=== PATIENT | female | born 1950 | race Caucasian/White ===

== ENCOUNTER 2023-02-21 12:43 | Outpatient (OUT) | payer MEDICARE, SELFPAY ==
[2023-02-21 14:38] LABS: Estimated Average Glucose 157 mg/dL; Glycohemoglobin A1C 7.1 % (4.5-6.2)
== END 2023-02-21 12:44 | disposition home or self-care (01) ==
PROVIDERS: PCP Internal Medicine; Visit Provider Internal Medicine
DX: E11.65 Type 2 diabetes mellitus with hyperglycemia (principal)
CPT/HCPCS: 36415; 83036

== ENCOUNTER 2023-06-25 07:02 | Outpatient (OUT) | payer MEDICARE, SELFPAY ==
[2023-06-25 08:32] LABS: Estimated Average Glucose 166 mg/dL; Glycohemoglobin A1C 7.4 % (4.5-6.2)
== END 2023-06-25 07:03 | disposition home or self-care (01) ==
LOC: LAB 07:04
PROVIDERS: PCP Internal Medicine; Visit Provider Internal Medicine
DX: E11.65 Type 2 diabetes mellitus with hyperglycemia (principal)
CPT/HCPCS: 36415; 83036

== ENCOUNTER 2023-08-04 07:14 | Outpatient (OUT) | payer MEDICARE, SELFPAY ==
--- NOTE | 2023-08-04 07:19 | MM_ITS ---
Patient Name: MARCUS GUSTAFSON MR#: [id number] : 1950 Exam Date: 08/04/2023 Ordering Doctor: DR Abraham Fong D.O. RADIOLOGY REPORT PROCEDURE: MM TOMOSYNTHESIS SCREENING BI COMPARISON: MG MAMM SCREEN 3D ADAN CAD, 07/18/2021. MG MAMM SCREEN 3D ADAN CAD, 07/26/2022. INDICATIONS: screening Calculator Name NCI Breast Cancer Risk Assessment Tool 5 Year Breast Cancer Risk 1.50% Lifetime Breast Cancer Risk 3.90% Personal Breast Cancer No Personal Ovarian Cancer No Treatments None Family Cancers Father with colon cancer at age 76. LOCATION: [facility] BREAST COMPOSITION: Scattered areas fibroglandular density. FINDINGS: DIAGNOSTIC CATEGORY 2--BENIGN FINDING: RIGHT BREAST: No significant suspicious finding. Scattered benign-appearing calcifications are present. No significant change has occurred. LEFT BREAST: No significant suspicious finding. Scattered benign-appearing calcifications are present. No significant change has occurred. RECOMMENDATIONS: ROUTINE MAMMOGRAM AND CLINICAL EVALUATION IN 12 MONTHS. PLEASE NOTE: A NORMAL MAMMOGRAM DOES NOT EXCLUDE THE POSSIBILITY OF BREAST CANCER. A CLINICALLY SUSPICIOUS PALPABLE LUMP SHOULD BE BIOPSIED. Dictated by: Edmundo Duque M.D. on 08/04/2023 at 14:00 Approved by: Edmundo Duque M.D. on 08/04/2023 at 14:03
== END 2023-08-04 07:15 | disposition home or self-care (01) ==
LOC: MAMMO 07:14
PROVIDERS: PCP Internal Medicine; Visit Provider Internal Medicine
DX: Z12.31 Encounter for screening mammogram for malignant neoplasm of breast (principal); Z80.0 Family history of malignant neoplasm of digestive organs
CPT/HCPCS: 77063; 77067

== ENCOUNTER 2023-09-10 06:52 | Outpatient (OUT) | payer MEDICARE, SELFPAY ==
--- OUTSIDE RECORDS SUMMARY | 2023-09-09 10:32 | XMS_ITS | CCD ---
Author Name Unknown Address [address] [facility] [facility] [address] [place] [address] Organization [facility] Care Team Providers Care Formula Weigher Name Role Phone AJIT, DR CARVALHO Admitting Unavailable BALL, DR CARVALHO Attending Unavailable BALL, DR CARVALHO Primary Care Unavailable BALL, DR CARVALHO Consulting Unavailable BALL, DR CARVALHO Admitting Unavailable BALL, DR CARVALHO Attending Unavailable BALL, DR CARVALHO Primary Care Unavailable BALL, DR CARVALHO Consulting Unavailable BALL, DR CARVALHO Admitting Unavailable BALL, DR CARVALHO Attending Unavailable BALL, DR CARVALHO Primary Care Unavailable BALL, DR CARVALHO Consulting Unavailable [place], DR Wyatt Consulting Unavailable BALL, DR CARVALHO Admitting Unavailable BALL, DR CARVALHO Attending Unavailable BALL, DR CARVALHO Primary Care Unavailable BALL, DR CARVALHO Consulting Unavailable BALL, DR CARVALHO Admitting Unavailable BALL, DR CARVALHO Attending Unavailable BALL, DR CARVALHO Primary Care Unavailable BALL, DR CARVALHO Consulting Unavailable Zieber, DR Wyatt Consulting Unavailable LUCA, AMADEO Consulting Unavailable Ball, Abraham Unavailable Allergies Allergy Classification Reported Allergen(s) Allergy Type Date of Onset Reaction(s) Facility (1 source) egg extract Drug Allergy 4 [facility] Repository (13 sources) predniSONE Drug Allergy Unknown [facility] Other (6 sources) Simvastatin Drug Allergy Comment:myalgia [facility] [facility] [place] Other Medications Current Medications Medication Drug Class(es) Dates Sig (Normalized) Sig (Original) amLODIPine 5 mg oral tablet (13 sources) Dihydropyridine Calcium Channel Apryl amLODIPine Besylate 5 MG TAKE 1 TABLET DAILY Active benazepril hydrochloride 10 mg oral tablet (13 sources) Angiotensin Converting Enzyme Inhibitor Benazepril HCl 10 MG TAKE 1 TABLET DAILY; TAKE WITH EXISTING 20MG DOSE Active Benazepril HCl 2 0 MG TAKE 1 TABLET DAILY Active hydroCHLOROthiazide 25 mg oral tablet (13 sources) Thiazide Diuretic hydroCHLOROthi azide 25 MG TAKE 1 TABLET DAILY Active lovastatin 40 mg oral tablet (13 sources) HMG-CoA Reductase Inhibitor Lovastatin 40 MG LESLEY E 1 TABLET DAILY IN THE EVENING Active metFORMIN hydrochloride 1000 mg / SITagliptin 50 mg oral tablet (13 sources) Biguanide, Dipeptidyl Peptidase 4 Inhibitor Janumet 50-1000 MG T TIFFANY 1 TABLET TWICE A DAY Active nabumetone 1000 mg oral tablet (13 sources) Nonsteroidal Anti-inflammatory Drug Start : 10-07 take 1 tablet by mouth twice daily Nabumetone 1000 MG 1 tablet Orally Twice a day Oct, Active microencapsulated potassium chloride 20 meq extended release oral tablet (8 sources) Klor-Con M20 20 MEQ TAKE 1 TABLET DAILY for 90 Active triamcinolone acetonide 5 mg/ml topical cream (8 sources) Corticosteroid Start : 02-21 Triamcinolone Acetonide 0.5 % 1 application Externally Two times a Week for 7 days Jan, Active Start: 02-21-2023 Triamcinolone Acetonide 0.5 % 1 application Externally Two times a Week for 7 days Jan, Active Completed/Discontinued Medications Medication Drug Class(es) Dates Sig (Normalized) Sig (Original) azithromycin 250 mg oral tablet (4 sources) Macrolide Antimicrobial Start: 06-16-2023 Azithromycin 250 MG as directed Orally daily for 5 days Jun, Not-Taking/PRN Suprep Bowel Prep . (13 sources) Start: 05-13-2014 Suprep Bowel Prep . as directed Orally as directed for 1 dose(s) May, Not-Taking/PRN Start: 05-13-2014 Suprep Bowel P rep . as directed Orally as directed for 1 dose(s) May, Not-Taking Start: 05-13-2014 Suprep Bowel P rep . as directed Orally as directed for 1 dose(s) May, Active Problems Active Problems Problem Classification Problem Date Documented Date Episodic/Chronic Acute bronchitis (2 sources) Acute bronchitis; Translations: [Acute bronchitis, unspecified] Onset: 07-30-2013 Episodic Asthma (20 sources) Mild intermittent asthma; Translations: [Mild intermittent asthma, uncomplicated] Onset: 09-01-1959 Chronic Diabetes mellitus with complications (20 sources) Type 2 diabetes mellitus with hyperglycemia; Translations: [Hyperglycemia due to type 2 diabetes mellitus] Onset: 09-01-1959 Chronic Diabetes mellitus without complication (1 source) Type 2 diabetes mellitus without complication; Translations: [Diabetes mellitus without mention of complication, type II or unspecified type, not stated as uncontrolled] Chronic Disorders of lipid metabolism (19 sources) Familial hypercholesterolemia; Translations: [Hypercholesterolemia ] Onset: 05-26-2015 Chronic Essential hypertension (20 sources) Essential (primary) hypertension; Translations: [Essential hypertension] Onset: 08-08-2022 Chronic Fluid and electrolyte disorders (13 sources) Hypokalemia; Translations: [Hypokalemia] Episodic Genitourinary symptoms and ill-defined conditions (1 source) Dysuria; Translations: [Dysuria] Episodic Gout and other crystal arthropathies (2 sources) Primary gout; Translations: [Acute gouty arthropathy] Onset: 12-12-2017 Chronic Heart valve disorders (18 sources) Aortic valve sclerosis; Translations: [Other nonrheumatic aortic valve disorders] Chronic Immunizations and screening for infectious disease (1 source) Vaccination given; Translations: [Encounter for immunization] Episodic Menopausal disorders (1 source) Primary ovarian failure; Translations: [Other primary ovarian failure] Onset: 06-04-2018 Chronic Nonspecific chest pain (14 sources) Chest pain; Translations: [Chest pain, unspecified] Episodic Osteoarthritis (1 source) Bilateral primary osteoarthritis of hip; Translations: [BILATERAL PRIM OSTEOARTHRITIS HIP] Onset: 10-09-2022 Chronic Other aftercare (2 sources) Other extermination inspector (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; Translations: [OTH [facility] CURRENT DRUG THERAPY] Onset: 08-08-2022 Episodic Other aftercare (1 source) Long-term current use of drug therapy; Translations: [Other extermination inspector (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] Episodic Other connective tissue disease (8 sources) History of total knee arthroplasty; Translations: [Presence of left artificial knee joint] Chronic Other connective tissue disease (11 sources) Pain in left lower limb; Translations: [Pain in left leg] Episodic Other connective tissue disease (11 sources) Quadriceps weakness; Translations: [Muscle weakness (generalized)] Episodic Other connective tissue disease (1 source) Pain in left leg Episodic Other connective tissue disease (1 source) Muscle weakness (generalized) Episodic Other diseases of veins and lymphatics (1 source) Peripheral venous insufficiency; Translations: [Unspecified venous (peripheral) insufficiency] Episodic Other ear and sense organ disorders (6 sources) Sensorineural hearing loss, bilateral; Translations: [Sensorineural hearing loss, bilateral] Chronic Other ear and sense organ disorders (1 source) Sensorineural hearing loss, bilateral Chronic Other injuries and conditions due to external causes (1 source) History of fall; Translations: [History of falling] Episodic Other non-traumatic joint disorders (1 source) Lower limb joint arthritis; Translations: [Osteoarthrosis, unspecified whether generalized or localized, lower leg] Onset: 09-18-2016 Chronic Other non-traumatic joint disorders (2 sources) Pain in unspecified hip; Translations: [PAIN IN UNSPECIFIED HIP] Onset: 10-09-2022 Episodic Other nutritional; endocrine; and metabolic disorders (11 sources) Morbid obesity; Translations: [Morbid (severe) obesity due to excess calories] Chronic Other nutritional; endocrine; and metabolic disorders (1 source) Obesity; Translations: [Obesity, unspecified] Chronic Other screening for suspected conditions (not mental disorders or infectious disease) (6 sources) Encounter for screening mammogram for malignant neoplasm of breast; Translations: [Encounter for screening for diseases of the blood and blood-forming organs and certain disorders involving the immune mechanism] Onset: 05-26-2015 Episodic Other upper respiratory disease (1 source) Seasonal allergic rhinitis; Translations: [Other seasonal allergic rhinitis] Chronic Other upper respiratory disease (1 source) Allergic rhinitis; Translations: [Allergic rhinitis, unspecified] Chronic Other upper respiratory infections (2 sources) Acute maxillary sinusitis; Translations: [Acute maxillary sinusitis, unspecified] Onset: 08-05-2016 Episodic Residual codes; unclassified (14 sources) Asymptomatic menopausal state; Translations: [Menopause] Onset: 07-31-2022 Episodic Residual codes; unclassified (1 source) Family history of malignant neoplasm of digestive organs; Translations: [FAM HX MALIG NEOPLASM DIGESTIV ORGN] Onset: 07-31-2022 Episodic Residual codes; unclassified (12 sources) Family history of cancer of colon; Translations: [Family history of colon cancer] Episodic Residual codes; unclassified (1 source) Postmenopausal state; Translations: [Asymptomatic menopausal state] Episodic Spondylosis; intervertebral disc disorders; other back problems (16 sources) Spondylosis without myelopathy or radiculopathy, lumbar region; Translations: [Lumbar spondylosis] Onset: 10-09-2022 Chronic Spondylosis; intervertebral disc disorders; other back problems (18 sources) Lumbago with sciatica, left side; Translations: [Acute back pain with sciatica] Onset: 10-07-2022 Episodic Unclassified (1 source) Long-term current use of drug therapy; Translations: [Long-term (current) use of other medications] Onset: 08-11-2016 Past or Other Problems Problem Classification Problem Date Documented Date Episodic/Chronic Allergic reactions (2 sources) Allergic contact dermatitis due to plants, except food; Translations: [Contact dermatitis] Onset: 02-09-2015 Episodic Bacterial infection; unspecified site (1 source) Bacterial infectious disease; Translations: [Bacterial infection, unspecified, in conditions classified elsewhere and of unspecified site] Onset: 08-05-2016 Episodic Malaise and fatigue (1 source) Malaise and fatigue; Translations: [Other malaise and fatigue] Onset: 06-23-2017 Episodic Other connective tissue disease (1 source) Musculoskeletal symptom; Translations: [Other musculoskeletal symptoms referable to limbs] Onset: 09-18-2016 Episodic Other nutritional; endocrine; and metabolic disorders (3 sources) Body mass index 25-29 - overweight; Translations: [Body mass index 28.0-28.9, adult] Onset: 09-19-2015 Episodic Other nutritional; endocrine; and metabolic disorders (1 source) Overweight; Translations: [Overweight] Onset: 02-20-2022 Resolved: 07-27-2022 Episodic Unclassified (1 source) Identification of preoperative respiratory status; Translations: [Encounter for preprocedural respiratory examination] Results Test Name Value Interpretation Reference Range Facility XR LSPINE 2_3 VIEWSon 2022 XR LSPINE 2_3 VIEWS EXAM: XR LSPINE 2_3 VIEWS HISTORY: Lumbago with sciatica COMPARISON: None. TECHNIQUE: Frontal, lateral, spot radiographs of the lumbar spine. FINDINGS: Anatomy: 5 ous-tnp-lzripwz lumbar segments. Bones: No acute fracture or dislocation. No suspicious lytic or sclerotic lesion. Severe L3-S1 facet hypertrophy. Mild L5-S1 disc height loss. Additional mild L3-L4 disc height loss. Mild multilevel endplate osteophytosis. No spondylolysis. Other: Round 1.3 cm calcification overlying the left upper quadrant/retroperit oneum, which could be an aneurysm versus calcified diverticulum. Extensive atherosclerosis. IMPRESSION: Multilevel lumbar spondylosis without acute findings Electronically authenticated by: AMADEO SEGOVIA Date: 2022-10-08 07:09 Normal [facility] XR HIP LT 2 3V W PELVISon XR HIP LT 2 3V W PELVIS [email or web address] [facility] DVTel Other XR lumbar spine 2-3V*on XR lumbar spine 2-3V* [employer] [place] Other CBC AUTO DIFFon 08-02-2022 BASO # 0.1 103/ul Normal 0.0-0.1 [facility] Comment on above: Performed By: #### C BC ####[facility] [address] [place], [place] [address]DrRhona Logan Basophils/100 WBC (Bld) 0.7 % Normal 0.2-2.0 [facility] Comment on above: Performed By: #### C BC ####[facility] [address] [place], [place] [address]DrRhona Logan EO # 0.2 103/ul Normal 0.0-0.7 [facility] Comment on above: Performed By: #### C BC ####[facility] [address] [place], [place] [address]DrRhona Logan Eosinophils/100 WBC (Bld) 2.4 % Normal 0.9-7.0 [facility] Comment on above: Performed By: #### C BC ####[facility] [address] [place], [place] [address]DrRhona Logan Erythrocyte distribution width (RBC) [Ratio] 12.0 % Normal 11.0-15.0 [facility] Comment on above: Performed By: #### C BC ####[facility] [address] [place], [place] [address]DrRhona Logan Hematocrit (Bld) [Volume fraction] 41.5 % Normal 36.0-48.0 [facility] Comment on above: Performed By: #### C BC ####[facility] [address] [place], [place] [address]DrRhona Logan Hemoglobin (Bld) [Mass/Vol] 14.2 g/dL Normal 12.0-16.0 [facility] Comment on above: Performed By: #### C BC ####[facility] [address] [place] [address]Dr. Meshamayur Logan IG # 0.03 10e3/ul Normal 0.00-0.03 [facility] Comment on above: Performed By: #### C BC ####[facility] [address] [place] [address]Dr. Deion Logan IG % 0.4 % Normal 0.0-0.5 [facility] Comment on above: Performed By: #### C BC ####[facility] [address] [place], [place] [address]DrRhona Logan LYMPH # 2.5 103/ul Normal 1.2-3.8 [facility] Comment on above: Performed By: #### C BC ####[facility] [address] [place], [place] [address]Dr. Deion Logan Lymphocytes/100 WBC (Bld) 31.4 % Normal 20.5-60.0 [facility] Comment on above: Performed By: #### C BC ####[facility] [address] [place], [place] [address]Dr. Meshamayur Logan MANUAL DIFF REQ NO Normal [facility] Comment on above: Performed By: #### C BC ####[facility] [address] [place], [place] [address]Dr. Deion Logan MCH (RBC) [Entitic mass] 30.5 pg Normal 26.7-34.0 [facility] Comment on above: Performed By: #### C BC ####[facility] [address] [place], [place] [address]Dr. Deion Logan MCHC (RBC) [Mass/Vol] 34.2 g/dL Normal 29.9-35.2 [facility] Comment on above: Performed By: #### C BC ####[facility] [address] [place], [place] [address]Dr. Deion Logan MCV (RBC) [Entitic vol] 89.1 fL Normal 81.0-99.0 [facility] Comment on above: Performed By: #### C BC ####[facility] [address] [place] [address]DrRhona Deion Desmond MONO # 0.6 103/ul Normal 0.3-0.8 [facility] Comment on above: Performed By: #### C BC ####[facility] [address] [place] [address]DrRhona Logan Monocytes/100 WBC (Bld) 7.2 % Normal 1.7-12.0 [facility] Comment on above: Performed By: #### C BC ####[facility] [address] [place], [place] [address]DrRhona Logan NEUT # 4.7 103/ul Normal 1.4-6.5 [facility] Comment on above: Performed By: #### C BC ####[facility] [address] [place], [place] [address]DrRhona Logan Neutrophils/100 WBC (Bld) 57.9 % Normal 43.0-75.0 [facility] Comment on above: Performed By: #### C BC ####[facility] [address] [place], [place] [address]DrRhona Logan Platelet mean volume (Bld) [Entitic vol] 9.8 fL Normal 9.5-13.5 [facility] Comment on above: Performed By: #### C BC ####[facility] [address] [place], [place] [address]Dr. Deion Logan PLT 258 103/ul Normal 150-450 [facility] Comment on above: Performed By: #### C BC ####[facility] [address] [place], [place] [address]DrRhona Logan RBC 4.66 106/ul Normal 4.20-5.40 [facility] Comment on above: Performed By: #### C BC ####[facility] [address] [place], [place] [address]DrRhona Logan WBC 8.1 103/ul Normal 4.0-11.0 [facility] Comment on above: Performed By: #### C BC ####[facility] [address] [place] [address]Dr. Deion Logan GLYCOHEMOGLOBIN A1Con 2021 ADA RECOMMENDATION SEE BELOW Normal [facility] Comment on above: Result Comment: ADA RECOMMENDED LIMIT 4.0 - 6.0 ADA THERAPEUTIC TARGET < 7.0 ACTION SUGGESTED > 7.0 Performed By: #### A 1C ####[facility] [address] [place] [address]Dr. Deion Logan Glucose [Mass/Vol] 163 mg/dL Normal [facility] Comment on above: Performed By: #### A 1C ####[facility] [address] [place] [address]Dr. Deion Logan HbA1c (Bld) [Mass fraction] 7.3 % Critically high 4.5-6.2 [facility] Comment on above: Performed By: #### A 1C ####[facility] [address] [place] [address]Dr. Deion Logan LIPID PROFILEon 08-02-2022 CHOL-HDL RATIO NORM SEE BELOW Normal [facility] Comment on above: Result Comment: 3.3 - 4.4 LOW RISK 4.4 - 7.1 AVERAGE RISK 7.1 - 11.0 MODERATE RISK >11.0 HIGH RISK Performed By: #### A LT, LIPID, BMP #### [facility] [address] [place] [address] [address] Deion Logan Cholesterol [Mass/Vol] 174 mg/dL Normal <=200 [facility] Comment on above: Performed By: #### A LT, LIPID, BMP #### [facility] [address] [address] [address] Deion Logan Cholesterol in HDL [Mass/Vol] 60 mg/dL Normal 40-60 [facility] Comment on above: Performed By: #### A LT, LIPID, BMP #### [facility] [address] [address] [address] Deion Logan Cholesterol in LDL [Mass/Vol] 93.4 mg/dL Normal [facility] Comment on above: Performed By: #### A LT, LIPID, BMP #### [facility] [address] [address] [address] Deion Logan Cholesterol.total/Ch olesterol in HDL [Mass ratio] 2.9 {ratio} Normal [facility] Comment on above: Performed By: #### A LT, LIPID, BMP #### [facility] [address] [place] [address] [address] Deion Logan HDL NORMAL > or = 60 mg/dl - LOW CARDIOVASCULAR RISK <40 mg/dl - HIGH CARDIOVASCULAR RISK Normal [facility] Comment on above: Performed By: #### A LT, LIPID, BMP #### [facility] [address] [place] [address] Dr. Deion Logan LDL CALC NORMAL SEE BELOW Normal [facility] Comment on above: Result Comment: <100 mg/dl OPTIMAL 100 - 129 mg/dl NEAR OR ABOVE OPTIMAL 130 - 159 mg/dl BORDERLINE HIGH 160 - 189 mg/dl HIGH >190 mg/dl VERY HIGH Performed By: #### A LT, LIPID, BMP #### [facility] [address] [place] [address] Dr. Deion Logan Triglyceride [Mass/Vol] 103 mg/dL Normal <=150 [facility] Comment on above: Performed By: #### A LT, LIPID, BMP #### [facility] [address] [place] [address] Dr. Deion Logan VLDL CALC 20.6 mg/dL Normal [facility] Comment on above: Performed By: #### A LT, LIPID, BMP #### [facility] [address] [place] [address] Dr. Deion Logan MICROALBUMIN, RAND URon 12-0 mALB 9.7 mg/L Normal <=30.0 [facility] Comment on above: Performed By: #### M ALBR #### [facility] [address] [place] [address] Dr. Deion Logan PROF CHEM 8 (BAS METB)on Anion gap [Moles/Vol] 12.1 mmol/L Normal [facility] Comment on above: Performed By: #### A LT, LIPID, BMP #### [facility] [address] [address] [address] Deion Logan Calcium [Mass/Vol] 9.1 mg/dL Normal 8.5-10.1 [facility] Comment on above: Performed By: #### A LT, LIPID, BMP #### [facility] [address] [address] [address] Deion Logan Chloride [Moles/Vol] 101 mmol/L Normal 98-107 [facility] Comment on above: Performed By: #### A LT, LIPID, BMP #### [facility] [address] [address] [address] Deion Logan CO2 [Moles/Vol] 32.5 mmol/L Critically high 21.0-32.0 [facility] Comment on above: Performed By: #### A LT, LIPID, BMP #### [facility] [address] [place] [address] Dr. Deion Logan Creatinine [Mass/Vol] 0.54 mg/dL Critically low 0.55-1.02 [facility] Comment on above: Performed By: #### A LT, LIPID, BMP #### [facility] [address] [place] [address] Dr. Deion Logan EGFR-AF SWAZI >60 Normal >=60 [facility] Comment on above: Performed By: #### A LT, LIPID, BMP #### [facility] [address] [place] [address] Dr. Deion Logan EGFR-NON AF SWAZI >60 Normal >=60 [facility] Comment on above: Performed By: #### A LT, LIPID, BMP #### [facility] [address] [address] [address] Deion Logan Glucose [Mass/Vol] 185 mg/dL Critically high 74-106 [facility] Comment on above: Performed By: #### A LT, LIPID, BMP #### [facility] [address] [place] [address] Dr. Deion Logan Potassium [Moles/Vol] 3.6 mmol/L Normal 3.5-5.1 [facility] Comment on above: Performed By: #### A LT, LIPID, BMP #### [facility] [address] [address] [address] Deion Logan Sodium [Moles/Vol] 142 mmol/L Normal 136-145 [facility] Comment on above: Performed By: #### A LT, LIPID, BMP #### [facility] [address] [place] [address] Dr. Deion Logan Urea nitrogen [Mass/Vol] 10.0 mg/dL Normal 7.0-18.0 [facility] Comment on above: Performed By: #### A LT, LIPID, BMP #### [facility] [address] [place] [address] Dr. Deion Logan Urea nitrogen/Creatinine [Mass ratio] 18.5 mg/mg Normal [facility] Comment on above: Performed By: #### A LT, LIPID, BMP #### [facility] [address] [place] [address] Dr. Deion Logan [facility] 08-02-2022 ALT [Catalytic activity/Vol] 28 U/L Normal 14-59 [facility] Comment on above: Performed By: #### A LT, LIPID, BMP #### [facility] [address] [place] [address] Dr. Deion Logan MG MAMM SCREEN 3D ADAN CADon 07-26-2022 MG MAMM SCREEN 3D ADAN CAD Patient: MARCUS GUSTAFSON Exam Date: 07/26/2022 : 1950 Gender:F Ordering : DR ABRAHAM MONTIEL D.O. Admission #: [id number] Family : Order #: [id number] CLICK HERE TO VIEW EXAM RADIOLOGY REPORT PROCEDURE: MAMMOGRAM SCREENING 3D BILATERAL CAD COMPARISON: MG MAMM SCREEN 3D ADAN CAD, 07/18/2021. MG MAMM SCREEN ADAN W CAD, 07/14/2020. INDICATIONS: Screening mammography Calculator Name NCI Breast Cancer Risk Assessment Tool 5 Year Breast Cancer Risk 1.50% Lifetime Breast Cancer Risk 4.10% Personal Breast Cancer No Personal Ovarian Cancer No Treatments None Family Cancers Father with colon cancer at age 76. LOCATION: [facility] BREAST COMPOSITION: Scattered areas fibroglandular density. FINDINGS: DIAGNOSTIC CATEGORY 2--BENIGN FINDING: RIGHT BREAST: No significant suspicious finding. Scattered benign-appearing calcifications are present. No significant change has occurred. LEFT BREAST: No significant suspicious finding. Scattered benign-appearing calcifications are present. No significant change has occurred. RECOMMENDATIONS: ROUTINE MAMMOGRAM AND CLINICAL EVALUATION IN 12 MONTHS. PLEASE NOTE: A NORMAL MAMMOGRAM DOES NOT EXCLUDE THE POSSIBILITY OF BREAST CANCER. A CLINICALLY SUSPICIOUS PALPABLE LUMP SHOULD BE BIOPSIED. Dictated by: Edmundo Duque M.D. on 07/29/2022 at 14:36 Approved by: Edmundo Duque M.D. on 07/29/2022 at 14:43 Normal [facility] XR DEXA BONE DENSITYon 07-26 XR DEXA BONE DENSITY EXAMINATION: XR DEXA BONE DENSITY, 07/26/2022 8:00 AM EST HISTORY: Menopause present COMPARISON: DEXA bone densitometry 07/14/2020 TECHNIQUE: Dual-energy X-ray absorptiometry (DEXA) bone density study performed for the axial skeleton. FINDINGS: SPINE ANALYSIS: Average bone mineral density is 1.227 g/cm2. T-score (standard deviation relative to young adult mean): 0.4 . +1.8% change since prior study. HIP ANALYSIS: Lowest bone mineral density is within the right femoral neck, 0.920 g/cm2. T-score (standard deviation relative to young adult mean): -0.8 . +0.6% change since prior study. IMPRESSION: [employer] Classification: Normal - Low Fracture Risk Electronically authenticated by: EDMUNDO DUQUE Date: 2022-07-26 08:48 Normal [facility] GLYCOHEMOGLOBIN A1Con 2021 ADA RECOMMENDATION SEE BELOW Normal [facility] Comment on above: Result Comment: ADA RECOMMENDED LIMIT 4.0 - 6.0 ADA THERAPEUTIC TARGET < 7.0 ACTION SUGGESTED > 7.0 Performed By: #### A 1C #### [facility] [address] [address] [address] Deion Logan Glucose [Mass/Vol] 157 mg/dL Normal [facility] Comment on above: Performed By: #### A 1C #### [facility] [address] [address] [address] Deion Logan HbA1c (Bld) [Mass fraction] 7.1 % Critically high 4.5-6.2 [facility] Comment on above: Performed By: #### A 1C #### [facility] [address] [address] [address] Deion Logan GLYCOHEMOGLOBIN A1Con 2021 ADA RECOMMENDATION ADA THERAPEUTIC TARGET 6.0 - 7.0 ACTION SUGGESTED > 7.0 Normal [facility] Comment on above: Performed By: #### A 1C #### [facility] [address] [address] [address] Deion Logan Glucose [Mass/Vol] 160 mg/dL Normal [facility] Comment on above: Performed By: #### A 1C #### [facility] [address] [address] [address] Deion Logan HbA1c (Bld) [Mass fraction] 7.2 % Critically high <=6.0 [facility] Comment on above: Performed By: #### A 1C #### [facility] [address] [address] [address] Deion Logan Vital Signs Date Time Vital Sign Value Performing Clinician Facility 08-26-2023 09:30-0500 Body height 161.29 cm Abraham Ajit Other [facility] 08-26-2023 09:30-0500 Body mass index (BMI) [Ratio] 25.98 kg/m2 Abraham Ajit Other [facility] Other 08-26-2023 09:30-0500 Body weight 67.59 kg Abraham Montiel Other [facility] Other 08-26-2023 09:30-0500 Diastolic blood pressure 77 mm[Hg] Abraham Ajit Other [facility] Other 08-26-2023 09:30-0500 Respiratory rate 12 /min Abraham Ajit Other [facility] Other 08-26-2023 09:30-0500 Systolic blood pressure 190 mm[Hg] Abraham Ball Other [facility] Other 05-26-2023 10:00-0400 Body height 161.29 cm Abraham Ball Other [facility] Other 05-26-2023 10:00-0400 Body mass index (BMI) [Ratio] 25.91 kg/m2 Abraham Ball Other [facility] Other 05-26-2023 10:00-0400 Body weight 67.4 kg Abraham Ball Other [facility] Other 05-26-2023 10:00-0400 Diastolic blood pressure 77 mm[Hg] Abraham Ball Other [facility] Other 05-26-2023 10:00-0400 Respiratory rate 12 /min Abraham Ball Other [facility] Other 05-26-2023 10:00-0400 Systolic blood pressure 185 mm[Hg] Abraham Ball Other [facility] Other 05-19-2023 13:45-0400 Body height 161.29 cm Abraham Ball Other [facility] Other 05-19-2023 13:45-0400 Body mass index (BMI) [Ratio] 26.05 kg/m2 Abraham Ball Other [facility] Other 05-19-2023 13:45-0400 Body weight 67.77 kg Abraham Ball Other [facility] Other 05-19-2023 13:45-0400 Diastolic blood pressure 88 mm[Hg] Abraham Ball Other [facility] Other 05-19-2023 13:45-0400 Respiratory rate 12 /min Abraham Ball Other [facility] Other 05-19-2023 13:45-0400 Systolic blood pressure 138 mm[Hg] Abraham Ball Other [facility] Other 02-21-2023 11:30-0400 Body height 161.29 cm Abraham Ball Other [facility] Other 02-21-2023 11:30-0400 Body mass index (BMI) [Ratio] 25.66 kg/m2 Abraham Ball Other [facility] Other 02-21-2023 11:30-0400 Body weight 66.77 kg Abraham Ball Other [facility] Other 02-21-2023 11:30-0400 Diastolic blood pressure 83 mm[Hg] Abraham Ball Other [facility] Other 02-21-2023 11:30-0400 Respiratory rate 12 /min Abraham Ball Other [facility] Other 02-21-2023 11:30-0400 Systolic blood pressure 169 mm[Hg] Abraham Ball Other [facility] Other 10-24-2022 08:30-0500 Body height 161.29 cm Abraham Ball Other [facility] Other 10-24-2022 08:30-0500 Body mass index (BMI) [Ratio] 25.7 kg/m2 Abraham Ball Other [facility] Other 10-24-2022 08:30-0500 Body weight 66.86 kg Abraham Ball Other [facility] Other 10-24-2022 08:30-0500 Diastolic blood pressure 70 mm[Hg] Abraham Ball Other [facility] Other 10-24-2022 08:30-0500 Respiratory rate 12 /min Abraham Ball Other [facility] Other 10-24-2022 08:30-0500 Systolic blood pressure 146 mm[Hg] Abraham Ball Other [facility] Other 10-07-2022 14:30-0500 Body height 161.29 cm Abraham Ball Other [facility] Other 10-07-2022 14:30-0500 Body mass index (BMI) [Ratio] 25.52 kg/m2 Abraham Ball Other [facility] Other 10-07-2022 14:30-0500 Body weight 66.41 kg Abraham Ball Other [facility] Other 10-07-2022 14:30-0500 Diastolic blood pressure 82 mm[Hg] Abraham Ball Other [facility] Other 10-07-2022 14:30-0500 Respiratory rate 12 /min Abraham Ball Other [facility] Other 10-07-2022 14:30-0500 Systolic blood pressure 142 mm[Hg] Abraham Ball Other [facility] Other Encounters Encounter Date Encounter Type Care Provider Facility Start: 08-26-2023 End: 08-26-2023 ambulatory Abraham Montiel Other [facility] Other Start: 08-26-2023 Patient encounter procedure Abraham Ball [facility] Start: 08-05-2023 End: 08-05-2023 ambulatory Abraham Ball Other [facility] Other Start: 08-05-2023 Telephone encounter Abraham Ball [facility] Start: 07-09-2023 End: 07-09-2023 ambulatory Abraham Ball Other [facility] Other Start: 07-09-2023 Telephone encounter Abraham Ball [facility] Start: 06-16-2023 End: 06-16-2023 ambulatory Abraham Ball Other [facility] Other Start: 06-16-2023 Office outpatient vi sit 15 minutes Abraham Ball [facility] Start: 05-26-2023 End: 05-26-2023 ambulatory Abraham Ball Other [facility] Other Start: 05-26-2023 Office outpatient vi sit 25 minutes Abraham Ball [facility] Start: 05-19-2023 End: 05-19-2023 ambulatory Abraham Ball Other [facility] Other Start: 05-19-2023 Office outpatient vi sit 15 minutes Abraham Ball [facility] Start: 02-25-2023 End: 02-25-2023 ambulatory Abraham Ball Other [facility] Other Start: 02-25-2023 Telephone encounter Abraham Ball [facility] Start: 02-21-2023 End: 02-21-2023 ambulatory Abraham Ball Other [facility] Other Start: 02-21-2023 Office outpatient vi sit 25 minutes Abraham Ball [facility] Start: 10-24-2022 End: 10-24-2022 ambulatory Abraham Ball Other [facility] Other Start: 10-24-2022 Office outpatient vi sit 25 minutes Abraham Ball [facility] Start: 10-11-2022 End: 10-11-2022 ambulatory Abraham Montiel Other [facility] Other Start: 10-11-2022 Telephone encounter [facility] Start: 10-07-2022 End: 10-08-[address] ABRAHAM MONTIEL Facility:[facility] Start: 10-07-2022 Office outpatient vi sit 15 minutes Abraham Montiel [facility] Start: 09-05-2022 End: 09-05-2022 ambulatory Abraham Montiel Other [facility] Other Start: 09-05-2022 Telephone encounter Abraham QUINTERO [facility] Start: 08-02-2022 End: 08-03-[address] ABRAHAM MONTIEL Facility:[facility] Start: 07-26-2022 End: 07-27-[address] ABRAHAM MONTIEL Facility:[facility] Start: 06-20-2022 Adult health examination Holden fischer Ajit Other [facility] Other Start: 06-20-2022 Gynecological examin ation normal Abraham Montiel Other [facility] Other Start: 03-06-2022 End: 03-07-[address] ABRAHAM MONTIEL Facility:[facility] Start: 11-06-2021 End: 11-07-[address] ABRAHAM MONTIEL Facility:[facility] Procedures Date Procedure Procedure Detail Performing Clinician Start: 06-04-2018 Screening for osteoporosis Abraham Montiel Other Start: 04-22-2014 Screening mammography B enjamin Ajit Other Depression screening [facility] Other Preoperative cardiov ascular examination Abraham Montiel Other End: 07-27-2022 Screening for malignant neoplasm of breast Abraham Montiel Other Screening for malign ant neoplasm of colon Abraham Montiel Other Immunizations Immunization Date Immunization Notes Care Provider Fa sergio 05-26-2023 influenza, high dose seasonal, preservative-free Abraham Montiel Other [facility] Other 06-20-2022 influenza virus vaccine, split virus (incl. purified surface antigen) Abraham Montiel Other [facility] Other 06-18-2021 influenza virus vaccine, split virus (incl. purified surface antigen) Abraham Ajit Other [facility] Other 06-12-2020 influenza virus vaccine, split virus (incl. purified surface antigen) Abraham Montiel Other [facility] Other 02-18-2018 diphtheria, tetanus toxoids and acellular pertussis vaccine, unspecified formulation Abraham Ajit Other [facility] Other 06-23-2017 pneumococcal polysaccharide vaccine, 23 valent Abraham Ajit Other [facility] Other 06-19-2016 pneumococcal conjuga te vaccine, 13 valent Abraham Montiel Other [facility] Other 06-19-2016 pneumococcal Conjugate, unspecified formulation; Translations: [Need for prophylactic vaccination against Streptococcus pneumoniae (pneumococcus)] Abraham Ajit Other [facility] Other NEGATED: Highlighted row has not occurred!06-12-2020 influenza virus vaccine, split virus (incl. purified surface antigen) Abraham Ajit Other [facility] Other Payers Date Payer Category Payer Medicare [id number] 1958 Unknown [id number] 1950 Unknown [id number] [id number] [id number] 1950 Unknown [id number] [id number] [id number] 1950 Unknown [id number] 2.16.84 [id number] 1950 Unknown [id number] [id number] [id number] 1950 Unknown [id number] [id number] [id number] Social History Date Type Detail Facility Sex Assigned At [facility] Other Medical Equipment Procedure Code Equipment Code Equipment Original Text Equi pment Identifier Dates Freestyle lite test strips Clinical Notes 09-05-2022 to 08-26-2023 Note Date & Type Note Facility 08-26-2023 Evaluation note Encounter Date Diagnosis Assessment Notes Aug, Controlled type 2 diabetes mellitus with hyperglycemia, without long-term current use of insulin (ICD-10 - E11.65) This patient is following a comprehensive diabetic treatment plan. They are checking their feet daily for calluses and nonhealing ulcers. They are being seen for yearly dilated eye examinations. Goals: SBP less than 130, LDL less than 100, FBS less than 140, A1C less than 7%. They are checking their BS daily, will which are reviewed at the office visit. Continue regular routine monitoring of A1C,] Microalbumin, Dilated eye exam and Foot exam Aug, Medicare annual wellness visit, subsequent (ICD-10 - Z00.00) Personalized health advice was given to the beneficiary including a written plan for screenings discussed and provided. Advanced care planning reviewed and/or information given as requested. Additional counseling was provided here today in regards to, [ ]. The above visit was performed by [ ], under direct supervision of [ ]. Document reviewed and amended by provider signed below. Aug, Primary hypertension (ICD-10 - I10) This patient is instructed to consume a healthy, low-fat, low-salt diet. They are also encouraged to continue exercise to achieve/maintain a normal BMI. Patient is instructed on home BP measurements: - rest for 5 minutes w/o talking- positioned w/ feet on floor and arm supported- average best 2/3 readings w/ goal < 135/85 _update office in couple days Aug, Asthma, intermittent, uncomplicated (ICD-10 - J45.20) No ER visits for AE Continue present treatment UTD w/ vaccines Aug, Aortic valve sclerosis (ICD-10 - I35.8) No symptoms of CP, tachycardia or lightheadedness COntrol BP and monitor every 3 years Aug, Elevated cholesterol (ICD-10 - E78.00) Instructed on diet and exercise with continued statin therapy.Discussed the beneficial effects of lowering cholesterol in reducing the risk for cerebrovascular and cardiovascular disease. Aug, Lumbar spondylosis (ICD-10 - M47.816) The patient is instructed to avoid bending, twisting or lifting. They are to use intermittent heat and ice as needed. They may schedule a massage or gentle manipulation. They may safely use Tylenol as needed. Aug, High risk medication use (ICD-10 - Z79.899) Aug, Screening mammogram for breast cancer (ICD-10 - Z12.31) Instructed patient on monthly SBE and yearly mammograms. [facility] Other 11-08-2023 Evaluation note* Encounter Date Diagnosis Assessment Notes Treatment Notes Treatment Clinical Notes Jul, Controlled type 2 diabetes mellitus with hyperglycemia, without long-term current use of insulin (ICD-10 - E11.65) [facility] Other 10-16-2023 Evaluation note* Encounter Date Diagnosis Assessment Notes Treatment Notes Treatment Clinical Notes Jun, Acute bronchitis due to other specified organisms (ICD-10 - J20.8) Instructed to use Robitussin or Mucinex for cough, saline or Flonase NS for congestion, Tylenol for pain and fever. Jun, Controlled type 2 diabetes mellitus with hyperglycemia, without long-term current use of insulin (ICD-10 - E11.65) BS may increase during illness, no need to change treatment. Push fluids and rest [facility] Other 09-25-2023 Evaluation note* Encounter Date Diagnosis Assessment Notes Treatment Notes Treatment Clinical Notes May, Primary hypertension (ICD-10 - I10) This patient is instructed to consume a healthy, low-fat, low-salt diet. They are also encouraged to continue exercise to achieve/maintain a normal BMI. May, Controlled type 2 diabetes mellitus with hyperglycemia, without long-term current use of insulin (ICD-10 - E11.65) This patient is following a comprehensive diabetic treatment plan. They are checking their feet daily for calluses and nonhealing ulcers. They are being seen for yearly dilated eye examinations. Goals: SBP less than 130, LDL less than 100, FBS less than 140, A1C less than 7%. They are checking their BS daily, will which are reviewed at the office visit. Continue regular routine monitoring of A1C,] Microalbumin, Dilated eye exam and Foot exam May, Asthma, intermittent, uncomplicated (ICD-10 - J45.20) No ER/hosp visits for AE Seasonal exacerbations typical - instructed to use Flonase and Yvonne May, Aortic valve sclerosis (ICD-10 - I35.8) Asymptomatic w/o CP, tachycardia or syncope/lightheadedne ss. Must control BP, instructed to recheck at home w/ goal < 135/85 May, Elevated cholesterol (ICD-10 - E78.00) Instructed on diet and exercise with continued statin therapy.Discussed the beneficial effects of lowering cholesterol in reducing the risk for cerebrovascular and cardiovascular disease. May, Lumbar spondylosis (ICD-10 - M47.816) The patient is instructed to avoid bending, twisting or lifting. They are to use intermittent heat and ice as needed. They may schedule a massage or gentle manipulation. They may safely use Tylenol as needed. [facility] Other 09-18-2023 Evaluation note* Encounter Date Diagnosis Assessment Notes Treatment Notes Treatment Clinical Notes May, Sensorineural hearing loss (SNHL) of both ears (ICD-10 - H90.3) Fitted w/ hearing aids w/ excellent correction. Cone missing on left hearing aid and suspected to be in EAC Examination revealed the EAC to be patent w/o FB w/ TM instact and transclucent May, Primary hypertension (ICD-10 - I10) This patient is instructed to consume a healthy, low-fat, low-salt diet. They are also encouraged to continue exercise to achieve/maintain a normal BMI. [facility] Other 06-23-2023 Evaluation note* Encounter Date Diagnosis Assessment Notes Treatment Notes Treatment Clinical Notes Jan, Primary hypertension (ICD-10 - I10) This patient is instructed to consume a healthy, low-fat, low-salt diet. They are also encouraged to continue exercise to achieve/maintain a normal BMI. Jan, Controlled type 2 diabetes mellitus with hyperglycemia, without long-term current use of insulin (ICD-10 - E11.65) This patient is following a comprehensive diabetic treatment plan. They are checking their feet daily for calluses and nonhealing ulcers. They are being seen for yearly dilated eye examinations. Goals: SBP less than 130, LDL less than 100, FBS less than 140, AC and A1C less than 7%. They are checking their BS daily, will which are reviewed at the office visit. Continue regular routine monitoring of A1C,] Microalbumin, Dilated eye exam and Foot exam Jan, Asthma, intermittent, uncomplicated (ICD-10 - J45.20) Denies any ER visits for AECOPD Jan, Aortic valve sclerosis (ICD-10 - I35.8) Asymptomatic, denies CP, tachycardia or syncope Jan, Elevated cholesterol (ICD-10 - E78.00) Instructed on diet and exercise with continued statin therapy.Discussed the beneficial effects of lowering cholesterol in reducing the risk for cerebrovascular and cardiovascular disease. Jan, Lumbar spondylosis (ICD-10 - M47.816) The patient is instructed to avoid bending, twisting or lifting. They are to use intermittent heat and ice as needed. They may schedule a massage or gentle manipulation. They may safely use Tylenol as needed. Jan, Allergic contact dermatitis due to plants, except food (ICD-10 - L23.7) Cool compresses avoid scratching [facility] Other 02-23-2023 Evaluation note* Encounter Date Diagnosis Assessment Notes Treatment Notes Treatment Clinical Notes Oct, Controlled type 2 diabetes mellitus with hyperglycemia, without long-term current use of insulin (ICD-10 - E11.65) This patient is following a comprehensive diabetic treatment plan. They are checking their feet daily for calluses and nonhealing ulcers. They are being seen for yearly dilated eye examinations. Goals: SBP less than 130, LDL less than 100, FBS less than 140, AC and A1C less than 7%. They are checking their BS daily, will which are reviewed at the office visit. A1C: [ ] Microalbumin: [ ] Eye exam: [ ] Foot exam: [ ] Oct, Primary hypertension (ICD-10 - I10) This patient is instructed to consume a healthy, low-fat, low-salt diet. They are also encouraged to continue exercise to achieve/maintain a normal BMI. Oct, Asthma, intermittent, uncomplicated (ICD-10 - J45.20) Seasonal symptoms. No ER visits for exacerbations. Uses Flonase and MAIKEL as needed Oct, Aortic valve sclerosis (ICD-10 - I35.8) Denies CP, tachycardia or syncope. Control BP Echo qoy Oct, Elevated cholesterol (ICD-10 - E78.00) Diet and exercise with continued statin therapy. Oct, Lumbar spondylosis (ICD-10 - M47.816) The patient is instructed to avoid bending, twisting or lifting. They are to use intermittent heat and ice as needed. They may schedule a massage or gentle manipulation. They may safely use Tylenol as needed. Oct, Left leg pain (ICD-10 - M79.605) Quad exercises, ice/heat and NSAIDS. Monitor for now. CT/MRI ? Refer to Ortho ? Oct, Quadriceps weakness (ICD-10 - M62.81) Chronic w/ acute worsening. Monitor for now. [facility] Other 02-07-2023 NotePROCEDURE: XR HIP LT 2 3V W PELVIS HISTORY: Hip pain ; acute left lower back pain COMPARISON: None. FINDINGS: BONES:Mild narrowing of hip joint spaces bilaterally with small degenerative osteophytes along superior acetabulum. No fracture, dislocation, bone lesion. SOFT TISSUES:No visible soft tissue swelling. EFFUSION:None visible. OTHER: Negative. IMPRESSION: 1. 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 2. No appreciable acute abnormality. Electronically authenticated by: EDMUNDO DUQUE Date: 2022-10-08 07:45[facility]02-06-2023 Evaluation note* Encounter Date Diagnosis Assessment Notes Treatment Notes Treatment Clinical Notes Oct, Acute left-sided low back pain with left-sided sciatica (ICD-10 - M54.42) The patient is instructed to avoid bending, twisting or lifting. They are to use intermittent heat and ice as needed. They may schedule a massage or gentle manipulation. They may safely use Tylenol as needed. XR ordered Oct, Hip pain (ICD-10 - M25.559) Heat, ice and ROM exercises. Initiate NSAIDs. XR ordered [facility] Other 01-05-2023 Evaluation note* Encounter Date Diagnosis Assessment Notes Treatment Notes Treatment Clinical Notes Sep, Primary hypertension (ICD-10 - I10) [facility] Other Evaluation noteNo InformationNort [employer] Other History general Narrative - Reported* Type Description Date Surgical History COLONOSCOPY 2002, 2013, 201 9 Surgical History BREAST BX 2012 Surgical History LEFT TKA 2013 Hospitalization History SEE SURGICAL HX [facility] Other History general Narrative - Reported* Type Description Date Medical History Family history of ma lignant neoplasm of digestive organs Medical History Encounter for screen ing for malignant neoplasm of colon Medical History Primary hypertension Medical History Acute bilateral low back pain with left-sided sciatica Medical History Menopause Medical History Aortic valve sclerosis Medical History Asthma, intermittent, uncomplica julia Medical History Controlled type 2 di abetes mellitus with hyperglycemia, without long-term current use of insulin Medical History Chest pain Medical History Hypokalemia Surgical History COLONOSCOPY 2002, 2013, 201 9 Surgical History BREAST BX 2011 Surgical History LEFT TKA 2013 Hospitalization History SEE SURGICAL HX [facility] Other Summary Purpose Family History No Family History Records Found Advance Directives No Advanced Directives Records Found Additional Source Comments INFORMATION SOURCE (unrecogn ized section and content) DATE CREATED AUTHOR [facility]/10/2022 [facility] REASON FOR VISIT (unrecogniz ed section and content) wellnessmamm resultsPOSSIBLE SINUS INFECTION [phone] month Follow upHearing Aid-Look in EarLab ResultsDiabetes Check Up4 MONTH FOLLOW UPUpdateBody PainRefill FOR RECORDS PERTAINING TO PATIENTS WHO ARE OR HAVE BEEN ENROLLED IN A CHEMICAL DEPENDENCY/SUBSTANCEABUSE PROGRAM, SOME INFORMATION MAY BE OMITTED. This clinical summary was aggregated from multiple sources. Caution should be exercised in using it in the provision of clinical care. This summary normalizes information from multiple sources, and as a consequence, information in this document may materially change the coding, format and clinical context of patient data. In addition, data may be omitted in some cases. CLINICAL DECISIONS SHOULD BE BASED ON THE PRIMARY CLINICAL RECORDS. [facility]. provides no warranty or guarantee of the accuracy or completeness of information in this document.
--- OUTSIDE RECORDS SUMMARY | 2023-09-10 06:54 | XMS_ITS | CCD ---
Author Name Unknown Address [address] [place] [address] Organization [facility] Care Team Providers Care Coffee Sommelier Name Role Phone AJIT, DR CARVALHO Admitting [...] source) egg extract Drug Allergy 4 [facility] Repository (13 sources) predniSONE Drug Allergy Unknown [facility] Other (6 sources) Simvastatin Drug Allergy Comment:myalgia [facility] Other Medications Current Medications Medication Drug Class(es) [...] 10-09-2022 Chronic Other aftercare (2 sources) Other intermodal customer service (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; Translations: [OTH PROGRAM DEVELOPMENT SPECIALIST CURRENT DRUG THERAPY] Onset: 08-08-2022 Episodic Other aftercare (1 source) Long-term current use of drug therapy; Translations: [Other intermodal customer service (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] Episodic Other connective tissue [...] of the lumbar spine. FINDINGS: Anatomy: 5 vze-cae-hzsjxbp lumbar segments. Bones: No acute fracture or [...] AMADEO SEGOVIA Date: 2022-10-08 07:09 Normal [facility] XR HIP LT 2 3V W PELVISon XR HIP LT 2 3V W PELVIS [facility] Discourse Other XR lumbar spine 2-3V*on XR lumbar spine 2-3V* [facility] Other CBC AUTO DIFFon 08-02-2022 BASO # 0.1 103/ul Normal 0.0-0.1 [facility] Comment on above: Performed By: #### C BC ####[facility] [address] [place], [place] [address]DrRhona Logan Basophils/100 WBC (Bld) 0.7 % Normal 0.2-2.0 [facility] Comment on above: Performed By: #### C BC ####[facility] [address] [place], [place] [address]DrRhona Logan EO # 0.2 103/ul Normal 0.0-0.7 [facility] Comment on above: Performed By: #### C BC ####[facility] [address] [place], [place] [address]DrRhona Logan Eosinophils/100 WBC (Bld) 2.4 % Normal 0.9-7.0 [facility] Comment on above: Performed By: #### C BC ####[facility] [address] [place], [place] [address]DrRhona Logan Erythrocyte distribution width (RBC) [Ratio] 12.0 % Normal 11.0-15.0 [facility] Comment on above: Performed By: #### C BC ####[facility] [address] [place], [place] [address]DrRhona Logan Hematocrit (Bld) [Volume fraction] 41.5 % Normal 36.0-48.0 [facility] Comment on above: Performed By: #### C BC ####[facility] [address] [place], [place] [address]DrRhona Logan Hemoglobin (Bld) [Mass/Vol] 14.2 g/dL Normal 12.0-16.0 [facility] Comment on above: Performed By: #### C BC ####[facility] [address] [place] [address]Dr. Meshamayur Logan IG # 0.03 10e3/ul Normal 0.00-0.03 [facility] Comment on above: Performed By: #### C BC ####[facility] [address] [place] [address]Dr. Deion Logan IG % 0.4 % Normal 0.0-0.5 [facility] Comment on above: Performed By: #### C BC ####[facility] [address] [place], [place] [address]DrRhona Logan LYMPH # 2.5 103/ul Normal 1.2-3.8 [facility] Comment on above: Performed By: #### C BC ####[facility] [address] [place], [place] [address]Dr. Deion Logan Lymphocytes/100 WBC (Bld) 31.4 % Normal 20.5-60.0 [facility] Comment on above: Performed By: #### C BC ####[facility] [address] [place], [place] [address]Dr. Meshamayur Logan MANUAL DIFF REQ NO Normal [facility] Comment on above: Performed By: #### C BC ####[facility] [address] [place], [place] [address]Dr. Deion Logan MCH (RBC) [Entitic mass] 30.5 pg Normal 26.7-34.0 [facility] Comment on above: Performed By: #### C BC ####[facility] [address] [place], [place] [address]Dr. Deion Logan MCHC (RBC) [Mass/Vol] 34.2 g/dL Normal 29.9-35.2 [facility] Comment on above: Performed By: #### C BC ####[facility] [address] [place], [place] [address]Dr. Deion Logan MCV (RBC) [Entitic vol] 89.1 fL Normal 81.0-99.0 [facility] Comment on above: Performed By: #### C BC ####[facility] [address] [place] [address]DrRhona Deion Desmond MONO # 0.6 103/ul Normal 0.3-0.8 [facility] Comment on above: Performed By: #### C BC ####[facility] [address] [place] [address]DrRhona Logan Monocytes/100 WBC (Bld) 7.2 % Normal 1.7-12.0 [facility] Comment on above: Performed By: #### C BC ####[facility] [address] [place], [place] [address]DrRhona Logan NEUT # 4.7 103/ul Normal 1.4-6.5 [facility] Comment on above: Performed By: #### C BC ####[facility] [address] [place], [place] [address]DrRhona Logan Neutrophils/100 WBC (Bld) 57.9 % Normal 43.0-75.0 [facility] Comment on above: Performed By: #### C BC ####[facility] [address] [place], [place] [address]DrRhona Logan Platelet mean volume (Bld) [Entitic vol] 9.8 fL Normal 9.5-13.5 [facility] Comment on above: Performed By: #### C BC ####[facility] [address] [place], [place] [address]Dr. Deion Logan PLT 258 103/ul Normal 150-450 [facility] Comment on above: Performed By: #### C BC ####[facility] [address] [place], [place] [address]DrRhona Logan RBC 4.66 106/ul Normal 4.20-5.40 [facility] Comment on above: Performed By: #### C BC ####[facility] [address] [place], [place] [address]DrRhona Logan WBC 8.1 103/ul Normal 4.0-11.0 [facility] Comment on above: Performed By: #### C BC ####[facility] [address] [place] [address]Dr. Deion Logan GLYCOHEMOGLOBIN A1Con 2021 ADA RECOMMENDATION SEE BELOW Normal [facility] Comment on above: Result Comment: ADA RECOMMENDED LIMIT 4.0 - 6.0 ADA THERAPEUTIC TARGET < 7.0 ACTION SUGGESTED > 7.0 Performed By: #### A 1C ####[facility] [address] [place] [address]Dr. Deion Logan Glucose [Mass/Vol] 163 mg/dL Normal [facility] Comment on above: Performed By: #### A 1C ####[facility] [address] [place] [address]Dr. Deion Logan HbA1c (Bld) [Mass fraction] 7.3 % Critically high 4.5-6.2 [facility] Comment on above: Performed By: #### A 1C ####[facility] [address] [place] [address]Dr. Deion Logan LIPID PROFILEon 08-02-2022 CHOL-HDL RATIO NORM SEE BELOW Normal [facility] Comment on above: Result Comment: 3.3 - 4.4 LOW RISK 4.4 - 7.1 AVERAGE RISK 7.1 - 11.0 MODERATE RISK >11.0 HIGH RISK Performed By: #### A LT, LIPID, BMP #### [facility] [address] [address] [address] Deion Logan Cholesterol [Mass/Vol] 174 mg/dL Normal <=200 [facility] Comment on above: Performed By: #### A LT, LIPID, BMP #### [facility] [address] [address] [address] Deion Logan Cholesterol in HDL [Mass/Vol] 60 mg/dL Normal 40-60 [facility] Comment on above: Performed By: #### A LT, LIPID, BMP #### [facility] [address] [address] [address] Deion Logan Cholesterol in LDL [Mass/Vol] 93.4 mg/dL Normal [facility] Comment on above: Performed By: #### A LT, LIPID, BMP #### [facility] [address] [address] [address] Deion Logan Cholesterol.total/Ch olesterol in HDL [Mass ratio] 2.9 {ratio} Normal [facility] Comment on above: Performed By: #### A LT, LIPID, BMP #### [facility] [address] [address] [address] Deion Logan HDL NORMAL > or = 60 mg/dl - LOW CARDIOVASCULAR RISK <40 mg/dl - HIGH CARDIOVASCULAR RISK Normal [facility] Comment on above: Performed By: #### A LT, LIPID, BMP #### [facility] [address] [place] [address] Dr. Deion Logan LDL CALC NORMAL SEE BELOW Normal [facility] Comment on above: Result Comment: <100 mg/dl OPTIMAL 100 - 129 mg/dl NEAR OR ABOVE OPTIMAL 130 - 159 mg/dl BORDERLINE HIGH 160 - 189 mg/dl HIGH >190 mg/dl VERY HIGH Performed By: #### A LT, LIPID, BMP #### [facility] [address] [place] [address] Dr. Deion Logan Triglyceride [Mass/Vol] 103 mg/dL Normal <=150 [facility] Comment on above: Performed By: #### A LT, LIPID, BMP #### [facility] [address] [place] [address] Dr. Deion Logan VLDL CALC 20.6 mg/dL Normal [facility] Comment on above: Performed By: #### A LT, LIPID, BMP #### [facility] [address] [place] [address] Dr. Deion Logan MICROALBUMIN, RAND URon 12-0 mALB 9.7 mg/L Normal <=30.0 [facility] Comment on above: Performed By: #### M ALBR #### [facility] [address] [place] [address] Dr. Deion Logan PROF CHEM 8 (BAS METB)on Anion gap [Moles/Vol] 12.1 mmol/L Normal [facility] Comment on above: Performed By: #### A LT, LIPID, BMP #### [facility] [address] [address] [address] Deion Logan Calcium [Mass/Vol] 9.1 mg/dL Normal 8.5-10.1 [facility] Comment on above: Performed By: #### A LT, LIPID, BMP #### [facility] [address] [address] [address] Deion Logan Chloride [Moles/Vol] 101 mmol/L Normal 98-107 [facility] Comment on above: Performed By: #### A LT, LIPID, BMP #### [facility] [address] [address] [address] Deion Logan CO2 [Moles/Vol] 32.5 mmol/L Critically high 21.0-32.0 [facility] Comment on above: Performed By: #### A LT, LIPID, BMP #### [facility] [address] [place] [address] Dr. Deion Logan Creatinine [Mass/Vol] 0.54 mg/dL Critically low 0.55-1.02 [facility] Comment on above: Performed By: #### A LT, LIPID, BMP #### [facility] [address] [place] [address] Dr. Deion Logan EGFR-AF SERBIAN >60 Normal >=60 [facility] Comment on above: Performed By: #### A LT, LIPID, BMP #### [facility] [address] [place] [address] Dr. Deion Logan EGFR-NON AF SERBIAN >60 Normal >=60 [facility] Comment on above: Performed By: #### A LT, LIPID, BMP #### [facility] [address] [address] [address] Deion Logan Glucose [Mass/Vol] 185 mg/dL Critically high 74-106 [facility] Comment on above: Performed By: #### A LT, LIPID, BMP #### [facility] [address] [place] [address] Dr. Deion Logan Potassium [Moles/Vol] 3.6 mmol/L Normal 3.5-5.1 [facility] Comment on above: Performed By: #### A LT, LIPID, BMP #### [facility] [address] [address] [address] Deion Logan Sodium [Moles/Vol] 142 mmol/L Normal 136-145 [facility] Comment on above: Performed By: #### A LT, LIPID, BMP #### [facility] [address] [place] [address] Dr. Deion Logan Urea nitrogen [Mass/Vol] 10.0 mg/dL Normal 7.0-18.0 [facility] Comment on above: Performed By: #### A LT, LIPID, BMP #### [facility] [address] [place] [address] Dr. Deion Logan Urea nitrogen/Creatinine [Mass ratio] 18.5 mg/mg Normal [facility] Comment on above: Performed By: #### A LT, LIPID, BMP #### [facility] [address] [place] [address] Dr. Deion Logan [facility] 08-02-2022 ALT [Catalytic activity/Vol] 28 U/L Normal 14-59 [facility] Comment on above: Performed By: #### A LT, LIPID, BMP #### [facility] [address] [place] [address] Dr. Deion Logan MG MAMM SCREEN 3D ADAN CADon 07-26-2022 MG MAMM SCREEN 3D ADAN CAD Patient: MARCUS GUSTAFSON Exam Date: 07/26/2022 : 1950 Gender:F Ordering : DR ABRAHAM MONTIEL D.O. Admission #: [id number] Family : Order #: [id number] CLICK HERE TO VIEW EXAM RADIOLOGY REPORT [...] colon cancer at age 77. LOCATION: [facility] BREAST COMPOSITION: Scattered areas fibroglandular density. FINDINGS: [...] Duque M.D. on 07/29/2022 at 14:[address] [facility] XR DEXA BONE DENSITYon 07-26 XR [...] by: EDMUNDO DUQUE Date: 2022-07-26 08:[address] [facility] GLYCOHEMOGLOBIN A1Con 2021 ADA RECOMMENDATION SEE BELOW Normal [facility] Comment on above: Result Comment: ADA RECOMMENDED LIMIT 4.0 - 6.0 ADA THERAPEUTIC TARGET < 7.0 ACTION SUGGESTED > 7.0 Performed By: #### A 1C #### [facility] [address] [address] [address] Deion Logan Glucose [Mass/Vol] 157 mg/dL Normal [facility] Comment on above: Performed By: #### A 1C #### [facility] [address] [address] [address] Deion Logan HbA1c (Bld) [Mass fraction] 7.1 % Critically high 4.5-6.2 [facility] Comment on above: Performed By: #### A 1C #### [facility] [address] [address] [address] Deion Logan GLYCOHEMOGLOBIN A1Con 2021 ADA RECOMMENDATION ADA THERAPEUTIC TARGET 6.0 - 7.0 ACTION SUGGESTED > 7.[address] [facility] Comment on above: Performed By: #### A 1C #### [facility] [address] [address] [address] Deion Logan Glucose [Mass/Vol] 160 mg/dL Normal [facility] Comment on above: Performed By: #### A 1C #### [facility] [address] [address] [address] Deion Logan HbA1c (Bld) [Mass fraction] 7.2 % Critically high <=6.0 [facility] Comment on above: Performed By: #### A 1C #### [facility] [address] [address] [address] Deion Logan Vital Signs Date Time Vital Sign Value Performing Clinician Facility 08-26-2023 09:30-0500 Body height 161.29 cm Abraham Ajit Other [facility] Other 08-26-2023 09:30-0500 Body mass index (BMI) [Ratio] 25.98 kg/m2 Abraham Ajit Other [facility] Other 08-26-2023 09:30-0500 Body weight 67.59 kg Abraham Montiel Other [facility] Other 08-26-2023 09:30-0500 Diastolic blood pressure 77 mm[Hg] Abraham Ajit Other [facility] Other 08-26-2023 09:30-0500 Respiratory rate 12 /min Abraham Ajit Other [facility] Other 08-26-2023 09:30-0500 Systolic blood pressure 190 mm[Hg] Abraham Ball Other [facility] Other 05-26-2023 10:00-0400 Body height 161.29 cm Abraham Ball Other [facility] Other 05-26-2023 10:00-0400 Body mass index (BMI) [Ratio] 25.91 kg/m2 Abraham Ball Other [facility] Other 05-26-2023 10:00-0400 Body weight 67.4 kg Abraham Ball Other [facility] Other 05-26-2023 10:00-0400 Diastolic blood pressure 77 mm[Hg] Abraham Ball Other [facility] Other 05-26-2023 10:00-0400 Respiratory rate 12 /min Abraham Ball Other [facility] Other 05-26-2023 10:00-0400 Systolic blood pressure 185 mm[Hg] Abraham Ball Other [facility] Other 05-19-2023 13:45-0400 Body height 161.29 cm Abraham Ball Other [facility] Other 05-19-2023 13:45-0400 Body mass index (BMI) [Ratio] 26.05 kg/m2 Abraham Ball Other [facility] Other 05-19-2023 13:45-0400 Body weight 67.77 kg Abraham Ball Other [facility] Other 05-19-2023 13:45-0400 Diastolic blood pressure 88 mm[Hg] Abraham Ball Other [facility] Other 05-19-2023 13:45-0400 Respiratory rate 12 /min Abraham Ball Other [facility] Other 05-19-2023 13:45-0400 Systolic blood pressure 138 mm[Hg] Abraham Ball Other [facility] Other 02-21-2023 11:30-0400 Body height 161.29 cm Abraham Ball Other [facility] Other 02-21-2023 11:30-0400 Body mass index (BMI) [Ratio] 25.66 kg/m2 Abraham Ball Other [facility] Other 02-21-2023 11:30-0400 Body weight 66.77 kg Abraham Ball Other [facility] Other 02-21-2023 11:30-0400 Diastolic blood pressure 83 mm[Hg] Abraham Ball Other [facility] Other 02-21-2023 11:30-0400 Respiratory rate 12 /min Abraham Ball Other [facility] Other 02-21-2023 11:30-0400 Systolic blood pressure 169 mm[Hg] Abraham Ball Other [facility] Other 10-24-2022 08:30-0500 Body height 161.29 cm Abraham Ball Other [facility] Other 10-24-2022 08:30-0500 Body mass index (BMI) [Ratio] 25.7 kg/m2 Abraham Ball Other [facility] Other 10-24-2022 08:30-0500 Body weight 66.86 kg Abraham Ball Other [facility] Other 10-24-2022 08:30-0500 Diastolic blood pressure 70 mm[Hg] Abraham Ball Other [facility] Other 10-24-2022 08:30-0500 Respiratory rate 12 /min Abraham Ball Other [facility] Other 10-24-2022 08:30-0500 Systolic blood pressure 146 mm[Hg] Abraham Ball Other [facility] Other 10-07-2022 14:30-0500 Body height 161.29 cm Abraham Ball Other [facility] Other 10-07-2022 14:30-0500 Body mass index (BMI) [Ratio] 25.52 kg/m2 Abraham Ball Other [facility] Other 10-07-2022 14:30-0500 Body weight 66.41 kg Abraham Ball Other [facility] Other 10-07-2022 14:30-0500 Diastolic blood pressure 82 mm[Hg] Abraham Ball Other [facility] Other 10-07-2022 14:30-0500 Respiratory rate 12 /min Abraham Ball Other [facility] Other 10-07-2022 14:30-0500 Systolic blood pressure 142 mm[Hg] Abraham Ball Other [facility] Other Encounters Encounter Date Encounter Type Care Provider Facility Start: 08-26-2023 End: 08-26-2023 ambulatory Abraham Montiel Other [facility] Other Start: 08-26-2023 Patient encounter procedure Abraham Ball [facility] Start: 08-05-2023 End: 08-05-2023 ambulatory Abraham Ball Other [facility] Other Start: 08-05-2023 Telephone encounter Abraham Ball [facility] Start: 07-09-2023 End: 07-09-2023 ambulatory Abraham Ball Other [facility] Other Start: 07-09-2023 Telephone encounter Abraham Ball [facility] Start: 06-16-2023 End: 06-16-2023 ambulatory Abraham Ball Other [facility] Other Start: 06-16-2023 Office outpatient vi sit 15 minutes Abraham Ball [facility] Start: 05-26-2023 End: 05-26-2023 ambulatory Abraham Ball Other [facility] Other Start: 05-26-2023 Office outpatient vi sit 25 minutes Abraham Ball [facility] Start: 05-19-2023 End: 05-19-2023 ambulatory Abraham Ball Other [facility] Other Start: 05-19-2023 Office outpatient vi sit 15 minutes Abraham Ball [facility] Start: 02-25-2023 End: 02-25-2023 ambulatory Abraham Ball Other [facility] Other Start: 02-25-2023 Telephone encounter Abraham Ball [facility] Start: 02-21-2023 End: 02-21-2023 ambulatory Abraham Ball Other [facility] Other Start: 02-21-2023 Office outpatient vi sit 25 minutes Abraham Ball [facility] Start: 10-24-2022 End: 10-24-2022 ambulatory Abraham Ball Other [facility] Other Start: 10-24-2022 Office outpatient vi sit 25 minutes Abraham Ball [facility] Start: 10-11-2022 End: 10-11-2022 ambulatory Abraham Montiel Other [facility] Other Start: 10-11-2022 Telephone encounter Abraham QUINTERO [facility] Start: 10-07-2022 End: 10-08-[address] ABRAHAM MONTIEL Facility:[facility] Start: 10-07-2022 Office outpatient vi sit 15 minutes Abraham Montiel [facility] Start: 09-05-2022 End: 09-05-2022 ambulatory Abraham Montiel Other [facility] Other Start: 09-05-2022 Telephone encounter Abraham QUINTERO [facility] Start: 08-02-2022 End: 08-03-[address] ABRAHAM MONTILE Facility:[facility] Start: 07-26-2022 End: 07-27-[address] ABRAHAM MONTIEL Facility:[facility] Start: 06-20-2022 Adult health examination Holden fischer [facility] Other [facility] Other Start: 06-20-2022 Gynecological examin ation normal Abraham Montiel Other [facility] Other Start: 03-06-2022 End: 03-07-[address] [...] high dose seasonal, preservative-free Abraham Montiel Other [facility] Other 06-20-2022 influenza virus vaccine, split virus (incl. purified surface antigen) Abraham Montiel Other [facility] Other 06-18-2021 influenza virus vaccine, split virus (incl. purified surface antigen) Abraham Ajit Other [facility] Other 06-12-2020 influenza virus vaccine, split virus (incl. purified surface antigen) Abraham Montiel Other [facility] Other 02-18-2018 diphtheria, tetanus toxoids and acellular pertussis vaccine, unspecified formulation Abraham Ajit Other [facility] Other 06-23-2017 pneumococcal polysaccharide vaccine, 23 valent Abraham Ajit Other [facility] Other 06-19-2016 pneumococcal conjuga te vaccine, 13 valent Abraham Montiel Other [facility] Other 06-19-2016 pneumococcal Conjugate, unspecified formulation; Translations: [Need for prophylactic vaccination against Streptococcus pneumoniae (pneumococcus)] Abraham Ajit Other [facility] Other NEGATED: Highlighted row has not occurred!06-12-2020 influenza virus vaccine, split virus (incl. purified surface antigen) Abraham Ajit Other [facility] Other Payers Date Payer Category Payer Medicare [id number] 1958 Unknown [id number] 1950 Unknown [id number] 2.16.84 [id number] 1950 Unknown [id number] 2.16.84 [id number] 1950 Unknown [id number] 2.16.84 [id number] 1950 Unknown [id number] 2.16.84 [id number] 1950 Unknown [id number] 2.16.84 [id number] Social History Date Type Detail Facility Sex Assigned At [facility] Other Medical Equipment Procedure Code Equipment Code [...] patient on monthly SBE and yearly mammograms. [facility] Other 11-08-2023 Evaluation note* Encounter Date Diagnosis Assessment Notes Treatment Notes Treatment Clinical Notes Jul, Controlled type 2 diabetes mellitus with hyperglycemia, without long-term current use of insulin (ICD-10 - E11.65) [facility] Other 10-16-2023 Evaluation note* Encounter Date Diagnosis [...] to change treatment. Push fluids and rest [facility] Other 09-25-2023 Evaluation note* Encounter Date Diagnosis [...] They may safely use Tylenol as needed. [facility] Other 09-18-2023 Evaluation note* Encounter Date Diagnosis [...] continue exercise to achieve/maintain a normal BMI. [facility] Other 06-23-2023 Evaluation note* Encounter Date Diagnosis [...] (ICD-10 - L23.7) Cool compresses avoid scratching [facility] Other 02-23-2023 Evaluation note* Encounter Date Diagnosis [...] Chronic w/ acute worsening. Monitor for now. [facility] Other 02-07-2023 NotePROCEDURE: XR HIP LT 2 [...] Electronically authenticated by: EDMUNDO DUQUE Date: 2022-10-08 07:45[facility]02-06-2023 Evaluation note* Encounter Date Diagnosis Assessment [...] and ROM exercises. Initiate NSAIDs. XR ordered [facility] Other 01-05-2023 Evaluation note* Encounter Date Diagnosis Assessment Notes Treatment Notes Treatment Clinical Notes Sep, Primary hypertension (ICD-10 - I10) [facility] Other Evaluation noteNo InformationNort Cortera Other History general Narrative - Reported* Type Description Date Surgical History COLONOSCOPY 2002, 2013, 201 9 Surgical History BREAST BX 2012 Surgical History LEFT TKA 2013 Hospitalization History SEE SURGICAL HX [facility] Other History general Narrative - Reported* Type [...] TKA 2013 Hospitalization History SEE SURGICAL HX [facility] Other Summary Purpose Family History No Family History Records Found Advance Directives No Advanced Directives Records Found Additional Source Comments INFORMATION SOURCE (unrecogn ized section and content) DATE CREATED AUTHOR 10/10/2022 [facility] REASON FOR VISIT (unrecogniz ed section and content) wellnessmamm resultsPOSSIBLE SINUS INFECTION [phone] month Follow upHearing Aid-Look in EarLab ResultsDiabetes [...] BE BASED ON THE PRIMARY CLINICAL RECORDS. [employer] provides no warranty or guarantee of the accuracy or completeness of information in this document.
[2023-09-10 07:23] LABS: Basophils Percent Auto 0.4 % (0.2-2.0); Eosinophils Absolute Auto 0.2 10^3/uL (0.0-0.7); Hematocrit 42.6 % (36.0-48.0); Hemoglobin 14.1 g/dL (12.0-16.0); Immature Granulocytes Abs Auto 0.03 10^3/uL (0.00-0.03); Immature Granulocytes Pct Auto 0.3 % (0.0-0.5); Lymphocytes Absolute Auto 2.4 10^3/uL (1.2-3.8); Lymphocytes Percent Auto 25.4 % (20.5-60.0); Mean Corpuscular HGB Conc 33.1 g/dL (29.9-35.2); Mean Corpuscular Hemoglobin 30.4 pg (26.7-34.0); Mean Corpuscular Volume 91.8 fL (81.0-99.0); Mean Platelet Volume 10.4 fL (9.5-13.5); Monocytes Absolute Auto 0.7 10^3/uL (0.3-0.8); Monocytes Percent Auto 7.1 % (1.7-12.0); Neutrophils Absolute Auto 6.1 10^3/uL (1.4-6.5); Neutrophils Percent Auto 64.8 % (43.0-75.0); Platelet Count 248 10^3/uL (150-450); Red Blood Count 4.64 10^6/uL (4.20-5.40); Red Cell Distribution Width 12.2 % (11.0-15.0); White Blood Count 9.3 10^3/uL (4.0-11.0)
[2023-09-10 07:37] LABS: Estimated Average Glucose 169 mg/dL; Glycohemoglobin A1C 7.5 % (4.5-6.2)
[2023-09-10 07:38] LABS: Alanine Aminotransferase 30 U/L (14-59); BUN Creatinine Ratio 16.9; Calcium 10.3 mg/dL (8.5-10.1); Carbon Dioxide 31.5 mmol/L (21.0-32.0); Chloride 100 mmol/L (98-107); Chol HDL Ratio 2.8; Cholesterol 183 mg/dL (<=200); Estimated GFR (African America >60 (>=60); Estimated GFR (Non-African Ame >60 (>=60); Glucose 205 mg/dL (74-106); HDL Cholesterol 65 mg/dL (40-60); Potassium 3.5 mmol/L (3.5-5.1); Sodium 141 mmol/L (136-145); Triglycerides 138 mg/dL (<=150); VLDL CHOLESTEROL 27.6 mg/dL
[2023-09-10 07:40] LABS: Microalbumin Urine Random 3.4 mg/dL (<=30.0)
== END 2023-09-10 06:53 | disposition home or self-care (01) ==
LOC: LAB 06:52
PROVIDERS: PCP Internal Medicine; Visit Provider Internal Medicine
DX: E11.65 Type 2 diabetes mellitus with hyperglycemia (principal); E78.00 Pure hypercholesterolemia, unspecified; I10 Essential (primary) hypertension; Z79.899 Other long term (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
CPT/HCPCS: 36415; 80048; 80061; 82043; 83036; 84460; 85025

== ENCOUNTER 2023-11-18 06:31 | Outpatient (OUT) | payer MEDICARE, SELFPAY ==
--- OUTSIDE RECORDS SUMMARY | 2023-11-18 06:34 | XMS_ITS | CCD ---
Author Organization [facility] Care Team Providers Care [employer] Worker Name Role Phone AJIT, DR CARVALHO Admitting Unavailable BALL, DR CARVALHO Attending Unavailable BALL, DR CARVALHO Primary Care Unavailable BALL, DR CARVALHO Consulting Unavailable BALL, DR CARVALHO Admitting Unavailable BALL, DR CARVALHO Attending Unavailable BALL, DR CARVALHO Primary Care Unavailable AJIT, DR CARVALHO Consulting Unavailable BALL, DR CARVALHO Admitting Unavailable BALL, DR CARVALHO Attending Unavailable BALL, DR CARVALHO Primary Care Unavailable BALL, DR CARVALHO Consulting Unavailable Zieber, DR Wyatt Consulting Unavailable BALL, DR CARVALHO [...] source) egg extract Drug Allergy 4 [facility] Repository (15 sources) predniSONE Drug Allergy Unknown [facility] Other (8 sources) Simvastatin Drug Allergy Comment:myalgia [facility] Other Medications Current Medications Medication Drug Class(es) Dates Sig (Normalized) Sig (Original) amLODIPine 5 mg oral tablet (15 sources) Dihydropyridine Calcium Channel Apryl amLODIPine Besylate 5 MG TAKE 1 TABLET DAILY Active azithromycin 250 mg oral tablet (7 sources) Macrolide Antimicrobial Start: 06-16-2023 Azithromycin 250 MG as directed Orally daily for 5 days Oct, Active benazepril hydrochloride 10 mg oral tablet (17 sources) Angiotensin Converting Enzyme Inhibitor Benazepril HCl 10 MG TAKE 1 TABLET DAILY; TAKE WITH EXISTING 20MG DOSE Active Benazepril HCl 2 0 MG TAKE 1 TABLET DAILY for 90 Active hydroCHLOROthiazide 25 mg oral tablet (15 sources) Thiazide Diuretic hydroCHLOROthi azide 25 MG TAKE 1 TABLET DAILY for 90 Active lovastatin 40 mg oral tablet (15 sources) HMG-CoA Reductase Inhibitor Lovastatin 40 MG LESLEY E 1 TABLET EVERY EVENING for 90 Active metFORMIN hydrochloride 1000 mg / SITagliptin 50 mg oral tablet (15 sources) Biguanide, Dipeptidyl Peptidase 4 Inhibitor Janumet 50-1000 MG T TIFFANY 1 TABLET TWICE A DAY Active nabumetone 1000 mg oral tablet (15 sources) Nonsteroidal Anti-inflammatory Drug Start : 10-07 take 1 tablet by mouth twice daily Nabumetone 1000 MG 1 tablet Orally Twice a day Oct, Active microencapsulated potassium chloride 20 meq extended release oral tablet (10 sources) take 1 tablet by mouth once daily Klor-Con M20 20 MEQ TAKE 1 TABLET DAILY Orally Once a day for 90 days Active triamcinolone acetonide 5 mg/ml topical cream (10 sources) Corticosteroid Start : 02-21 Triamcinolone Acetonide 0.5 % 1 application Externally Two times a Week for 7 days Jan, Active Start: 02-21-2023 Triamcinolone Acetonide 0.5 % 1 application Externally Two times a Week for 7 days Jan, Active Completed/Discontinued Medications Medication Drug Class(es) Dates Sig (Normalized) Sig (Original) Suprep Bowel Prep . (15 sources) Start: 05-13-2014 Suprep Bowel Prep . [...] as uncontrolled] Chronic Disorders of lipid metabolism (20 sources) Familial hypercholesterolemia; Translations: [Hypercholesterolemia ] Onset: 05-26-2015 Chronic Essential hypertension (20 sources) Essential (primary) hypertension; Translations: [Essential hypertension] Onset: 08-08-2022 Chronic Fluid and electrolyte disorders (15 sources) Hypokalemia; Translations: [Hypokalemia] Episodic Genitourinary symptoms and ill-defined conditions (1 source) Dysuria; Translations: [Dysuria] Episodic Gout and other crystal arthropathies (2 sources) Primary gout; Translations: [Acute gouty arthropathy] Onset: 12-12-2017 Chronic Heart valve disorders (20 sources) Aortic valve sclerosis; Translations: [Other nonrheumatic aortic valve disorders] Chronic Immunizations and screening for infectious disease (1 source) Vaccination given; Translations: [Encounter for immunization] Episodic Menopausal disorders (1 source) Primary ovarian failure; Translations: [Other primary ovarian failure] Onset: 06-04-2018 Chronic Nonspecific chest pain (16 sources) Chest pain; Translations: [Chest pain, unspecified] Episodic Osteoarthritis (1 source) Bilateral primary osteoarthritis of hip; Translations: [BILATERAL PRIM OSTEOARTHRITIS HIP] Onset: 10-09-2022 Chronic Other aftercare (2 sources) Other intermediate (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; Translations: [OTH [facility] CURRENT DRUG THERAPY] Onset: 08-08-2022 Episodic Other aftercare (1 source) Long-term current use of drug therapy; Translations: [Other buttermaker (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] Episodic Other connective tissue disease (10 sources) History of total knee arthroplasty; Translations: [Presence of left artificial knee joint] Chronic Other connective tissue disease (13 sources) Pain in left lower limb; Translations: [Pain in left leg] Episodic Other connective tissue disease (13 sources) Quadriceps weakness; Translations: [Muscle weakness (generalized)] Episodic Other connective tissue disease (1 source) Pain in left leg Episodic Other connective tissue disease (1 source) Muscle weakness (generalized) Episodic Other diseases of veins and lymphatics (1 source) Peripheral venous insufficiency; Translations: [Unspecified venous (peripheral) insufficiency] Episodic Other ear and sense organ disorders (8 sources) Sensorineural hearing loss, bilateral; Translations: [Sensorineural [...] Episodic Other nutritional; endocrine; and metabolic disorders (13 sources) Morbid obesity; Translations: [Morbid (severe) obesity [...] rhinitis, unspecified] Chronic Other upper respiratory infections (3 sources) Acute maxillary sinusitis; Translations: [Acute maxillary sinusitis, unspecified] Onset: 08-05-2016 Episodic Residual codes; unclassified (16 sources) Asymptomatic menopausal state; Translations: [Menopause] Onset: [...] disc disorders; other back problems (18 sources) Spondylosis without myelopathy or radiculopathy, lumbar region; Translations: [Lumbar spondylosis] Onset: 10-09-2022 Chronic Spondylosis; intervertebral disc disorders; other back problems (20 sources) Lumbago with sciatica, left side; Translations: [...] of the lumbar spine. FINDINGS: Anatomy: 5 [id number] lumbar segments. Bones: No acute fracture or [...] AMADEO SEGOVIA Date: 2022-10-08 07:09 Normal [facility] XR HIP LT 2 3V W PELVISon XR HIP LT 2 3V W PELVIS [facility] Other XR lumbar spine 2-3V*on XR lumbar spine 2-3V* [facility] Other CBC AUTO DIFFon 08-02-2022 BASO # 0.1 103/ul Normal 0.0-0.1 [facility] Comment on above: Performed By: #### C BC ####[facility] [address] [place] [address]Dr. Deion Logan Basophils/100 WBC (Bld) 0.7 % Normal 0.2-2.0 [facility] Comment on above: Performed By: #### C BC ####[facility] [address] [place], [place] [address]DrRhona Logan EO # 0.2 103/ul Normal 0.0-0.7 [facility] Comment on above: Performed By: #### C BC ####[facility] [address] [place] [address]DrRhona Logan Eosinophils/100 WBC (Bld) 2.4 % Normal 0.9-7.0 [facility] Comment on above: Performed By: #### C BC ####[facility] [address] [place], [place] [address]DrRhona Logan Erythrocyte distribution width (RBC) [Ratio] 12.0 % Normal 11.0-15.0 [facility] Comment on above: Performed By: #### C BC ####[facility] [address] [place], [place] [address]DrRhona Logan Hematocrit (Bld) [Volume fraction] 41.5 % Normal 36.0-48.0 [facility] Comment on above: Performed By: #### C BC ####[facility] [address] [place], [place] [address]DrRhona Logan Hemoglobin (Bld) [Mass/Vol] 14.2 g/dL Normal 12.0-16.0 [facility] Comment on above: Performed By: #### C BC ####[facility] [address] [place] [address]DrRhona Logan IG # 0.03 10e3/ul Normal 0.00-0.03 [facility] Comment on above: Performed By: #### C BC ####[facility] [address] [place] [address]Dr. Deion Logan IG % 0.4 % Normal 0.0-0.5 [facility] Comment on above: Performed By: #### C BC ####[facility] [address] [place], [place] [address]DrRhona Logan LYMPH # 2.5 103/ul Normal 1.2-3.8 [facility] Comment on above: Performed By: #### C BC ####[facility] [address] [place], [place] [address]Dr. Deion Logan Lymphocytes/100 WBC (Bld) 31.4 % Normal 20.5-60.0 [facility] Comment on above: Performed By: #### C BC ####[facility] [address] [place] [address]DrRhona Logan MANUAL DIFF REQ NO Normal [facility] Comment on above: Performed By: #### C BC ####[facility] [address] [place] [address]Dr. Deion Logan MCH (RBC) [Entitic mass] 30.5 pg Normal 26.7-34.0 [facility] Comment on above: Performed By: #### C BC ####[facility] [address] [place], [place] [address]Dr. Deion Logan MCHC (RBC) [Mass/Vol] 34.2 g/dL Normal 29.9-35.2 [facility] Comment on above: Performed By: #### C BC ####[facility] [address] [place] [address]DrRhona Logan MCV (RBC) [Entitic vol] 89.1 fL Normal 81.0-99.0 [facility] Comment on above: Performed By: #### C BC ####[facility] [address] [place] [address]Dr. Deion Logan MONO # 0.6 103/ul Normal 0.3-0.8 [facility] Comment on above: Performed By: #### C BC ####[facility] [address] [place] [address]Dr. Deion Logan Monocytes/100 WBC (Bld) 7.2 % Normal 1.7-12.0 [facility] Comment on above: Performed By: #### C BC ####[facility] [address] [place], [place] [address]Dr. Deion Logan NEUT # 4.7 103/ul Normal 1.4-6.5 [facility] Comment on above: Performed By: #### C BC ####[facility] [address] [place], [place] [address]Dr. Deion Logan Neutrophils/100 WBC (Bld) 57.9 % Normal 43.0-75.0 [facility] Comment on above: Performed By: #### C BC ####[facility] [address] [place], [place] [address]Dr. Deion Logan Platelet mean volume (Bld) [Entitic vol] 9.8 fL Normal 9.5-13.5 [facility] Comment on above: Performed By: #### C BC ####[facility] [address] [place] [address]Dr. Deion Logan PLT 258 103/ul Normal 150-450 [facility] Comment on above: Performed By: #### C BC ####[facility] [address] [place] [id number]. Deion Logan RBC 4.66 106/ul Normal 4.20-5.40 [facility] Comment on above: Performed By: #### C BC ####[facility] [address] [place] [address]Dr. Deion Logan WBC 8.1 103/ul Normal 4.0-11.0 [facility] Comment on above: Performed By: #### C BC ####[facility] [address] [place] [id number]. Deion Logan GLYCOHEMOGLOBIN A1Con 2021 ADA RECOMMENDATION SEE BELOW Normal [facility] Comment on above: Result Comment: ADA RECOMMENDED LIMIT 4.0 - 6.0 ADA THERAPEUTIC TARGET < 7.0 ACTION SUGGESTED > 7.0 Performed By: #### A 1C ####[facility] [address] [place] [address]Dr. Deion Logan Glucose [Mass/Vol] 163 mg/dL Normal [facility] Comment on above: Performed By: #### A 1C ####[facility] [address] [place] [address]Dr. Deion Logan HbA1c (Bld) [Mass fraction] 7.3 % Critically high 4.5-6.2 [facility] Comment on above: Performed By: #### A 1C ####[facility] [address] [place], [place] [address]Dr. Deion Logan LIPID PROFILEon 08-02-2022 CHOL-HDL RATIO NORM SEE BELOW Normal [facility] Comment on above: Result Comment: 3.3 - 4.4 LOW RISK 4.4 - 7.1 AVERAGE RISK 7.1 - 11.0 MODERATE RISK >11.0 HIGH RISK Performed By: #### A LT, LIPID, BMP #### [facility] [address] [place] [address] [address] Deion Logan Cholesterol [Mass/Vol] 174 mg/dL Normal <=200 [facility] Comment on above: Performed By: #### A LT, LIPID, BMP #### [facility] [address] [place] [address] [address] Deion Logan Cholesterol in HDL [Mass/Vol] 60 mg/dL Normal 40-60 [facility] Comment on above: Performed By: #### A LT, LIPID, BMP #### [facility] [address] [place] [address] [address] Deion Logan Cholesterol in LDL [Mass/Vol] 93.4 mg/dL Normal [facility] Comment on above: Performed By: #### A LT, LIPID, BMP #### [facility] [address] [place] [address] Dr. Deion Logan Cholesterol.total/Ch olesterol in HDL [Mass ratio] 2.9 {ratio} Normal [facility] Comment on above: Performed By: #### A LT, LIPID, BMP #### [facility] [address] [place] [address] Dr. Deion Logan HDL NORMAL > or = 60 mg/dl - LOW CARDIOVASCULAR RISK <40 mg/dl - HIGH CARDIOVASCULAR RISK Normal [facility] Comment on above: Performed By: #### A LT, LIPID, BMP #### [facility] [address] [place] [address] Dr. Deion Logan LDL CALC NORMAL SEE BELOW Normal [facility] Comment on above: Result Comment: <100 mg/dl OPTIMAL 100 - 129 mg/dl NEAR OR ABOVE OPTIMAL 130 - 159 mg/dl BORDERLINE HIGH 160 - 189 mg/dl HIGH >190 mg/dl VERY HIGH Performed By: #### A LT, LIPID, BMP #### [facility] [address] [place] [address] Dr. Deion Logan Triglyceride [Mass/Vol] 103 mg/dL Normal <=150 [facility] Comment on above: Performed By: #### A LT, LIPID, BMP #### [facility] [address] [place] [address] Dr. Deion Logan VLDL CALC 20.6 mg/dL Normal [facility] Comment on above: Performed By: #### A LT, LIPID, BMP #### [facility] [address] [place] [address] Dr. Deion Logan MICROALBUMIN, RAND URon 12-0 mALB 9.7 mg/L Normal <=30.0 [facility] Comment on above: Performed By: #### M ALBR #### [facility] [address] [place] [address] Dr. Deion Logan PROF CHEM 8 (BAS METB)on Anion gap [Moles/Vol] 12.1 mmol/L Normal [facility] Comment on above: Performed By: #### A LT, LIPID, BMP #### [facility] [address] [address] [address] Deion Logan Calcium [Mass/Vol] 9.1 mg/dL Normal 8.5-10.1 [facility] Comment on above: Performed By: #### A LT, LIPID, BMP #### [facility] [address] [place] [address] Dr. Deion Logan Chloride [Moles/Vol] 101 mmol/L Normal 98-107 [facility] Comment on above: Performed By: #### A LT, LIPID, BMP #### [facility] [address] [place] [address] Dr. Deion Logan CO2 [Moles/Vol] 32.5 mmol/L Critically high 21.0-32.0 [facility] Comment on above: Performed By: #### A LT, LIPID, BMP #### [facility] [address] [place] [address] Dr. Deion Logan Creatinine [Mass/Vol] 0.54 mg/dL Critically low 0.55-1.02 [facility] Comment on above: Performed By: #### A LT, LIPID, BMP #### [facility] [address] [place] [address] Dr. Deion Logan EGFR-AF LIBERIAN >60 Normal >=60 [facility] Comment on above: Performed By: #### A LT, LIPID, BMP #### [facility] [address] [place] [address] Dr. Deion Logan EGFR-NON AF LIBERIAN >60 Normal >=60 [facility] Comment on above: Performed By: #### A LT, LIPID, BMP #### [facility] [address] [place] [address] Dr. Deion Logan Glucose [Mass/Vol] 185 mg/dL Critically high 74-106 [facility] Comment on above: Performed By: #### A LT, LIPID, BMP #### [facility] [address] [place] [address] Dr. Deion Logan Potassium [Moles/Vol] 3.6 mmol/L Normal 3.5-5.1 [facility] Comment on above: Performed By: #### A LT, LIPID, BMP #### [facility] [address] [address] [address] Deion Logan Sodium [Moles/Vol] 142 mmol/L Normal 136-145 [facility] Comment on above: Performed By: #### A LT, LIPID, BMP #### [facility] [address] [address] [address] Deion Logan Urea nitrogen [Mass/Vol] 10.0 mg/dL Normal 7.0-18.0 [facility] Comment on above: Performed By: #### A LT, LIPID, BMP #### [facility] [address] [address] [address] Deion Logan Urea nitrogen/Creatinine [Mass ratio] 18.5 mg/mg Normal [facility] Comment on above: Performed By: #### A LT, LIPID, BMP #### [facility] [address] [address] [address] Deion Logan [facility] 08-02-2022 ALT [Catalytic activity/Vol] 28 U/L Normal 14-59 [facility] Comment on above: Performed By: #### A LT, LIPID, BMP #### [facility] [address] [place] [address] Dr. Deion Logan MG MAMM SCREEN 3D ADAN CADon 07-26-2022 MG MAMM SCREEN 3D ADAN CAD Patient: MARCUS GUSTAFSON Exam Date: 07/26/2022 : 1950 Gender:F Ordering : DR ABRAHAM MONTIEL D.O. Admission #: [id number] Family : Order #: [id number] CLICK HERE TO VIEW EXAM RADIOLOGY REPORT [...] colon cancer at age 77. LOCATION: [facility] BREAST COMPOSITION: Scattered areas fibroglandular density. [...] Duque M.D. on 07/29/2022 at 14:43 Normal [facility] XR DEXA BONE DENSITYon 07-26 XR [...] by: EDMUNDO DUQUE Date: 2022-07-26 08:48 Normal [facility] GLYCOHEMOGLOBIN A1Con 2021 ADA RECOMMENDATION SEE BELOW Normal [facility] Comment on above: Result Comment: ADA RECOMMENDED LIMIT 4.0 - 6.0 ADA THERAPEUTIC TARGET < 7.0 ACTION SUGGESTED > 7.0 Performed By: #### A 1C #### [facility] [address] [place], [place] [address] Dr. Deion Logan Glucose [Mass/Vol] 157 mg/dL Normal [facility] Comment on above: Performed By: #### A 1C #### [facility] [address] [place], [place] [address] Dr. Deion Logan HbA1c (Bld) [Mass fraction] 7.1 % Critically high 4.5-6.2 [facility] Comment on above: Performed By: #### A 1C #### [facility] [address] [address] [address] Deion Logan GLYCOHEMOGLOBIN A1Con 2021 ADA RECOMMENDATION ADA THERAPEUTIC TARGET 6.0 - 7.0 ACTION SUGGESTED > 7.0 Normal [facility] Comment on above: Performed By: #### A 1C #### [facility] [address] [place] [address] [address] Deion Logan Glucose [Mass/Vol] 160 mg/dL Normal [facility] Comment on above: Performed By: #### A 1C #### [facility] [address] [address] [address] Deion Logan HbA1c (Bld) [Mass fraction] 7.2 % Critically high <=6.0 [facility] Comment on above: Performed By: #### A 1C #### [facility] [address] [address] [address] Deion Logan Vital Signs Date Time Vital Sign Value Performing Clinician Facility 08-26-2023 09:30-0500 Body height 161.29 cm Abraham Montiel Other [facility] Other 08-26-2023 09:30-0500 Body mass index (BMI) [Ratio] 25.98 kg/m2 Abraham Ajit Other [facility] Other 08-26-2023 09:30-0500 Body weight 67.59 kg Abraham Montiel Other [facility] Other 08-26-2023 09:30-0500 Diastolic blood pressure 77 mm[Hg] Abraham Ball Other [facility] Other 08-26-2023 09:30-0500 Respiratory rate 12 /min Abraham Ajit Other [facility] Other 08-26-2023 09:30-0500 Systolic blood pressure 190 mm[Hg] Abraham Ball Other [facility] Other 05-26-2023 10:00-0400 Body height 161.29 cm Abraham Ball Other [facility] Other 05-26-2023 10:00-0400 Body mass index (BMI) [Ratio] 25.91 kg/m2 Abraham Ball Other [facility] Other 05-26-2023 10:00-0400 Body weight 67.4 kg Abraham Ball Other [facility] Other 05-26-2023 10:00-0400 Diastolic blood pressure 77 mm[Hg] Abraham Ball Other [facility] Other 05-26-2023 10:00-0400 Respiratory rate 12 /min Abraham Ball Other [facility] Other 05-26-2023 10:00-0400 Systolic blood pressure 185 mm[Hg] Abraham Ball Other [facility] Other 05-19-2023 13:45-0400 Body height 161.29 cm Abraham Ball Other [facility] Other 05-19-2023 13:45-0400 Body mass index (BMI) [Ratio] 26.05 kg/m2 Abraham Ball Other [facility] Other 05-19-2023 13:45-0400 Body weight 67.77 kg Abraham Ball Other [facility] Other 05-19-2023 13:45-0400 Diastolic blood pressure 88 mm[Hg] Abraham Ball Other [facility] Other 05-19-2023 13:45-0400 Respiratory rate 12 /min Abraham Ball Other [facility] Other 05-19-2023 13:45-0400 Systolic blood pressure 138 mm[Hg] Abraham Ball Other [facility] Other 02-21-2023 11:30-0400 Body height 161.29 cm Abraham Ball Other [facility] Other 02-21-2023 11:30-0400 Body mass index (BMI) [Ratio] 25.66 kg/m2 Abraham Ball Other [facility] Other 02-21-2023 11:30-0400 Body weight 66.77 kg Abraham Ball Other [facility] Other 02-21-2023 11:30-0400 Diastolic blood pressure 83 mm[Hg] Abraham Ball Other [facility] Other 02-21-2023 11:30-0400 Respiratory rate 12 /min Abraham Ball Other [facility] Other 02-21-2023 11:30-0400 Systolic blood pressure 169 mm[Hg] Abraham Ball Other [facility] Other 10-24-2022 08:30-0500 Body height 161.29 cm Abraham Ball Other [facility] Other 10-24-2022 08:30-0500 Body mass index (BMI) [Ratio] 25.7 kg/m2 Abraham Ball Other [facility] Other 10-24-2022 08:30-0500 Body weight 66.86 kg Abraham Ball Other [facility] Other 10-24-2022 08:30-0500 Diastolic blood pressure 70 mm[Hg] Abraham Ball Other [facility] Other 10-24-2022 08:30-0500 Respiratory rate 12 /min Abraham Ball Other [facility] Other 10-24-2022 08:30-0500 Systolic blood pressure 146 mm[Hg] Abraham Ball Other [facility] Other 10-07-2022 14:30-0500 Body height 161.29 cm Abraham Ball Other [facility] Other 10-07-2022 14:30-0500 Body mass index (BMI) [Ratio] 25.52 kg/m2 Abraham Ball Other [facility] Other 10-07-2022 14:30-0500 Body weight 66.41 kg Abraham Ball Other [facility] Other 10-07-2022 14:30-0500 Diastolic blood pressure 82 mm[Hg] Abraham Ball Other [facility] Other 10-07-2022 14:30-0500 Respiratory rate 12 /min Abraham Ball Other [facility] Other 10-07-2022 14:30-0500 Systolic blood pressure 142 mm[Hg] Abraham Ball Other [facility] Other Encounters Encounter Date Encounter Type Care Provider Facility Start: 10-07-2023 End: 10-07-2023 ambulatory Abraham Ball Other [facility] Other Start: 10-07-2023 Telephone encounter [facility] Start: 09-10-2023 End: 09-10-2023 ambulatory Abraham Ajit Other [facility] Other Start: 09-10-2023 Telephone encounter Abraham Montiel [facility] Start: 08-26-2023 End: 08-26-2023 ambulatory Abraham Ball Other [facility] Other Start: 08-26-2023 Patient encounter procedure Abraham Montiel [facility] Start: 08-05-2023 End: 08-05-2023 ambulatory Abraham Ajit Other [facility] Other Start: 08-05-2023 Telephone encounter Abraham Montiel [facility] Start: 07-09-2023 End: 07-09-2023 ambulatory Abraham Ajit Other [facility] Other Start: 07-09-2023 Telephone encounter Abraham Montiel [facility] Start: 06-16-2023 End: 06-16-2023 ambulatory Abraham Ajit Other [facility] Other Start: 06-16-2023 Office outpatient vi sit 15 minutes Abraham Ball [facility] Start: 05-26-2023 End: 05-26-2023 ambulatory Abraham Ball Other [facility] Other Start: 05-26-2023 Office outpatient vi sit 25 minutes Abraham Ball [facility] Start: 05-19-2023 End: 05-19-2023 ambulatory Abraham Ball Other [facility] Other Start: 05-19-2023 Office outpatient vi sit 15 minutes Abraham Ball [facility] Start: 02-25-2023 End: 02-25-2023 ambulatory Abraham Ball Other [facility] Other Start: 02-25-2023 Telephone encounter Abraham Ball [facility] Start: 02-21-2023 End: 02-21-2023 ambulatory Abraham Ball Other [facility] Other Start: 02-21-2023 Office outpatient vi sit 25 minutes Abraham Montiel [facility] Start: 10-24-2022 End: 10-24-2022 ambulatory Abraham Montiel Other [facility] Other Start: 10-24-2022 Office outpatient vi sit 25 minutes Abraham Ajit Abrazo [facility] Start: 10-11-2022 End: 10-11-2022 ambulatory Abraham Montiel Other [employer] Other Start: 10-11-2022 Telephone encounter Abraham Montiel [facility] Start: 10-07-2022 End: 10-08-[address] ABRAHAM MONTIEL Facility:[facility] Start: 10-07-2022 Office outpatient vi sit 15 minutes Abraham Montiel [facility] Start: 09-05-2022 End: 09-05-2022 ambulatory Abraham Montiel Other [employer] Other Start: 09-05-2022 Telephone encounter Abraham Montiel [facility] Start: 08-02-2022 End: 08-03-[address] ABRAHAM MONTIEL Facility:[facility] Start: 07-26-2022 End: 07-27-[address] ABRAHAM MONTIEL Facility:[facility] Start: 06-20-2022 Adult health examination Holden min Ajit Other [employer] Other Start: 06-20-2022 Gynecological examin ation normal Abraham Montiel Other [employer] Other Start: 03-06-2022 End: 03-07-[address] [...] Immunizations Immunization Date Immunization Notes Care Provider [place] 05-26-2023 influenza, high dose seasonal, preservative-free Abraham Montiel Other [employer] Other 06-20-2022 influenza virus vaccine, split virus (incl. purified surface antigen) Abraham Montiel Other [employer] Other 06-18-2021 influenza virus vaccine, split virus (incl. purified surface antigen) Abraham Montiel Other [employer] Other 06-12-2020 influenza virus vaccine, split virus (incl. purified surface antigen) Abraham Montiel Other [employer] Other 02-18-2018 diphtheria, tetanus toxoids and acellular pertussis vaccine, unspecified formulation Abraham Montiel Other [employer] Other 06-23-2017 pneumococcal polysaccharide vaccine, 23 valent Abraham Montiel Other [employer] Other 06-19-2016 pneumococcal conjuga te vaccine, 13 valent Abraham Montiel Other [employer] Other 06-19-2016 pneumococcal Conjugate, unspecified formulation; Translations: [Need for prophylactic vaccination against Streptococcus pneumoniae (pneumococcus)] Abraham Montiel Other [employer] Other NEGATED: Highlighted row has not occurred!06-12-2020 influenza virus vaccine, split virus (incl. purified surface antigen) Abraham Montiel Other [employer] Other Payers Date Payer Category Payer Medicare [id number] 1958 Unknown [id number] 1950 Unknown [id number] 2.16.84 [id number] 1950 Unknown [id number] 2.16.84 [id number] 1950 Unknown [id number] 2.16.84 [id number] 1950 Unknown [id number] 2.16.84 [id number] 1950 Unknown [id number] 2.16.84 [id number] Social History Date Type Detail Facility Sex Assigned At [employer] Other Medical Equipment Procedure Code Equipment Code Equipment Original Text Equi pment Identifier Dates Freestyle lite test strips Clinical Notes 09-05-2022 to 10-07-2023 Note Date & Type Note Facility 10-07-2023 Evaluation note Encounter Date Diagnosis Assessment Notes Oct, Acute non-recurrent maxillary sinusitis (ICD-10 - J01.00) [employer] Other [id number] Evaluation note* Encounter Date Diagnosis Assessment Notes Treatment Notes Treatment Clinical Notes Aug, Controlled type 2 diabetes mellitus [...] patient on monthly SBE and yearly mammograms. [employer] Other 11-08-2023 Evaluation note* Encounter Date Diagnosis Assessment Notes Treatment Notes Treatment Clinical Notes Jul, Controlled type 2 diabetes mellitus with hyperglycemia, without long-term current use of insulin (ICD-10 - E11.65) [facility] Other 10-16-2023 Evaluation note* Encounter Date Diagnosis [...] to change treatment. Push fluids and rest [employer] Other 09-25-2023 Evaluation note* Encounter Date Diagnosis [...] They may safely use Tylenol as needed. [employer] Other 09-18-2023 Evaluation note* Encounter Date Diagnosis [...] continue exercise to achieve/maintain a normal BMI. [employer] Other 06-23-2023 Evaluation note* Encounter Date Diagnosis [...] (ICD-10 - L23.7) Cool compresses avoid scratching [employer] Other 02-23-2023 Evaluation note* Encounter Date Diagnosis [...] Chronic w/ acute worsening. Monitor for now. [employer] Other 02-07-2023 NotePROCEDURE: XR HIP LT 2 [...] Electronically authenticated by: EDMUNDO DUQUE Date: 2022-10-08 07:[facility]* Encounter Date Diagnosis Assessment [...] and ROM exercises. Initiate NSAIDs. XR ordered [employer] Other 01-05-2023 Evaluation note* Encounter Date Diagnosis Assessment Notes Treatment Notes Treatment Clinical Notes Sep, Primary hypertension (ICD-10 - I10) [employer] Other Evaluation noteNo InformationNortTiny [facility] [employer] Other History general Narrative - Reported* Type Description Date Surgical History COLONOSCOPY 2002, 2013, 201 9 Surgical History BREAST BX 2012 Surgical History LEFT TKA 2013 Hospitalization History SEE SURGICAL HX [employer] Other History general Narrative - Reported* Type [...] TKA 2013 Hospitalization History SEE SURGICAL HX [employer] Other Summary Purpose Family History No Family History Records Found Advance Directives No Advanced Directives Records Found Additional Source Comments INFORMATION SOURCE (unrecogn ized section and content) DATE CREATED AUTHOR 10/10/2022 [facility] REASON FOR VISIT (unrecogniz ed section and content) Reminderwellnessmamm results POSSIBLE SINUS INFECTION [phone] month Follow upHearing Aid-Look in EarLab ResultsDiabetes [...] BE BASED ON THE PRIMARY CLINICAL RECORDS. [employer] provides no warranty or guarantee of the accuracy or completeness of information in this document.
[2023-11-18 07:28] LABS: Anion Gap 13.4; BUN Creatinine Ratio 15.5; Calcium 9.4 mg/dL (8.5-10.1); Carbon Dioxide 31.6 mmol/L (21.0-32.0); Chloride 103 mmol/L (98-107); Estimated GFR (African America >60 (>=60); Estimated GFR (Non-African Ame >60 (>=60); Glucose 182 mg/dL (74-106); Sodium 144 mmol/L (136-145)
[2023-11-19 12:09] LABS: PTH, Intact 26 pg/mL (15-65)
== END 2023-11-18 06:32 | disposition home or self-care (01) ==
LOC: LAB 06:31
PROVIDERS: PCP Internal Medicine; Visit Provider Internal Medicine
DX: E83.52 Hypercalcemia (principal); E55.9 Vitamin D deficiency, unspecified
CPT/HCPCS: 36415; 80048; 82306; 83970

== ENCOUNTER 2024-02-17 06:30 | Outpatient (OUT) | payer MEDICARE, SELFPAY ==
[2024-02-17 07:20] LABS: Estimated Average Glucose 157 mg/dL; Glycohemoglobin A1C 7.1 % (4.5-6.2)
== END 2024-02-17 06:31 | disposition home or self-care (01) ==
LOC: LAB 06:30
PROVIDERS: PCP Internal Medicine; Visit Provider Internal Medicine
DX: E11.65 Type 2 diabetes mellitus with hyperglycemia (principal)
CPT/HCPCS: 36415; 83036

== ENCOUNTER 2024-06-08 13:09 | Outpatient (OUT) | payer MEDICARE, SELFPAY ==
--- OUTSIDE RECORDS SUMMARY | 2024-06-08 13:17 | XMS_ITS | CCD ---
Author Organization [facility] Care Team Providers Care Flour Tester Name Role Phone AJIT, DR CARVALHO Admitting Unavailable BALL, DR CARVALHO Attending Unavailable BALL, DR CARVALHO Primary Care Unavailable BALL, DR CARVALHO Consulting Unavailable AJIT, DR CARVALHO Admitting Unavailable BALL, DR CARVALHO Attending Unavailable BALL, DR CARVALHO Primary Care Unavailable AJIT, DR CARVALHO Consulting Unavailable AJIT, DR CARVALHO Admitting Unavailable BALL, DR [...] Wyatt Consulting Unavailable LUCA, AMADEO Consulting Unavailable Ajit, Abraham Unavailable GIA MOSS Attending Unavailable ABRAHAM MONTIEL Referring Unavailable ABRAHAM MONTIEL E Primary Care Unavailable Allergies Allergy Classification Reported Allergen(s) Allergy Type Date of Onset Reaction(s) Facility (1 source) egg extract Drug Allergy 4 [facility] Repository (20 sources) predniSONE; Translations: [PREDNISONE] Drug Allergy 4 Unknown, Unknown Reaction [facility] (12 sources) Simvastatin Drug Allergy 4 Comment:myalgia [facility] Medications Current Medications Medication Drug Class(es) Dates Sig (Normalized) Sig (Original) azithromycin 250 mg oral tablet (7 sources) Macrolide Antimicrobial Start: 06-16-2023 Azithromycin 250 MG as directed Orally daily for 5 days Oct, Active benazepril hydrochloride 10 mg oral tablet (20 sources) Angiotensin Converting Enzyme Inhibitor Start: 12-08-2023 Benazepril Active 0 .ROUTE .COMPLEX 90 December 08, 2023 7:28pm TAKE 1 TABLET DAILY, TAKE WITH EXISTING 20MG DOSE Start: 10-30-2023 End: 12-08-2023 take 1 tablet by mouth once daily Benazepril Discontinued 10 MG PO October 30, 2023 1:00am December 08, 2023 7:28pm TAKE 1 TABLET DAILY; TAKE WITH EXISTING 20MG DOSE Start: 10-30-2023 End: 11-25-2023 take 20 mg by mouth once daily Benazepril Discontinued 20 MG PO Daily October 30, 2023 1:00am November 25, 2023 10:37pm Benazepril HCl 1 0 MG TAKE 1 TABLET DAILY; TAKE WITH EXISTING 20MG DOSE Active Benazepril HCl 2 0 MG TAKE 1 TABLET DAILY for 90 Active Blood-Glucose Meter (True Me trix Glucose Meter) misc (6 sources) Start: 01-01-2024 Blood-Glucose Meter (True Metrix Glucose Meter) misc Active 0 .Route 1 January 01, 2024 4:24pm As directed Start: 01-01-2024 End: 01-01-2024 Blood-Glucose Meter (True Me trix Glucose Meter) misc Discontinued 0 .Route January 01, 2024 12:00am January 01, 2024 4:25pm As directed lovastatin 40 mg oral tablet (20 sources) HMG-CoA Reductase Inhibitor Start: 10-30-2023 End: 10-30-2023 take 40 mg by mouth once daily in the evening Lovastatin Active 40 MG PO .Q EVENING TIME 90 90 October 30, 2023 8:08pm Lovastatin 40 MG TAKE 1 TABLET EVERY EVENING for 90 Active microencapsulated potassium chloride 20 meq extended release oral tablet (14 sources) Start: 11-24-2023 take 20 mEq by mouth once daily Potassium Chloride Active 20 MEQ PO Daily November 24, 2023 12:00am take 1 tablet by mouth once tamy y Klor-Con M20 20 MEQ TAKE 1 TABLET DAILY Orally Once a day for 90 days Active triamcinolone acetonide 5 mg/ml topical cream (14 sources) Corticosteroid Start: 10-30-2023 Triamcinolone Acetonide Active 1 APPLIC TOPICAL Twice a Week October 30, 2023 1:00am Start: 02-21-2023 Triamcinolone Acetonide 0.5 % 1 application Externally Two times a Week for 7 days Jan, Active Start: 06-23-2023 Triamcinolone Acetonide 0.5 % 1 application Externally Two times a Week for 7 days Jan, Active Completed/Discontinued Medications Medication Drug Class(es) Dates Sig (Normalized) Sig (Original) amLODIPine 5 mg oral tablet (20 sources) Dihydropyridine Calcium Channel Apryl Start: 10-30-2023 End: 12-05-2023 take 5 mg by mouth once daily Amlodipine Discontinued 5 MG PO Daily 90 90 December 05, 2023 9:28am December 05, 2023 9:29am amLODIPine Besyl ate 5 MG TAKE 1 TABLET DAILY Active benazepril hydrochloride 20 mg / hydroCHLOROthiazide 12.5 mg oral tablet (14 sources) Thiazide Diuretic, Angiotensin Converting Enzyme Inhibitor Start: 11-25-2023 End: 02-17-2024 take 1 tablet by mouth once daily Benazepril-Hydrochlorothiazide Discontinued 1 TAB PO Daily 30 30 December 05, 2023 9:26am February 17, 2024 10:35am hydroCHLOROthiazide 25 mg oral tablet (19 sources) Thiazide Diuretic Start: 11-24-2023 End: 11-25-2023 take 25 mg by mouth once daily Hydrochlorothiazide Discontinued 25 MG PO Daily November 24, 2023 12:00am November 25, 2023 10:37pm hydroCHLOROthiaz blake 25 MG TAKE 1 TABLET DAILY for 90 Active metFORMIN hydrochloride 1000 mg / SITagliptin 50 mg oral tablet (20 sources) Biguanide, Dipeptidyl Peptidase 4 Inhibitor Start: 11-24-2023 End: 02-04-2024 take 1 tablet by mouth twice daily Sitagliptin Phos-Metformin Discontinued 1 TAB PO Twice daily 180 90 February 02, 2024 1:17pm February 04, 2024 3:46pm Janumet 50-1000 MG TAKE 1 TABLET TWICE A DAY Active nabumetone 1000 mg oral tablet (19 sources) Nonsteroidal Anti-inflammatory Drug Start: 11-24-2023 End: 02-16-2024 take 1000 mg by mouth twice daily Nabumetone Discontinued 1000 MG PO Twice daily November 24, 2023 12:00am February 16, 2024 9:12am Start: 10-07-2022 take 1 tablet by yury th twice daily Nabumetone 1000 MG 1 tablet Orally Twice a day 06 Oct, 2022 Active Suprep Bowel Prep . (15 sources) Start: 05-13-2014 Suprep Bowel P rep . 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..] [Menopause] Onset: 07-31-2022 Episodic Residual codes; unclassified (2 sources) Family history of malignant neoplasm of digestive organs; Translations: [FAM HX MALIG NEOPLASM DIGESTIV ORGN] Onset: 07-31-2022 Episodic Residual codes; unclassified (12 sources) Family history of cancer of colon; Translations: [Family history of colon cancer] Episodic Residual codes; unclassified (1 source) Postmenopausal state; Translations: [Asymptomatic menopausal state] Episodic Spondylosis; intervertebral disc disorders; other back problems (20 sources) Spondylosis without myelopathy or radiculopathy, lumbar region; Translations: [Lumbar spondylosis] Onset: 10-09-2022 Chronic Spondylosis; intervertebral disc disorders; other back problems (20 sources) Lumbago with sciatica, left side; Translations: [Acute back pain with sciatica] Onset: 10-07-2022 Episodic Unclassified (1 source) Long-term current use of drug therapy; Translations: [Long-term (current) use of other medications] Onset: 08-11-2016 Unclassified (1 source) Colon Cancer Screening Onset: 05-21-2024 Past or Other Problems Problem Classification Problem [...] Test Name Value Interpretation Reference Range Facility Glucose mean value [Mass/vol ume] in Blood Estimated from glycated hemoglobinon 02-17-2024 Average glucose Estimated from glycated hemoglobin (Bld) [Mass/Vol] 157 mg/dL [facility] Laboratory - Hematology and Cell countson 02-17-2024 HbA1c (Bld) [Mass fraction] 7.1 % High 4.5-6.2 [facility] Comment on above: ADA RECOMMENDED LIMI T 4.0 - 6.0ADA THERAPEUTIC TARGET < 7.0ACTION SUGGESTED> 7.0 Estimated glomerular filtrat ion rate (GFR) non- Americanon 11-18-2023 GFR/1.73 sq M.predicted among non-blacks MDRD (S/P/Bld) [Vol rate/Area] mL/min/{1.73_m2} >=60 [facility] Laboratory - Chemistry and C hemistry - challengeon 11-18-2023 Calcium [Mass/Vol] 9.4 mg/dL 8.5-10.1 [facility] Chloride [Moles/Vol] 103 mmol/L 98-107 [facility] CO2 [Moles/Vol] 31.6 mmol/L 21.0-32.0 [facility] Creatinine [Mass/Vol] 0.71 mg/dL 0.55-1.02 [facility] GFR/1.73 sq M.predicted MDRD (S/P/Bld) [Vol rate/Area] mL/min/{1.73_m2} >=60 [facility] Glucose [Mass/Vol] 182 mg/dL 74-106 [facility] Potassium [Moles/Vol] 4.0 mmol/L 3.5-5.1 [facility] Sodium [Moles/Vol] 144 mmol/L 136-145 [facility] Urea nitrogen [Mass/Vol] 11.0 mg/dL 7.0-18.0 [facility] Urea nitrogen/Creatinine [Mass ratio] 15.5 mg/mg [facility] No Panel Informationon 11-17 25-Hydroxy Vitamin D Total 32.1 ng/mL [facility] Comment on above: <20 ng/mL Vit D defi cient20-<30 ng/mL Vit D vfwfklgdvasl87-905 ng/mL Vit D sufficient>100 ng/mL Potential Toxicity Parathyroid Hormone (Intact) 26 pg/mL 15-65 [facility] Comment on above: Performed at: [address] [id number] Director: Raul Headley PhD, Phone: [phone] Serum or plasma anion gap de terminationon 11-18-2023 Anion gap [Moles/Vol] 13.4 mmol/L [facility] XR LSPINE 2_3 VIEWSon 2022 XR LSPINE 2_3 VIEWS EXAM: XR LSPINE 2_3 VIEWS HISTORY: Lumbago with sciatica COMPARISON: None. TECHNIQUE: Frontal, lateral, spot radiographs of the lumbar spine. FINDINGS: Anatomy: 5 sol-rff-hvqrapg lumbar segments. Bones: No acute fracture or [...] by: AMADEO SEGOVIA Date: 2022-10-08 07:09 Normal [facility] XR HIP LT 2 3V W PELVISon XR HIP LT 2 3V W PELVIS [facility] Other XR lumbar spine 2-3V*on XR lumbar spine 2-3V* [facility] Other CBC AUTO DIFFon 08-02-2022 BASO # 0.1 103/ul Normal 0.0-0.1 [facility] Comment on above: Performed By: #### C BC ####[facility] [address] [place] [id number]. Deion Logan Basophils/100 WBC (Bld) 0.7 % Normal 0.2-2.0 [facility] Comment on above: Performed By: #### C BC ####[facility] [address] [place] [address]Dr. Deion Logan EO # 0.2 103/ul Normal 0.0-0.7 [facility] Comment on above: Performed By: #### C BC ####[facility] [address] [place] [address]Dr. Deion Logan Eosinophils/100 WBC (Bld) 2.4 % Normal 0.9-7.0 [facility] Comment on above: Performed By: #### C BC ####[facility] [address] [place] [address]Dr. Deion Logan Erythrocyte distribution width (RBC) [Ratio] 12.0 % Normal 11.0-15.0 [facility] Comment on above: Performed By: #### C BC ####[facility] [address] [place] [id number]. Deion Logan Hematocrit (Bld) [Volume fraction] 41.5 % Normal 36.0-48.0 [facility] Comment on above: Performed By: #### C BC ####[facility] [address] [place] [id number]. Deion Logan Hemoglobin (Bld) [Mass/Vol] 14.2 g/dL Normal 12.0-16.0 [facility] Comment on above: Performed By: #### C BC ####[facility] [address] [place] [id number]. Deion Logan IG # 0.03 10e3/ul Normal 0.00-0.03 [facility] Comment on above: Performed By: #### C BC ####[facility] [address] [place] [id number]. Deion Logan IG % 0.4 % Normal 0.0-0.5 [facility] Comment on above: Performed By: #### C BC ####[facility] [address] [place] [id number]. Deion Logan LYMPH # 2.5 103/ul Normal 1.2-3.8 [facility] Comment on above: Performed By: #### C BC ####[facility] [address] [place] [id number]. Deion Logan Lymphocytes/100 WBC (Bld) 31.4 % Normal 20.5-60.0 [facility] Comment on above: Performed By: #### C BC ####[facility] [address] [place] [id number]. Deion Logan MANUAL DIFF REQ NO Normal [facility] Comment on above: Performed By: #### C BC ####[facility] [address] [place] [id number]. Deion Logan MCH (RBC) [Entitic mass] 30.5 pg Normal 26.7-34.0 [facility] Comment on above: Performed By: #### C BC ####[facility] [address] [place] [id number]. Deion Logan MCHC (RBC) [Mass/Vol] 34.2 g/dL Normal 29.9-35.2 [facility] Comment on above: Performed By: #### C BC ####[facility] [address] [place] [id number]. Deion Logan MCV (RBC) [Entitic vol] 89.1 fL Normal 81.0-99.0 [facility] Comment on above: Performed By: #### C BC ####[facility] [address] [place] [id number]. Deion Logan MONO # 0.6 103/ul Normal 0.3-0.8 [facility] Comment on above: Performed By: #### C BC ####[facility] [address] [place] [id number]. Deion Logan Monocytes/100 WBC (Bld) 7.2 % Normal 1.7-12.0 [facility] Comment on above: Performed By: #### C BC ####[facility] [address] [place] [id number]. Deion Logan NEUT # 4.7 103/ul Normal 1.4-6.5 [facility] Comment on above: Performed By: #### C BC ####[facility] [address] [place] [id number]. Deion Logan Neutrophils/100 WBC (Bld) 57.9 % Normal 43.0-75.0 [facility] Comment on above: Performed By: #### C BC ####[facility] [address] [place] [address]Dr. Deion Logan Platelet mean volume (Bld) [Entitic vol] 9.8 fL Normal 9.5-13.5 [facility] Comment on above: Performed By: #### C BC ####[facility] [address] [place] [id number]. Deion Logan PLT 258 103/ul Normal 150-450 [facility] Comment on above: Performed By: #### C BC ####[facility] [address] [place] [id number]. Deion Logan RBC 4.66 106/ul Normal 4.20-5.40 [facility] Comment on above: Performed By: #### C BC ####[facility] [address] [place] [id number]. Deion Logan WBC 8.1 103/ul Normal 4.0-11.0 [facility] Comment on above: Performed By: #### C BC ####[facility] [address] [place] [id number]. Deion Logan GLYCOHEMOGLOBIN A1Con 2021 ADA RECOMMENDATION SEE BELOW Normal [facility] Comment on above: Result Comment: ADA RECOMMENDED LIMIT 4.0 - 6.0 ADA THERAPEUTIC TARGET < 7.0 ACTION SUGGESTED > 7.0 Performed By: #### A 1C ####[facility] [address] [place] [address]Dr. Deion Logan Glucose [Mass/Vol] 163 mg/dL Normal [facility] Comment on above: Performed By: #### A 1C ####[facility] [address] [place] [address]Dr. Deion Logan HbA1c (Bld) [Mass fraction] 7.3 % Critically high 4.5-6.2 [facility] Comment on above: Performed By: #### A 1C ####[facility] [address] [place] [address]Dr. Deion Logan LIPID PROFILEon 08-02-2022 CHOL-HDL RATIO NORM SEE BELOW Normal [facility] Comment on above: Result Comment: 3.3 - 4.4 LOW RISK 4.4 - 7.1 AVERAGE RISK 7.1 - 11.0 MODERATE RISK >11.0 HIGH RISK Performed By: #### A LT, LIPID, BMP #### [facility] [address] [place] [address] [address] Deion Logan Cholesterol [Mass/Vol] 174 mg/dL Normal <=200 [facility] Comment on above: Performed By: #### A LT, LIPID, BMP #### [facility] [address] [place] [address] [address] Deion Logan Cholesterol in HDL [Mass/Vol] 60 mg/dL Normal 40-60 [facility] Comment on above: Performed By: #### A LT, LIPID, BMP #### [facility] [address] [place] [address] [address] Deion Logan Cholesterol in LDL [Mass/Vol] 93.4 mg/dL Normal [facility] Comment on above: Performed By: #### A LT, LIPID, BMP #### [facility] [address] [place] [address] [address] Deion Logan Cholesterol.total/Ch olesterol in HDL [Mass ratio] 2.9 {ratio} Normal [facility] Comment on above: Performed By: #### A LT, LIPID, BMP #### [facility] [address] [place] [address] [address] Deion Logan HDL NORMAL > or = 60 mg/dl - LOW CARDIOVASCULAR RISK <40 mg/dl - HIGH CARDIOVASCULAR RISK Normal [facility] Comment on above: Performed By: #### A LT, LIPID, BMP #### [facility] [address] [place] [address] Dr. Deion Logan LDL CALC NORMAL SEE BELOW Normal [facility] Comment on above: Result Comment: <100 mg/dl OPTIMAL 100 - 129 mg/dl NEAR OR ABOVE OPTIMAL 130 - 159 mg/dl BORDERLINE HIGH 160 - 189 mg/dl HIGH >190 mg/dl VERY HIGH Performed By: #### A LT, LIPID, BMP #### [facility] [address] [place] [address] Dr. Deion Logan Triglyceride [Mass/Vol] 103 mg/dL Normal <=150 [facility] Comment on above: Performed By: #### A LT, LIPID, BMP #### [facility] [address] [place] [address] Dr. Deion Logan VLDL CALC 20.6 mg/dL Normal [facility] Comment on above: Performed By: #### A LT, LIPID, BMP #### [facility] [address] [place] [address] Dr. Deion Logan MICROALBUMIN, RAND URon 12- mALB 9.7 mg/L Normal <=30.0 [facility] Comment on above: Performed By: #### M ALBR #### [facility] [address] [place] [address] Dr. Deion Logan PROF CHEM 8 (BAS METB)on Anion gap [Moles/Vol] 12.1 mmol/L Normal [facility] Comment on above: Performed By: #### A LT, LIPID, BMP #### [facility] [address] [place] [address] Dr. Deion Logan Calcium [Mass/Vol] 9.1 mg/dL Normal 8.5-10.1 [facility] Comment on above: Performed By: #### A LT, LIPID, BMP #### [facility] [address] [place] [address] Dr. Deion Logan Chloride [Moles/Vol] 101 mmol/L Normal 98-107 [facility] Comment on above: Performed By: #### A LT, LIPID, BMP #### [facility] [address] [place] [address] [address] Deion Logan CO2 [Moles/Vol] 32.5 mmol/L Critically high 21.0-32.0 [facility] Comment on above: Performed By: #### A LT, LIPID, BMP #### [facility] [address] [place] [address] Dr. Deion Logan Creatinine [Mass/Vol] 0.54 mg/dL Critically low 0.55-1.02 [facility] Comment on above: Performed By: #### A LT, LIPID, BMP #### [facility] [address] [place] [address] Dr. Deion Logan EGFR-AF ZAMBIAN >60 Normal >=60 [facility] Comment on above: Performed By: #### A LT, LIPID, BMP #### [facility] [address] [place] [address] Dr. Deion Logan EGFR-NON AF ZAMBIAN >60 Normal >=60 [facility] Comment on above: Performed By: #### A LT, LIPID, BMP #### [facility] [address] [place] [address] Dr. Deion Logan Glucose [Mass/Vol] 185 mg/dL Critically high 74-106 [facility] Comment on above: Performed By: #### A LT, LIPID, BMP #### [facility] [address] [place] [address] Dr. Deion Logan Potassium [Moles/Vol] 3.6 mmol/L Normal 3.5-5.1 [facility] Comment on above: Performed By: #### A LT, LIPID, BMP #### [facility] [address] [place] [address] Dr. Deion Logan Sodium [Moles/Vol] 142 mmol/L Normal 136-145 [facility] Comment on above: Performed By: #### A LT, LIPID, BMP #### [facility] [address] [place], [place] [address] Dr. Deion Logan Urea nitrogen [Mass/Vol] 10.0 mg/dL Normal 7.0-18.0 [facility] Comment on above: Performed By: #### A LT, LIPID, BMP #### [facility] [address] [place], [place] [address] Dr. Deion Logan Urea nitrogen/Creatinine [Mass ratio] 18.5 mg/mg Normal [facility] Comment on above: Performed By: #### A LT, LIPID, BMP #### [facility] [address] [place], [place] [address] Dr. Deion Logan SGPTon 08-02-2022 ALT [Catalytic activity/Vol] 28 U/L Normal 14-59 [facility] Comment on above: Performed By: #### A LT, LIPID, BMP #### [facility] [address] [place], [place] [address] Dr. Deion Logan MG MAMM SCREEN 3D ADAN CADon 07-26-2022 MG MAMM SCREEN 3D ADAN CAD Patient: MARCUS GUSTAFSON Exam Date: 07/26/2022 : 1950 Gender:F Ordering : DR ABRAHAM MONTIEL D.O. Admission #: [id number] Family : Order #: [id number] CLICK HERE TO VIEW EXAM RADIOLOGY REPORT [...] colon cancer at age 77. LOCATION: [facility] BREAST COMPOSITION: Scattered areas fibroglandular density. [...] Duque M.D. on 07/29/2022 at 14:43 Normal [facility] XR DEXA BONE DENSITYon 07-26 XR DEXA [...] by: EDMUNDO DUQUE Date: 2022-07-26 08:48 Normal [facility] GLYCOHEMOGLOBIN A1Con 2021 ADA RECOMMENDATION SEE BELOW Normal [facility] Comment on above: Result Comment: ADA RECOMMENDED LIMIT 4.0 - 6.0 ADA THERAPEUTIC TARGET < 7.0 ACTION SUGGESTED > 7.0 Performed By: #### A 1C #### [facility] [address] [address] [address] Deion Logan Glucose [Mass/Vol] 157 mg/dL Normal [facility] Comment on above: Performed By: #### A 1C #### [facility] [address] [address] [address] Deion Logan HbA1c (Bld) [Mass fraction] 7.1 % Critically high 4.5-6.2 [facility] Comment on above: Performed By: #### A 1C #### [facility] [address] [address] [address] Deion Logan GLYCOHEMOGLOBIN A1Con 2021 ADA RECOMMENDATION ADA THERAPEUTIC TARGET 6.0 - 7.0 ACTION SUGGESTED > 7.0 Normal [facility] Comment on above: Performed By: #### A 1C #### [facility] [address] [place], [place] [address] Dr. Deion Logan Glucose [Mass/Vol] 160 mg/dL Normal [facility] Comment on above: Performed By: #### A 1C #### [facility] [address] [place], [place] [address] Dr. Deion Logan HbA1c (Bld) [Mass fraction] 7.2 % Critically high <=6.0 [facility] Comment on above: Performed By: #### A 1C #### [facility] [address] [place], [place] [address] Dr. Deion Logan Vital Signs Date Time Vital Sign Value Performing Clinician Facility 05-04-2024 08:31-0400 Body height 161.29 cm [facility] 05-04-2024 08:31-0400 Body mass index (BMI) [Ratio] 25.7 kg/m2 [facility] 05-04-2024 08:31-0400 Body weight 66.79 kg [facility] 05-04-2024 08:31-0400 Diastolic blood pressure 75 mm[Hg] [facility] 05-04-2024 08:31-0400 Heart rate 89 /min [facility] 05-04-2024 08:31-0400 Respiratory rate 12 /min [facility] 05-04-2024 08:31-0400 Systolic blood pressure 174 mm[Hg] [facility] 02-16-2024 08:55-0400 Body height 161.29 cm [facility] 02-16-2024 08:55-0400 Body mass index (BMI) [Ratio] 25.1 kg/m2 [facility] 02-16-2024 08:55-0400 Body weight 65.43 kg [facility] 02-16-2024 08:55-0400 Diastolic blood pressure 77 mm[Hg] [facility] 02-16-2024 08:55-0400 Heart rate 82 /min [facility] 02-16-2024 08:55-0400 Respiratory rate 12 /min [facility] 02-16-2024 08:55-0400 Systolic blood pressure 171 mm[Hg] [facility] 11-25-2023 09:29-0400 Body height 161.29 cm [facility] 11-25-2023 09:29-0400 Body mass index (BMI) [Ratio] 25.4 kg/m2 [facility] 11-25-2023 09:29-0400 Body [facility] 66.22 [facility] [facility] 11-25-2023 09:29-0400 Diastolic blood pressure 88 mm[Hg] [facility] 11-25-2023 09:29-0400 Heart rate 90 /min [facility] 11-25-2023 09:29-0400 Respiratory rate 12 /min [facility] 11-25-2023 09:29-0400 Systolic blood pressure 135 mm[Hg] [facility] 08-26-2023 09:30-0500 Body height 161.29 cm Abraham Ball Other [facility] [employer] Other 08-26-2023 09:30-0500 Body mass index (BMI) [Ratio] 25.98 kg/m2 Abraham Ball Other [facility] [employer] Other 08-26-2023 09:30-0500 Body weight 67.59 kg Abraham Ball Other [employer] [facility] [employer] Other 08-26-2023 09:30-0500 Diastolic blood pressure 77 mm[Hg] Abraham Ball Other [facility] [employer] Other 08-26-2023 09:30-0500 Respiratory rate 12 /min Abraham Ball Other [facility] Other 08-26-2023 09:30-0500 Systolic blood pressure 190 mm[Hg] Abraham Ball Other [facility] Other 05-26-2023 10:00-0400 Body height 161.29 cm Abraham Ball Other [facility] Other 05-26-2023 10:00-0400 Body mass index (BMI) [Ratio] 25.91 kg/m2 Abraham Ball Other [facility] Other 05-26-2023 10:00-0400 Body weight 67.4 kg Abraham Ball Other [facility] Other 05-26-2023 10:00-0400 Diastolic blood pressure 77 mm[Hg] Abraham Ball Other [facility] Other 05-26-2023 10:00-0400 Respiratory rate 12 /min Abraham Ball Other [facility] Other 05-26-2023 10:00-0400 Systolic blood pressure 185 mm[Hg] Abraham Ball Other [facility] Other 05-19-2023 13:45-0400 Body height 161.29 cm Abraham Ball Other [facility] Other 05-19-2023 13:45-0400 Body mass index (BMI) [Ratio] 26.05 kg/m2 Abraham Ball Other [facility] Other 05-19-2023 13:45-0400 Body weight 67.77 kg Abraham Ball Other [facility] Other 05-19-2023 13:45-0400 Diastolic blood pressure 88 mm[Hg] Abraham Ball Other [facility] Other 05-19-2023 13:45-0400 Respiratory rate 12 /min Abraham Ball Other [facility] Other 05-19-2023 13:45-0400 Systolic blood pressure 138 mm[Hg] Abraham Ball Other [facility] Other 02-21-2023 11:30-0400 Body height 161.29 cm Abraham Ball Other [facility] Other 02-21-2023 11:30-0400 Body mass index (BMI) [Ratio] 25.66 kg/m2 Abraham Ball Other [facility] Other 02-21-2023 11:30-0400 Body weight 66.77 kg Abraham Ball Other [facility] Other 02-21-2023 11:30-0400 Diastolic blood pressure 83 mm[Hg] Abraham Ball Other [facility] Other 02-21-2023 11:30-0400 Respiratory rate 12 /min Abraham Ball Other [facility] Other 02-21-2023 11:30-0400 Systolic blood pressure 169 mm[Hg] Abraham Ball Other [facility] Other 10-24-2022 08:30-0500 Body height 161.29 cm Abraham Ball Other [facility] Other 10-24-2022 08:30-0500 Body mass index (BMI) [Ratio] 25.7 kg/m2 Abrhaam Ball Other [facility] Other 10-24-2022 08:30-0500 Body weight 66.86 kg Abraham Ball Other [facility] Other 10-24-2022 08:30-0500 Diastolic blood pressure 70 mm[Hg] Abraham Ball Other [facility] Other 10-24-2022 08:30-0500 Respiratory rate 12 /min Abraham Ball Other [facility] Other 10-24-2022 08:30-0500 Systolic blood pressure 146 mm[Hg] Abraham Ball Other [facility] Other 10-07-2022 14:30-0500 Body height 161.29 cm Abraham Ball Other [facility] Other 10-07-2022 14:30-0500 Body mass index (BMI) [Ratio] 25.52 kg/m2 Abraham Ball Other [facility] Other 10-07-2022 14:30-0500 Body weight 66.41 kg Abraham Ball Other [facility] Other 10-07-2022 14:30-0500 Diastolic blood pressure 82 mm[Hg] Abraham Ball Other [facility] Other 10-07-2022 14:30-0500 Respiratory rate 12 /min Abraham Ball Other [facility] Other 10-07-2022 14:30-0500 Systolic blood pressure 142 mm[Hg] Abraham Ball Other [facility] Other Encounters Encounter Date Encounter Type Care Provider Facility Start: 05-21-2024 End: 05-21-2024 ambulatory [facility] Start: 05-04-2024 End: 05-04-2024 ambulatory [facility] Work Phone: Start: 05-04-2024 End: 05-04-2024 Patient encounter procedure [facility] Work Phone: Start: 02-17-2024 Non-patient / Non-visit [facility] [employer] Work Phone: Start: 02-16-2024 End: 02-16-2024 ambulatory [facility] Work Phone: Start: 02-16-2024 End: 02-16-2024 Patient encounter procedure [facility] Work Phone: Start: 11-25-2023 End: 11-25-2023 ambulatory [facility] Work Phone: Start: 11-25-2023 End: 11-25-2023 Patient encounter procedure [facility] Work Phone: Start: 11-18-2023 Non-patient / Non-visit [facility] Work Phone: Start: 10-30-2023 Non-patient / Non-visit [facility] Work Phone: Start: 10-07-2023 End: 10-07-2023 ambulatory Abraham Ball Other [facility] Other Start: 10-07-2023 Telephone encounter Abraham [facility] Start: 09-10-2023 End: 09-10-2023 ambulatory Abraham Ball Other [facility] Other Start: 09-10-2023 Telephone encounter Abraham Ball [facility] Start: 08-26-2023 End: 08-26-2023 ambulatory Abraham Ball Other [facility] Other Start: 08-26-2023 Patient encounter procedure Abraham Ball [facility] Start: 08-05-2023 End: 08-05-2023 ambulatory Abraham Ball Other [facility] Other Start: 08-05-2023 Telephone encounter Abraham Ball [facility] Start: 07-09-2023 End: 07-09-2023 ambulatory Abraham Ball Other [facility] Other Start: 07-09-2023 Telephone encounter Abraham Ball [facility] Start: 06-16-2023 End: 06-16-2023 ambulatory Abraham Ball Other [facility] Other Start: 06-16-2023 Office outpatient vi sit 15 minutes Abraham Ball [facility] Start: 05-26-2023 End: 05-26-2023 ambulatory Baraham Ball Other [facility] Other Start: 05-26-2023 Office outpatient vi sit 25 minutes Abraham Ball [facility] Start: 05-19-2023 End: 05-19-2023 ambulatory Abraham Ball Other [facility] Other Start: 05-19-2023 Office outpatient vi sit 15 minutes Abraham Ball [facility] Start: 02-25-2023 End: 02-25-2023 ambulatory Abraham Ajit Other [facility] Other Start: 02-25-2023 Telephone encounter Abraham Ball [facility] Start: 02-21-2023 End: 02-21-2023 ambulatory Abraham Montiel Other [facility] Other Start: 02-21-2023 Office outpatient vi sit 25 minutes Abraham Ball [facility] Start: 10-24-2022 End: 10-24-2022 ambulatory Abraham Ball Other [facility] Other Start: 10-24-2022 Office outpatient vi sit 25 minutes Abraham Ball [facility] Start: 10-11-2022 End: 10-11-2022 ambulatory Abraham Ball Other [facility] Other Start: 10-11-2022 Telephone encounter Abraham Ball [facility] Start: 10-07-2022 End: 10-08-[address] ABRAHAM MONTIEL Facility: Start: 10-07-2022 Office outpatient vi sit 15 minutes Abraham Ball [facility] Start: 09-05-2022 End: 09-05-2022 ambulatory Abraham Ajit Other [facility] Other Start: 09-05-2022 Telephone encounter [facility] Start: 08-02-2022 End: 08-03-[address] ABRAHAM MONTIEL Facility:[facility] Start: 07-26-2022 End: 07-27-[address] ABRAHAM MONTIEL Facility:[facility] Start: 06-20-2022 Adult health examination Holden Montiel Other [facility] Other Start: 06-20-2022 Gynecological examin ation normal Abraham Ajit Other [facility] Other Start: 03-06-2022 End: 03-07-[address] ABRAHAM MONTIEL Facility:[facility] Start: 11-06-2021 End: 11-07-[address] ABRAHAM MONTIEL Facility:[facility] Procedures Date Procedure Procedure Detail Performing Clinician Start: 06-04-2018 Screening for osteoporosis Abraham Montiel Other Start: 04-22-2014 Screening mammography B enjaaaliyah Montiel Other Depression screening Sherman Montiel Other Preoperative cardiov ascular examination Abraham Montiel Other End: 07-27-2022 Screening for malignant neoplasm of breast Abraham Montiel Other Screening for malign ant neoplasm of colon Abraham Montiel Other Plan of Treatment Date Care Activity Detail Author Start: 05-04-2024 Patient referral [facility] Work Phone: Patient referral [facility] Work Phone: [facility] Immunizations Immunization Date Immunization Notes Care Provider [place] 05-26-2023 influenza virus vaccine, unspecified formulation [facility] 05-26-2023 influenza, high dose seasonal, preservative-free Abraham Montiel Other [facility] Other 06-20-2022 influenza virus vaccine, split virus (incl. purified surface antigen) Abraham Montiel Other [facility] Other 06-20-2022 influenza virus vaccine, unspecified formulation [facility] 06-18-2021 influenza virus vaccine, split virus (incl. purified surface antigen) Abraham Montiel Other [facility] Other 06-18-2021 influenza virus vaccine, unspecified formulation [facility] 06-12-2020 influenza virus vaccine, split virus (incl. purified surface antigen) Abraham Montiel Other [employer] Other 06-12-2020 influenza virus vaccine, unspecified formulation [facility] 02-18-2018 diphtheria, tetanus toxoids and acellular pertussis vaccine, unspecified formulation Abraham Montiel Other [facility] 06-23-2017 pneumococcal polysaccharide vaccine, 23 valent Abraham Montiel Other [facility] 06-19-2016 pneumococcal conjuga te vaccine, 13 valent Abraham Ajit Other [facility] 06-19-2016 pneumococcal Conjugate, unspecified formulation; Translations: [Need for prophylactic vaccination against Streptococcus pneumoniae (pneumococcus)] Abraham Montiel Other [facility] [employer] Other NEGATED: Highlighted row has not occurred!06-12-2020 influenza virus vaccine, split virus (incl. purified surface antigen) Abraham Montiel Other [facility] [employer] Other Payers Date Payer Category Payer Medicare [id number] 1958 Unknown [id number] 1950 Unknown [id number] [id number] 1950 Unknown [id number] [id number] [id number] 1950 Unknown [id number] [id number] [id number] 1950 Unknown [id number] [id number] [id number] 1950 Unknown [id number] 2.16.84 [id number] 1950 Unknown [id number] [id number] Social History Date Type Detail Facility Sex Assigned At [facility] Other Start: 1950 Sex Assigned At Female F [facility] Medical Equipment Procedure Code Equipment Code Equipment Origin al Text Equipment Identifier Dates Freestyle lite t est strips Blood Sugar Diagnostic (True Metrix Glucose Test Strip) strip Start: 01-01-2024 Blood Sugar Diagnostic (True Metrix Glucose Test Strip) strip Start: 01-01-2024 End: 01-01-2024 Blood Sugar Diagnostic (True Metrix Glucose Test Strip) strip Start: 01-01-2024 Blood Sugar Diagnostic (True Metrix Glucose Test Strip) strip Start: 01-01-2024 End: 01-01-2024 Blood Sugar Diagnostic (True Metrix Glucose Test Strip) strip Start: 01-01-2024 Blood Sugar Diagnostic (True Metrix Glucose Test Strip) strip Start: 01-01-2024 End: 01-01-2024 Clinical Notes 09-05-2022 to 10-07-2023 Note Date & Type Note Facility 10-07-2023 Evaluation note Encounter Date Diagnosis Assessment Notes Oct, Acute non-recurrent maxillary sinusitis (ICD-10 - J01.00) [employer] Other [id number] Evaluation note* Encounter Date Diagnosis Assessment Notes [...] patient on monthly SBE and yearly mammograms. [facility] Other 11-08-2023 Evaluation note* Encounter Date Diagnosis Assessment Notes Treatment Notes Treatment Clinical Notes Jul, Controlled type 2 diabetes mellitus with hyperglycemia, without long-term current use of insulin (ICD-10 - E11.65) [facility] Other 10-16-2023 Evaluation note* Encounter Date Diagnosis [...] to change treatment. Push fluids and rest [facility] Other 09-25-2023 Evaluation note* Encounter Date Diagnosis [...] They may safely use Tylenol as needed. [facility] Other 09-18-2023 Evaluation note* Encounter Date Diagnosis [...] continue exercise to achieve/maintain a normal BMI. [facility] Other 06-23-2023 Evaluation note* Encounter Date Diagnosis [...] (ICD-10 - L23.7) Cool compresses avoid scratching [facility] Other 02-23-2023 Evaluation note* Encounter Date Diagnosis [...] Chronic w/ acute worsening. Monitor for now. [facility] Other 02-07-2023 NotePROCEDURE: XR HIP LT 2 [...] Electronically authenticated by: EDMUNDO DUQUE Date: 2022-10-08 07:45[facility]02-06-2023 Evaluation note* Encounter Date Diagnosis Assessment Notes [...] and ROM exercises. Initiate NSAIDs. XR ordered [facility] Other 01-05-2023 Evaluation note* Encounter Date Diagnosis Assessment Notes Treatment Notes Treatment Clinical Notes Sep, Primary hypertension (ICD-10 - I10) [facility] Other Evaluation noteNo [employer] Other evaluation note* Diagnosis Onset Date Resolution Status Aortic valve sclerosis acute Asthma acute Diabetes mellitus with hyperglycemia acute Elevated cholesterol acute Hypertension acute [facility] Work Phone: Evaluation note* Diagnosis Onset Date Resolution Status Aortic valve sclerosis acute Asthma acute Diabetes mellitus with hyperglycemia acute Elevated cholesterol acute Hypertension acute Aortic valve sclerosis acute Asthma acute Diabetes mellitus with hyperglycemia acute Elevated cholesterol acute Hypertension acute [facility] Work Phone: Evaluation note* Diagnosis Onset Date Resolution Status Aortic valve sclerosis acute Asthma acute Diabetes mellitus with hyperglycemia acute Elevated cholesterol acute Hypertension acute Aortic valve sclerosis acute Asthma acute Diabetes mellitus with hyperglycemia acute Elevated cholesterol acute Encounter for screening for malignant neoplasm of colo n acute Hypertension acute [facility] [employer] Work Phone: History general Narrative - Reported* Type Description Date Surgical History COLONOSCOPY 2002, 2013, 201 9 Surgical History BREAST BX 2012 Surgical History LEFT TKA 2013 Hospitalization History SEE SURGICAL HX [facility] Other [facility] general Narrative - Reported* Type Description Date [...] pain Medical History Hypokalemia Surgical History COLONOSCOPY 2013, 201 9 Surgical History BREAST BX 2011 Surgical History LEFT TKA 2013 Hospitalization History SEE SURGICAL HX [facility] Other Hospital Discharge instructionsAmbulatory Orders* Referral to General Surgery Location: None Selected [facility] [employer] Work Phone: Summary Purpose Family History No Family History Records Found Relationship Condition Age at Onset Recorded Date/T jeanie brother Heart disease Unknown father Family history of colon cancer Unknown Malignant neoplasm Unknown sister Diabetes mellitus Unknown Advance Directives No Advanced Directives Records Found Advance Directive Response Recorded Date/ Time Advance Directives No September 24, 2023 10:25am Chief Complaint and Reason for Visit Chief Complaint Amb Documentation 3 month follow up Reason for Visit Aortic valve scleros is Asthma Diabetes mellitus with hyperglycemia Elevated cholesterol Hypertension Chief Complaint 3 month follow up 3 month follow up Reason for Visit Aortic valve scleros is Asthma Diabetes mellitus with hyperglycemia Elevated cholesterol Hypertension Aortic valve sclerosis Asthma Diabetes mellitus with hyperglycemia Elevated cholesterol Hypertension Chief Complaint 3 month follow up f/u Reason for Visit Aortic valve scleros is Asthma Diabetes mellitus with hyperglycemia Elevated cholesterol Hypertension Aortic valve sclerosis Asthma Diabetes mellitus with hyperglycemia Elevated cholesterol Encounter for screening for malignant neoplasm of colon Hypertension Additional Source Comments INFORMATION SOURCE (unrecogn ized section and content) DATE CREATED AUTHOR 10/10/2022 [employer] DATE CREATED AUTHOR AUTHOR'S ORGANIZ ATION 05/23/2024 [facility] REASON FOR VISIT (unrecogniz ed section and content) Reminderwellnessmamm results POSSIBLE SINUS INFECTION [phone] month Follow upHearing Aid-Look in EarLab ResultsDiabetes Check Up4 MONTH FOLLOW UPUpdateBody PainRefill Care Teams (unrecognized sec tion and content) Team Status: Active Member Role Status Dates Abraham Montiel , DO Primary Care Provider Active Team Status: Inactive Member Role Status Dates Abraham Montiel , Primary Care Provide r, Attending Provider Active Start: February 16, 2024 End: February 16, 2024 Team Status: Active Member Role Status Dates Abraham Montiel , DO Primary Care Provide r, Attending Provider Active Start: February 17, 2024 Team Status: Inactive Member Role Status Dates Abraham Montiel , Primary Care Provide r, Attending Provider Active Start: May 04, 2024 End: May 04, 2024 Team Status: Active Member Role Status Dates PHYSICIAN NO FAMILY Primary Care Provider Active Start: October 30, 2023 GENARO Pozo Attending Provider Active Start : October 30, 2023 Team Status: Active Member Role Status Dates PHYSICIAN NO FAMILY Primary Care Provider Active Start: November 18, 2023 Abraham Montiel DO Attending Provider Active Sta rt: November 18, 2023 Team Status: Inactive Member Role Status Dates Abraham Montiel , Primary Care Provide r, Attending Provider Active Start: November 25, 2023 End: November 25, 2023 Goals (unrecognized section and content) Goals may be documented in a n alternate section FOR RECORDS PERTAINING TO PATIENTS WHO ARE [...] BE BASED ON THE PRIMARY CLINICAL RECORDS. [employer] provides no warranty or guarantee of the accuracy or completeness of information in this document.
== END 2024-06-08 13:10 | disposition home or self-care (01) ==
LOC: PST 13:10
PROVIDERS: PCP Internal Medicine; Visit Provider Surgery
DX: Z01.818 Encounter for other preprocedural examination (principal); Z80.0 Family history of malignant neoplasm of digestive organs

== ENCOUNTER 2024-06-16 06:42 | Day surgery (SDC) | payer MEDICARE, SELFPAY ==
--- OUTSIDE RECORDS SUMMARY | 2024-06-16 06:45 | XMS_ITS | CCD ---
Author Organization [facility] Care Team Providers Care Ballistics Teacher Name Role Phone AJIT, DR CARVALHO Admitting [...] Ajit, Abraham Unavailable GIA MOSS Attending Unavailable BALL, ABRAHAM Espana Referring Unavailable BALL, ABRAHAM Espana Primary Care Unavailable Ball , Abraham Espana Primary Care Provider Allergies Allergy Classification Reported Allergen(s) Allergy Type Date of Onset Reaction(s) Facility (1 source) egg extract Drug Allergy 4 [facility] Repository (20 sources) predniSONE; Translations: [PREDNISONE] Drug Allergy 4 Blurred Vision, Dizziness [facility] (12 sources) Simvastatin Drug Allergy 4 Comment:myalgia [facility] Medications Current Medications Medication Drug Class(es) Dates Sig (Normalized) Sig (Original) amLODIPine 5 mg oral tablet (20 sources) Dihydropyridine Calcium Channel Apryl Start: 10-30-2023 End: 12-05-2023 take 1 tablet by mouth in the morning amLODIPine (NORVASC) 5 mg tablet Take 1 tablet (5 mg total) by mouth in the morning. 12/05/2023 Active amLODIPine Besyl ate 5 MG TAKE 1 TABLET DAILY Active azithromycin 250 mg oral tablet (7 sources) Macrolide Antimicrobial Start: 06-16-2023 Azithromycin 250 MG as directed Orally daily for 5 days Oct, Active B3/B5/B6/B7/folic/B12/ inosit/C (B COMPLEX-VITAMIN C ORAL) (1 source) B3/B5/B6/B7/foli c/B12 /inosit/C (B COMPLEX-VITAMIN C ORAL) Take by mouth. Active benazepril hydrochloride 10 mg oral tablet (20 sources) Angiotensin Converting Enzyme Inhibitor Start: 12-08-2023 Benazepril Active 0 .ROUTE .COMPLEX December 08, 2023 7:28pm TAKE 1 TABLET [...] TAKE 1 TABLET DAILY for 90 Active benazepril hydrochloride 20 mg / hydroCHLOROthiazide 12.5 mg oral tablet (15 sources) Thiazide Diuretic, Angiotensin Converting Enzyme Inhibitor Start: 02-17-2024 take 1 tablet by mouth once in the morning benazepril-hydroCHLOROthiazide (LOTENSIN HCT) 20-12.5 mg per tablet Take 1 tablet by mouth in the morning. 02/17/2024 Active Start: 11-25-2023 End: 02-17-2024 take 1 tablet by mouth once daily Benazepril-Hydrochlorothiazide Discontin ued 1 TAB PO Daily December 05, 2023 9:26am February 17, 2024 10:35am Blood-Glucose Meter (True Me trix Glucose Meter) mis (6 sources) Start: 01-01-2024 Blood-Glucose Meter (True Metrix Glucose Meter) [facility] Active 0 .Route 1 January 01, 2024 4:24pm As directed Start: 01-01-2024 End: 01-01-2024 Blood-Glucose Meter (True Me trix Glucose Meter) [facility] [place] Discontinued 0 .Route January 01, 2024 12:00am January 01, 2024 4:25pm As directed Loratadine (1 source) loratadine (CLAR ITIN ORAL) Take by mouth once daily. Active lovastatin 40 mg oral tablet (20 sources) HMG-CoA Reductase Inhibitor Start: 10-30-2023 End: 10-30-2023 take 1 tablet by mouth once daily lovastatin (MEVACOR) 40 mg tablet Take 1 tablet (40 mg total) by mouth nightly. 10/30/2023 Active Lovastatin 40 MG TAKE 1 TABLET EVERY EVENING for 90 Active metFORMIN hydrochloride 1000 mg / SITagliptin 50 mg oral tablet (20 sources) Biguanide, Dipeptidyl Peptidase 4 Inhibitor Start: 04-16-2024 take 1 tablet by mouth once in the morning JANUMET 50-1,000 mg per tablet Take 1 tablet by mouth in the morning and 1 tablet in the evening. Take with meals. 04/16/2024 Active Start: 11-24-2023 End: 02-04-2024 take 1 tablet by mouth twice daily Sitagliptin Phos-Metformin Discontinued 1 TAB PO Twice daily 180 90 February 02, 2024 1:17pm February 04, 2024 3:46pm Janumet 50-1000 MG TAKE 1 TABLET TWICE A DAY Active microencapsulated potassium chloride 20 meq extended [...] Drug Class(es) Dates Sig (Normalized) Sig (Original) hydroCHLOROthiazide 25 mg oral tablet (19 sources) Thiazide Diuretic Start: End: take 25 mg by mouth once daily Hydrochlorothiazide Discontinued 25 MG PO Daily November 24, 2023 12:00am November 25, 2023 10:37pm hydroCHLOROthiaz blake 25 MG TAKE 1 TABLET DAILY for 90 Active nabumetone 1000 mg oral tablet (19 sources) Nonsteroidal Anti-inflammatory Drug Start: 11-24-2023 End: 02-16-2024 take 1000 mg by mouth twice daily Nabumetone Discontinued 1000 MG PO Twice daily November 24, 2023 12:00am February 16, 2024 9:12am Start: 10-07-2022 take 1 tablet by yury th twice daily Nabumetone 1000 MG 1 tablet Orally Twice a day Oct, Active Suprep Bowel Prep . 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] 11-24-2023 Episodic Other connective [...] from glycated hemoglobin (Bld) [Mass/Vol] 157 mg/dL [facility] - Hematology and Cell countson 02-17-2024 HbA1c (Bld) [Mass fraction] 7.1 % High 4.5-6.2 [facility] Comment on above: ADA RECOMMENDED LIMI T 4.0 - 6.0ADA THERAPEUTIC TARGET < 7.0ACTION SUGGESTED> 7.0 Estimated glomerular filtrat ion rate (GFR) non- Americanon 11-18-2023 GFR/1.73 sq M.predicted among non-blacks MDRD (S/P/Bld) [Vol rate/Area] mL/min/{1.73_m2} >=60 [facility] - Chemistry and C hemistry - challengeon 11-18-2023 Calcium [Mass/Vol] 9.4 mg/dL 8.5-10.1 [facility] Chloride [Moles/Vol] 103 mmol/L 98-107 [facility] CO2 [Moles/Vol] 31.6 mmol/L 21.0-32.0 [facility] Creatinine [Mass/Vol] 0.71 mg/dL 0.55-1.02 [facility] GFR/1.73 sq M.predicted MDRD (S/P/Bld) [Vol rate/Area] mL/min/{1.73_m2} >=60 [facility] Glucose [Mass/Vol] 182 mg/dL 74-106 [facility] Potassium [Moles/Vol] 4.0 mmol/L 3.5-5.1 [facility] Sodium [Moles/Vol] 144 mmol/L 136-145 [facility] Urea nitrogen [Mass/Vol] 11.0 mg/dL 7.0-18.0 [facility] Urea nitrogen/Creatinine [Mass ratio] 15.5 mg/mg [facility] No Panel Informationon 11-17 25-Hydroxy Vitamin D Total 32.1 ng/mL [facility] Comment on above: <20 ng/mL Vit D defi cient20-<30 ng/mL Vit D stmukcvzjicx36-367 ng/mL Vit D sufficient>100 ng/mL Potential Toxicity Parathyroid Hormone (Intact) 26 pg/mL 15-65 [facility] Comment on above: Performed at: [address] [id number] Director: Raul Headley PhD, Phone: [phone] Serum or plasma anion gap de terminationon 11-18-2023 Anion gap [Moles/Vol] 13.4 mmol/L [facility] XR LSPINE 2_3 VIEWSon 2022 XR LSPINE 2_3 VIEWS EXAM: XR LSPINE 2_3 VIEWS HISTORY: Lumbago with sciatica COMPARISON: None. TECHNIQUE: Frontal, lateral, spot radiographs of the lumbar spine. FINDINGS: Anatomy: 5 [id number] lumbar segments. Bones: No acute fracture or [...] AMADEO SEGOVIA Date: 2022-10-08 07:09 Normal [facility] XR HIP LT 2 3V W PELVISon XR HIP LT 2 3V W PELVIS [employer] [facility] [employer] Other XR lumbar spine 2-3V*on XR lumbar spine 2-3V* [employer] Other CBC AUTO DIFFon 08-02-2022 BASO # 0.1 103/ul Normal 0.0-0.1 [facility] Comment on above: Performed By: #### C BC ####[facility] [address] [place], [place] [address]Dr. Deion Logan Basophils/100 WBC (Bld) 0.7 % Normal 0.2-2.0 [facility] Comment on above: Performed By: #### C BC ####[facility] [address] [place] [address]Dr. Deion Logan EO # 0.2 103/ul Normal 0.0-0.7 [facility] Comment on above: Performed By: #### C BC ####[facility] [address] [place] [address]Dr. Deion Logan Eosinophils/100 WBC (Bld) 2.4 % Normal 0.9-7.0 [facility] Comment on above: Performed By: #### C BC ####[facility] [address] [place] [address]Dr. Deion Logan Erythrocyte distribution width (RBC) [Ratio] 12.0 % Normal 11.0-15.0 [facility] Comment on above: Performed By: #### C BC ####[facility] [address] [place] [address]Dr. Deion Logan Hematocrit (Bld) [Volume fraction] 41.5 % Normal 36.0-48.0 [facility] Comment on above: Performed By: #### C BC ####[facility] [address] [place], [place] [address]Dr. Deion Logan Hemoglobin (Bld) [Mass/Vol] 14.2 g/dL Normal 12.0-16.0 [facility] Comment on above: Performed By: #### C BC ####[facility] [address] [place], [place] [address]Dr. Deion Logan IG # 0.03 10e3/ul Normal 0.00-0.03 [facility] Comment on above: Performed By: #### C BC ####[facility] [address] [place], [place] [address]Dr. Deion Logan IG % 0.4 % Normal 0.0-0.5 [facility] Comment on above: Performed By: #### C BC ####[facility] [address] [place], [place] [address]Dr. Deion Logan LYMPH # 2.5 103/ul Normal 1.2-3.8 [facility] Comment on above: Performed By: #### C BC ####[facility] [address] [place], [place] [address]Dr. Deion Logan Lymphocytes/100 WBC (Bld) 31.4 % Normal 20.5-60.0 [facility] Comment on above: Performed By: #### C BC ####[facility] [address] [place], [place] [address]Dr. Deion Desmond MANUAL DIFF REQ NO Normal [facility] Comment on above: Performed By: #### C BC ####[facility] [address] [place], [place] [address]Dr. Deion Desmond MCH (RBC) [Entitic mass] 30.5 pg Normal 26.7-34.0 [facility] Comment on above: Performed By: #### C BC ####[facility] [address] [place] [address]DrRhona Logan MCHC (RBC) [Mass/Vol] 34.2 g/dL Normal 29.9-35.2 [facility] Comment on above: Performed By: #### C BC ####[facility] [address] [place], [place] [address]DrRhona Logan MCV (RBC) [Entitic vol] 89.1 fL Normal 81.0-99.0 [facility] Comment on above: Performed By: #### C BC ####[facility] [address] [place], [place] [address]DrRhona Logan MONO # 0.6 103/ul Normal 0.3-0.8 [facility] Comment on above: Performed By: #### C BC ####[facility] [address] [place], [place] [address]DrRhona Logan Monocytes/100 WBC (Bld) 7.2 % Normal 1.7-12.0 [facility] Comment on above: Performed By: #### C BC ####[facility] [address] [place], [place] [address]DrRhona Logan NEUT # 4.7 103/ul Normal 1.4-6.5 [facility] Comment on above: Performed By: #### C BC ####[facility] [address] [place], [place] [address]DrRhona Logan Neutrophils/100 WBC (Bld) 57.9 % Normal 43.0-75.0 [facility] Comment on above: Performed By: #### C BC ####[facility] [address] [place], [place] [address]DrRhona Logan Platelet mean volume (Bld) [Entitic vol] 9.8 fL Normal 9.5-13.5 [facility] Comment on above: Performed By: #### C BC ####[facility] [address] [place], [place] [address]DrRhona Logan PLT 258 103/ul Normal 150-450 [facility] Comment on above: Performed By: #### C BC ####[facility] [address] [place] [id number]. Deion Logan RBC 4.66 106/ul Normal 4.20-5.40 [facility] Comment on above: Performed By: #### C BC ####[facility] [address] [place] [id number]. Deion Logan WBC 8.1 103/ul Normal 4.0-11.0 [facility] Comment on above: Performed By: #### C BC ####[facility] [address] [place] [address]Dr. Deion Logan GLYCOHEMOGLOBIN A1Con 2021 ADA RECOMMENDATION SEE BELOW Normal [facility] Comment on above: Result Comment: ADA RECOMMENDED LIMIT 4.0 - 6.0 ADA THERAPEUTIC TARGET < 7.0 ACTION SUGGESTED > 7.0 Performed By: #### A 1C ####[facility] [address] [place] [address]Dr. Deion Logan Glucose [Mass/Vol] 163 mg/dL Normal [facility] Comment on above: Performed By: #### A 1C ####[facility] [address] [place] [id number]. Deion Logan HbA1c (Bld) [Mass fraction] 7.3 % Critically high 4.5-6.2 [facility] Comment on above: Performed By: #### A 1C ####[facility] [address] [place] [address]Dr. Deion Logan LIPID PROFILEon 08-02-2022 CHOL-HDL RATIO NORM SEE BELOW Normal [facility] Comment on above: Result Comment: 3.3 - 4.4 LOW RISK 4.4 - 7.1 AVERAGE RISK 7.1 - 11.0 MODERATE RISK >11.0 HIGH RISK Performed By: #### A LT, LIPID, BMP #### [facility] [address] [address] [address] Deion Logan Cholesterol [Mass/Vol] 174 mg/dL Normal <=200 [facility] Comment on above: Performed By: #### A LT, LIPID, BMP #### [facility] [address] [address] [address] Deion Logan Cholesterol in HDL [Mass/Vol] 60 mg/dL Normal 40-60 [facility] Comment on above: Performed By: #### A LT, LIPID, BMP #### [facility] [address] [address] [address] Deion Logan Cholesterol in LDL [Mass/Vol] 93.4 mg/dL Normal [facility] Comment on above: Performed By: #### A LT, LIPID, BMP #### [facility] [address] [address] [address] Deion Logan Cholesterol.total/Ch olesterol in HDL [Mass ratio] 2.9 {ratio} Normal [facility] Comment on above: Performed By: #### A LT, LIPID, BMP #### [facility] [address] [address] [address] Deion Logan HDL NORMAL > or = 60 mg/dl - LOW CARDIOVASCULAR RISK <40 mg/dl - HIGH CARDIOVASCULAR RISK Normal [facility] Comment on above: Performed By: #### A LT, LIPID, BMP #### [facility] [address] [address] [address] Deion Logan LDL CALC NORMAL SEE BELOW Normal [facility] Comment on above: Result Comment: <100 mg/dl OPTIMAL 100 - 129 mg/dl NEAR OR ABOVE OPTIMAL 130 - 159 mg/dl BORDERLINE HIGH 160 - 189 mg/dl HIGH >190 mg/dl VERY HIGH Performed By: #### A LT, LIPID, BMP #### [facility] [address] [address] [address] Deion Logan Triglyceride [Mass/Vol] 103 mg/dL Normal <=150 [facility] Comment on above: Performed By: #### A LT, LIPID, BMP #### [facility] [address] [address] [address] Deion Logan VLDL CALC 20.6 mg/dL Normal [facility] Comment on above: Performed By: #### A LT, LIPID, BMP #### [facility] [address] [place] [address] Dr. Deion Logan MICROALBUMIN, RAND URon 12-0 mALB 9.7 mg/L Normal <=30.0 [facility] Comment on above: Performed By: #### M ALBR #### [facility] [address] [place] [address] Dr. Deion Logan PROF CHEM 8 (BAS METB)on Anion gap [Moles/Vol] 12.1 mmol/L Normal [facility] Comment on above: Performed By: #### A LT, LIPID, BMP #### [facility] [address] [place] [address] Dr. Deion Logan Calcium [Mass/Vol] 9.1 mg/dL Normal 8.5-10.1 [facility] Comment on above: Performed By: #### A LT, LIPID, BMP #### [facility] [address] [place] [address] Dr. Deion Logan Chloride [Moles/Vol] 101 mmol/L Normal 98-107 [facility] Comment on above: Performed By: #### A LT, LIPID, BMP #### [facility] [address] [place] [address] Dr. Deion Logan CO2 [Moles/Vol] 32.5 mmol/L Critically high 21.0-32.0 [facility] Comment on above: Performed By: #### A LT, LIPID, BMP #### [facility] [address] [place] [address] Dr. Deion Logan Creatinine [Mass/Vol] 0.54 mg/dL Critically low 0.55-1.02 [facility] Comment on above: Performed By: #### A LT, LIPID, BMP #### [facility] [address] [place] [address] Dr. Deion Logan EGFR-AF ZAMBIAN >60 Normal >=60 [facility] Comment on above: Performed By: #### A LT, LIPID, BMP #### [facility] [address] [place] [address] Dr. Deion Logan EGFR-NON AF ZAMBIAN >60 Normal >=60 [facility] Comment on above: Performed By: #### A LT, LIPID, BMP #### [facility] [address] [place] [address] Dr. Deion Logan Glucose [Mass/Vol] 185 mg/dL Critically high 74-106 [facility] Comment on above: Performed By: #### A LT, LIPID, BMP #### [facility] [address] [place] [address] Dr. Deion Logan Potassium [Moles/Vol] 3.6 mmol/L Normal 3.5-5.1 [facility] Comment on above: Performed By: #### A LT, LIPID, BMP #### [facility] [address] [place] [address] Dr. Deion Logan Sodium [Moles/Vol] 142 mmol/L Normal 136-145 [facility] Comment on above: Performed By: #### A LT, LIPID, BMP #### [facility] [address] [place] [address] Dr. Deion Logan Urea nitrogen [Mass/Vol] 10.0 mg/dL Normal 7.0-18.0 [facility] Comment on above: Performed By: #### A LT, LIPID, BMP #### [facility] [address] [place] [address] Dr. Deion Logan Urea nitrogen/Creatinine [Mass ratio] 18.5 mg/mg Normal [facility] Comment on above: Performed By: #### A LT, LIPID, BMP #### [facility] [address] [place] [address] Dr. Deion Logan [facility] 08-02-2022 ALT [Catalytic activity/Vol] 28 U/L Normal 14-59 [facility] Comment on above: Performed By: #### A LT, LIPID, BMP #### [facility] [address] [place] [address] Dr. Deion Logan MG MAMM SCREEN 3D ADAN CADon 07-26-2022 MG MAMM SCREEN 3D ADAN CAD Patient: KAROLYN UPTONRhona Exam Date: 07/26/2022 : 1950 Gender:F Ordering : DR ABRAHAM FONG D.O. Admission #: [id number] Family : Order #: [id number] CLICK HERE TO VIEW EXAM RADIOLOGY REPORT [...] colon cancer at age 77. LOCATION: [facility] BREAST COMPOSITION: Scattered areas fibroglandular density. [...] on 07/29/2022 at 14:43 Normal [facility] XR DEXA BONE DENSITYon 07-26 XR DEXA [...] DUQUE Date: 2022-07-26 08:48 Normal [facility] GLYCOHEMOGLOBIN A1Con 2021 ADA RECOMMENDATION SEE BELOW Normal [facility] Comment on above: Result Comment: ADA RECOMMENDED LIMIT 4.0 - 6.0 ADA THERAPEUTIC TARGET < 7.0 ACTION SUGGESTED > 7.0 Performed By: #### A 1C #### [facility] [address] [address] [address] Deion Logan Glucose [Mass/Vol] 157 mg/dL Normal [facility] Comment on above: Performed By: #### A 1C #### [facility] [address] [address] [address] Deion Logan HbA1c (Bld) [Mass fraction] 7.1 % Critically high 4.5-6.2 [facility] Comment on above: Performed By: #### A 1C #### [facility] [address] [address] [address] Deion Logan GLYCOHEMOGLOBIN A1Con 2021 ADA RECOMMENDATION ADA THERAPEUTIC TARGET 6.0 - 7.0 ACTION SUGGESTED > 7.0 Normal [facility] Comment on above: Performed By: #### A 1C #### [facility] [address] [address] [address] Deion Logan Glucose [Mass/Vol] 160 mg/dL Normal [facility] Comment on above: Performed By: #### A 1C #### [facility] [address] [address] [address] Deion Logan HbA1c (Bld) [Mass fraction] 7.2 % Critically high <=6.0 [facility] Comment on above: Performed By: #### A 1C #### [facility] [address] [address] [address] Deion Logan Vital Signs Date Time Vital Sign Value Performing Clinician Facility 05-04-2024 08:040 Body height 161.29 cm [place] 05-04-2024 08:0400 Body mass index (BMI) [Ratio] 25.7 kg/m2 [facility] 05-04-2024 08: Body weight 66.79 kg [facility] 05-04-2024 08:310400 Diastolic blood pressure 75 mm[Hg] [facility] 05-04-2024 08:31-0400 Heart rate 89 /min [facility] 05-04-2024 08:31-0400 Respiratory rate 12 /min [facility] 05-04-2024 08:31-0400 Systolic blood pressure 174 mm[Hg] [facility] 02-16-2024 08:55-0400 Body height 161.29 cm [facility] 02-16-2024 08:55-0400 Body mass index (BMI) [Ratio] 25.1 kg/m2 [facility] 02-16-2024 08:55-0400 Body weight 65.43 kg [facility] 02-16-2024 08:55-0400 Diastolic blood pressure 77 mm[Hg] [facility] 02-16-2024 08:55-0400 Heart rate 82 /min [facility] 02-16-2024 08:55-0400 Respiratory rate 12 /min [facility] 02-16-2024 08:55-0400 Systolic blood pressure 171 mm[Hg] [facility] 11-25-2023 09:29-0400 Body height 161.29 cm [facility] 11-25-2023 09:29-0400 Body mass index (BMI) [Ratio] 25.4 kg/m2 [facility] 11-25-2023 09:29-0400 Body weight 66.22 kg [facility] 11-25-2023 09:29-0400 Diastolic blood pressure 88 mm[Hg] [facility] 11-25-2023 09:29-0400 Heart rate 90 /min [facility] 11-25-2023 09:29-0400 Respiratory rate 12 /min [facility] 11-25-2023 09:29-0400 Systolic blood pressure 135 mm[Hg] [facility] 08-26-2023 09:30-0500 Body height 161.29 cm Abraham Ball Other [employer] Other 08-26-2023 09:30-0500 Body mass index (BMI) [Ratio] 25.98 kg/m2 Abraham Ball Other [employer] Other 08-26-2023 09:30-0500 Body weight 67.59 kg Abraham Ball Other [employer] Other 08-26-2023 09:30-0500 Diastolic blood pressure 77 mm[Hg] Abraham Ball Other [employer] Other 08-26-2023 09:30-0500 Respiratory rate 12 /min Abraham Ball Other [employer] Other 08-26-2023 09:30-0500 Systolic blood pressure 190 mm[Hg] Abraham Ball Other [employer] Other 05-26-2023 10:00-0400 Body height 161.29 cm Abraham Ball Other [employer] Other 05-26-2023 10:00-0400 Body mass index (BMI) [Ratio] 25.91 kg/m2 Abraham Ball Other [employer] Other 05-26-2023 10:00-0400 Body weight 67.4 kg Abraham Ball Other [employer] Other 05-26-2023 10:00-0400 Diastolic blood pressure 77 mm[Hg] Abraham Ball Other [employer] Other 05-26-2023 10:00-0400 Respiratory rate 12 /min Abraham Ball Other [employer] Other 05-26-2023 10:00-0400 Systolic blood pressure 185 mm[Hg] Abraham Ball Other [employer] Other 05-19-2023 13:45-0400 Body height 161.29 cm Abraham Ball Other [employer] Other 05-19-2023 13:45-0400 Body mass index (BMI) [Ratio] 26.05 kg/m2 Abraham Ball Other [employer] Other 05-19-2023 13:45-0400 Body weight 67.77 kg Abraham Ball Other [employer] Other 05-19-2023 13:45-0400 Diastolic blood pressure 88 mm[Hg] Abraham Ball Other [employer] Other 05-19-2023 13:45-0400 Respiratory rate 12 /min Abraham Ball Other [employer] Other 05-19-2023 13:45-0400 Systolic blood pressure 138 mm[Hg] Abraham Ball Other [employer] Other 02-21-2023 11:30-0400 Body height 161.29 cm Abraham Ball Other [employer] Other 02-21-2023 11:30-0400 Body mass index (BMI) [Ratio] 25.66 kg/m2 Abraham Ball Other [employer] Other 02-21-2023 11:30-0400 Body weight 66.77 kg Abraham Ball Other [employer] Other 02-21-2023 11:30-0400 Diastolic blood pressure 83 mm[Hg] Abraham Ball Other [employer] Other 02-21-2023 11:30-0400 Respiratory rate 12 /min Abraham Ball Other [employer] Other 02-21-2023 11:30-0400 Systolic blood pressure 169 mm[Hg] Abraham Ball Other [employer] Other 10-24-2022 08:30-0500 Body height 161.29 cm Abraham Ball Other [employer] Other 10-24-2022 08:30-0500 Body mass index (BMI) [Ratio] 25.7 kg/m2 Abraham Ball Other [employer] Other 10-24-2022 08:30-0500 Body weight 66.86 kg Abraham Ball Other [employer] Other 10-24-2022 08:30-0500 Diastolic blood pressure 70 mm[Hg] Abraham Ball Other [employer] Other 10-24-2022 08:30-0500 Respiratory rate 12 /min Abraham Ball Other [employer] Other 10-24-2022 08:30-0500 Systolic blood pressure 146 mm[Hg] Abraham Ball Other [employer] Other 10-07-2022 14:30-0500 Body height 161.29 cm Abraham Ball Other [employer] Other 10-07-2022 14:30-0500 Body mass index (BMI) [Ratio] 25.52 kg/m2 Abraham Ball Other [employer] Other 10-07-2022 14:30-0500 Body weight 66.41 kg Abraham Ball Other [employer] Other 10-07-2022 14:30-0500 Diastolic blood pressure 82 mm[Hg] Abraham Ball Other [employer] Other 10-07-2022 14:30-0500 Respiratory rate 12 /min Abraham Fong Other [employer] Other 10-07-2022 14:30-0500 Systolic blood pressure 142 mm[Hg] Abraham Fong Other [employer] Other Encounters Encounter Date Encounter Type Care Provider Facility Start: 06-07-2024 End: 06-07-2024 Telephone encounter Phyllis Adelita [facility] General Surgery Start: 05-21-2024 End: 05-21-[address] [facility] Start: 05-04-2024 End: 05-04-2024 ambulatory [facility] Work Phone: Start: 05-04-2024 End: 05-04-2024 Patient encounter procedure [facility] Physician [facility] Work Phone: Start: 02-17-2024 Non-patient / Non-visit [facility] Work Phone: Start: 02-16-2024 End: 02-16-2024 ambulatory [facility] Work Phone: Start: 02-16-2024 End: 02-16-2024 Patient encounter procedure [facility] Physician [facility] Work Phone: Start: 11-25-2023 End: 11-25-2023 ambulatory [facility] Work Phone: Start: 11-25-2023 End: 11-25-2023 Patient encounter procedure [facility] Physician [facility] Work Phone: Start: 11-18-2023 Non-patient / Non-visit [facility] Work [facility]: Start: 10-30-2023 Non-patient / Non-visit [facility] Work [facility]: Start: 10-07-2023 End: 10-07-2023 ambulatory Abraham Ball Other [employer] Other Start: 10-07-2023 Telephone encounter Abraham Ajit [facility] Start: 09-10-2023 End: 09-10-2023 ambulatory Baraham Ball Other [employer] Other Start: 09-10-2023 Telephone encounter Abraham Ball [facility] Start: 08-26-2023 End: 08-26-2023 ambulatory Abraham Ball Other [employer] Other Start: 08-26-2023 Patient encounter procedure Abraham Ball [facility] Start: 08-05-2023 End: 08-05-2023 ambulatory Abraham Ball Other [employer] Other Start: 08-05-2023 Telephone encounter Abraham Ball [facility] Start: 07-09-2023 End: 07-09-2023 ambulatory Abraham Ball Other [employer] Other Start: 07-09-2023 Telephone encounter Abraham Ball [facility] Start: 06-16-2023 End: 06-16-2023 ambulatory Abraham Ball Other [employer] Other Start: 06-16-2023 Office outpatient vi sit 15 minutes Abraham Ball [facility] Start: 05-26-2023 End: 05-26-2023 ambulatory Abraham Ball Other [employer] Other Start: 05-26-2023 Office outpatient vi sit 25 minutes Abraham Ball [facility] Start: 05-19-2023 End: 05-19-2023 ambulatory Abraham Ball Other [employer] Other Start: 05-19-2023 Office outpatient vi sit 15 minutes Abraham Ball [facility] Start: 02-25-2023 End: 02-25-2023 ambulatory Abraham Ball Other [employer] Other Start: 02-25-2023 Telephone encounter Abraham Fong [facility] Start: 02-21-2023 End: 02-21-2023 ambulatory Abraham Fong Other [employer] Other Start: 02-21-2023 Office outpatient vi sit 25 minutes Abraham Fong [facility] Start: 10-24-2022 End: 10-24-2022 ambulatory Abraham Fong Other [employer] Other Start: 10-24-2022 Office outpatient vi sit 25 minutes Abraham Fong [facility] Start: 10-11-2022 End: 10-11-2022 ambulatory Abraham Fong Other [employer] Other Start: 10-11-2022 Telephone encounter Abraham Fong [facility] Start: 10-07-2022 End: 10-08-[address] ABRAHAM FONG Facility:[facility] Start: 10-07-2022 Office outpatient vi sit 15 minutes Abraham Fong [facility] Start: 09-05-2022 End: 09-05-2022 ambulatory Abraham Fong Other [employer] Other Start: 09-05-2022 Telephone encounter Abraham Fong [facility] Start: 08-02-2022 End: 08-03-[address] ABRAHAM FONG Facility:[facility] Start: 07-26-2022 End: 07-27-[address] ABRAHAM FONG Facility:[facility] Start: 06-20-2022 Adult health examination Holden fischer Ajit Other [employer] Other Start: 06-20-2022 Gynecological examin ation normal Abraham Fong Other [employer] Other Start: 03-06-2022 End: 03-07-[address] ABRAHAM FONG Facility:[facility] Start: 11-06-2021 End: 11-07-[address] ABRAHAM FONG Facility:[facility] Procedures Date Procedure Procedure Detail Performing Clinician Start: 06-04-2018 Screening for osteoporosis Abraham Fong Other Start: 04-22-2014 Screening mammography B umm Fong Other Depression screening Sherman Fong Other Preoperative cardiov ascular examination Abraham Fong Other End: 07-27-2022 Screening for malignant neoplasm of breast Abraham Fong Other Screening for malign ant neoplasm of colon Abraham Fong Other Plan of Treatment Date Care Activity Detail Author Start: 02-19-2028 DTaP,Tdap and Td Vaccines (2 - Tdap) DTaP,Tdap and Td Vaccines (2 - Tdap) [facility] Start: 05-21-2025 Tobacco Screening Tobacco Screening [facility] Start: 05-04-2024 Patient referral [facility] Work Phone: Start: 05-02-2024 COVID-19 Vaccine ( season) COVID-19 Vaccine ( season) [facility] Start: 05-02-2024 Influenza vaccination Influenza Vaccine [facility] Start: 2016 Fall Risk Screening Fall Risk Screening [facility] Start: 2001 Administration of varicella zoster vaccine Zoster (Shingles) Vaccine (1 of 2) [facility] Start: 1969 Adult BMI Screening Adult BMI Screening [facility] Start: 1963 Depression Screening Depression Screening [facility] Start: 1950 Medicare Annual Wellness Visit Medicare Annual Wellness Visit [facility] Patient referral [facility] Work Phone: [facility] Immunizations Immunization Date Immunization Notes Care Provider [place] 05-26-2023 influenza virus vaccine, unspecified formulation [facility] 05-26-2023 influenza, high dose seasonal, preservative-free Abraham Fong Other [employer] Other 06-20-2022 influenza virus vaccine, split virus (incl. purified surface antigen) Abraham Fong Other [facility] [employer] Other 06-20-2022 influenza virus vaccine, unspecified formulation [facility] 06-18-2021 influenza virus vaccine, split virus (incl. purified surface antigen) Abraham Fong Other [facility] [employer] Other 06-18-2021 influenza virus vaccine, unspecified formulation [facility] 06-12-2020 influenza virus vaccine, split virus (incl. purified surface antigen) Abraham Fong Other [facility] [employer] Other 06-12-2020 influenza virus vaccine, unspecified formulation [facility] 02-18-2018 diphtheria, tetanus toxoids and acellular pertussis vaccine, unspecified formulation Abraham Fong Other [facility] 06-23-2017 pneumococcal polysaccharide vaccine, 23 valent Abraham Fong Other [facility] 06-19-2016 pneumococcal conjuga te vaccine, 13 valent Abraham Fong Other [facility] 06-19-2016 pneumococcal Conjugate, unspecified formulation; Translations: [Need for prophylactic vaccination against Streptococcus pneumoniae (pneumococcus)] Abraham Fong Other [facility] [employer] Other NEGATED: Highlighted row has not occurred!06-12-2020 influenza virus vaccine, split virus (incl. purified surface antigen) Abraham Fong Other [facility] [employer] Other Payers Date Payer Category Payer Private Health Insurance [facility] AARP SUPPLEMENT [id number] 2023-Present [phone] [address] [place] [address] [id number] 2016 Medicare MEDICARE MEDICAR E PART A & B [id number] 2016-Present [phone] [address] [place] [address] [id number] 1959 Medicare [id number] 1958 Unknown [id number] 1950 Unknown [id number] 1950 Unknown [id number] 1950 Unknown [id number] 1950 Unknown [id number] 1950 Unknown [id number] 1950 Unknown [id number] Social History Date Type Detail Facility Start: 02-10-2019 End: 05-21-2024 Sex Assigned At [facility] [employer] Other Start: 1950 Sex Assigned At Female F [facility] Start: 05-21-[address] [facility] Never smoked tobacco [facility] Start: 05-21-2024 Tobacco use and exposure Smokeless tobacco non-user [facility] Start: 05-21-2024 Alcoholic beverage intake Current drinker of alcohol (finding) [facility] Start: 02-10-2019 End: 05-21-2024 History of Social function [facility] Childcare Unknown [facility] Start: 05-21-2024 Alcohol Comment rare [facility] Start: 1950 Sex assigned at Not on file P [facility] Medical Equipment Procedure Code Equipment Code Equipment [...] 01-01-2024 End: 01-01-2024 Clinical Notes 09-05-2022 to 06-07-2024 Telephone Encounter - Phyllis Ureña CMA - 06/07/2024 8:39 AM EDTTelephone Encounter - Phyllis Ureña CMA - 06/07/2024 8:39 AM EDTTelephone Encounter - GENARO Live - 06/07/2024 8:39 AM EDT Note Date & Type Note Facility 06-07-2024 Miscellaneous Notes Formattin g of this note might be different from the original. Patient called in & just wanted Dr Perera to be aware that when she had her anesthesia for a knee replacement she was sick after she came out of the anesthesia. I did let her know that the Colonoscopy is done under MAC which is less sedation than she was under for a knee replacement. Images from the original note were not included. Yes you told her right. She will need to speak to the measurement superintendent. If you want to set up an appointment for her to speak to them prior to the colonoscopy please arrange that for her so that she is more comfortable. Thanks, Dr. Flores Received: Today DO Phyllis Perez CMA Images from the original note were not included. [employer] Live / livestock yard supervisor Phyllis Ureña CMA; Azeem Perera DO 06/07/24 I called [facility] today 06/07/24 and spoke with Mary I informed her of the patient's anxiety and questions about the anesthesia being used during her colonoscopy. She is going to make a note to have a deeper conversation with the patient during her PAT appointment tomorrow - 06/08/24 about the anesthesia being used for the procedure. I'll give the patient a quick phone call to let her know I spoke with [facility]. Thx, Ruby documented in this encounter [facility] 06-07-2024 Telephone encount er Note Patient called in & just wanted Dr Perera to be aware that when she had her anesthesia for a knee replacement she was sick after she came out of the anesthesia. I did let her know that the Colonoscopy is done under MAC which is less sedation than she was under for a knee replacement. [facility] 06-07-2024 Telephone encount er Note Images from the original note were not included. Yes you told her right. She will need to speak to the measurement superintendent. If you want to set up an appointment for her to speak to them prior to the colonoscopy please arrange that for her so that she is more comfortable. Thanks, Dr. Flores Received: Today DO Phyllis Perez CMA [facility] 06-07-2024 Telephone encount er Note Images from the original note were not included. [employer] Live / livestock yard supervisor Phyllis Ureña CMA; Azeem Perera DO 06/07/24 I called [facility] today 06/07/24 and spoke with Mary I informed her of the patient's anxiety and questions about the anesthesia being used during her colonoscopy. She is going to make a note to have a deeper conversation with the patient during her PAT appointment tomorrow - 06/08/24 about the anesthesia being used for the procedure. I'll give the patient a quick phone call to let her know I spoke with [facility]. Zabrina Nunezna [employer] [facility] 10-07-2023 Evaluation note Encounter Date Diagnosis Assessment Notes Oct, Acute non-recurrent maxillary sinusitis (ICD-10 - J01.00) [employer] Other 12-26-2023 Evaluation note* Encounter Date Diagnosis Assessment Notes [...] patient on monthly SBE and yearly mammograms. [employer] Other 11-08-2023 Evaluation note* Encounter Date Diagnosis Assessment Notes Treatment Notes Treatment Clinical Notes Jul, Controlled type 2 diabetes mellitus with hyperglycemia, without long-term current use of insulin (ICD-10 - E11.65) [employer] Other 10-16-2023 Evaluation note* Encounter Date Diagnosis [...] to change treatment. Push fluids and rest [employer] Other 09-25-2023 Evaluation note* Encounter Date Diagnosis [...] They may safely use Tylenol as needed. [employer] Other 09-18-2023 Evaluation note* Encounter Date Diagnosis [...] continue exercise to achieve/maintain a normal BMI. [employer] Other 06-23-2023 Evaluation note* Encounter Date Diagnosis [...] (ICD-10 - L23.7) Cool compresses avoid scratching [employer] Other 02-23-2023 Evaluation note* Encounter Date Diagnosis [...] Chronic w/ acute worsening. Monitor for now. [employer] Other 02-07-2023 NotePROCEDURE: XR HIP LT 2 [...] by: EDMUNDO DUQUE Date: 2022-10-08 07:45[facility]02-06-2023 Evaluation note* Encounter Date Diagnosis Assessment Notes [...] and ROM exercises. Initiate NSAIDs. XR ordered [employer] Other 01-05-2023 Evaluation note* Encounter Date Diagnosis Assessment Notes Treatment Notes Treatment Clinical Notes Sep, Primary hypertension (ICD-10 - I10) [employer] Other Evaluation noteNo InformationNort abcdexperts Other Evaluation note* Diagnosis Onset Date Resolution Status Aortic valve sclerosis acute Asthma acute Diabetes mellitus with hyperglycemia acute Elevated cholesterol acute Hypertension acute [facility] Work Phone: Evaluation note* Diagnosis Onset Date Resolution Status Aortic valve sclerosis acute Asthma acute Diabetes mellitus with hyperglycemia acute Elevated cholesterol acute Hypertension acute Aortic valve sclerosis acute Asthma acute Diabetes mellitus with hyperglycemia acute Elevated cholesterol acute Hypertension acute [facility] Work Phone: Evaluation note* Diagnosis Onset Date Resolution Status Aortic valve sclerosis acute Asthma acute Diabetes mellitus with hyperglycemia acute Elevated cholesterol acute Hypertension acute Aortic valve sclerosis acute Asthma acute Diabetes mellitus with hyperglycemia acute Elevated cholesterol acute Encounter for screening for malignant neoplasm of colo n acute Hypertension acute [facility] Work Phone: History general Narrative - Reported* Type Description Date Surgical History COLONOSCOPY 2002, 2013, 201 9 Surgical History BREAST BX 2012 Surgical History LEFT TKA 2013 Hospitalization History SEE SURGICAL HX [employer] Other Hisjcvw general Narrative - Reported* Type Description Date [...] TKA 2013 Hospitalization History SEE SURGICAL HX [employer] Other Hospital Discharge instructionsAmbulatory Orders* Referral to General Surgery Location: None Selected [facility] Work Phone: InstructionsNot on filedocumented in this encounter [facility] Summary Purpose Family History Relationship Condition Age at Onset Recorded Date/T jeanie brother Heart disease Unknown father Family history of colon cancer Unknown Malignant neoplasm Unknown sister Diabetes mellitus Unknown Advance Directives Advance Directive Response Recorded Date/ Time Advance [...] content) DATE CREATED AUTHOR 10/10/2022 [facility] DATE CREATED AUTHOR AUTHOR'S ORGANIZ ATION 05/23/2024 [facility] REASON FOR VISIT (unrecogniz ed section and content) Reminderwellnessmamm results POSSIBLE SINUS INFECTION [phone] month Follow upHearing Aid-Look in EarLab ResultsDiabetes Check Up4 MONTH FOLLOW UPUpdateBody PainRefill Care Teams (unrecognized sec tion and content) Team Status: Active Member Role Status Dates Abraham Fong DO Primary Care Provider Active Team Status: Inactive Member Role Status Dates Abraham Fong DO Primary Care Provide r, Attending Provider Active Start: February 16, 2024 End: February 16, 2024 Team Status: Active Member Role Status Dates Abraham Fong DO Primary Care Provide r, Attending Provider Active Start: February 17, 2024 Team Status: Inactive Member Role Status Dates Abraham Fong DO Primary Care Provide r, Attending Provider Active Start: May 04, 2024 End: May 04, 2024 Team Status: Active Member Role Status Dates PHYSICIAN NO FAMILY Primary Care Provider Active Start: October 30, 2023 GENARO Pozo Attending Provider Active Start : October 30, 2023 Team Status: Active Member Role Status Dates PHYSICIAN NO FAMILY Primary Care Provider Active Start: November 18, 2023 Abraham Fong DO Attending Provider Active Sta rt: November 18, 2023 Team Status: Inactive Member Role Status Dates Abraham Fong DO Primary Care Provide r, Attending Provider Active Start: November 25, 2023 End: November 25, 2023 Ballistics Teacher Relationship Specialty Start Date End Date Abraham Fong DO [address] [place] [address] PCP - General Internal Medicine 05/05/24 Goals (unrecognized section and content) Goals may [...] BE BASED ON THE PRIMARY CLINICAL RECORDS. [facility]. provides no warranty or guarantee of the accuracy or completeness of information in this document.
[2024-06-16 06:50] VITALS: BP 209/86; PULSE 87; TEMP 36.4; O2SAT 97; BMI 24.6
[2024-06-16 07:12] LABS: Glucometer 165 mg/dL (74-106)
[2024-06-16] MEDS: 0.9 % SODIUM CHLORIDE 500 ML 50 ML IV (07:20)
--- NOTE | 2024-06-16 07:43 | PM.GSPRC ---
Date of procedure: 06/16/24 Indications for Procedure: Screening for cancer/family history of colon cancer in father Pre-op diagnosis: Screening for cancer/family history of colon cancer in father Procedure: colonoscopy with cold snare polyp 5 mm splenic flexure Findings: Splenic flexure polyp 5 mm Anesthesia: MAC Surgeon: Azeem Perera Procedure Summary: PROCEDURE: The patient was taken to the Endoscopy Suite, placed in the left lateral recumbent position, given IV sedation as above. A rectal digital exam was performed. The sphincter tone was found to be normal. No rectal masses were appreciated. The Olympus video colonoscope was advanced under direct visualization to the rectum, sigmoid colon, descending colon, transverse colon and ascending colon to the ileocecal valve. The underside of the valve was seen. Appendiceal lumen was visualized. The scope was slowly withdrawn with air being desufflated as it was withdrawn. No gross tumors or diverticula were seen. Small 5 mm polyp was seen in the splenic flexure and cold snared and retrieved and hemostasis maintained with minimal bleeding. Specimen was sent for pathology. Prep was good. The patient tolerated the procedure well and went to the Recovery Area in satisfactory condition. I recommend the patient use a bulk laxative on a regular basis and follow up as needed. I recommend patient return in 5 years for surveillance colonoscopy. Estimated blood loss (mL): 0 Specimens: Splenic flexure polyp Complications: No Condition: stable Disposition: PACU
[2024-06-16 08:06] VITALS: BP 115/48; PULSE 76; TEMP 36.3; O2SAT 96
[2024-06-16 08:21] VITALS: BP 120/58; PULSE 78; O2SAT 98
[2024-06-16 08:36] VITALS: BP 149/75; PULSE 69; O2SAT 93
== END 2024-06-16 08:40 | disposition home or self-care (01) ==
PROVIDERS: PCP Internal Medicine; Visit Provider Surgery
PROC: (CPT 45385; principal; 2024-06-16 08:00)
DX: Z12.11 Encounter for screening for malignant neoplasm of colon (principal); Z80.0 Family history of malignant neoplasm of digestive organs; E78.5 Hyperlipidemia, unspecified; I10 Essential (primary) hypertension; K63.5 Polyp of colon; E11.9 Type 2 diabetes mellitus without complications; Z79.84 Long term (current) use of oral hypoglycemic drugs
CPT/HCPCS: 45385; 36415; 82948; J2250; J2704; J3010

== ENCOUNTER 2024-08-06 06:49 | Outpatient (OUT) | payer MEDICARE, SELFPAY ==
--- NOTE | 2024-08-06 06:51 | MM_ITS ---
Patient Name: MARCUS GUSTAFSON MR#: [id number] : 1950 Exam Date: 08/06/2024 Ordering Doctor: DR Abraham Fong D.O. RADIOLOGY REPORT PROCEDURE: MM TOMOSYNTHESIS SCREENING BI COMPARISON: MM TOMOSYNTHESIS SCREENING BI, 08/04/2023. MG MAMM SCREEN 3D ADAN CAD, 07/26/2022. MG MAMM SCREEN 3D ADAN CAD, 07/18/2021. MG MAMM ADAN SCRN W CAD DIG, 04/06/2013. INDICATIONS: Screening Calculator Name NCI Breast Cancer Risk Assessment Tool 5 Year Breast Cancer Risk 1.50% Lifetime Breast Cancer Risk 3.70% Personal Breast Cancer No Personal Ovarian Cancer No Treatments None Family Cancers Father with colon cancer at age 76. LOCATION: [facility] BREAST COMPOSITION: There are scattered areas of fibroglandular density. FINDINGS: DIAGNOSTIC CATEGORY 2--BENIGN FINDING: RIGHT BREAST: No significant suspicious finding. Scattered benign-appearing calcifications are present. No significant change has occurred. LEFT BREAST: No significant suspicious finding. Scattered benign-appearing calcifications are present. No significant change has occurred. RECOMMENDATIONS: ROUTINE MAMMOGRAM AND CLINICAL EVALUATION IN 12 MONTHS. PLEASE NOTE: A NORMAL MAMMOGRAM DOES NOT EXCLUDE THE POSSIBILITY OF BREAST CANCER. A CLINICALLY SUSPICIOUS PALPABLE LUMP SHOULD BE BIOPSIED. Dictated by: Edmundo Duque M.D. on 08/06/2024 at 09:54 Approved by: Edmundo Duque M.D. on 08/06/2024 at 09:57
--- OUTSIDE RECORDS SUMMARY | 2024-08-06 06:51 | XMS_ITS | CCD ---
Author Organization [facility] Care Team Providers Care Wood Finisher Name Role Phone AJIT, DR CARVALHO Admitting [...] Wyatt Consulting Unavailable LUCA, AMADEO Consulting Unavailable Abraham Fong Unavailable GIA MOSS Attending Unavailable ABRAHAM FOGN Referring Unavailable ABRAHAM FONG Primary Care Unavailable Abraham Fong DO Primary Care Provider DO Abraham Fong Primary Care Provider DO Azeem Perera Attending Provider Azeem Perera Attending Unavailable Azeem Perera Admitting Unavailable Abraham Fong Primary Care Unavailable Allergies Allergy Classification Reported Allergen(s) Allergy Type Date of Onset Reaction(s) Facility (1 source) egg extract Drug Allergy 4 [facility] Repository (20 sources) predniSONE; Translations: [PREDNISONE] Drug Allergy 4 Blurred Vision, Dizziness [facility] (13 sources) Simvastatin Drug Allergy 4 Comment:myalgia [facility] (1 source) Simvastatin Drug Allergy 4 [facility] Repository Medications Current Medications Medication Drug Class(es) Dates [...] Orally daily for 5 days Oct, Active B3/B5/B6/B7/folic/B1 2/inosit/C (B COMPLEX-VITAMIN C ORAL) (4 sources) B3/B5/B6/B7/foli c/ B12/inosit/C (B COMPLEX-VITAMIN C ORAL) Take by mouth. Active benazepril hydrochloride 10 mg oral tablet (20 sources) Angiotensin Converting Enzyme Inhibitor Start: 06-09-2024 take 10 mg by mouth once daily Benazepril Active 10 MG PO Daily June 09, 2024 12:00am Start: 12-08-2023 End: 05-04-2024 Benazepril Discontinued 0 .R OUTE .COMPLEX 90 December 08, 2023 7:28pm May 04, 2024 9:05am TAKE 1 TABLET DAILY, TAKE WITH EXISTING [...] mg / hydroCHLOROthiazide 12.5 mg oral tablet (20 sources) Thiazide Diuretic, Angiotensin Converting Enzyme Inhibitor Start: 02-17-2024 take 1 tablet by mouth once in the morning benazepril-hydroCHLOROthiazide (LOTENSIN HCT) 20-12.5 mg per tablet Take 1 tablet by mouth in the morning. 02/17/2024 Active Start: 11-25-2023 End: 05-04-2024 take 2 tablets by mouth once daily Benazepril-Hydrochlorothiazide Active 2 TAB PO Daily 180 90 May 04, 2024 9:05am Blood-Glucose Meter (True Me trix Glucose Meter) misc (8 sources) Start: 01-01-2024 Blood-Glucose Meter (True Metrix Glucose Meter) misc Active 0 .Route January 01, 2024 4:24pm As directed Start: 01-01-2024 End: 01-01-2024 Blood-Glucose Meter (True Me trix Glucose Meter) misc Discontinued 0 .Route January 01, 2024 12:00am January 01, 2024 4:25pm As directed Loratadine (4 sources) loratadine (CLAR ITIN ORAL) Take by mouth [...] chloride 20 meq extended release oral tablet (15 sources) Start: 11-24-2023 take 20 mEq by mouth once daily Potassium Chloride Active 20 MEQ PO Daily November 24, 2023 12:00am take 1 tablet by mouth once tamy y Klor-Con M20 20 MEQ TAKE 1 TABLET DAILY Orally Once a day for 90 days Active triamcinolone acetonide 5 mg/ml topical cream (15 sources) Corticosteroid Start: 10-30-2023 Triamcinolone Acetonide Active [...] Sig (Original) hydroCHLOROthiazide 25 mg oral tablet (20 sources) Thiazide Diuretic Start: End: take 25 mg by mouth once daily Hydrochlorothiazide Discontinued 25 MG PO Daily November 24, 2023 12:00am November 25, 2023 10:37pm hydroCHLOROthiaz blake 25 MG TAKE 1 TABLET DAILY for 90 Active nabumetone 1000 mg oral tablet (20 sources) Nonsteroidal Anti-inflammatory Drug Start: 11-24-2023 End: [...] Translations: [Chest pain, unspecified] Episodic Nutritional deficiencies (5 sources) Vitamin D deficiency; Translations: [Vitamin D deficiency, unspecified] 11-15-2023 Chronic Osteoarthritis (1 source) Bilateral primary osteoarthritis of hip; Translations: [BILATERAL PRIM OSTEOARTHRITIS HIP] Onset: 10-09-2022 Chronic Other aftercare (2 sources) Other shelter (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; Translations: [OTH [employer]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] Test Name Value Interpretation Reference Range Facility No Panel InformationOrdered By: Octavia Leija on 06-16-2024 [facility] Glucose mean value [Mass/vol ume] in Blood Estimated from glycated hemoglobinon 02-17-2024 Average glucose Estimated from glycated hemoglobin (Bld) [Mass/Vol] 157 mg/dL [facility] Laboratory - Hematology and Cell countson 02-17-2024 HbA1c (Bld) [Mass fraction] 7.1 % High 4.5-6.2 [facility] Comment on above: ADA RECOMMENDED LIMI T 4.0 - 6.0ADA THERAPEUTIC TARGET < 7.0ACTION SUGGESTED> 7.0 Estimated glomerular filtrat ion rate (GFR) non- Americanon 11-18-2023 GFR/1.73 sq M.predicted among non-blacks MDRD (S/P/Bld) [Vol rate/Area] mL/min/{1.73_m2} >=60 [facility] Laboratory - Chemistry and C hemistry - challengeon 11-18-2023 Calcium [Mass/Vol] 9.4 mg/dL 8.5-10.1 [facility] Chloride [Moles/Vol] 103 mmol/L 98-107 [facility] CO2 [Moles/Vol] 31.6 mmol/L 21.0-32.0 [facility] Creatinine [Mass/Vol] 0.71 mg/dL 0.55-1.02 [facility] GFR/1.73 sq M.predicted MDRD (S/P/Bld) [Vol rate/Area] mL/min/{1.73_m2} >=60 [facility] Glucose [Mass/Vol] 182 mg/dL 74-106 [facility] Potassium [Moles/Vol] 4.0 mmol/L 3.5-5.1 [facility] Sodium [Moles/Vol] 144 mmol/L 136-145 [facility] Urea nitrogen [Mass/Vol] 11.0 mg/dL 7.0-18.0 [facility] Urea nitrogen/Creatinine [Mass ratio] 15.5 mg/mg [facility] No Panel Informationon 11-17 25-Hydroxy Vitamin D Total 32.1 ng/mL [facility] Comment on above: <20 ng/mL Vit D defi cient20-<30 ng/mL Vit D [id number] ng/mL Vit D sufficient>100 ng/mL Potential Toxicity Parathyroid Hormone (Intact) 26 pg/mL 15-65 [facility] Comment on above: Performed at: [address] [id number] Director: Raul Headley PhD, Phone: [phone] Serum or plasma anion gap de terminationon 11-18-2023 Anion gap [Moles/Vol] 13.4 mmol/L [facility] XR LSPINE 2_3 VIEWSon 2022 XR LSPINE 2_3 VIEWS EXAM: XR LSPINE 2_3 VIEWS HISTORY: Lumbago with sciatica COMPARISON: None. TECHNIQUE: Frontal, lateral, spot radiographs of the lumbar spine. FINDINGS: Anatomy: 5 [id number] lumbar segments. Bones: No acute fracture or dislocation. No suspicious lytic or sclerotic lesion. Severe L3-S1 facet hypertrophy. Mild L5-S1 disc height loss. Additional mild L3-L4 disc height loss. Mild multilevel endplate osteophytosis. No spondylolysis. Other: Round 1.3 cm calcification overlying the left upper quadrant/retroperi toneum, which could be an aneurysm versus calcified diverticulum. Extensive atherosclerosis. IMPRESSION: Multilevel lumbar spondylosis without acute findings Electronically authenticated by: AMADEO SEGOVIA Date: 2022-10-08 07:09 Normal [facility] XR HIP LT 2 3V W PELVISon XR HIP LT 2 3V W PELVIS [facility] Other XR lumbar spine 2-3V*on XR lumbar spine 2-3V* [facility] [employer] Other CBC AUTO DIFFon 08-02-2022 BASO # 0.1 103/ul Normal 0.0-0.1 [facility] Comment on above: Performed By: #### C BC ####[facility] [address] [place] [address]DrRhona Logan Basophils/100 WBC (Bld) 0.7 % Normal 0.2-2.0 [facility] Comment on above: Performed By: #### C BC ####[facility] [address] [place] [id number]. Deion Logan EO # 0.2 103/ul Normal 0.0-0.7 [facility] Comment on above: Performed By: #### C BC ####[facility] [address] [place] [id number]. Deion Logan Eosinophils/100 WBC (Bld) 2.4 % Normal 0.9-7.0 [facility] Comment on above: Performed By: #### C BC ####[facility] [address] [place], [place] [address]Dr. Deion Logan Erythrocyte distribution width (RBC) [Ratio] 12.0 % Normal 11.0-15.0 [facility] Comment on above: Performed By: #### C BC ####[facility] [address] [place], [place] [address]Dr. Deion Logan Hematocrit (Bld) [Volume fraction] 41.5 % Normal 36.0-48.0 [facility] Comment on above: Performed By: #### C BC ####[facility] [address] [place], [place] [address]Dr. Deion Logan Hemoglobin (Bld) [Mass/Vol] 14.2 g/dL Normal 12.0-16.0 [facility] Comment on above: Performed By: #### C BC ####[facility] [address] [place], [place] [address]Dr. Deion Logan IG # 0.03 10e3/ul Normal 0.00-0.03 [facility] Comment on above: Performed By: #### C BC ####[facility] [address] [place], [place] [address]Dr. Deion Logan IG % 0.4 % Normal 0.0-0.5 [facility] Comment on above: Performed By: #### C BC ####[facility] [address] [place], [place] [address]Dr. Deion Logan LYMPH # 2.5 103/ul Normal 1.2-3.8 [facility] Comment on above: Performed By: #### C BC ####[facility] [address] [place] [id number]. Deion Logan Lymphocytes/100 WBC (Bld) 31.4 % Normal 20.5-60.0 [facility] Comment on above: Performed By: #### C BC ####[facility] [address] [place] [id number]. Deion Logan MANUAL DIFF REQ NO Normal [facility] Comment on above: Performed By: #### C BC ####[facility] [address] [place] [id number]. Deion Desmond MCH (RBC) [Entitic mass] 30.5 pg Normal 26.7-34.0 [facility] Comment on above: Performed By: #### C BC ####[facility] [address] [place] [address]Dr. Deion Logan MCHC (RBC) [Mass/Vol] 34.2 g/dL Normal 29.9-35.2 [facility] Comment on above: Performed By: #### C BC ####[facility] [address] [place] [id number]. Deion Logan MCV (RBC) [Entitic vol] 89.1 fL Normal 81.0-99.0 [facility] Comment on above: Performed By: #### C BC ####[facility] [address] [place] [id number]. Deion Desmond MONO # 0.6 103/ul Normal 0.3-0.8 [facility] Comment on above: Performed By: #### C BC ####[facility] [address] [place] [id number]. Deion Desmond Monocytes/100 WBC (Bld) 7.2 % Normal 1.7-12.0 [facility] Comment on above: Performed By: #### C BC ####[facility] [address] [place] [id number]. Meshamayur Logan NEUT # 4.7 103/ul Normal 1.4-6.5 [facility] Comment on above: Performed By: #### C BC ####[facility] [address] [place] [id number]. Deion Logan Neutrophils/100 WBC (Bld) 57.9 % Normal 43.0-75.0 [facility] Comment on above: Performed By: #### C BC ####[facility] [address] [place] [id number]. Deion Logan Platelet mean volume (Bld) [Entitic vol] 9.8 fL Normal 9.5-13.5 [facility] Comment on above: Performed By: #### C BC ####[facility] [address] [place] [id number]. Deion Logan PLT 258 103/ul Normal 150-450 [facility] Comment on above: Performed By: #### C BC ####[facility] [address] [place] [address]Dr. Deion Logan RBC 4.66 106/ul Normal 4.20-5.40 [facility] Comment on above: Performed By: #### C BC ####[facility] [address] [place] [address]Dr. Deion Logan WBC 8.1 103/ul Normal 4.0-11.0 [facility] Comment on above: Performed By: #### C BC ####[facility] [address] [place] [id number]. Deion Logan GLYCOHEMOGLOBIN A1Con 2021 ADA RECOMMENDATION SEE BELOW Normal [facility] Comment on above: Result Comment: ADA RECOMMENDED LIMIT 4.0 - 6.0 ADA THERAPEUTIC TARGET < 7.0 ACTION SUGGESTED > 7.0 Performed By: #### A 1C ####[facility] [address] [place] [address]Dr. Deion Logan Glucose [Mass/Vol] 163 mg/dL Normal [facility] Comment on above: Performed By: #### A 1C ####[facility] [address] [place] [id number]. Deion Logan HbA1c (Bld) [Mass fraction] 7.3 % Critically high 4.5-6.2 [facility] Comment on above: Performed By: #### A 1C ####[facility] [address] [place], [place] [address]Dr. Deion Logan LIPID PROFILEon 08-02-2022 CHOL-HDL RATIO NORM SEE BELOW Normal [facility] Comment on above: Result Comment: 3.3 - 4.4 LOW RISK 4.4 - 7.1 AVERAGE RISK 7.1 - 11.0 MODERATE RISK >11.0 HIGH RISK Performed By: #### A LT, LIPID, BMP #### [facility] [address] [place] [address] [address] Deion Logan Cholesterol [Mass/Vol] 174 mg/dL Normal <=200 [facility] Comment on above: Performed By: #### A LT, LIPID, BMP #### [facility] [address] [address] [address] Deion Logan Cholesterol in HDL [Mass/Vol] 60 mg/dL Normal 40-60 [facility] Comment on above: Performed By: #### A LT, LIPID, BMP #### [facility] [address] [place] [address] [address] Deion Logan Cholesterol in LDL [Mass/Vol] 93.4 mg/dL Normal [facility] Comment on above: Performed By: #### A LT, LIPID, BMP #### [facility] [address] [address] [address] Deion Logan Cholesterol.total/Chol esterol in HDL [Mass ratio] 2.9 {ratio} Normal [facility] Comment on above: Performed By: #### A LT, LIPID, BMP #### [facility] [address] [address] [address] Deion Logan HDL NORMAL > or = 60 mg/dl - LOW CARDIOVASCULAR RISK <40 mg/dl - HIGH CARDIOVASCULAR RISK Normal [facility] Comment on above: Performed By: #### A LT, LIPID, BMP #### [facility] [address] [address] [address] Deion Logan LDL CALC NORMAL SEE BELOW Normal [facility] Comment on above: Result Comment: <100 mg/dl OPTIMAL 100 - 129 mg/dl NEAR OR ABOVE OPTIMAL 130 - 159 mg/dl BORDERLINE HIGH 160 - 189 mg/dl HIGH >190 mg/dl VERY HIGH Performed By: #### A LT, LIPID, BMP #### [facility] [address] [place] [address] Dr. Deion Logan Triglyceride [Mass/Vol] 103 mg/dL Normal <=150 [facility] Comment on above: Performed By: #### A LT, LIPID, BMP #### [facility] [address] [place] [address] Dr. Deion Logan VLDL CALC 20.6 mg/dL Normal [facility] Comment on above: Performed By: #### A LT, LIPID, BMP #### [facility] [address] [place] [address] Dr. Deion Logan MICROALBUMIN, RAND URon 12-0 mALB 9.7 mg/L Normal <=30.0 [facility] Comment on above: Performed By: #### M ALBR #### [facility] [address] [place] [address] Dr. Deion Logan PROF CHEM 8 (BAS METB)on Anion gap [Moles/Vol] 12.1 mmol/L Normal [facility] Comment on above: Performed By: #### A LT, LIPID, BMP #### [facility] [address] [place] [address] Dr. Deion Logan Calcium [Mass/Vol] 9.1 mg/dL Normal 8.5-10.1 [facility] Comment on above: Performed By: #### A LT, LIPID, BMP #### [facility] [address] [place] [address] Dr. Deion Logan Chloride [Moles/Vol] 101 mmol/L Normal 98-107 [facility] Comment on above: Performed By: #### A LT, LIPID, BMP #### [facility] [address] [place] [address] Dr. Deion Logan CO2 [Moles/Vol] 32.5 mmol/L Critically high 21.0-32.0 [facility] Comment on above: Performed By: #### A LT, LIPID, BMP #### [facility] [address] [address] [address] Deion Logan Creatinine [Mass/Vol] 0.54 mg/dL Critically low 0.55-1.02 [facility] Comment on above: Performed By: #### A LT, LIPID, BMP #### [facility] [address] [address] [address] Deion Logan EGFR-AF BAHAMIAN >60 Normal >=60 [facility] Comment on above: Performed By: #### A LT, LIPID, BMP #### [facility] [address] [address] [address] Deion Logan EGFR-NON AF BAHAMIAN >60 Normal >=60 [facility] Comment on above: Performed By: #### A LT, LIPID, BMP #### [facility] [address] [address] [address] Deion Logan Glucose [Mass/Vol] 185 mg/dL Critically high 74-106 [facility] Comment on above: Performed By: #### A LT, LIPID, BMP #### [facility] [address] [address] [address] Deion Logan Potassium [Moles/Vol] 3.6 mmol/L Normal 3.5-5.1 [facility] Comment on above: Performed By: #### A LT, LIPID, BMP #### [facility] [address] [address] [address] Deion Logan Sodium [Moles/Vol] 142 mmol/L Normal 136-145 [facility] Comment on above: Performed By: #### A LT, LIPID, BMP #### [facility] [address] [address] [address] Deion Logan Urea nitrogen [Mass/Vol] 10.0 mg/dL Normal 7.0-18.0 [facility] Comment on above: Performed By: #### A LT, LIPID, BMP #### [facility] [address] [address] [address] Deion Logan Urea nitrogen/Creatinine [Mass ratio] 18.5 mg/mg Normal [facility] Comment on above: Performed By: #### A LT, LIPID, BMP #### [facility] [address] [place], [place] [address] Dr. Deion Logan [facility] 08-02-2022 ALT [Catalytic activity/Vol] 28 U/L Normal 14-59 [facility] Comment on above: Performed By: #### A LT, LIPID, BMP #### [facility] [address] [place], [place] [address] Dr. Deion Logan MG MAMM SCREEN 3D ADAN CADon 07-26-2022 MG MAMM SCREEN 3D ADAN CAD Patient: KAROLYN UPTON Exam Date: 07/26/2022 : 1950 Gender:F Ordering : DR ABRAHAM FONG D.O. Admission #: [id number] Family : Order #: [id number] CLICK HERE TO VIEW EXAM RADIOLOGY REPORT [...] colon cancer at age 77. LOCATION: [facility] BREAST COMPOSITION: Scattered areas fibroglandular density. FINDINGS: [...] Duque M.D. on 07/29/2022 at 14:43 Normal [facility] XR DEXA BONE DENSITYon 07-26 XR DEXA [...] by: EDMUNDO DUQUE Date: 2022-07-26 08:48 Normal [facility] GLYCOHEMOGLOBIN A1Con 2021 ADA RECOMMENDATION SEE BELOW Normal [facility] Comment on above: Result Comment: ADA RECOMMENDED LIMIT 4.0 - 6.0 ADA THERAPEUTIC TARGET < 7.0 ACTION SUGGESTED > 7.0 Performed By: #### A 1C #### [facility] [address] [address] [address] Deion Logan Glucose [Mass/Vol] 157 mg/dL Normal [facility] Comment on above: Performed By: #### A 1C #### [facility] [address] [address] [address] Deion Logan HbA1c (Bld) [Mass fraction] 7.1 % Critically high 4.5-6.2 [facility] Comment on above: Performed By: #### A 1C #### [facility] [address] [address] [address] Deion Logan GLYCOHEMOGLOBIN A1Con 2021 ADA RECOMMENDATION ADA THERAPEUTIC TARGET 6.0 - 7.0 ACTION SUGGESTED > 7.0 Normal [facility] Comment on above: Performed By: #### A 1C #### [facility] [address] [address] [address] Deion Logan Glucose [Mass/Vol] 160 mg/dL Normal [facility] Comment on above: Performed By: #### A 1C #### [facility] [address] [address] [address] Deion Logan HbA1c (Bld) [Mass fraction] 7.2 % Critically high <=6.0 [facility] Comment on above: Performed By: #### A 1C #### [facility] [address] [address] [address] Deion Logan Vital Signs Date Time Vital Sign Value Performing Clinician Facility 05-04-2024 08:31-0400 Body height 161.29 cm [facility] 05-04-2024 08:31-0400 Body mass index (BMI) [Ratio] 25.7 kg/m2 [facility] 05-04-2024 08:31-0400 Body weight 66.79 kg [facility] 05-04-2024 08:31-0400 Diastolic blood pressure 75 mm[Hg] [facility] 05-04-2024 08:31-0400 Diastolic blood pressure 89 mm[Hg] DO Abraham Ball Work Phone: [facility] 05-04-2024 08:31-0400 Heart rate 89 /min [facility] 05-04-2024 08:31-0400 Respiratory rate 12 /min [facility] 05-04-2024 08:31-0400 Systolic blood pressure 174 mm[Hg] [facility] 05-04-2024 08:31-0400 Systolic blood pressure 139 mm[Hg] DO Abraham Ball Work Phone: [facility] 02-16-2024 08:55-0400 Body height 161.29 cm [facility] 02-16-2024 08:55-0400 Body mass index (BMI) [Ratio] 25.1 kg/m2 [facility] 02-16-2024 08:55-0400 Body weight 65.43 kg [facility] 02-16-2024 08:55-0400 Diastolic blood pressure 77 mm[Hg] [facility] 02-16-2024 08:55-0400 Heart rate 82 /min [facility] 02-16-2024 08:55-0400 Respiratory rate 12 /min [facility] 02-16-2024 08:55-0400 Systolic blood pressure 171 mm[Hg] [facility] 11-25-2023 09:29-0400 Body height 161.29 cm [facility] 11-25-2023 09:29-0400 Body mass index (BMI) [Ratio] 25.4 kg/m2 [facility] 11-25-2023 09:29-0400 Body weight 66.22 kg [facility] 11-25-2023 09:29-0400 Diastolic blood pressure 88 mm[Hg] [facility] 11-25-2023 09:29-0400 Heart rate 90 /min [facility] 11-25-2023 09:29-0400 Respiratory rate 12 /min [facility] 11-25-2023 09:29-0400 Systolic blood pressure 135 mm[Hg] [facility] 08-26-2023 09:30-0500 Body height 161.29 cm Abraham Ball Other [facility] [employer] Other 08-26-2023 09:30-0500 Body mass index (BMI) [Ratio] 25.98 kg/m2 Abraham Ball Other [facility] [employer] Other 08-26-2023 09:30-0500 Body weight 67.59 kg Abraham Ball Other [facility] [employer] Other 08-26-2023 09:30-0500 Diastolic blood pressure 77 mm[Hg] Abraham Ball Other [facility] [employer] Other 08-26-2023 09:30-0500 Respiratory rate 12 /min Abraham Ball Other [employer] [employer] Other 08-26-2023 09:30-0500 Systolic blood pressure 190 mm[Hg] Abraham Ball Other [employer] Other 05-26-2023 10:00-0400 Body height 161.29 cm Abraham Ball Other [employer] Other 05-26-2023 10:00-0400 Body mass index (BMI) [Ratio] 25.91 kg/m2 Abraham Ball Other [employer] Other 05-26-2023 10:00-0400 Body weight 67.4 kg Abraham Ball Other [facility] Other 05-26-2023 10:00-0400 Diastolic blood pressure 77 mm[Hg] Abraham Ball Other [facility] Other 05-26-2023 10:00-0400 Respiratory rate 12 /min Abraham Ball Other [facility] Other 05-26-2023 10:00-0400 Systolic blood pressure 185 mm[Hg] Abraham Ball Other [facility] Other 05-19-2023 13:45-0400 Body height 161.29 cm Abraham Ball Other [facility] Other 05-19-2023 13:45-0400 Body mass index (BMI) [Ratio] 26.05 kg/m2 Abraham Ball Other [facility] Other 05-19-2023 13:45-0400 Body weight 67.77 kg Abraham Ball Other [facility] Other 05-19-2023 13:45-0400 Diastolic blood pressure 88 mm[Hg] Abraham Ball Other [facility] Other 05-19-2023 13:45-0400 Respiratory rate 12 /min Abraham Ball Other [facility] Other 05-19-2023 13:45-0400 Systolic blood pressure 138 mm[Hg] Abraham Ball Other [facility] Other 06-23-2023 11:30-0400 Body height 161.29 cm Abraham Ball Other [facility] Other 02-21-2023 11:30-0400 Body mass index (BMI) [Ratio] 25.66 kg/m2 Abraham Ball Other [facility] Other 02-21-2023 11:30-0400 Body weight 66.77 kg Abraham Ball Other [facility] Other 02-21-2023 11:30-0400 Diastolic blood pressure 83 mm[Hg] Abraham Ball Other [facility] Other 02-21-2023 11:30-0400 Respiratory rate 12 /min Abraham Ball Other [facility] Other 02-21-2023 11:30-0400 Systolic blood pressure 169 mm[Hg] Abraham Ball Other [facility] Other 10-24-2022 08:30-0500 Body height 161.29 cm Abraham Ball Other [facility] Other 10-24-2022 08:30-0500 Body mass index (BMI) [Ratio] 25.7 kg/m2 Abraham Ball Other [facility] Other 10-24-2022 08:30-0500 Body weight 66.86 kg Abraham Ball Other [facility] Other 10-24-2022 08:30-0500 Diastolic blood pressure 70 mm[Hg] Abraham Ball Other [facility] Other 10-24-2022 08:30-0500 Respiratory rate 12 /min Abraham Ball Other [facility] Other 10-24-2022 08:30-0500 Systolic blood pressure 146 mm[Hg] Abraham Ball Other [facility] Other 10-07-2022 14:30-0500 Body height 161.29 cm Abraham Ball Other [facility] Other 10-07-2022 14:30-0500 Body mass index (BMI) [Ratio] 25.52 kg/m2 Abraham Ball Other [facility] Other 10-07-2022 14:30-0500 Body weight 66.41 kg Abraham Movigo Other [facility] Other 10-07-2022 14:30-0500 Diastolic blood pressure 82 mm[Hg] Abraham Movigo Other [facility] Other 10-07-2022 14:30-0500 Respiratory rate 12 /min Abraham Movigo Other [facility] Other 10-07-2022 14:30-0500 Systolic blood pressure 142 mm[Hg] Abraham Movigo Other [facility] Other Encounters Encounter Date Encounter Type Care Provider Facility Start: 06-29-2024 End: 06-29-2024 Telephone encounter Jennifer Waggoner CMA [facility] Start: 06-28-2024 End: 06-28-2024 Orders Only Not In System Ref Prov [facility] Start: 06-23-2024 End: 06-23-2024 Evaluation and management of inpatient Octavia Leija A [facility] Comment on above: Encounter for colono scopy in patient with family history of colon cancer Start: 06-16-2024 End: 06-16-2024 ambulatory DO Abraham Fong Work Phone: [facility] Work Phone: Start: 06-16-2024 End: 06-16-2024 Departed Referred DO Abraham Fong Work Phone: [facility] Start: 06-07-2024 End: 06-07-2024 Telephone encounter [facility] Start: 05-21-2024 End: 05-21-2024 ambulatory GIA Carlos MOSS [facility] Start: 05-04-2024 End: 05-04-2024 ambulatory [facility] Work Phone: Start: 05-04-2024 End: 05-04-2024 Patient encounter procedure [facility] Work Phone: Start: 02-17-2024 Non-patient / Non-visit [facility] Work Phone: Start: 02-16-2024 End: 02-16-2024 ambulatory [facility] Work Phone: Start: 02-16-2024 End: 02-16-2024 Patient encounter procedure [facility] Work Phone: Start: 11-25-2023 End: 11-25-2023 ambulatory [facility] Work Phone: Start: 11-25-2023 End: 11-25-2023 Patient encounter procedure [facility] Work Phone: Start: 11-18-2023 Non-patient / Non-visit [facility] Work Phone: Start: 10-30-2023 Non-patient / Non-visit [facility] Work Phone: Start: 10-07-2023 End: 10-07-2023 ambulatory Abraham Fong Other [facility] Other Start: 10-07-2023 Telephone encounter Abraham Fong [facility] Start: 09-10-2023 End: 09-10-2023 ambulatory Abraham Ball Other [facility] Other Start: 09-10-2023 Telephone encounter Abraham Ball [facility] Start: 08-26-2023 End: 08-26-2023 ambulatory Abraham Ball Other [facility] Other Start: 08-26-2023 Patient encounter procedure Abraham Ball [facility] Start: 08-05-2023 End: 08-05-2023 ambulatory Abraham Ball Other [facility] Other Start: 08-05-2023 Telephone encounter Abraham Ball FP [facility] Start: 07-09-2023 End: 07-09-2023 ambulatory Abraham Ball Other [facility] Other Start: 07-09-2023 Telephone encounter Abraham Ball FP [facility] Start: 06-16-2023 End: 06-16-2023 ambulatory Abraham Ball Other [facility] Other Start: 06-16-2023 Office outpatient vi sit 15 minutes Abraham Ball [facility] Start: 05-26-2023 End: 05-26-2023 ambulatory Abraham Ball Other [facility] Other Start: 05-26-2023 Office outpatient vi sit 25 minutes Abraham Ball [facility] Start: 05-19-2023 End: 05-19-2023 ambulatory Abraham Ball Other [facility] Other Start: 05-19-2023 Office outpatient vi sit 15 minutes Abraham Ball [facility] Start: 02-25-2023 End: 02-25-2023 ambulatory Abraham Ball Other [facility] Other Start: 02-25-2023 Telephone encounter Abraham Ball FP [facility] Start: 02-21-2023 End: 02-21-2023 ambulatory Abraham Ball Other [facility] Other Start: 02-21-2023 Office outpatient vi sit 25 minutes Abraham Fong [facility] Start: 10-24-2022 End: 10-24-2022 ambulatory Abraham Fong Other [facility] Other Start: 10-24-2022 Office outpatient vi sit 25 minutes Abraham Fong [facility] Start: 10-11-2022 End: 10-11-2022 ambulatory Abraham Fong Other [facility] Other Start: 10-11-2022 Telephone encounter Abraham Fong FP [facility] Start: 10-07-2022 End: 10-08-[address] ABRAHAM FONG Facility:[facility] Start: 10-07-2022 Office outpatient vi sit 15 minutes Abraham Fong [facility] Start: 09-05-2022 End: 09-05-2022 ambulatory Abraham Fong Other [facility] Other Start: 09-05-2022 Telephone encounter Abraham Fong FP [facility] Start: 08-02-2022 End: 08-03-[address] ABRAHAM FONG Facility:[facility] Start: 07-26-2022 End: 07-27-[address] ABRAHAM FONG Facility:[facility] Start: 06-20-2022 Adult health examination Holden Fong Other [facility] Other Start: 06-20-2022 Gynecological examin ation normal Abraham Fong Other [facility] Other Start: 03-06-2022 End: 03-07-[address] ABRAHAM FONG Facility:[facility] Start: 11-06-2021 End: 11-07-[address] ABRAHAM FONG Facility:[facility] Procedures Date Procedure Procedure Detail Performing Clinician Start: 06-16-2024 GLUCOSE 1 HOUR Not In S ystem Ref Prov Start: 06-16-2024 Level i surg patholo gy gross examination only Not In System Ref Prov Start: 06-16-2024 Colonoscopy Jennifer Mariano ia [employer] SUPER[employer]OR Start: 06-04-2018 Screening for osteoporosis Abraham Fong Other Start: 04-22-2014 Screening mammography B umm Fong Other Depression screening Sherman Fong Other Preoperative cardiov ascular examination Abraham Fong Other End: 07-27-2022 Screening for malignant neoplasm of breast Abraham Fong Other Screening for malign ant neoplasm of colon Abraham Fong Other Plan of Treatment Date Care Activity Detail Author Start: 06-16-2029 Screening for malignant neoplasm of colon Colonoscopy [facility] Start: 02-19-2028 DTaP,Tdap and Td Vaccines (2 - Tdap) DTaP,Tdap and Td Vaccines (2 - Tdap) [facility] Start: 05-21-2025 Tobacco Screening Tobacco Screening [facility] Start: 05-04-2024 Patient referral [facility] Work Phone: Start: 05-02-2024 COVID-19 Vaccine ( season) COVID-19 Vaccine ( season) [facility] Start: 05-02-2024 COVID-19 Vaccine ( season) COVID-19 Vaccine ( season) [facility] Start: 05-02-2024 Influenza vaccination Influenza Vaccine [facility] Start: 2016 Fall Risk Screening Fall Risk Screening [facility] Start: 2001 Administration of varicella zoster vaccine Zoster (Shingles) Vaccine (1 of 2) [facility] Start: 1969 Adult BMI Screening Adult BMI Screening [facility] Start: 1963 Depression Screening Depression Screening [facility] Start: 1950 Medicare Annual Wellness Visit Medicare Annual Wellness Visit [facility] Colonoscopy Colonoscopy GI R outine Encounter for colonoscopy in patient with family history of colon cancer [facility]/16[facility]20[facility] referral [facility] Work Phone: [facility] Immunizations Immunization Date Immunization Notes Care Provider [place] 05-26-2023 influenza virus vaccine, unspecified formulation [facility] 05-26-2023 influenza, high dose seasonal, preservative-free Abraham Fong Other [facility] Other 06-20-2022 influenza virus vaccine, split virus (incl. purified surface antigen) Abraham Fong Other [place] [facility] Other 06-20-2022 influenza virus vaccine, unspecified formulation [facility] 06-18-2021 influenza virus vaccine, split virus (incl. purified surface antigen) Abraham Fong Other [facility] Other 06-18-2021 influenza virus vaccine, unspecified formulation [facility] 06-12-2020 influenza virus vaccine, split virus (incl. purified surface antigen) Abraham Fong Other [facility] Other 06-12-2020 influenza virus vaccine, unspecified formulation [facility] 02-18-2018 diphtheria, tetanus toxoids and acellular pertussis vaccine, unspecified formulation Abraham Fong Other [facility] 06-23-2017 pneumococcal polysaccharide vaccine, 23 valent Abraham Fong Other [facility] 06-19-2016 pneumococcal conjuga te vaccine, 13 valent Abraham Fong Other [facility] 06-19-2016 pneumococcal Conjugate, unspecified formulation; Translations: [Need for prophylactic vaccination against Streptococcus pneumoniae (pneumococcus)] Abraham Fong Other [facility] [employer] Other NEGATED: Highlighted row has not occurred!06-12-2020 influenza virus vaccine, split virus (incl. purified surface antigen) Abraham Fong Other [place] [employer] Other Payers Date Payer Category Payer Self-pay 2023 Managed Care Other (unspecified) [facility] [id number] 2023 Private Health Insurance [facility] SU[facility] [id number] 2023-Present [phone] [address] [place] [address] [id number] 2016 Medicare [id number] 1959 Medicare [id number] 1959 Unknown [id number] 1950 Unknown [id number] 1950 Unknown [id number] 1950 Unknown [id number] 1951 Unknown [id number] 1950 Unknown [id number] 1950 Unknown [id number] Unknown [id number] Social History Date Type Detail Facility Start: 02-10-2019 End: 05-21-2024 Sex Assigned At [facility] Other Start: 1950 Sex Assigned At Female F [facility] Start: 05-21-2024 Tobacco smoking stat us NHIS Never smoked tobacco [facility] Start: 05-21-2024 Tobacco use and exposure Smokeless tobacco non-user [facility] Start: 05-21-2024 Alcoholic beverage intake Current drinker of alcohol (finding) [facility] Start: 02-10-2019 End: 05-21-2024 History of Social function [facility] Childcare Unknown [facility] Start: 05-21-2024 Alcohol Comment rare [facility] Start: 1950 Sex assigned at Not on file P [facility] Start: 04-06-2015 Sex Female (finding) [facility] Medical Equipment Procedure Code Equipment [...] 01-01-2024 End: 01-01-2024 Clinical Notes 09-05-2022 to 06-29-2024 Telephone Encounter - Jennifer Waggoner [facility] - 06/29/2024 9:43 AM EDTTelephone Encounter - Jennifer Waggoner [facility] - 06/29/2024 9:43 AM EDTTelephone Encounter - Jennifer Waggoner [facility] - 06/29/2024 9:43 AM EDT Note Date & Type Note Facility 06-29-2024 Miscellaneous Notes Formattin g of this note might be different from the original. ----- Message from Dr. Azeem Perera, sent at 06/28/2024 10:53 AM EDT ----- Please let patient know that polyp was not retrieved but I do recommend repeat colonoscopy in 5 years if she so wishes due to her family history of colon cancer and the polyp which was removed and appeared grossly benign on visualization. Thanks, Dr. Flores Spoke with patient regarding pathology results. Patient verbally understood with no further questions. Recall to be put in chart. documented in this encounter [facility] 06-29-2024 Telephone encount er Note ----- Message from Dr. Azeem Perera, sent at 06/28/2024 10:53 AM EDT ----- Please let patient know that polyp was not retrieved but I do recommend repeat colonoscopy in 5 years if she so wishes due to her family history of colon cancer and the polyp which was removed and appeared grossly benign on visualization. Thanks, Dr. Flores [facility] 06-29-2024 Telephone encount er Note Spoke with patient regarding pathology results. Patient verbally understood with no further questions. Recall to be put in chart. [facility] 06-07-2024 Miscellaneous Notes Formattin g of this [...] She will need to speak to the efficiency miner. If you want to set up an appointment for her to speak to them prior to the colonoscopy please arrange that for her so that she is more comfortable. Thanks, Dr. Flores Received: Today Azeem Perera, DO Phyllis Ureña CMA Images from the original note were not included. GEN[facility]O Live / surgery consultant Phyllis Ureña CMA; Azeem Perera DO 06/07/24 I called [facility] today 06/07/24 and spoke with Mary I [...] to let her know I spoke with [facility]. Enrique Ruby documented in this encounter [facility] 06-07-2024 Telephone encount er Note Patient called in & just wanted Dr Perera to be aware that when she had her anesthesia for a knee replacement she was sick after she came out of the anesthesia. I did let her know that the Colonoscopy is done under MAC which is less sedation than she was under for a knee replacement. [facility] 06-07-2024 Telephone encount er Note Images from the original note were not included. Yes you told her right. She will need to speak to the efficiency miner. If you want to set up an appointment for her to speak to them prior to the colonoscopy please arrange that for her so that she is more comfortable. Thanks, Dr. Flores Received: Today DO [facility]yllis Perez [facility]-07-2024 Telephone encount er Note Images from the original note were not included. [facility] Live / surgery consultant Phyllis Ureña CMA; Azeem Perera DO 06/07/24 I called [facility] today 06/07/24 and spoke with Mary I [...] to let her know I spoke with [facility]. Ruby Nunez [facility] 10-07-2023 Evaluation note Encounter Date Diagnosis Assessment Notes Oct, Acute non-recurrent maxillary sinusitis (ICD-10 - J01.00) [facility] Other 12-26-2023 Evaluation note* Encounter Date Diagnosis [...] patient on monthly SBE and yearly mammograms. [facility] Other 11-08-2023 Evaluation note* Encounter Date Diagnosis Assessment Notes Treatment Notes Treatment Clinical Notes Jul, Controlled type 2 diabetes mellitus with hyperglycemia, without long-term current use of insulin (ICD-10 - E11.65) [facility] Other 10-16-2023 Evaluation note* Encounter Date Diagnosis [...] to change treatment. Push fluids and rest [facility] Other 09-25-2023 Evaluation note* Encounter Date Diagnosis [...] They may safely use Tylenol as needed. [facility] Other 09-18-2023 Evaluation note* Encounter Date Diagnosis [...] continue exercise to achieve/maintain a normal BMI. [facility] Other 06-23-2023 Evaluation note* Encounter Date Diagnosis [...] (ICD-10 - L23.7) Cool compresses avoid scratching [facility] Other 02-23-2023 Evaluation note* Encounter Date Diagnosis [...] Chronic w/ acute worsening. Monitor for now. [facility] Other 02-07-2023 NotePROCEDURE: XR HIP LT 2 [...] Electronically authenticated by: EDMUNDO DUQUE Date: 2022-10-08 07:45[facility]02-06-2023 Evaluation note* Encounter Date Diagnosis [...] and ROM exercises. Initiate NSAIDs. XR ordered [facility] Other 01-05-2023 Evaluation note* Encounter Date Diagnosis Assessment Notes Treatment Notes Treatment Clinical Notes Sep, Primary hypertension (ICD-10 - I10) [facility] Other Evaluation noteNo [facility] [employer] Other evaluation note* Diagnosis Onset Date Resolution Status Aortic valve sclerosis acute Asthma acute Diabetes mellitus with hyperglycemia acute Elevated cholesterol acute Hypertension [facility] Work Phone: evaluation note* Diagnosis Onset Date Resolution Status Aortic valve sclerosis acute Asthma acute Diabetes mellitus with hyperglycemia acute Elevated cholesterol acute Hypertension acute Aortic valve sclerosis acute Asthma acute Diabetes mellitus with hyperglycemia acute Elevated cholesterol acute Hypertension [facility] Work Phone: Evaluation note* Diagnosis Onset Date Resolution Status Aortic valve sclerosis acute Asthma acute Diabetes mellitus with hyperglycemia acute Elevated cholesterol acute Hypertension acute Aortic valve sclerosis acute Asthma acute Diabetes mellitus with hyperglycemia acute Elevated cholesterol acute Encounter for screening for malignant neoplasm of colo n acute Hypertension [facility] Work Phone: evaluation note* Diagnosis Onset Date Resolution Status Aortic valve sclerosis acute Asthma acute Diabetes mellitus with hyperglycemia acute Elevated cholesterol acute Encounter for screening for malignant neoplasm of colo n acute Hypertension [facility] Work Phone: evaluation note* Diagnosis Encounter for colonoscopy in patient with family history of colon cancer [facility] - [facility]* Type Description Date Surgical History COLONOSCOPY 2002, 2013, 201 9 Surgical History BREAST BX 2011 Surgical History LEFT TKA 2013 Hospitalization History SEE SURGICAL HX [facility] Other History general Narrative - Reported* Type [...] TKA 2013 Hospitalization History SEE SURGICAL HX [facility] Other Hospital Discharge instructionsAmbulatory Orders* Referral to General Surgery Location: None [facility] Work Phone: InstructionsNot on filedocumented in this encounter [facility] System[facility]ructionsNot on filedocumented in this encounter [facility] System[facility]ructionsNot on filedocumented in this encounter [facility] System[facility]ructionsNot on filedocumented in this encounter [facility] Summary Purpose Family History Relationship Condition [...] screening for malignant neoplasm of colon Hypertension Chief Complaint f/u Unknown Reason for Visit Aortic valve scleros is Asthma Diabetes mellitus with hyperglycemia Elevated cholesterol Encounter for screening for malignant neoplasm of colon Hypertension Additional Source Comments INFORMATION SOURCE (unrecogn ized section and content) DATE CREATED AUTHOR 10/10/2022 [facility] DATE CREATED AUTHOR AUTHOR'S ORGANIZ ATION 05/23/2024 [facility] DATE CREATED AUTHOR AUTHOR'S ORGANIZ ATION 06/18/2024 [facility] REASON FOR VISIT (unrecogniz ed section and content) Reminderwellnessmamm results POSSIBLE SINUS INFECTION [phone] month Follow upHearing Aid-Look in EarLab ResultsDiabetes [...] November 25, 2023 End: November 25, 2023 Wood Finisher Relationship Specialty Start Date End Date Abraham Fong DO [address] [place] [id number] PCP - General Internal Medicine 05/05/24 Team Status: Inactive Member Role Status Dates Abraham Fong DO Primary Care Provider Active Start: June 16, 2024 End: June 16, 2024 Azeem Perera DO Attending Provider Active Start: June 16, 2024 End: June 16, 2024 Wood Finisher Relationship Specialty Start Date End Date Abraham Fong, [address] [place] [address] PCP - General Internal Medicine 05/05/24 Wood Finisher Relationship Specialty Start Date End Date Abraham Fong [address] [place] [address] PCP - General Internal Medicine 05/05/24 Goals [...] BE BASED ON THE PRIMARY CLINICAL RECORDS. [employer] provides no warranty or guarantee of the accuracy or completeness of information in this document.
== END 2024-08-06 06:50 | disposition home or self-care (01) ==
LOC: MAMMO 06:49
PROVIDERS: PCP Internal Medicine; Visit Provider Internal Medicine
DX: Z12.31 Encounter for screening mammogram for malignant neoplasm of breast (principal); Z80.0 Family history of malignant neoplasm of digestive organs
CPT/HCPCS: 77063; 77067

== ENCOUNTER 2024-09-10 07:17 | Outpatient (OUT) | payer MEDICARE, SELFPAY ==
--- OUTSIDE RECORDS SUMMARY | 2024-09-10 07:22 | XMS_ITS | CCD ---
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 Role Phone AJIT, DR CARVALHO Admitting [...] Fong Unavailable GIA MOSS Attending Unavailable ABRAHAM FONG Referring Unavailable ABRAHAM FONG Primary Care Unavailable Abraham Fong DO Primary Care Provider DO Abraham Fong Primary Care Provider DO Azeem Perera Attending Provider Azeem Perera Attending Unavailable Azeem Perera Admitting Unavailable Abraham Fong Primary Care Unavailable Allergies Allergy Classification Reported Allergen(s) Allergy Type Date of Onset Reaction(s) Facility (1 source) egg extract Drug Allergy 4 [facility] Repository (20 sources) predniSONE; Translations: [PREDNISONE] Drug Allergy 4 Blurred Vision, Dizziness [facility] (13 sources) Simvastatin Drug Allergy 4 Comment:myalgia [facility] (1 source) Simvastatin Drug Allergy 4 [facility] Repository Medications Current Medications Medication Drug Class(es) [...] 10-09-2022 Chronic Other aftercare (2 sources) Other detention (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; Translations: [OTH MEASUREMENT ANALYST CURRENT DRUG THERAPY] Onset: 08-08-2022 Episodic Other aftercare (1 source) Long-term current use of drug therapy; Translations: [Other detention (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] Episodic Other aftercare (5 sources) Drug therapy finding; Translations: [Other detention (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] 11-24-2023 Episodic Other connective [...] from glycated hemoglobin (Bld) [Mass/Vol] 157 mg/dL [facility] Laboratory - Hematology and Cell countson 02-17-2024 HbA1c (Bld) [Mass fraction] 7.1 % High 4.5-6.2 [facility] Comment on above: ADA RECOMMENDED LIMI T 4.0 - 6.0ADA THERAPEUTIC TARGET < 7.0ACTION SUGGESTED> 7.0 Estimated glomerular filtrat ion rate (GFR) non- Americanon 11-18-2023 GFR/1.73 sq M.predicted among non-blacks MDRD (S/P/Bld) [Vol rate/Area] mL/min/{1.73_m2} >=60 [facility] Laboratory - Chemistry and C hemistry - challengeon 11-18-2023 Calcium [Mass/Vol] 9.4 mg/dL 8.5-10.1 [facility] Chloride [Moles/Vol] 103 mmol/L 98-107 [facility] CO2 [Moles/Vol] 31.6 mmol/L 21.0-32.0 [facility] Creatinine [Mass/Vol] 0.71 mg/dL 0.55-1.02 [facility] GFR/1.73 sq M.predicted MDRD (S/P/Bld) [Vol rate/Area] mL/min/{1.73_m2} >=60 [facility] Glucose [Mass/Vol] 182 mg/dL 74-106 [facility] Potassium [Moles/Vol] 4.0 mmol/L 3.5-5.1 [facility] Sodium [Moles/Vol] 144 mmol/L 136-145 [facility] Urea nitrogen [Mass/Vol] 11.0 mg/dL 7.0-18.0 [facility] Urea nitrogen/Creatinine [Mass ratio] 15.5 mg/mg [facility] No Panel Informationon 11-17 25-Hydroxy Vitamin D Total 32.1 ng/mL [facility] Comment on above: <20 ng/mL Vit D defi cient20-<30 ng/mL Vit D fiynzwhkvwjh09-799 ng/mL Vit D sufficient>100 ng/mL Potential Toxicity Parathyroid Hormone (Intact) 26 pg/mL 15-65 [facility] Comment on above: Performed at: [address] [id number] Director: Raul Headley PhD, Phone: [phone] Serum or plasma anion gap de terminationon 11-18-2023 Anion gap [Moles/Vol] 13.4 mmol/L [facility] XR LSPINE 2_3 VIEWSon 2022 XR LSPINE 2_3 VIEWS EXAM: XR LSPINE 2_3 VIEWS HISTORY: Lumbago with sciatica COMPARISON: None. TECHNIQUE: Frontal, lateral, spot radiographs of the lumbar spine. FINDINGS: Anatomy: 5 [id number] lumbar segments. Bones: No acute fracture or [...] AMADEO SEGOVIA Date: 2022-10-08 07:09 Normal [facility] XR HIP LT 2 3V W PELVISon XR HIP LT 2 3V W PELVIS [facility] [employer] Other XR lumbar spine 2-3V*on XR lumbar spine 2-3V* Nor [facility] [employer] Other CBC AUTO DIFFon 08-02-2022 BASO # 0.1 103/ul Normal 0.0-0.1 [facility] Comment on above: Performed By: #### C BC ####[facility] [address] [place] [address]DrRhona Logan Basophils/100 WBC (Bld) 0.7 % Normal 0.2-2.0 [facility] Comment on above: Performed By: #### C BC ####[facility] [address] [place] [id number]. Deion Logan EO # 0.2 103/ul Normal 0.0-0.7 [facility] Comment on above: Performed By: #### C BC ####[facility] [address] [place] [id number]. Deion Logan Eosinophils/100 WBC (Bld) 2.4 % Normal 0.9-7.0 [facility] Comment on above: Performed By: #### C BC ####[facility] [address] [place], [place] [address]Dr. Deion Logan Erythrocyte distribution width (RBC) [Ratio] 12.0 % Normal 11.0-15.0 [facility] Comment on above: Performed By: #### C BC ####[facility] [address] [place], [place] [address]Dr. Deion Logan Hematocrit (Bld) [Volume fraction] 41.5 % Normal 36.0-48.0 [facility] Comment on above: Performed By: #### C BC ####[facility] [address] [place], [place] [address]Dr. Deion Logan Hemoglobin (Bld) [Mass/Vol] 14.2 g/dL Normal 12.0-16.0 [facility] Comment on above: Performed By: #### C BC ####[facility] [address] [place], [place] [address]Dr. Deion Logan IG # 0.03 10e3/ul Normal 0.00-0.03 [facility] Comment on above: Performed By: #### C BC ####[facility] [address] [place], [place] [address]Dr. Deion Logan IG % 0.4 % Normal 0.0-0.5 [facility] Comment on above: Performed By: #### C BC ####[facility] [address] [place], [place] [address]Dr. Deion Logan LYMPH # 2.5 103/ul Normal 1.2-3.8 [facility] Comment on above: Performed By: #### C BC ####[facility] [address] [place] [id number]. Deion Logan Lymphocytes/100 WBC (Bld) 31.4 % Normal 20.5-60.0 [facility] Comment on above: Performed By: #### C BC ####[facility] [address] [place] [id number]. Deion Logan MANUAL DIFF REQ NO Normal [facility] Comment on above: Performed By: #### C BC ####[facility] [address] [place] [id number]. Deion Desmond MCH (RBC) [Entitic mass] 30.5 pg Normal 26.7-34.0 [facility] Comment on above: Performed By: #### C BC ####[facility] [address] [place] [address]Dr. Deion Logan MCHC (RBC) [Mass/Vol] 34.2 g/dL Normal 29.9-35.2 [facility] Comment on above: Performed By: #### C BC ####[facility] [address] [place] [id number]. Deion Logan MCV (RBC) [Entitic vol] 89.1 fL Normal 81.0-99.0 [facility] Comment on above: Performed By: #### C BC ####[facility] [address] [place] [id number]. Deion Desmond MONO # 0.6 103/ul Normal 0.3-0.8 [facility] Comment on above: Performed By: #### C BC ####[facility] [address] [place] [id number]. Deion Desmond Monocytes/100 WBC (Bld) 7.2 % Normal 1.7-12.0 [facility] Comment on above: Performed By: #### C BC ####[facility] [address] [place] [id number]. Meshamayur Logan NEUT # 4.7 103/ul Normal 1.4-6.5 [facility] Comment on above: Performed By: #### C BC ####[facility] [address] [place] [id number]. Deion Logan Neutrophils/100 WBC (Bld) 57.9 % Normal 43.0-75.0 [facility] Comment on above: Performed By: #### C BC ####[facility] [address] [place] [id number]. Deion Logan Platelet mean volume (Bld) [Entitic vol] 9.8 fL Normal 9.5-13.5 [facility] Comment on above: Performed By: #### C BC ####[facility] [address] [place] [id number]. Deion Logan PLT 258 103/ul Normal 150-450 [facility] Comment on above: Performed By: #### C BC ####[facility] [address] [place] [address]Dr. Deion Logan RBC 4.66 106/ul Normal 4.20-5.40 [facility] Comment on above: Performed By: #### C BC ####[facility] [address] [place] [address]Dr. Deion Logan WBC 8.1 103/ul Normal 4.0-11.0 [facility] Comment on above: Performed By: #### C BC ####[facility] [address] [place] [id number]. Deion Logan GLYCOHEMOGLOBIN A1Con 2021 ADA RECOMMENDATION SEE BELOW Normal [facility] Comment on above: Result Comment: ADA RECOMMENDED LIMIT 4.0 - 6.0 ADA THERAPEUTIC TARGET < 7.0 ACTION SUGGESTED > 7.0 Performed By: #### A 1C ####[facility] [address] [place] [address]Dr. Deion Logan Glucose [Mass/Vol] 163 mg/dL Normal [facility] Comment on above: Performed By: #### A 1C ####[facility] [address] [place] [id number]. Deion Logan HbA1c (Bld) [Mass fraction] 7.3 % Critically high 4.5-6.2 [facility] Comment on above: Performed By: #### A 1C ####[facility] [address] [place], [place] [address]QgDr. Deion Logan LIPID PROFILEon 08-02-2022 CHOL-HDL RATIO NORM SEE BELOW Normal [facility] Comment on above: Result Comment: 3.3 - 4.4 LOW RISK 4.4 - 7.1 AVERAGE RISK 7.1 - 11.0 MODERATE RISK >11.0 HIGH RISK Performed By: #### A LT, LIPID, BMP #### [facility] [address] [address] [address] Deion Logan Cholesterol [Mass/Vol] 174 mg/dL Normal <=200 [facility] Comment on above: Performed By: #### A LT, LIPID, BMP #### [facility] [address] [address] [address] Deion Logan Cholesterol in HDL [Mass/Vol] 60 mg/dL Normal 40-60 [facility] Comment on above: Performed By: #### A LT, LIPID, BMP #### [facility] [address] [address] [address] Deion Logan Cholesterol in LDL [Mass/Vol] 93.4 mg/dL Normal [facility] Comment on above: Performed By: #### A LT, LIPID, BMP #### [facility] [address] [address] [address] Deion Logan Cholesterol.total/Chol esterol in HDL [Mass ratio] 2.9 {ratio} Normal [facility] Comment on above: Performed By: #### A LT, LIPID, BMP #### [facility] [address] [address] [address] Deion Logan HDL NORMAL > or = 60 mg/dl - LOW CARDIOVASCULAR RISK <40 mg/dl - HIGH CARDIOVASCULAR RISK Normal [facility] Comment on above: Performed By: #### A LT, LIPID, BMP #### [facility] [address] [address] [address] Deion Logan LDL CALC NORMAL SEE BELOW Normal [facility] Comment on above: Result Comment: <100 mg/dl OPTIMAL 100 - 129 mg/dl NEAR OR ABOVE OPTIMAL 130 - 159 mg/dl BORDERLINE HIGH 160 - 189 mg/dl HIGH >190 mg/dl VERY HIGH Performed By: #### A LT, LIPID, BMP #### [facility] [address] [place] [address] Dr. Deion Logan Triglyceride [Mass/Vol] 103 mg/dL Normal <=150 [facility] Comment on above: Performed By: #### A LT, LIPID, BMP #### [facility] [address] [place] [address] Dr. Deion Logan VLDL CALC 20.6 mg/dL Normal [facility] Comment on above: Performed By: #### A LT, LIPID, BMP #### [facility] [address] [place] [address] Dr. Deion Logan MICROALBUMIN, RAND URon 12-0 mALB 9.7 mg/L Normal <=30.0 [facility] Comment on above: Performed By: #### M ALBR #### [facility] [address] [place] [address] Dr. Deion Logan PROF CHEM 8 (BAS METB)on Anion gap [Moles/Vol] 12.1 mmol/L Normal [facility] Comment on above: Performed By: #### A LT, LIPID, BMP #### [facility] [address] [place] [address] Dr. Deion Logan Calcium [Mass/Vol] 9.1 mg/dL Normal 8.5-10.1 [facility] Comment on above: Performed By: #### A LT, LIPID, BMP #### [facility] [address] [place] [address] Dr. Deion Logan Chloride [Moles/Vol] 101 mmol/L Normal 98-107 [facility] Comment on above: Performed By: #### A LT, LIPID, BMP #### [facility] [address] [place] [address] Dr. Deion Logan CO2 [Moles/Vol] 32.5 mmol/L Critically high 21.0-32.0 [facility] Comment on above: Performed By: #### A LT, LIPID, BMP #### [facility] [address] [address] [address] Deion Logan Creatinine [Mass/Vol] 0.54 mg/dL Critically low 0.55-1.02 [facility] Comment on above: Performed By: #### A LT, LIPID, BMP #### [facility] [address] [address] [address] Deion Logan EGFR-AF JAPANESE >60 Normal >=60 [facility] Comment on above: Performed By: #### A LT, LIPID, BMP #### [facility] [address] [address] [address] Deion Logan EGFR-NON AF JAPANESE >60 Normal >=60 [facility] Comment on above: Performed By: #### A LT, LIPID, BMP #### [facility] [address] [address] [address] Deion Logan Glucose [Mass/Vol] 185 mg/dL Critically high 74-106 [facility] Comment on above: Performed By: #### A LT, LIPID, BMP #### [facility] [address] [address] [address] Deion Logan Potassium [Moles/Vol] 3.6 mmol/L Normal 3.5-5.1 [facility] Comment on above: Performed By: #### A LT, LIPID, BMP #### [facility] [address] [address] [address] Deion Logan Sodium [Moles/Vol] 142 mmol/L Normal 136-145 [facility] Comment on above: Performed By: #### A LT, LIPID, BMP #### [facility] [address] [address] [address] Deion Logan Urea nitrogen [Mass/Vol] 10.0 mg/dL Normal 7.0-18.0 [facility] Comment on above: Performed By: #### A LT, LIPID, BMP #### [facility] [address] [address] [address] Deion Logan Urea nitrogen/Creatinine [Mass ratio] 18.5 mg/mg Normal [facility] Comment on above: Performed By: #### A LT, LIPID, BMP #### [facility] [address] [place], [place] [address] Dr. Deion Logan [facility] 08-02-2022 ALT [Catalytic activity/Vol] 28 U/L Normal 14-59 [facility] Comment on above: Performed By: #### A LT, LIPID, BMP #### [facility] [address] [place], [place] [address] Dr. Deion Logan MG MAMM SCREEN 3D ADAN CADon 07-26-2022 MG MAMM SCREEN 3D ADAN CAD Patient: KAROLYN UPTON Exam Date: 07/26/2022 : 1950 Gender:F Ordering : DR ABRAHAM FONG D.O. Admission #: [id number] Family : Order #: [id number] CLICK HERE TO VIEW EXAM RADIOLOGY REPORT [...] colon cancer at age 77. LOCATION: [facility] BREAST COMPOSITION: Scattered areas fibroglandular density. [...] M.D. on 07/29/2022 at 14:43 Normal [facility] XR DEXA BONE DENSITYon 07-26 [...] EDMUNDO DUQUE Date: 2022-07-26 08:48 Normal [facility] GLYCOHEMOGLOBIN A1Con 2021 ADA RECOMMENDATION SEE BELOW Normal [facility] Comment on above: Result Comment: ADA RECOMMENDED LIMIT 4.0 - 6.0 ADA THERAPEUTIC TARGET < 7.0 ACTION SUGGESTED > 7.0 Performed By: #### A 1C #### [facility] [address] [address] [address] Deion Logan Glucose [Mass/Vol] 157 mg/dL Normal [facility] Comment on above: Performed By: #### A 1C #### [facility] [address] [address] [address] Deion Logan HbA1c (Bld) [Mass fraction] 7.1 % Critically high 4.5-6.2 [facility] Comment on above: Performed By: #### A 1C #### [facility] [address] [address] [address] Deion Logan GLYCOHEMOGLOBIN A1Con 2021 ADA RECOMMENDATION ADA THERAPEUTIC TARGET 6.0 - 7.0 ACTION SUGGESTED > 7.0 Normal [facility] Comment on above: Performed By: #### A 1C #### [facility] [address] [address] [address] Deion Logan Glucose [Mass/Vol] 160 mg/dL Normal [facility] Comment on above: Performed By: #### A 1C #### [facility] [address] [address] [address] Deion Logan HbA1c (Bld) [Mass fraction] 7.2 % Critically high <=6.0 [facility] Comment on above: Performed By: #### A 1C #### [facility] [address] [address] [address] Deion Logan Vital Signs Date Time Vital Sign Value Performing Clinician Facility 05-04-2024 08:31-0400 Body height 161.29 cm [facility] 05-04-2024 08:31-0400 Body mass index (BMI) [Ratio] 25.7 kg/m2 [facility] 05-04-2024 08:31-0400 Body weight 66.79 kg [facility] 05-04-2024 08:31-0400 Diastolic blood pressure 75 mm[Hg] [facility] 05-04-2024 08:31-0400 Diastolic blood pressure 89 mm[Hg] DO Abraham Ball Work Phone: [facility] 05-04-2024 08:31-0400 Heart rate 89 /min [facility] 05-04-2024 08:31-0400 Respiratory rate 12 /min [facility] 05-04-2024 08:31-0400 Systolic blood pressure 174 mm[Hg] [facility] 05-04-2024 08:31-0400 Systolic blood pressure 139 mm[Hg] DO Abraham Ball Work Phone: [facility] 02-16-2024 08:55-0400 Body height 161.29 cm [facility] 02-16-2024 08:55-0400 Body mass index (BMI) [Ratio] 25.1 kg/m2 [facility] 02-16-2024 08:55-0400 Body weight 65.43 kg [facility] 02-16-2024 08:55-0400 Diastolic blood pressure 77 mm[Hg] [facility] 02-16-2024 08:55-0400 Heart rate 82 /min [facility] 02-16-2024 08:55-0400 Respiratory rate 12 /min [facility] 02-16-2024 08:55-0400 Systolic blood pressure 171 mm[Hg] [facility] 11-25-2023 09:29-0400 Body height 161.29 cm [facility] 11-25-2023 09:29-0400 Body mass index (BMI) [Ratio] 25.4 kg/m2 [facility] 11-25-2023 09:29-0400 Body weight 66.22 kg [facility] 11-25-2023 09:29-0400 Diastolic blood pressure 88 mm[Hg] [facility] 11-25-2023 09:29-0400 Heart rate 90 /min [facility] 11-25-2023 09:29-0400 Respiratory rate 12 /min [facility] 11-25-2023 09:29-0400 Systolic blood pressure 135 mm[Hg] [facility] 08-26-2023 09:30-0500 Body height 161.29 cm Abraham Ball Other [facility] [employer] Other 08-26-2023 09:30-0500 Body mass index (BMI) [Ratio] 25.98 kg/m2 Abraham Ball Other [facility] [employer] Other 08-26-2023 09:30-0500 Body weight 67.59 kg Abraham Ball Other [employer] [facility] [employer] Other 08-26-2023 09:30-0500 Diastolic blood pressure 77 mm[Hg] Abraham Ball Other [employer] [facility] [employer] Other 08-26-2023 09:30-0500 Respiratory rate 12 /min Abraham Ball Other [employer] [facility] [employer] Other 08-26-2023 09:30-0500 Systolic blood pressure 190 mm[Hg] Abraham Ball Other [employer] Other 05-26-2023 10:00-0400 Body height 161.29 cm Abraham Ball Other [employer] Other 05-26-2023 10:00-0400 Body mass index (BMI) [Ratio] 25.91 kg/m2 Abraham Ball Other [employer] Other 05-26-2023 10:00-0400 Body weight 67.4 kg Abraham Ball Other [employer] Other 05-26-2023 10:00-0400 Diastolic blood pressure 77 mm[Hg] Abraham Ball Other [employer] Other 05-26-2023 10:00-0400 Respiratory rate 12 /min Abraham Ball Other [employer] Other 05-26-2023 10:00-0400 Systolic blood pressure 185 mm[Hg] Abraham Ball Other [employer] Other 05-19-2023 13:45-0400 Body height 161.29 cm Abraham Ball Other [employer] Other 05-19-2023 13:45-0400 Body mass index (BMI) [Ratio] 26.05 kg/m2 Abraham Ball Other [employer] Other 05-19-2023 13:45-0400 Body weight 67.77 kg Abraham Ball Other [employer] Other 05-19-2023 13:45-0400 Diastolic blood pressure 88 mm[Hg] Abraham Ball Other [employer] Other 05-19-2023 13:45-0400 Respiratory rate 12 /min Abraham Ball Other [employer] Other 05-19-2023 13:45-0400 Systolic blood pressure 138 mm[Hg] Abraham Ball Other [employer] Other 06-23-2023 11:30-0400 Body height 161.29 cm Abraham Ball Other [employer] Other 02-21-2023 11:30-0400 Body mass index (BMI) [Ratio] 25.66 kg/m2 Abraham Ball Other [employer] Other 02-21-2023 11:30-0400 Body weight 66.77 kg Abraham Ball Other [employer] Other 02-21-2023 11:30-0400 Diastolic blood pressure 83 mm[Hg] Abraham Ball Other [employer] Other 02-21-2023 11:30-0400 Respiratory rate 12 /min Abraham Ball Other [employer] Other 02-21-2023 11:30-0400 Systolic blood pressure 169 mm[Hg] Abraham Ball Other [employer] Other 10-24-2022 08:30-0500 Body height 161.29 cm Abraham Ball Other [employer] Other 10-24-2022 08:30-0500 Body mass index (BMI) [Ratio] 25.7 kg/m2 Abraham Ball Other [employer] Other 10-24-2022 08:30-0500 Body weight 66.86 kg Abraham Ball Other [employer] Other 10-24-2022 08:30-0500 Diastolic blood pressure 70 mm[Hg] Abraham Ball Other [employer] Other 10-24-2022 08:30-0500 Respiratory rate 12 /min Abraham Ball Other [employer] Other 10-24-2022 08:30-0500 Systolic blood pressure 146 mm[Hg] Abraham Ball Other [employer] Other 10-07-2022 14:30-0500 Body height 161.29 cm Abraham Ball Other [employer] Other 10-07-2022 14:30-0500 Body mass index (BMI) [Ratio] 25.52 kg/m2 Abraham Ball Other [employer] Other 10-07-2022 14:30-0500 Body weight 66.41 kg Abraham Zentric Other [employer] Other 10-07-2022 14:30-0500 Diastolic blood pressure 82 mm[Hg] Abraham Zentric Other [employer] Other 10-07-2022 14:30-0500 Respiratory rate 12 /min Abraham [employer]entric Other [employer] Other 10-07-2022 14:30-0500 Systolic blood pressure 142 mm[Hg] Abraham Zentric Other [employer] Other Encounters Encounter Date Encounter Type Care [...] 06-16-2024 ambulatory DO Abraham Fong Work Phone: [facility] Work Phone: Start: 06-16-2024 End: 06-16-2024 Departed Referred DO Abraham Fong Work Phone: [facility] Start: 06-07-2024 End: 06-07-2024 Telephone [facility] Start: 05-21-2024 End: 05-21-2024 ambulatory GIA Carlos MOSS [facility] Start: 05-04-2024 End: 05-04-2024 ambulatory [facility] Work Phone: Start: 05-04-2024 End: 05-04-2024 Patient encounter procedure [facility] Work Phone: Start: 02-17-2024 Non-patient / Non-visit [facility] Phys[facility] Work Phone: Start: 02-16-2024 End: 02-16-2024 ambulatory [facility] Work Phone: Start: 02-16-2024 End: 02-16-2024 Patient encounter procedure [facility] Work Phone: Start: 11-25-2023 End: 11-25-2023 ambulatory [facility] Work Phone: Start: 11-25-2023 End: 11-25-2023 Patient encounter procedure [facility] Physician [facility] Work Phone: Start: 11-18-2023 Non-patient / Non-visit [facility] [employer] Work Phone: Start: 10-30-2023 Non-patient / Non-visit [facility] Work Phone: Start: 10-07-2023 End: 10-07-2023 ambulatory Abraham Fong Other [facility] [employer] Other Start: 10-07-2023 Telephone encounter Abraham Fong [facility] Start: 09-10-2023 End: 09-10-2023 ambulatory Abraham Ball Other [employer] Other Start: 09-10-2023 Telephone encounter Abraham Ball [facility] Start: 08-26-2023 End: 08-26-2023 ambulatory Abraham Ball Other [employer] Other Start: 08-26-2023 Patient encounter procedure Abraham Ball [facility] Start: 08-05-2023 End: 08-05-2023 ambulatory Abraham Ball Other [employer] Other Start: 08-05-2023 Telephone encounter Abraham Ball FP [facility] Start: 07-09-2023 End: 07-09-2023 ambulatory Abraham Ball Other [employer] Other Start: 07-09-2023 Telephone encounter Abraham Ball FP [facility] Start: 06-16-2023 End: 06-16-2023 ambulatory Abraham Ball Other [employer] Other Start: 06-16-2023 Office outpatient vi sit 15 minutes Abraham Ball [facility] Start: 05-26-2023 End: 05-26-2023 ambulatory Abraham Ball Other [employer] Other Start: 05-26-2023 Office outpatient vi sit 25 minutes Abraham Ball [facility] Start: 05-19-2023 End: 05-19-2023 ambulatory Abraham Ball Other [employer] Other Start: 05-19-2023 Office outpatient vi sit 15 minutes Abraham Ball [facility] Start: 02-25-2023 End: 02-25-2023 ambulatory Abraham Ball Other [employer] Other Start: 02-25-2023 Telephone encounter Abraham Ball FP [facility] Start: 02-21-2023 End: 02-21-2023 ambulatory Abraham Ball Other [employer] Other Start: 02-21-2023 Office outpatient vi sit 25 minutes Abraham Fong [facility] Start: 10-24-2022 End: 10-24-2022 ambulatory Abraham Fong Other [employer] Other Start: 10-24-2022 Office outpatient vi sit 25 minutes Abraham Fong [facility] Start: 10-11-2022 End: 10-11-2022 ambulatory Abraham Fong Other [employer] Other Start: 10-11-2022 Telephone encounter Abraham Fong FP [facility] Start: 10-07-2022 End: 10-08-[address] ABRAHAM FONG Facility:[facility] Start: 10-07-2022 Office outpatient vi sit 15 minutes Abraham Fong [facility] Start: 09-05-2022 End: 09-05-2022 ambulatory Abraham Fong Other [employer] Other Start: 09-05-2022 Telephone encounter Abraham Fong FP [facility] Start: 08-02-2022 End: 08-03-[address] ABRAHAM FONG Facility:[facility] Start: 07-26-2022 End: 07-27-[address] ABRAHAM FONG Facility:[facility] Start: 06-20-2022 Adult health examination Holden Fong Other [employer] Other Start: 06-20-2022 Gynecological examin ation normal Abraham Fong Other [employer] Other Start: 03-06-2022 End: 03-07-[address] ABRAHAM FONG Facility:[facility] Start: 11-06-2021 End: 11-07-[address] ABRAHAM FONG Facility:[facility] Procedures Date Procedure Procedure Detail Performing Clinician Start: 06-16-2024 GLUCOSE 1 HOUR Not In S ystem Ref Prov Start: 06-16-2024 Level i surg patholo gy gross examination only Not In System Ref Prov Start: 06-16-2024 Colonoscopy Jennifer Mariano ia [employer] Start: 06-04-2018 Screening for osteoporosis Abraham Fong [...] Screening for malignant neoplasm of colon Colonoscopy [facility] Start: 02-19-2028 DTaP,Tdap and Td Vaccines (2 - Tdap) DTaP,Tdap and Td Vaccines (2 - Tdap) [facility] Start: 05-21-2025 Tobacco Screening Tobacco Screening [facility] Start: 05-04-2024 Patient referral [facility] Work Phone: Start: 05-02-2024 COVID-19 Vaccine ( season) COVID-19 Vaccine ( season) [facility] Start: 05-02-2024 COVID-19 Vaccine ( season) COVID-19 Vaccine ( season) [facility] Start: 05-02-2024 Influenza vaccination Influenza Vaccine [facility] Start: 2016 Fall Risk Screening Fall Risk Screening [facility] Start: 2001 Administration of varicella zoster vaccine Zoster (Shingles) Vaccine (1 of 2) [facility] Start: 1969 Adult BMI Screening Adult BMI Screening [facility] Start: 1963 Depression Screening Depression Screening [facility] Start: 1950 Medicare Annual Wellness Visit Medicare Annual Wellness Visit [facility] Colonoscopy Colonoscopy GI R outine Encounter for colonoscopy in patient with family history of colon cancer [facility]: [facility] referral [facility] Work Phone: [facility] Immunizations Immunization Date Immunization Notes Care Provider [place] 05-26-2023 influenza virus vaccine, unspecified formulation [facility] 05-26-2023 influenza, high dose seasonal, preservative-free Abraham Fong Other [facility] [employer] Other 06-20-2022 influenza virus vaccine, split virus (incl. purified surface antigen) Abraham Fong Other [place] [employer] Other 06-20-2022 influenza virus vaccine, unspecified formulation [facility] 06-18-2021 influenza virus vaccine, split virus (incl. purified surface antigen) Abraham Fong Other [facility] [employer] Other 06-18-2021 influenza virus vaccine, unspecified formulation [facility] 06-12-2020 influenza virus vaccine, split virus (incl. purified surface antigen) Abraham Fong Other [facility] [employer] Other 06-12-2020 influenza virus vaccine, unspecified formulation [facility] 02-18-2018 diphtheria, tetanus toxoids and acellular pertussis vaccine, unspecified formulation Abraham Fong Other [facility] 06-23-2017 pneumococcal polysaccharide vaccine, 23 valent Abraham Fong Other [facility] 06-19-2016 pneumococcal conjuga te vaccine, 13 valent Abraham Fong Other [facility] 06-19-2016 pneumococcal Conjugate, unspecified formulation; Translations: [Need for prophylactic vaccination against Streptococcus pneumoniae (pneumococcus)] Abraham Fong Other [facility] [employer] Other NEGATED: Highlighted row has not occurred!06-12-2020 influenza virus vaccine, split virus (incl. purified surface antigen) Arbaham Fong Other [place] [employer] Other Payers Date Payer Category Payer Self-pay 2023 Managed Care Other (unspecified) [facility] [id number] 2023 Private Health Insurance [facility] SUPPLEMENT [id number] 2023-Present [phone] [address] [place] [address] [id number] 2016 Medicare [id number] 1959 Medicare [id number] 1959 Unknown [id number] 1950 Unknown [id number] 1950 Unknown [id number] 1950 Unknown [id number] 1950 Unknown [id number] 1950 Unknown [id number] 1950 Unknown [id number] Unknown [id number] Social History Date Type Detail Facility Start: 02-10-2019 End: 05-21-2024 Sex Assigned At [facility] [employer] Other Start: 1950 Sex Assigned At Female F [facility] Start: 05-21-2024 Tobacco smoking stat us NHIS Never smoked tobacco [facility] Start: 05-21-2024 Tobacco use and exposure Smokeless tobacco non-user [facility] Start: 05-21-2024 Alcoholic beverage intake Current drinker of alcohol (finding) [facility] Start: 02-10-2019 End: 05-21-2024 History of Social function [facility] Childcare Unknown [facility] Start: 05-21-2024 Alcohol Comment rare [facility] Start: 1950 Sex assigned at Not on file [facility] Start: 04-06-2015 Sex Female (finding) [facility] Medical Equipment Procedure Code Equipment Code [...] to 06-29-2024 Telephone Encounter - Jennifer Waggoner [facility] - 06/29/2024 9:43 AM EDTTelephone Encounter - Jennifer Waggoner [facility] - 06/29/2024 9:43 AM EDTTelephone Encounter - Jennifer Waggoner [facility] - 06/29/2024 9:43 AM EDT Note Date [...] put in chart. documented in this encounter [facility] 06-29-2024 Telephone encount er Note ----- [...] grossly benign on visualization. Thanks, Dr. Flores [facility] 06-29-2024 Telephone encount er Note Spoke with patient regarding pathology results. Patient verbally understood with no further questions. Recall to be put in chart. [facility] 06-07-2024 Miscellaneous Notes Formattin g of [...] She will need to speak to the metal drill operator. If you want to set up an appointment for her to speak to them prior to the colonoscopy please arrange that for her so that she is more comfortable. Thanks, Dr. Flores Received: Today Azeem Perera, DO Phyllis Ureña CMA Images from the original note were not included. 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 Enrique Ruby documented in this encounter [facility] 06-07-2024 Telephone encount er Note Patient called in & just wanted Dr Perera to be aware that when she had her anesthesia for a knee replacement she was sick after she came out of the anesthesia. I did let her know that the Colonoscopy is done under MAC which is less sedation than she was under for a knee replacement. [facility] 06-07-2024 Telephone encount er Note Images from the original note were not included. Yes you told her right. She will need to speak to the metal drill operator. If you want to set up an appointment for her to speak to them prior to the colonoscopy please arrange that for her so that she is more comfortable. Thanks, Dr. Flores Received: Today DO Phyllis Perez CMA [facility] Telephone encount er Note Images from the original note were not included. 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 Ruby Nunez [facility] 10-07-2023 Evaluation note Encounter Date Diagnosis Assessment Notes Oct, Acute non-recurrent maxillary sinusitis (ICD-10 - J01.00) [employer] Other 12-26-2023 Evaluation note* Encounter Date Diagnosis [...] patient on monthly SBE and yearly mammograms. [employer] Other 11-08-2023 Evaluation note* Encounter Date Diagnosis Assessment Notes Treatment Notes Treatment Clinical Notes Jul, Controlled type 2 diabetes mellitus with hyperglycemia, without long-term current use of insulin (ICD-10 - E11.65) [employer] Other 10-16-2023 Evaluation note* Encounter Date Diagnosis [...] to change treatment. Push fluids and rest [employer] Other 09-25-2023 Evaluation note* Encounter Date Diagnosis [...] They may safely use Tylenol as needed. [employer] Other 09-18-2023 Evaluation note* Encounter Date Diagnosis [...] continue exercise to achieve/maintain a normal BMI. [employer] Other 06-23-2023 Evaluation note* Encounter Date Diagnosis [...] (ICD-10 - L23.7) Cool compresses avoid scratching [employer] Other 02-23-2023 Evaluation note* Encounter Date Diagnosis [...] Chronic w/ acute worsening. Monitor for now. [employer] Other 02-07-2023 NotePROCEDURE: XR HIP LT 2 [...] Electronically authenticated by: EDMUNDO DUQUE Date: 2022-10-08 07:45[facility]02-06-2023 Evaluation note* Encounter Date Diagnosis Assessment Notes [...] and ROM exercises. Initiate NSAIDs. XR ordered [employer] Other 01-05-2023 Evaluation note* Encounter Date Diagnosis Assessment Notes Treatment Notes Treatment Clinical Notes Sep, Primary hypertension (ICD-10 - I10) [employer] Other Evaluation noteNo [place] [employer] Other evaluation note* Diagnosis Onset Date Resolution Status Aortic valve sclerosis acute Asthma acute Diabetes mellitus with hyperglycemia acute Elevated cholesterol acute Hypertension [facility] Work Phone: evaluation note* Diagnosis Onset Date Resolution Status Aortic valve sclerosis acute Asthma acute Diabetes mellitus with hyperglycemia acute Elevated cholesterol acute Hypertension acute Aortic valve sclerosis acute Asthma acute Diabetes mellitus with hyperglycemia acute Elevated cholesterol acute Hypertension [facility] Work Phone: Evaluation note* Diagnosis Onset Date Resolution Status Aortic valve sclerosis acute Asthma acute Diabetes mellitus with hyperglycemia acute Elevated cholesterol acute Hypertension acute Aortic valve sclerosis acute Asthma acute Diabetes mellitus with hyperglycemia acute Elevated cholesterol acute Encounter for screening for malignant neoplasm of colo n acute Hypertension [facility] Work Phone: evaluation note* Diagnosis Onset Date Resolution Status Aortic valve sclerosis acute Asthma acute Diabetes mellitus with hyperglycemia acute Elevated cholesterol acute Encounter for screening for malignant neoplasm of colo n acute Hypertension [facility] Work Phone: evaluation note* Diagnosis Encounter for colonoscopy in patient with family history of colon cancer [facility] - [facility]* Type Description Date Surgical History COLONOSCOPY 2002, 2013, 201 9 Surgical History BREAST BX 2011 Surgical History LEFT TKA 2013 Hospitalization History SEE SURGICAL HX [employer] Other History general Narrative - Reported* Type [...] TKA 2013 Hospitalization History SEE SURGICAL HX [employer] Other Hospital Discharge instructionsAmbulatory Orders* Referral to General Surgery Location: None [facility] Work Phone: InstructionsNot on filedocumented in this encounter [facility] SystemInstructionsNot on filedocumented in this encounter [facility] SystemInstructionsNot on filedocumented in this encounter [facility] SystemInstructionsNot on filedocumented in this encounter [employer] Summary Purpose Family History Relationship Condition [...] CREATED AUTHOR AUTHOR'S ORGANIZ ATION 06/18/2024 [facility] REASON FOR VISIT (unrecogniz ed section and content) Reminderwellnessmamm results POSSIBLE SINUS INFECTION [phone] month Follow upHearing Aid-Look in EarLab ResultsDiabetes [...] November 25, 2023 End: November 25, 2023 Wire Machine Operator Relationship Specialty Start Date End Date Abraham Fong DO [address] [place] [id number] PCP - General Internal Medicine 05/05/24 Team Status: Inactive Member Role Status Dates Abraham Fong DO Primary Care Provider Active Start: June 16, 2024 End: June 16, 2024 Azeem Perera DO Attending Provider Active Start: June 16, 2024 End: June 16, 2024 Wire Machine Operator Relationship Specialty Start Date End Date Abraham Fong, [address] [place] [address] PCP - General Internal Medicine 05/05/24 Wire Machine Operator Relationship Specialty Start Date End Date Abraham Fong [address] [place] [address] PCP - General Internal Medicine 05/05/24 Goals [...] BE BASED ON THE PRIMARY CLINICAL RECORDS. [employer] provides no warranty or guarantee of the accuracy or completeness of information in this document.
[2024-09-10 07:55] LABS: Basophils Percent Auto 0.5 % (0.2-2.0); Eosinophils Absolute Auto 0.2 10^3/uL (0.0-0.7); Eosinophils Percent Auto 2.3 % (0.9-7.0); Hematocrit 42.1 % (36.0-48.0); Hemoglobin 14.3 g/dL (12.0-16.0); Immature Granulocytes Abs Auto 0.02 10^3/uL (0.00-0.03); Immature Granulocytes Pct Auto 0.3 % (0.0-0.5); Lymphocytes Percent Auto 30.2 % (20.5-60.0); Mean Corpuscular Hemoglobin 30.8 pg (26.7-34.0); Mean Corpuscular Volume 90.5 fL (81.0-99.0); Monocytes Absolute Auto 0.4 10^3/uL (0.3-0.8); Monocytes Percent Auto 5.4 % (1.7-12.0); Neutrophils Percent Auto 61.3 % (43.0-75.0); Platelet Count 248 10^3/uL (150-450); Red Blood Count 4.65 10^6/uL (4.20-5.40); Red Cell Distribution Width 11.9 % (11.0-15.0); White Blood Count 6.5 10^3/uL (4.0-11.0)
[2024-09-10 08:13] LABS: Estimated Average Glucose 177 mg/dL; Glycohemoglobin A1C 7.8 % (4.5-6.2)
[2024-09-10 08:13] LABS: Creatinine Urine Random 75.68 mg/dL (20.00-300.00)
[2024-09-10 13:36] LABS: Alanine Aminotransferase 35 U/L (14-59); Albumin Globulin Ratio 1.2; Albumin Level 3.8 g/dL (3.4-5.0); Alkaline Phosphatase 84 U/L (46-116); Anion Gap 12.3; Aspartate Amino Transferase 23 U/L (15-37); BUN Creatinine Ratio 9.2; Calcium 9.2 mg/dL (8.5-10.1); Carbon Dioxide 33.1 mmol/L (21.0-32.0); Chloride 103 mmol/L (98-107); Chol HDL Ratio 3.1; Cholesterol 191 mg/dL (<=200); Estimated GFR (African America >60 (>=60 mL/min/1.73m^2); Estimated GFR (Non-African Ame >60 (>=60 mL/min/1.73m^2); Globulin 3.3 g/dL; Glucose 201 mg/dL (74-106); HDL Cholesterol 62 mg/dL (40-60); Potassium 3.4 mmol/L (3.5-5.1); Sodium 145 mmol/L (136-145); Total Protein 7.1 g/dL (6.4-8.2); Triglycerides 85 mg/dL (<=150)
[2024-09-11 23:01] LABS: Bilirubin Total 0.5 mg/dL (0.2-1.0)
== END 2024-09-10 07:18 | disposition home or self-care (01) ==
LOC: LAB 07:20
PROVIDERS: PCP Internal Medicine; Visit Provider Internal Medicine
DX: E83.52 Hypercalcemia (principal); E78.00 Pure hypercholesterolemia, unspecified; E11.65 Type 2 diabetes mellitus with hyperglycemia; I10 Essential (primary) hypertension
CPT/HCPCS: 36415; 80053; 80061; 82043; 82570; 83036; 85025

== ENCOUNTER 2025-01-06 09:28 | Outpatient (OUT) | payer MEDICARE, SELFPAY ==
[2025-01-06 10:17] LABS: Estimated Average Glucose 203 mg/dL; Glycohemoglobin A1C 8.7 % (4.5-6.2)
== END 2025-01-06 09:29 | disposition home or self-care (01) ==
LOC: LAB 09:32
PROVIDERS: PCP Internal Medicine; Visit Provider Internal Medicine
DX: E11.65 Type 2 diabetes mellitus with hyperglycemia (principal)
CPT/HCPCS: 36415; 83036

== ENCOUNTER 2025-08-31 07:15 | Outpatient (OUT) | payer MEDICARE, SELFPAY ==
--- OUTSIDE RECORDS SUMMARY | 2025-08-31 07:17 | XMS_ITS | CCD ---
Author Organization [facility] Care Team Providers Care Mailroom Courier Name Role Phone AJIT, DR CARVALHO Admitting [...] Consulting Unavailable Zieber, DR Wyatt Consulting Unavailable LUCAAMADEO Consulting Unavailable Abraham Fong Unavailable GIA MOSS Attending Unavailable ABRAHAM FONG Referring Unavailable ABRAHAM FONG Primary Care Unavailable DO Abraham Fong Primary Care Provider [phone] DO Azeem Perera Attending Provider Azeem Perera Attending Unavailable Azeem Perera Admitting Unavailable Abraham Fong Primary Care Unavailable Abraham Fong DO Primary Care Provider Abraham Fong DO Primary Care Provider [phone] Abraham Fong DO Attending Provider Abraham Fong DO Primary Care Provider Abraham Fong DO Primary Care Provider BRYCE BELTRAN Attending Unavailable GEETHA GALVAN Referring Unavailable BRYCE BELTRAN Attending Unavailable BRYCE BELTRAN Attending Unavailable BRYCE BELTRAN Attending Unavailable BRYCE BELTRAN Attending Unavailable BRYCE BELTRAN Attending Unavailable Allergies Allergy ClassificationReported Allergen(s)Allergy TypeDate of OnsetReaction(s) Facility (1 source)egg extractDrug [id number] [facility] (20 sources)predniSONE; Translations: [PREDNISONE]Drug Pmsapdl29-26-3595Qdeycdo Vision, [facility]izzinessPe[facility] (16 sources)SimvastatinDrug Fjfyjeo34-89-1113Nftsuhf:myalgiaPeoples Hospital (1 source)SimvastatinDrug Fsuabir89-43-5268DxiqhoklxPeoples Hospital Repository Medications Current Medications MedicationDrug Class(es)DatesSig (Normalized)Sig (Original)amLODIPine 5 mg oral tablet (20 sources)Dihydropyridine Calcium Channel BlockerStart: 76-22-3245Rfecoepiof 5 mg tablet Active 0 .ROUTE .COMPLEX November 12, 2024 7:39am TAKE 1 TABLET DAILY Complies with drug therapyStart: 57-35-5076Whalyvgxda 5 mg tablet Active 0 .ROUTE .COMPLEX November 12, 2024 7:39am TAKE 1 TABLET DAILYStart: 10-30-2023 End: 35-99-1819ftui 1 tablet by mouth once dailyAmlodipine 5 mg tablet Discontinued 5 MG PO Daily December 05, 2023 9:28am November 12, 2024 7:39am amLODIPine Besylate 5 MG TAKE 1 TABLET DAILY Activeatorvastatin 40 mg oral tablet (17 sources)HMG-CoA Reductase InhibitorStart: 46-37-2346idxwnkqoddxs (Lipitor) 40 MG tablet 02/26/2025 ActiveStart: 09-10-2024 End: 05-01-2065kxxl 1 tablet by mouth once daily in the eveningAtorvastatin 40 mg tablet Active 40 MG PO Every evening September 15, 2024 10:54am Complies with drug therapyazithromycin 250 mg oral tablet (7 sources)Macrolide AntimicrobialStart: 84-43-0652Tmylgxroycjo 250 MG as directed Orally daily for 5 days Oct, Active B3/B5/B6/B7/folic/B12/inosit/C (B COMPLEX-VITAMIN C ORAL) (6 sources)B3/B5/B6/B7/folic/B12/inosit/C (B COMPLEX-VITAMIN C ORAL) Take by mouth. Activebenazepril hydrochloride 10 mg oral tablet (20 sources)Angiotensin Converting Enzyme InhibitorStart: 61-17-6322suxhjtmnjr (Lotensin) 10 MG tablet 03/02/2025 ActiveStart: 34-48-9785Ghkqwnvzxh 10 mg tablet Active 0 .ROUTE .COMPLEX December 02, 2024 6:50am TAKE 1 TABLET DAILY, TAKE WITH EXISTING 20MG DOSE Complies with drug therapyStart: 12-02-2024 Benazepril 10 mg tablet Active 0 .ROUTE .COMPLEX December 02, 2024 6:50am TAKE 1 TABLET DAILY, TAKE WITH EXISTING 20MG DOSEStart: 06-09-2024 End: 28-50-9457suoq 1 tablet by mouth once dailyBenazepril 10 mg tablet Discontinued 10 MG PO Daily June 09, 2024 12:00am December 02, 2024 6:50am Start: 12-08-2023 End: 67-24-1863Adjhwtsfeo 10 mg tablet Discontinued 0 .ROUTE .COMPLEX December 08, 2023 7:28pm May 04, 2024 9:05am TAKE 1 TABLET DAILY, TAKE WITH EXISTING 20MG DOSEStart: 10-30-2023 End: 21-49-8763jatk 1 tablet by mouth once dailyBenazepril 10 mg tablet Discontinued 10 MG PO October 30, 2023 1:00am December 08, 2023 7:28pm TAKE 1 TABLET DAILY; TAKE WITH EXISTING 20MG DOSEStart: 10-30-2023 End: 74-07-6076stsv 1 tablet by mouth once dailyBenazepril 20 mg tablet Discontinued 20 MG PO Daily October 30, 2023 1:00am November 25, 2023 10:37pm Benazepril HCl 10 MG TAKE 1 TABLET DAILY; TAKE WITH EXISTING 20MG DOSE Active Benazepril HCl 20 MG TAKE 1 TABLET DAILY for Activebenazepril hydrochloride 20 mg / hydroCHLOROthiazide 12.5 mg oral tablet (20 sources)Thiazide Diuretic, Angiotensin Converting Enzyme InhibitorStart: 57-56-3210xdvgaplced-hydroCHLOROthiazide (Lotensin HCT) 20-12.5 MG tablet 02/07/2025 ActiveStart: 83-45-2828Qwpopybeuf-Hydrochlorothiazide 20-12.5 mg tablet Active 0 .ROUTE .COMPLEX February 07, 2025 7:42am TAKE 1 TABLET DAILY Complies with drug therapyStart: 16-12-9322elve 1 tablet by mouth once in the morningbenazepril-hydroCHLOROthiazide (LOTENSIN HCT) 20-12.5 mg per tablet Take 1 tablet by mouth in the morning. 02/17/2024 ActiveStart: 11-25-2023 End: 11-89-5403ivjr 2 tablets by mouth once dailyBenazepril-Hydrochlorothiazide 20-12.5 mg tablet Discontinued 2 TAB PO Daily 180 90 May 04, 2024 9:05am February 07, 2025 7:42amBlood-Glucose Meter (True Metrix Glucose Meter) misc (14 sources)Start: 07-29-9318Lbler-Glucose Meter (True Metrix Glucose Meter) misc Active 0 .Route January 01, 2024 4:24pm As directedStart: 01-01-2024 End: 86-05-4936Xxhwq-Glucose Meter (True Metrix Glucose Meter) misc Discontinued 0 .Route January 01, 2024 12:00am January 01, 2024 4:25pm As directeddesloratadine (1 source)Histamine-1 Receptor Antagonist End: 45-62-2511dkmljwsdntjah (CLARINEX ORAL) Take by mouth once daily. 05/21/2024 Discontinued (Alternate therapy)3 ml insulin glargine 100 unt/ml pen injector (4 sources)Insulin AnalogStart: 11-26-2024 End: 18-47-5571nprxmz 10 [IU] by subcutaneous injection once daily in the eveningInsulin Glargine (Lantus Solostar U-100 Insulin) 100 unit/mL (3 mL) insulin pen Active 0 .ROUTE .COMPLEX November 27, 2024 3:47pm INJECT TEN UNITS SUBCUTANEOUSLY (UNDER THE SKIN) EVERY EVENING Complies with drug therapyinsulin glargine-yfgn (Semglee-yfgn) 100 UNIT/ML pen (11 sources)Start: 62-43-0775jtmqab 10 [IU] by subcutaneous injection once daily in the eveninginsulin glargine-yfgn (Semglee-yfgn) 100 UNIT/ML pen INJECT TEN UNITS SUBCUTANEOUSLY (UNDER THE SKIN) ONCE DAILY IN THE EVENING 11/27/2024 ActiveLoratadine (6 sources)loratadine (CLARITIN ORAL) Take by mouth once daily. Kljfpn54 hr metFORMIN hydrochloride 500 mg extended release oral tablet (20 sources)BiguanideStart: 12-58-0814kabz 1 tablet by mouth once dailymetFORMIN XR (Glucophage-XR) 500 MG 24 hr tablet Take 500 mg by mouth Daily 04/11/2025 ActiveStart: 10-18-2024 End: 90-06-1075mbfh 1 tablet by mouth once dailyMetformin 500 mg tablet extended release 24 hr Discontinued 500 MG PO Daily October 18, 2024 6:57pm November 15, 2024 8:47ammetFORMIN hydrochloride 1000 mg / SITagliptin 50 mg oral tablet (20 sources)Biguanide, Dipeptidyl Peptidase 4 InhibitorStart: 55-92-7946colw 1 tablet by mouth once in the morningJANUMET 50-1,000 mg per tablet Take 1 tablet by mouth in the morning and 1 tablet in the evening. Take with meals. 04/16/2024 ActiveStart: 11-24-2023 End: 93-35-3914eohx 1 tablet by mouth twice dailySitagliptin Phos-Metformin 50- 1,000 mg tablet Discontinued 1 TAB PO Twice daily February 04, 2024 3:46pm September 17, 2024 10:18amJanumet 50-1000 MG TAKE 1 TABLET TWICE A DAY Activepeg 3350-sod sulf,tfvv-qcx-kpo 178.7-7.3-0.5 gram recon soln (1 source)Start: 05-21-2024 End: 85-56-7529rdb 3350-sod sulf,rkxy-yhc-daz 178.7-7.3-0.5 gram recon soln Indications: Encounter for colonoscopyin patient with family history of colon cancer Take 1 kit by mouth once daily for 1 dose. Please see instructional sheet given by physicians office. 1 each 05/21/2024 05/22/2024 Active microencapsulated potassium chloride 20 meq extended release oral tablet (20 sources)Start: 02-12-0561MPTD-CON 20 MEQ ER tablet 02/07/2025 ActiveStart: 35-43-0568Sqprkezrq Chloride (Klor-Con M20) 20 mEq tablet,ER particles/crystals Active 0 .ROUTE .COMPLEX August 09, 2024 1:59pm TAKE 1 TABLET DAILY Complies with drug therapyStart: 11-24-2023 End: 90-17-2741adzp 1 tablet by mouth once dailyPotassium Chloride 20 mEq tablet,ER particles/crystals Discontinued 20 MEQ PO Daily November 24, 2023 12:00am August 09, 2024 1:59pmtake 1 tablet by mouth once dailyKlor-Con M20 20 MEQ TAKE 1 TABLET DAILY Orally Once a day for 90 days ActivePotassium Chloride (Klor-Con M20) 20 mEq tablet,ER particles/crystals (2 sources)Start: 05-32-2656Xgtkyuzgy Chloride (Klor-Con M20) 20 mEq tablet,ER particles/crystals Active 0 .ROUTE .COMPLEX August 09, 2024 1:59pm TAKE 1 TABLET WTODNFzkyehwcqah-Hqvvgmgt-Cucmwwqjh 1-0.5-0.075 % solution (11 sources)Start: 94-90-2753Fkgvxpibgbb-Moxiflox-Bromfenac 1-0.5-0.075 % solution Indications: Age-related nuclear cataract of both eyes Administer 1 drop into affected eye(s) in the morning and 1 drop at noon and 1 drop in the evening and 1 drop before bedtime. 10 mL 1 04/19/2025 ActiveSemaglutide (2 sources)Start: 53-58-7365npzcbw 1 mg by subcutaneous injection every week Semaglutide (Ozempic) 1 mg/dose (4 mg/3 mL) pen injector Active 1 MG SUBCUT every week 3 November 19, 2024 10:11am for 4 weeks Complies with drug therapy Start: 80-83-1073eiiyvc 1 mg by subcutaneous injection every weekSemaglutide (Ozempic) 1 mg/dose (4 mg/3 mL) pen injector Active 1 MG SUBCUT every week 3 November 19, 2024 10:11am for 4 weeks Completed/Discontinued Medications MedicationDrug Class(es)DatesSig (Normalized)Sig (Original)empagliflozin 10 mg oral tablet (3 sources)Sodium-Glucose Cotransporter 2 InhibitorStart: 09-15-2024 End: 54-43-6100wzjz 1 tablet by mouth once dailyEmpagliflozin (Jardiance) 10 mg tablet Discontinued 10 MG PO Daily September 15, 2024 1:00am September 16, 2024 2:00pmhydroCHLOROthiazide 25 mg oral tablet (20 sources)Thiazide DiureticStart: 11-24-2023 End: 02-92-3946jldw 1 tablet by mouth once dailyHydrochlorothiazide 25 mg tablet Discontinued 25 MG PO Daily November 24, 2023 12:00am November 25, 2023 10:37pm hydroCHLOROthiazide 25 MG TAKE 1 TABLET DAILY for 90 Active3 ml insulin aspart protamine, human 70 unt/ml / insulin aspart, human 30 unt/ml pen injector (6 sources)Insulin AnalogStart: 11-11-2024 End: 88-84-4573apqdng 10 [IU] by subcutaneous injection twice dailyInsulin Asp Prt-Insulin Aspart (Novolog Mix 70-30flexpen U-100) 100 unit/mL (70-30) insulin pen Discontinued 10 UNIT SUBCUT Twice daily 02 28November 12, 2024 11:07am April 14, 2025 9:36amlovastatin 40 mg oral tablet (20 sources)HMG-CoA Reductase InhibitorStart: 10-30-2023 End: 85-22-7593ctar 1 tablet by mouth once daily in the eveningLovastatin 40 mg tablet Discontinued 40 MG PO .Q EVENING TIME 90 90 October 30, 2023 8:08pm September 10, 2024 6:25pmLovastatin 40 MG TAKE 1 TABLET EVERY EVENING for 90 Activenabumetone 1000 mg oral tablet (20 sources)Nonsteroidal Anti-inflammatory DrugStart: 11-24-2023 End: 78-04-1522sgpb 1 tablet by mouth twice dailyNabumetone 1,000 mg tablet Discontinued 1000 MG PO Twice daily November 24, 2023 12:00am February 16, 2024 9:12amStart: 80-11-0548vtgx 1 tablet by mouth twice dailyNabumetone 1000 MG 1 tablet Orally Twice a day Oct, ActiveSemaglutide (3 sources)Start: 09-16-2024 End: 94-78-2816Qnnbuierjiu (Ozempic) 0.25 mg or 0.5 mg (2 mg/3 mL) pen injector Discontinued 0.25 MG SUBCUT every week 3 September 16, 2024 1:00am November 19, 2024 5:33pm for 4 weeksStart: 14-17-5543Bfasscpdzib (Ozempic) 0.25 mg or 0.5 mg (2 mg/3 mL) pen injector Active 0.25 MG SUBCUT every week 328 September 16, 2024 1:00am for 4 weeksSuprep Bowel Prep . (15 sources)Start: 53-00-2142Bqeodh Bowel Prep . as directed Orally as directed for 1 dose(s) May, Not-Taking/PRNStart: 70-42-6409Xgtkwc Bowel Prep . as directed Orally as directed for 1 dose(s) May, Not-TakingStart: 46-49-4472Jvorvq Bowel Prep . as directed Orally as directed for 1 dose(s) May, Activetriamcinolone acetonide 5 mg/ml topical cream (18 sources)CorticosteroidStart: 10-30-2023 End: 01-95-9022Jnpqipcdasbki Acetonide 0.5 % cream Discontinued 1 APPLIC TOPICAL Twice a Week October 30, 2023 1:00am August 30, 2024 10:27amStart: 51-80-9819Fbjqanaahipdr Acetonide 0.5 % 1 application Externally Two times a Week for 7 days Jan, ActiveStart: 93-71-1894Fvtnznvajgzfd Acetonide 0.5 % 1 application Externally Two times a Week for 7 days Jan, Active Problems Active Problems Problem ClassificationProblemDateDocumented DateEpisodic/ChronicAcute bronchitis (2 sources)Acute bronchitis; Translations: [Acute bronchitis, unspecified]Onset: 04-30-1953DvwqkenmMprxqoi disorders (2 sources)Anxiety; Translations: [Generalized anxiety disorder]04-14-2025 ChronicAsthma (20 sources)Mild intermittent asthma; Translations: [Mild intermittent asthma, uncomplicated]Onset: 28-27-6090VprnymfQrabghwt (20 sources)Bilateral age-related nuclear cataracts; Translations: [Age-related nuclear cataract, bilateral]Onset: 04-19-2025 Resolved: 258852-30-0300LmthafwZicilrrd mellitus with complications (20 sources)Type 2 diabetes mellitus with hyperglycemia; Translations: [Hyperglycemia due to type 2 diabetes mellitus]Onset: 95-37-5325GbvhrqbRcfgrfat mellitus without complication (1 source)Type 2 diabetes mellitus without complication; Translations: [Diabetes mellitus without mention of complication, type II or unspecified type, not stated as uncontrolled]ChronicDisorders of lipid metabolism (20 sources)Familial hypercholesterolemia; Translations: [Hypercholesterolemia] Onset: 14-89-3420CcbbqlqDbbbwuhiv hypertension (20 sources)Essential (primary) hypertension; Translations: [Essential hypertension]Onset: 73-94-7361YnzjykqQwqdu and electrolyte disorders (15 sources)Hypokalemia; Translations: [Hypokalemia]EpisodicGenitourinary symptoms and ill-defined conditions (1 source)Dysuria; Translations: [Dysuria]EpisodicGout and other crystal arthropathies (6 sources)Primary gout; Translations: [Acute gouty arthropathy]Onset: 766077-33-9623DvsyojtBkchf valve disorders (20 sources)Aortic valve sclerosis; Translations: [Other nonrheumatic aortic valve disorders]ChronicComment on above:Echo: LVEF 60% no valvular disease - 2020Immunizations and screening for infectious disease (1 source)Vaccination given; Translations: [Encounter for immunization]Episodic Menopausal disorders (1 source)Primary ovarian failure; Translations: [Other primary ovarian failure] Onset: 21-77-5203RmknttlYlobzyaagbe chest pain (16 sources)Chest pain; Translations: [Chest pain, unspecified]Episodic Nutritional deficiencies (8 sources)Vitamin D deficiency; Translations: [Vitamin D deficiency, unspecified]16-99-3384QwijpjiViqxahkmiksmvk (1 source)Bilateral primary osteoarthritis of hip; Translations: [BILATERAL PRIM OSTEOARTHRITIS HIP]Onset: 28-54-5503OfmeaozAohiz aftercare (2 sources)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 (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; Translations: [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]Onset: 53-07-1042OzqsaamwQdkys aftercare (1 source)Long-term current use of drug therapy; Translations: [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 (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]EpisodicOther aftercare (7 sources)Drug therapy finding; Translations: [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 (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]19-19-2195LxvuadygKelnb aftercare (1 source)Taking high risk medication; Translations: [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 (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]13-85-4142KslazklyQcqcz connective tissue disease (10 sources)History of total knee arthroplasty; Translations: [Presence of left artificial knee joint]ChronicOther connective tissue disease (13 sources)Pain in left lower limb; Translations: [Pain in left leg]Episodic Other connective tissue disease (13 sources)Quadriceps weakness; Translations: [Muscle weakness (generalized)] EpisodicOther connective tissue disease (1 source)Pain in left legEpisodicOther connective tissue disease (1 source)Muscle weakness (generalized)EpisodicOther diseases of veins and lymphatics (1 source)Peripheral venous insufficiency; Translations: [Unspecified venous (peripheral) insufficiency]EpisodicOther ear and sense organ disorders (8 sources)Sensorineural hearing loss, bilateral; Translations: [Sensorineural hearing loss, bilateral]ChronicOther ear and sense organ disorders (1 source)Sensorineural hearing loss, bilateralChronicOther hereditary and degenerative nervous system conditions (3 sources)Impaired cognition; Translations: [Mild cognitive impairment, so stated]95-51-1306AlkyumjGkfxi hereditary and degenerative nervous system conditions (2 sources)Mild cognitive impairment, so stated; Translations: [Mild cognitive impairment, so stated]43-09-7349XewpdngPuczm injuries and conditions due to external causes (1 source)History of fall; Translations: [History of falling]EpisodicOther non- traumatic joint disorders (1 source)Lower limb joint arthritis; Translations: [Osteoarthrosis, unspecified whether generalized or localized, lower leg]Onset: 53-12-9796HsnpnygJevtw non- traumatic joint disorders (2 sources)Pain in unspecified hip; Translations: [PAIN IN UNSPECIFIED HIP] Onset: 32-23-2421VrjqdfmyFayva nutritional; endocrine; and metabolic disorders (13 sources)Morbid obesity; Translations: [Morbid (severe) obesity due to excess calories]ChronicOther nutritional; endocrine; and metabolic disorders (1 source)Obesity; Translations: [Obesity, unspecified]ChronicOther nutritional; endocrine; and metabolic disorders (8 sources)Hypercalcemia; Translations: [Hypercalcemia]92-64-9535KgrgbmhEsvyu nutritional; endocrine; and metabolic disorders (3 sources)Hypercalcemia; Translations: [Hypercalcemia]62-22-0575FdmfsuxMaebb screening for suspected conditions (not mental disorders or infectious disease) (20 sources)Encounter for screening mammogram for malignant neoplasm of breast; Translations: [Encounter for screening for diseases of the blood and blood- forming organs and certain disorders involving the immune mechanism]Onset: 81-63-4168XiqpkxbbNfdme upper respiratory disease (1 source)Seasonal allergic rhinitis; Translations: [Other seasonal allergic rhinitis]ChronicOther upper respiratory disease (1 source)Allergic rhinitis; Translations: [Allergic rhinitis, unspecified] ChronicOther upper respiratory infections (3 sources)Acute maxillary sinusitis; Translations: [Acute maxillary sinusitis, unspecified]Onset: 08-70-6512FemynlfqIjxqlwjj codes; unclassified (16 sources)Asymptomatic menopausal state; Translations: [Menopause]Onset: 60-00-2713GfgptqazXasnioav codes; unclassified (2 sources)Family history of malignant neoplasm of digestive organs; Translations: [FAM HX MALIG NEOPLASM DIGESTIV ORGN]Onset: 48-71-2868Mvleldlh Residual codes; unclassified (12 sources)Family history of cancer of colon; Translations: [Family history of colon cancer]EpisodicResidual codes; unclassified (1 source)Postmenopausal state; Translations: [Asymptomatic menopausal state] EpisodicSpondylosis; intervertebral disc disorders; other back problems (20 sources)Spondylosis without myelopathy or radiculopathy, lumbar region; Translations: [Lumbar spondylosis]Onset: 72-64-9319MsfgfxuGofzmlsqstt; intervertebral disc disorders; other back problems (20 sources)Lumbago with sciatica, left side; Translations: [Acute back pain with sciatica]Onset: 90-54-2827TamkrmfuTwnopvsdlgzw (1 source)Long-term current use of drug therapy; Translations: [Long-term (current) use of other medications]Onset: 65-69-6591Fjfkjudpsvyd (1 source)Colon Cancer ScreeningOnset: 05-21-2024 Past or Other Problems Problem ClassificationProblemDateDocumented DateEpisodic/ChronicAllergic reactions (2 sources)Allergic contact dermatitis due to plants, except food; Translations: [Contact dermatitis]Onset: 89-96-5878ZiuvefalJpaerbnny infection; unspecified site (1 source)Bacterial infectious disease; Translations: [Bacterial infection, unspecified, in conditions classified elsewhere and of unspecified site]Onset: 13-98-6492EfrfxwcnFthvcpf and fatigue (1 source)Malaise and fatigue; Translations: [Other malaise and fatigue]Onset: 75-92-2255NebghvyuBnkch connective tissue disease (1 source)Musculoskeletal symptom; Translations: [Other musculoskeletal symptoms referable to limbs]Onset: 90-90-9700LmprzbdcKiqgi nutritional; endocrine; and metabolic disorders (3 sources)Body mass index 25-29 - overweight; Translations: [Body mass index 28.0-28.9, adult]Onset: 73-65-5102MwjgbhmvEbagt nutritional; endocrine; and metabolic disorders (1 source)Overweight; Translations: [Overweight]Onset: 02-20-2022 Resolved: 29-70-7394DrfjqgajNnglxudpgdej (1 source)Identification of preoperative respiratory status; Translations: [Encounter for preprocedural respiratory examination] Results Test NameValueInterpretationReference RangeFacilityUS Eye+Orbit - bilateralon 11-91-7969Wxyulagdd: Cataract both eyes (OU) Testing Indication: Performed for preop measurements in the determination of an intraocular lens (IOL) for both eyes (OU) Test Reliability: Good quality both eyes (OU) Interpretation: Good measurements for intraocular lens (IOL) calculation purposes. Calculation made for both eyes (OU).[facility] Study observation (narrative)[facility] HospitalBasophils Auto (Bld) [#/Vol]on 95-77-2431Jhhvpdpxi (Bld) [#/Vol]Automated basophil count0.0-0.1 [facility] HospitalBasophils/100 WBC Auto (Bld)on 09-10-2024 Basophils/100 WBC (Bld)Automated basophil %0.2-2.0[facility] HospitalCholesterol in LDL Calc [Mass/Vol]on 42-00-1947Jykaozwqvao in LDL [Mass/Vol]Cholesterol in LDL [Mass/volume] in Serum or Plasma by calculation [facility] HospitalComment on above:<100 mg/dl JASQHTF057-216 mg/dl NEAR OR ABOVE GXCBEDU033-245 mg/dl BORDERLINE BNFQ103-049 mg/dl HIGH>190 mg/dl VERY HIGHCholesterol in VLDL Calc [Mass/Vol]on 87-57-2024Qlisbeoiuhj in VLDL [Mass/Vol]Cholesterol in VLDL [Mass/volume] in Serum or Plasma by calculationPeoples HospitalEosinophils/100 WBC Auto (Bld)on 96-42-7331Eoselfaxkwl/100 WBC (Bld)Automated eosinophil %0.9-7.0[facility] HospitalErythrocyte distribution width Auto (RBC) [Ratio]on 89-32-6035Ehskmctjuna distribution width (RBC) [Ratio]Erythrocyte distribution width [Ratio] by Automated count11.0-15.0[facility] Estimated glomerular filtration rate (GFR) non- Americanon 09-10-2024 GFR/1.73 sq M.predicted among non-blacks MDRD (S/P/Bld) [Vol rate/Area]Estimated glomerular filtration rate (GFR) non->=60 mL/min/1.73m 2 [facility] HospitalGlobulin Calc (S) [Mass/Vol]on 09-10-2024 Globulin (S) [Mass/Vol]Serum globulin measurement by calculation (mass/volume) [facility] HospitalGlucose mean value [Mass/volume] in Blood Estimated from glycated hemoglobinon 56-42-5233Bkqwgoq glucose Estimated from glycated hemoglobin (Bld) [Mass/Vol]Glucose mean value [Mass/volume] in Blood Estimated from glycated hemoglobinPeoples HospitalHematocrit Auto (Bld) [Volume fraction]on 58-39-1168Cpmtfbydmr (Bld) [Volume fraction] Hematocrit [Volume Fraction] of Blood by Automated count36.0-48.0[facility] HospitalHemoglobin [Mass/volume] in Bloodon 87-91-8622Afnmlebkjn (Bld) [Mass/Vol]Hemoglobin [Mass/volume] in Blood12.0-16.0[facility] HospitalLaboratory - Chemistry and Chemistry - challengeon 09-10-2024 Albumin [Mass/Vol]3.8 g/dL3.4-5.0[facility] HospitalALP [Catalytic activity/Vol]84 U/X21-189FpmfwutoxPeoples HospitalALT [Catalytic activity/Vol]35 U/A03-79BkkowaueqPeoples HospitalAST [Catalytic activity/Vol]23 U/S07-81ZqbcyaeazPeoples HospitalBilirubin [Mass/Vol]0.5 mg/dL0.2-1.0[facility] HospitalCalcium [Mass/Vol]9.2 mg/dL 8.5-10.1FMercy Health St. Rita's Medical CenterChloride [Moles/Vol]103 mmol/L98-107 [facility] HospitalCholesterol [Mass/Vol]191 mg/dL<=200Pe[facility] HospitalCholesterol in HDL [Mass/Vol]62 mg/pCWmfr34-30SdmgghtsdPeoples HospitalComment on above:> or =60 mg/dl - LOW CARDIOVASCULAR RISK<40 mg/dl - HIGH CARDIOVASCULAR RISKCO2 [Moles/Vol]33.1 mmol/LHigh21.0-32.0 [facility] HospitalCreatinine [Mass/Vol]0.76 mg/dL0.55-1.02 [facility] HospitalGFR/1.73 sq M.predicted MDRD (S/P/Bld) [Vol rate/Area]mL/min/{1.73_m2}>=60 mL/min/1.73m 2FMercy Health St. Rita's Medical Center Glucose [Mass/Vol]201 mg/hKDrwz05-472GwgnvzojdPeoples HospitalPotassium [Moles/Vol]3.4 mmol/LLow3.5-5.1FMercy Health St. Rita's Medical CenterProtein [Mass/Vol]7.1 g/dL6.4-8.2FSelect Medical Specialty Hospital - Columbus Southodium [Moles/Vol]145 mmol/Q362-462TitlxnjosPeoples HospitalTriglyceride [Mass/Vol]85 mg/dL <=150Peoples HospitalUrea nitrogen [Mass/Vol]7.0 mg/dL7.0-18.0 [facility] HospitalUrea nitrogen/Creatinine [Mass ratio]9.2 mg/mg [facility] HospitalLaboratory - Hematology and Cell countson 39-27-7629UbA2n (Bld) [Mass fraction]7.8 %High4.5-6.2FMercy Health St. Rita's Medical CenterComment on above:ADA RECOMMENDED LIMIT 4.0 - 6.0ADA THERAPEUTIC TARGET < 7.0ACTION SUGGESTED> 7.0Immature granulocytes/100 WBC (Bld)0.3 %0.0-0.5FMercy Health St. Rita's Medical CenterLeukocytes [#/volume] corrected for nucleated erythrocytes in Blood by Automated counon 40-48-2129PRW corrected for nucl RBC Auto (Bld) [#/Vol]Leukocytes [#/volume] corrected for nucleated erythrocytes in Blood by Automated coun4.0-11.0[facility] HospitalLymphocytes Auto (Bld) [#/Vol]on 14-35-7671Qhhkdqwbtde (Bld) [#/Vol]Lymphocytes [#/volume] in Blood by Automated count1.2-3.8[facility] HospitalLymphocytes/100 WBC Auto (Bld)on 20-52-2305Pbuwvbskdjr/100 WBC (Bld)Lymphocytes/100 leukocytes in Blood by Automated count20.5-60.0[facility] HospitalH Auto (RBC) [Entitic mass]on 38-78-8422HBL (RBC) [Entitic mass]MCH [Entitic mass] by Automated count26.7-34.0[facility] HospitalMCHC Auto (RBC) [Mass/Vol]on 52-70-2459NKOT (RBC) [Mass/Vol]MCHC [Mass/volume] by Automated count29.9-35.2FMercy Health St. Rita's Medical CenterMCV Auto (RBC) [Entitic vol]on 98-27-6748UAK (RBC) [Entitic vol]MCV [Entitic volume] by Automated count 81.0-99.0[facility] HospitalMicroalbumin [Mass/volume] in Urineon 32-95-7811Utxsjzk DL <= 20 mg/L (U) [Mass/Vol]Microalbumin [Mass/volume] in Urine<=30.0[facility] HospitalMonocytes Auto (Bld) [#/Vol]on 35-85-7230Ppqnrngnh (Bld) [#/Vol]Automated blood monocyte count0.3-0.8[facility] HospitalMonocytes/100 WBC Auto (Bld)on 20-99-8219Cbhjbffon/100 WBC (Bld)Automated monocyte %1.7-12.0[facility] Neutrophils Auto (Bld) [#/Vol]on 82-94-4511Qjwyxmqpuee (Bld) [#/Vol]Neutrophils [#/volume] in Blood by Automated count1.4-6.5FMercy Health St. Rita's Medical Center Neutrophils/100 WBC Auto (Bld)on 39-31-2039Nkfyuyvcgsv/100 WBC (Bld)Automated neutrophil %43.0-75.0[facility] HospitalNo Panel Informationon 71-26-4697Ukavayfemyr # (Auto)0.2 10 3/uL0.0-0.7FMercy Health St. Rita's Medical CenterImmature Granulocyte # (Auto)0.02 10 3/uL0.00-0.03[facility] HospitalUrine Random Mjcamolrnt85.68 mg/dL20.00-300.00[facility] HospitalPlatelet mean volume Auto (Bld) [Entitic vol]on 21-56-5117Jyovfbpx mean volume (Bld) [Entitic vol]Platelet mean volume [Entitic volume] in Blood by Automated count9.5-13.5FMercy Health St. Rita's Medical CenterPlatelets Auto (Bld) [#/Vol]on 12-00-1371Qsswsavyh (Bld) [#/Vol]Platelets [#/volume] in Blood by Automated jedcz225-816AiioxclojPeoples HospitalRBC Auto (Bld) [#/Vol]on 35-78-6963NGV (Bld) [#/Vol]Erythrocytes [#/volume] in Blood by Automated count 4.20-5.40[facility] Centererum or plasma albumin/globulin mass ratioon 61-59-5733Xxioxzh/Globulin [Mass ratio]Serum or plasma albumin/globulin mass ratioWright-Patterson Medical Centererum or plasma anion gap determinationon 94-47-8868Wzrwm gap [Moles/Vol]Serum or plasma anion gap determinationWright-Patterson Medical Centererum or plasma total cholesterol/high density lipoprotein (HDL) cholesterol mass chelle 09-10-2024 Cholesterol.total/Cholesterol in HDL [Mass ratio]Serum or plasma total cholesterol/high density lipoprotein (HDL) cholesterol mass ratPeoples HospitalComment on above:3.3 - 4.4 LOW RISK4.4 - 7.1 AVERAGE RISK7.1 - 11.0 MODERATE RISK>11.0 HIGH RISKUrine microalbumin/creatinine mass ratioon 32-68-9398Gltztmx/Creatinine DL <= 20 mg/L (U) [Mass ratio]Urine microalbumin/creatinine mass ratioHigh0.0-29.9[facility] Comment on above:NO MICROALBUMINURIA 0-29 MG/GCLINICAL MICROALBUMINURIA 30-300 MG/GMACROALBUMINURIA >300 MG/GNo Panel InformationOrdered By: Octavia Leija on 00-39-8688SjjJwcwdtUniversity Hospitals Ahuja Medical CenterGlucose mean value [Mass/volume] in Blood Estimated from glycated hemoglobinon 17-40-7974Hezzupd glucose Estimated from glycated hemoglobin (Bld) [Mass/Vol]157 mg/dLPeoples Hospital Laboratory - Hematology and Cell countson 03-72-6387FaD3z (Bld) [Mass fraction] 7.1 %High4.5-6.2FMercy Health St. Rita's Medical CenterComment on above:ADA RECOMMENDED LIMIT 4.0 - 6.0ADA THERAPEUTIC TARGET < 7.0ACTION SUGGESTED> 7.0 Estimated glomerular filtration rate (GFR) non- Americanon 11-18-2023 GFR/1.73 sq M.predicted among non-blacks MDRD (S/P/Bld) [Vol rate/Area] mL/min/{1.73_m2}>=60[facility] HospitalLaboratory - Chemistry and Chemistry - challengeon 96-28-4938Spnxhji [Mass/Vol]9.4 mg/dL8.5-10.1FMercy Health St. Rita's Medical CenterChloride [Moles/Vol]103 mmol/L45-128UevcxuqvoPeoples HospitalCO2 [Moles/Vol]31.6 mmol/L21.0-32.0[facility] HospitalCreatinine [Mass/Vol]0.71 mg/dL0.55-1.02[facility] GFR/1.73 sq M.predicted MDRD (S/P/Bld) [Vol rate/Area]mL/min/{1.73_m2}>=60 [facility] HospitalGlucose [Mass/Vol]182 mg/cK43-782NexvsserlPeoples HospitalPotassium [Moles/Vol]4.0 mmol/L3.5-5.1FSelect Medical Specialty Hospital - Columbus Southodium [Moles/Vol]144 mmol/H669-984MtfyrsoypPeoples HospitalUrea nitrogen [Mass/Vol]11.0 mg/dL7.0-18.0[facility] HospitalUrea nitrogen/Creatinine [Mass ratio]15.5 mg/mgPeoples HospitalNo Panel Informationon 26-47-843986119547-Iytnvgk Vitamin D Total32.1 ng/mL [facility] HospitalComment on above:<20 ng/mL Vit D ueoftbxdd67- <30 ng/mL Vit D -978 ng/mL Vit D sufficient>100 ng/mL Potential ToxicityParathyroid Hormone (Intact)26 pg/nD20-06EdgvqzfuzPeoples HospitalComment on above:Performed at: [employer] Director: Raul Headley PhD, Phone: [phone] or plasma anion gap determinationon 15-77-5311Elsbc gap [Moles/Vol]13.4 mmol/L [facility] HospitalXR LSPINE 2_3 VIEWSon 81-98-5035AU LSPINE 2_3 VIEWSEXAM: XR LSPINE 2_3 VIEWS HISTORY: Lumbago with sciatica COMPARISON: None. TECHNIQUE: Frontal, lateral, spot radiographs of the lumbar spine. FINDINGS: Anatomy: 5 umw-znb-poafyga lumbar segments. Bones: No acute fracture or dislocation. No suspicious lytic or sclerotic lesion. Severe L3-S1 facet hypertrophy. Mild L5-S1 disc height loss. Additional mild L3-L4 disc height loss. Mild multilevel endplate osteophytosis. No spondylolysis. Other: Round 1.3 cm calcification overlying the left upper quadrant/retroperitoneum, which could be an aneurysm versus calcified diverticulum. Extensive atherosclerosis. IMPRESSION: Multilevel lumbar spondylosis without acute findings Electronically authenticated by: AMADEO SEGOVIA Date: 2022-10-08 07:[address] [place], [place] [address]XR HIP LT 2 3V W PELVISon 76-41-9881IG HIP LT 2 3V W PELVIS [employer] Other XR lumbar spine 2-3V*on 65-99-3940QG lumbar spine 2-3V*[employer] Other CB AUTO DIFFon 71-91-7914BCQS #0.1 103/ulNormal 0.0-0.1The [facility] HospitalComment on above:Performed By: #### CBC ####[facility] J[address] [place], [place] [address]Dr.Yilan Logan Basophils/100 WBC (Bld)0.7 %Normal0.2-2.0The [facility] HospitalComment on above: Performed By: #### CBC ####[facility] Ib[address] [place], [place] [address]Dr.Yilan ChangEO #0.2 103/ulNormal0.0-0.7The [facility] HospitalComment on above:Performed By: #### CBC ####[facility] Z[address]fe[address] [place], [place] [address]Dr.Meshalan ChangEosinophils/100 WBC (Bld)2.4 %Normal0.9-7.0The [facility] HospitalComment on above:Performed By: #### CBC ####[facility] V[address] [place], [place] [address]Dr.Meshalan ChangErythrocyte distribution width (RBC) [Ratio]12.0 %Normal 11.0-15.0The [facility] HospitalComment on above:Performed By: #### CBC ####[facility] Joqalysrcr[address] [place], [place] [address]Dr. Deion ChangHematocrit (Bld) [Volume fraction]41.5 %Lzzboz37.0-48.0The [facility] HospitalComment on above:Performed By: #### CBC ####[facility] D[address]wcss[address] [place], [place] [address]Dr.Meshalan ChangHemoglobin (Bld) [Mass/Vol]14.2 g/gYNdbzbn47.0-16.0The [facility] HospitalComment on above: Performed By: #### CBC ####[facility] Kqcr[address] [place], [place] [address]Dr.Meshalan ChangIG #0.03 10e3/ulNormal0.00-0.03The [facility] HospitalComment on above:Performed By: #### CBC ####[facility] [address] [place] [address]Dr.Deion LoganIG %0.4 %Normal 0.0-0.5The [facility] HospitalComment on above:Performed By: #### CBC ####[facility] [address] [place] [address]Dr.Deion LoganLYMPH #2.5 103/ulNormal1.2-3.8The [facility] HospitalComment on above:Performed By: #### CBC ####[facility] Toiojpccje[address] [place], [place] [address]Dr.Deion LoganLymphocytes/100 WBC (Bld)31.4 %Hzhclt83.5-60.0The [facility] HospitalComment on above:Performed By: #### CBC ####[facility] Dq[address]vqjyeg[address] [place], [place] [address]Dr.Deion LoganMANUAL DIFF REQ NONormalThe [facility] HospitalComment on above:Performed By: #### CBC ####[facility] C[address]nfzeacb[address] [place], [place] [address]Dr. Deion LoganLINCOLN [facility] (RBC) [Entitic mass]30.5 yiFalppe65.7-34.0The [facility] Comment on above:Performed By: #### CBC ####[facility] Obbukngijk[address] [place], [place] [address]Dr.Deion LoganHC (RBC) [Mass/Vol]34.2 g/dL Jascwv02.9-35.2The [facility] HospitalComment on above:Performed By: #### CBC ####[facility] Wnthkxljam[address] [place], [place] [address]Dr. Deion LoganV (RBC) [Entitic vol]89.1 eJOjbrnr15.0-99.0The [facility] Comment on above:Performed By: #### CBC ####[facility] Yqsbfdygst7[address] [place], [place] [address]Dr.Deion LoganRUSK REHABILITATION CENTERO #0.6 103/ulNormal0.3-0.8 The [facility] HospitalComment on above:Performed By: #### CBC ####[facility] [address] [place] [address]Dr.Deion Logan Monocytes/100 WBC (Bld)7.2 %Normal1.7-12.0[facility] on above: Performed By: #### CBC ####[facility] [address] [place] [address]Dr.Deion LoganNEUT #4.7 103/ulNormal1.4-6.5The [facility] HospitalComment on above:Performed By: #### CBC ####[facility] [address] [place] [address]Dr.Deion LoganNeutrophils/100 WBC (Bld)57.9 %Neydug37.0-75.0[facility] on above:Performed By: #### CBC ####[facility] [address] [place] [address]Dr.Deion LoganPlatelet mean volume (Bld) [Entitic vol]9.8 fLNormal9.5-13.5 [facility] on above:Performed By: #### CBC ####[facility] Lanssx[address]pz[address] [place], [place] [address]Dr.Deion RbtjkCRK886 103/llHtmxjp820-367Vyr [facility] HospitalCombeaumont hospital on above:Performed By: #### CBC ####[facility] Njzwpnomym[address] [place], [place] [address]Dr. Deion ChangRBC4.66 106/ulNormal4.20-5.40[facility] on above: Performed By: #### CBC ####[facility] J[address]rcwcr[address] [place], [place] [address]Dr.Deion ChangWBC8.1 103/ulNormal4.0-11.0[facility] on above:Performed By: #### CBC ####[facility] Locqtrqybl[address] [place], [place] [address]Dr.Deion LoganGLYCOHEMOGLOBIN A1Con 70-85-9250OUD RECOMMENDATIONSEE [facility] HospitalCombeaumont hospital on above:Result Comment: ADA RECOMMENDED LIMIT 4.0 - 6.0 ADA THERAPEUTIC TARGET < 7.0 ACTION SUGGESTED > 7.0Performed By: #### A1C ####[facility] [address] [place] [address]Dr.Yilan LoganGlucose [Mass/Vol]163 mg/dLNoCleveland Clinic Mercy HospitalComment on above:Performed By: #### A1C ####[facility] [address] [place] [address]Dr.Yilan LoganHbA1c (Bld) [Mass fraction]7.3 %Critically high4.5-6.2The [facility] HospitalComment on above:Performed By: #### A1C ####[facility] [address] [place] [address]Dr.Yilan LoganLIPID PROFILEon 90-47-8043EDFW-HDL RATIO NORMSEE BELOWOhioHealth Shelby HospitalComment on above:Result Comment: 3.3 - 4.4 LOW RISK 4.4 - 7.1 AVERAGE RISK 7.1 - 11.0 MODERATE RISK >11.0 HIGH RISKPerformed By: #### ALT, LIPID, BMP #### [facility] [address] [address] [address] Deion Wylieesterol [Mass/Vol]174 mg/dLNormal<=200The [facility] Comment on above:Performed By: #### ALT, LIPID, BMP #### [facility] [address] [address] [address] Deion Wylieesterol in HDL [Mass/Vol]60 mg/xSEksomx64-02Rgs [facility] HospitalComment on above:Performed By: #### ALT, LIPID, BMP #### [facility] [address] [address] [address] Deion Wylieesterol in LDL [Mass/Vol]93.4 mg/dLOhioHealth Shelby HospitalComment on above:Performed By: #### ALT, LIPID, BMP #### [facility] [address] [address] [address] Deion Delvalle.total/Cholesterol in HDL [Mass ratio]2.9 {ratio} NormalThe [facility] HospitalComment on above:Performed By: #### ALT, LIPID, BMP #### [facility] [address] [address] [address] Deion Williamson NORMAL> or = 60 mg/dl - LOW CARDIOVASCULAR RISK <40 mg/dl - HIGH CARDIOVASCULAR RISKOhioHealth Shelby HospitalComment on above:Performed By: #### ALT, LIPID, BMP #### [facility] [address] [address] [address] Deion LoganLDL CALC NORMALSEE BELOWOhioHealth Shelby HospitalComment on above:Result Comment: <100 mg/dl OPTIMAL 100 - 129 mg/dl NEAR OR ABOVE OPTIMAL 130 - 159 mg/dl BORDERLINE HIGH 160 - 189 mg/dl HIGH >190 mg/dl VERY HIGH Performed By: #### ALT, LIPID, BMP #### [facility] [address] [address] [address] Deion LoganTriglyceride [Mass/Vol]103 mg/dLNormal<=150The [facility] Comment on above:Performed By: #### ALT, LIPID, BMP #### [facility] [address] [address] [address] Deion LoganVLDL CALC20.6 mg/dLNoCleveland Clinic Mercy HospitalComment on above: Performed By: #### ALT, LIPID, BMP #### [facility] [address] [place] [address] Dr. Deion KaminskiALBUMIN, RAND URon 97-68-5496bIFX0.7 mg/LNormal<=30.0The [facility] HospitalComment on above:Performed By: #### MALBR #### [facility] [address] [address] [address] Deion LoganPROF CHEM 8 (BAS METB)on 28-67-6893Fowjx gap [Moles/Vol]12.1 mmol/LNormalThe [facility] HospitalComment on above:Performed By: #### ALT, LIPID, BMP #### [facility] [address] [place] [address] Dr. Deion LoganCalcium [Mass/Vol]9.1 mg/dLNormal8.5-10.1The [facility] Comment on above:Performed By: #### ALT, LIPID, BMP #### [facility] [address] [address] [address] Deion LoganChloride [Moles/Vol]101 mmol/GPxgprk45-441Act [facility] Comment on above:Performed By: #### ALT, LIPID, BMP #### [facility] [address] [address] [address] Deion LoganCO2 [Moles/Vol]32.5 mmol/LCritically high21.0-32.0The [facility] HospitalComment on above:Performed By: #### ALT, LIPID, BMP #### [facility] [address] [place] [address] Dr. Deion LoganCreatinine [Mass/Vol]0.54 mg/dLCritically low0.55-1.02The [facility] HospitalComment on above:Performed By: #### ALT, LIPID, BMP #### [facility] [address] [place] [address] Dr. Deion TangGFR-AF WELSH>60Normal>=60The [facility] HospitalComment on above:Performed By: #### ALT, LIPID, BMP #### [facility] [address] [place] [address] Dr. Deion TangGFR-NON AF WELSH>60Normal>=60The [facility] HospitalComment on above:Performed By: #### ALT, LIPID, BMP #### [facility] [address] [place] [address] Dr. Deion LoganGlucose [Mass/Vol]185 mg/dLCritically xhss20-436Cmm [facility] HospitalComment on above:Performed By: #### ALT, LIPID, BMP #### [facility] [address] [place] [address] Dr. Deion LoganPotassium [Moles/Vol]3.6 mmol/LNormal3.5-5.1The [facility] Comment on above:Performed By: #### ALT, LIPID, BMP #### [facility] [address] [place], [place] [address] Dr. Deion Jonesum [Moles/Vol]142 mmol/ELwjmgw737-155Grt [facility] Comment on above:Performed By: #### ALT, LIPID, BMP #### [facility] [address] [address] [address] Deion Patton nitrogen [Mass/Vol]10.0 mg/dLNormal7.0-18.0The [facility] HospitalComment on above:Performed By: #### ALT, LIPID, BMP #### [facility] [address] [place], [place] [address] Dr. Deion Patton nitrogen/Creatinine [Mass ratio]18.5 mg/mgNormalThe [facility] HospitalComment on above:Performed By: #### ALT, LIPID, BMP #### [facility] [address] [address] [address] Deion Clark 85-93-4078UMT [Catalytic activity/Vol]28 U/YNshtfq44-90Wuu [facility] HospitalComment on above:Performed By: #### ALT, LIPID, BMP #### [facility] [address] [address] [address] Deion LoganMG MAMM SCREEN 3D ADAN CADon [id number] MAMM SCREEN 3D ADAN CAD Patient: KAROLYN UPTON Exam Date: 07/26/2022 : 1950 Gender:F Ordering : DR ABRAHAM FONG D.O. Admission #: [id number] Family : Order #: [id number] CLICK HERE TO VIEW EXAM RADIOLOGY REPORT [...] colon cancer at age 77. LOCATION: [facility] BREAST COMPOSITION: Scattered areas fibroglandular density. [...] by: Edmundo Duque M.D. on 07/29/2022 at 14:43OhioHealth Shelby HospitalXR DEXA BONE DENSITYon 55-65-0737NX DEXA BONE DENSITYEXAMINATION: XR DEXA BONE DENSITY, 07/26/2022 8:00 AM [...] Electronically authenticated by: EDMUNDO DUQUE Date: 2022-07-26 08:48Ohio[facility] Shelby HospitalGLYCOHEMOGLOBIN A1Con 12-32-6388JMY RECOMMENDATIONSEE BELOW NormalThe [facility] HospitalComment on above:Result Comment: ADA RECOMMENDED LIMIT 4.0 - 6.0 ADA THERAPEUTIC TARGET < 7.0 ACTION SUGGESTED > 7.0Performed By: #### A1C #### [facility] [address] [address] [address] Deion LoganGlucose [Mass/Vol]157 mg/dLOhioHealth Shelby HospitalComment on above:Performed By: #### A1C #### [facility] [address] [place], [place] [address] Dr. Deion LoganHbA1c (Bld) [Mass fraction]7.1 %Critically high4.5-6.2[facility]aug[facility] Medical CenterComment on above:Performed By: #### A1C #### [facility] [address] [address] [address] Deion LoganGLYCOHEMOGLOBIN A1Con 45-49-2918QBE RECOMMENDATIONADA THERAPEUTIC TARGET 6.0 - 7.0 ACTION SUGGESTED > 7.0NoCleveland Clinic Mercy HospitalComment on above:Performed By: #### A1C #### [facility] [address] [address] [address] Deion LoganGlucose [Mass/Vol]160 mg/dLNoCleveland Clinic Mercy HospitalComment on above:Performed By: #### A1C #### [facility] [address] [address] [address] Deion LoganHbA1c (Bld) [Mass fraction]7.2 %Critically high<=6.0The [facility] HospitalComment on above:Performed By: #### A1C #### [facility] [address] [address] [address] Deion Logan Vital Signs Date TimeVital SignValuePerforming BuekqehyoXispdyqm44-64-1502 08:55-0400Body gbhwvo038.29 cmBenjamin Ball DO Work Phone: [phone]08-14-2025 08:55-0400 Body mass index (BMI) [Ratio]24.2 kg/q3Fzcwcyzk Ball DO Work Phone: [phone]08-14-2025 08:55-0400 Body ryfmpc93.04 kgBenjamin Ball DO Work Phone: [phone]08-14-2025 08:55-0400 Diastolic blood bdoffyoa22 mm[Hg]Abraham Ball DO Work Phone: [phone] [place], [place] [address]208-14-2025 08:55-0400 Heart rate74 /minBenjamin Ball DO Work Phone: [phone]08-14-2025 08:55-0400 Respiratory rate12 /minBenjamin Ball DO Work Phone: [facility]08-14-2025 08:55-0400 Systolic blood zwnaixhi248 mm[Hg]Abraham Fong DO Work Phone: [facility]05-01-2025 09:12-0400 Body .29 cmPe[facility] Hospital05-01-2025 09:12-0400Body mass index (BMI) [Ratio]24.6 kg/c2EmeqvyracPeoples Hospital05-01-2025 09:12-0400Body anqxme82.06 [facility]05-01-2025 09:12-0400Diastolic blood xrjjtwyx78 mm[Hg][facility] 12-30-2024 09:12-0400Heart rate80 /[facility] 12-30-2024 09:12-0400Respiratory rate12 [facility] 12-30-2024 09:12-0400Systolic blood qawlmauk342 mm[Hg][facility]03-21-2025 09:42-0400Body wuvqwr110.29 cmPeoples Hospital03-21-2025 09:42-0400Body mass index (BMI) [Ratio]24.5 kg/o5PafnwbwckPeoples Hospital03-21-2025 09:42-0400Body xeswcm56.95 [facility]03-21-2025 09:42-0400Diastolic blood omeysaqv36 mm[Hg] [facility]03-21-2025 09:42-0400Heart rate84 /[facility]03-21-2025 09:42-0400Respiratory rate12 /[facility]03-21-2025 09:42-0400Systolic blood odhgyisb466 mm[Hg] [facility]12-30-2024 09:26-0500Body gzqpiz153.29 cm [facility]12-30-2024 09:26-0500Body mass index (BMI) [Ratio]25.8 kg/u2ZdkhmzmgwPeoples Hospital12-30-2024 09:26-0500Body adofwf32.13 [facility]12-30-2024 09:26-0500Diastolic blood fatducxq29 mm[Hg][facility]12-30-2024 09:26-0500 Heart rate85 /[facility]12-30-2024 09:26-0500 Respiratory rate14 /[facility]12-30-2024 09:26-0500 Systolic blood qvbezzbo611 mm[Hg][facility]09-20-2024 11:02-0400Body gujzla19.59 kgGia Moss ACOUSTICAL [employer]LE [employer]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 Work Phone: [place]09-20-2024 11:02-0400Diastolic blood isaiswfa54 mm[Hg]Gia Moss AC[employer]STICAL [employer]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 Work Phone: [place]09-20-2024 11:02-0400Systolic blood ecjnfyhv424 mm[Hg]Gia Moss ACOUSTICAL [employer]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 Work Phone: [place]09-03-2024 08:31-0400Body fkgoyh417.29 cmPe[facility] Hospital09-03-2024 08:31-0400Body mass index (BMI) [Ratio]25.7 kg/c5EdyygokpaPeoples Hospital09-03-2024 08:31-0400Body oanvet03.79 kgPeoples Hospital09-03-2024 08:31-0400Diastolic blood bgjpewrp65 mm[Hg][facility] 05-04-2024 08:31-0400Diastolic blood wourslio93 mm[Hg]DO Abraham Ball Work Phone: [facility]09-03-2024 08:31-0400 Heart rate89 /[facility]09-03-2024 08:31-0400 Respiratory rate12 /[facility]09-03-2024 08:31-0400 Systolic blood igynggkp697 mm[Hg][facility]09-03-2024 08:31-0400Systolic blood uqqhemdn917 mm[Hg]DO Abraham Ball Work Phone: [facility]06-17-2024 08:55-0400 Body .29 cmPe[facility] Hospital06-17-2024 08:55-0400Body mass index (BMI) [Ratio]25.1 kg/n1KlgnmdyqgPeoples Hospital06-17-2024 08:55-0400Body vkerin35.43 kgPeoples Hospital06-17-2024 08:55-0400Diastolic blood poabjqxj03 mm[Hg][facility] 02-16-2024 08:55-0400Heart rate82 /[facility] 02-16-2024 08:55-0400Respiratory rate12 /[facility] 02-16-2024 08:55-0400Systolic blood dxfrquun594 mm[Hg][facility]03-26-2024 09:29-0400Body behccs030.29 cmPeoples Hospital03-26-2024 09:29-0400Body mass index (BMI) [Ratio]25.4 kg/z9VjvuprhqcPeoples Hospital03-26-2024 09:29-0400Body hrercd18.22 kgPeoples Hospital03-26-2024 09:29-0400Diastolic blood eqoqmabu14 mm[Hg] [facility]03-26-2024 09:29-0400Heart rate90 /[facility]03-26-2024 09:29-0400Respiratory rate12 /[facility]03-26-2024 09:29-0400Systolic blood mmwknwej409 mm[Hg] [facility]12-26-2023 09:30-0500Body .29 cm Abraham Ball Other [employer] Other [id number] 09:30-0500Body mass index (BMI) [Ratio] 25.98 kg/s4Xsanyjhh Ball Other [employer] Other 12-26-2023 09:30-0500Body .59 kgBenjamin Ball Other [phone] Other 12-26-2023 09:30-0500Diastolic blood jidvrhkg71 mm[Hg] Abraham Ball Other [facility] Other 12-26-2023 09:30-0500Respiratory rate12 /minBenjamin Ball Other [facility] Other 12-26-2023 09:30-0500Systolic blood xseshqhz612 mm[Hg] Abraham Ball Other [facility] Other 09-25-2023 10:00-0400Body uaouhr397.29 cmBenjamin Ball Other [facility] Other 09-25-2023 10:00-0400Body mass index (BMI) [Ratio] 25.91 kg/u4Chaurktd Ball Other [facility] Other 09-25-2023 10:00-0400Body qqhulv91.4 kgBenjamin Ball Other [facility] Other 09-25-2023 10:00-0400Diastolic blood omxysmxr91 mm[Hg] Abraham Ball Other [facility] Other 09-25-2023 10:00-0400Respiratory rate12 /minBenjamin Ball Other [facility] Other 09-25-2023 10:00-0400Systolic blood kemfhqmq464 mm[Hg] Abraham Ball Other [facility] Other 09-18-2023 13:45-0400Body ajgnbk451.29 cmBenjamin Ball Other [employer] Other 09-18-2023 13:45-0400Body mass index (BMI) [Ratio] 26.05 kg/l7Nuwkqhmp Ball Other [employer] Other 09-18-2023 13:45-0400Body .77 kgBenjamin Ball Other [employer] Other 09-18-2023 13:45-0400Diastolic blood duuwwgfm07 mm[Hg] Abraham Ball Other [employer] Other 09-18-2023 13:45-0400Respiratory rate12 /minBenjamin Ball Other [employer] Other 09-18-2023 13:45-0400Systolic blood mm[Hg] Abraham Ball Other [employer] Other 06-23-2023 11:30-0400Body bedhom221.29 cmBenjamin Ball Other [employer] Other 06-23-2023 11:30-0400Body mass index (BMI) [Ratio] 25.66 kg/k8Jyrloylw Ball Other [employer] Other 06-23-2023 11:30-0400Body gbpyxv92.77 kgBenjamin Ball Other [employer] Other 06-23-2023 11:30-0400Diastolic blood wmyewzga25 mm[Hg] Abraham Ball Other [employer] Other 06-23-2023 11:30-0400Respiratory rate12 /minBenjamin Ball Other [facility] Other 06-23-2023 11:30-0400Systolic blood ibdicdyz579 mm[Hg] Abraham Ball Other [employer] Other 02-23-2023 08:30-0500Body osagfq680.29 cmBenjamin Ball Other [employer] Other 02-23-2023 08:30-0500Body mass index (BMI) [Ratio]25.7 kg/t6Wypygkyx Ball Other [employer] Other 02-23-2023 08:30-0500Body .86 kgBenjamin Ball Other [employer] Other 02-23-2023 08:30-0500Diastolic blood xunnvmnf20 mm[Hg] Abraham Ball Other [employer] Other 02-23-2023 08:30-0500Respiratory rate12 /minBenjamin Ball Other [employer] Other 02-23-2023 08:30-0500Systolic blood wcevavsm908 mm[Hg] Abraham Ball Other [employer] Other 02-06-2023 14:30-0500Body uaidqd735.29 cmBenjamin Ball Other [employer] Other 02-06-2023 14:30-0500Body mass index (BMI) [Ratio] 25.52 kg/n0Wxczrqfw Ball Other [employer] Other 02-06-2023 14:30-0500Body gougbu61.41 kgBenjamin Ball Other [facility] Other 02-06-2023 14:30-0500Diastolic blood legzomkg19 mm[Hg] Abraham Fong Other [facility] Other 02-06-2023 14:30-0500Respiratory rate12 /minBentatyana Ball Other [facility] Other 02-06-2023 14:30-0500Systolic blood wdtugear784 mm[Hg] Abraham Fong Other [facility] Other Encounters Encounter DateEncounter TypeCare ProviderFacilityStart: 07-05-2025 End: 85-93-9435Ldmpiq flowsheetJonathan D Zahler DO Work Phone: [facility] EyeStart: 07-05-2025 End: 35-59-6212Cldnep flowsheetJonathan D Zahler DO Work Phone: [facility] EyeStart: 07-05-2025 End: 22-95-2980Oosmxx follow up visit related to original pxJonathan D Zahler DO Work Phone: [facility] EyeComment on above:Pseudophakia (Primary Dx)Start: 07-05-2025 End: 94-27-2865macirfybcsYKXCFMHZ D KAROHLERNot AvailableStart: 06-14-2025 End: 01-92-1980Hyeemm Ketan Pavon MD Work Phone: [facility] EyeStart: 06-14-2025 End: 70-07-1216Ngabcr Ketan Pavon MD Work Phone: [facility] EyeStart: 06-14-2025 End: 74-97-5345Maajvm follow up visit related to original pxJonathan D Zahler DO Work Phone: [facility] EyeComment on above:Pseudophakia (Primary Dx)Start: 06-14-2025 End: 09-61-6785uuihyfnyqfJGAIDZOM Tere MENDESERNot AvailableStart: 06-07-2025 End: 53-80-9001Qtutmk flowsheetJonathan D Zahler DO Work Phone: [facility] EyeStart: 06-07-2025 End: 83-43-7167Jzbkrj flowsheetJonathan D Zahler DO Work Phone: [facility] EyeStart: 06-07-2025 End: 40-68-8230Rmvooj follow up visit related to original pxJonathan D Zahler DO Work Phone: [facility] EyeComment on above:Pseudophakia (Primary Dx)Start: 06-07-2025 End: 80-00-6851mgceajpziqUVUAOWHC D MICHAELERNot AvailableStart: 05-31-2025 End: 40-61-0509Waxvhk flowsheetJonathan D Zahler DO Work Phone: [facility] EyeStart: 05-31-2025 End: 47-53-8920Mveukk flowsheetJonathan D Zahler DO Work Phone: [facility] EyeStart: 05-31-2025 End: 37-87-1739Mcmwcl follow up visit related to original pxJonathan D Zahler DO Work Phone: [facility] EyeComment on above:Pseudophakia (Primary Dx); Age-related nuclear cataract of right eyeStart: 05-31-2025 End: 19-63-6401vleobinydpAWXXIQFI D MICHAELERNot AvailableStart: 05-24-2025 End: 63-38-9393Eygbug flowsheetJonathan D Zahler DO Work Phone: [facility] EyeStart: 05-24-2025 End: 43-08-0407Gedchb flowsheetJonathan D Zahler DO Work Phone: [facility] EyeStart: 05-24-2025 End: 54-39-4933Qkkvpn follow up visit related to original Marlon Carranza Karorachel DO Work Phone: [facility] EyeComment on above:Pseudophakia (Primary Dx)Start: 05-24-2025 End: 00-02-5785zmqgmteszsDTFIWAKP D ZAHLERNot AvailableStart: 04-19-2025 End: 16-22-1952Xfzrca flowspatienceBryce Carranza Michaeler DO Work Phone: [facility] EyeStart: 04-19-2025 End: 30-96-9540Rrfuzj flowsheetChelseabella Carranza Michaeler DO Work Phone: [facility] EyeStart: 04-19-2025 End: 24-63-8607cumchfztzvDAEZSYDT D ZAHLERNot AvailableStart: 04-14-2025 End: 32-67-2351mdjdsvibkmHlxhtddl Ball DO Work Phone: [facility] Work Phone: Start: 04-14-2025 End: 45-53-7696Kancqrj encounter procedureBenjamin Ball DO-[facility] Work Phone: Start: 12-30-2024 End: 80-79-9526iuispsfhmgDvxsilauuMetroHealth Main Campus Medical Center Work Phone: Start: 12-30-2024 End: 90-51-4686Dcvjppt encounter procedureFiralhambras Physician Group-[facility] Work Phone: Start: 11-19-2024 End: 18-56-6235metqewvcohClzyhbrhdMetroHealth Main Campus Medical Center Work Phone: Start: 11-19-2024 End: 64-58-0924Jkpeedn encounter procedureFirspotsylvania regional medical [facility] Work Phone: Start: 12-29-1056Pni-patient / Non-visitFirspotsylvania regional medical center [facility] Work Phone: Start: 23-47-6387Ujo-patient / Non-visitDuke [facility] Hospital [facility] Work Phone: Start: 08-30-2024 End: 42-87-0492Lmpneix encounter procedureDuke Regional Hospital [facility] Work Phone: Start: 33-93-6915Otlkksr encounter procedureWright-Patterson Medical Centertart: 06-29-2024 End: 41-79-5407Xxsgrfgkf encounterLauren Rosaline DELGADILLOSelect Medical Specialty [facility] Physicians General SurgeryStart: 06-28-2024 End: 38-07-3387Neceau OnlyNot In System Ref ProvProMedica Physicians General SurgeryStart: 06-23-2024 End: 19-47-8428Qdgyrlyzoq and management of inpatientNatasha Heladio [facility] General SurgeryComment on above:Encounter for colonoscopy in patient with family history of colon cancerStart: 06-16-2024 End: 34-12-5048bwrttmajaeCL [place] Ajit Work Phone: [facility] Work Phone: Start: 06-16-2024 End: 31-34-7377Xyitpdfe ReferredArchbold - [facility] Ajit Work Phone: [facility]-LAB [facility] HospStart: 06-07-2024 End: 43-18-0947Qrqzcvwsq encounterPhyllis Ureña [facility] Centerca Physicians General SurgeryStart: 05-21-2024 End: 43-11-5538Pxkpfg outpatient new 30 minutesGia Moss ACOUSTICAL TILE [employer]PENTERS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 Work Phone: ProDayton Children'S Hospitalca Physicians General SurgeryComment on above: Encounter for colonoscopy in patient with family history of colon cancer (Primary Dx)Start: 05-21-2024 End: 59-06-0851uitfvejyvbHQBNKWOMaura Mcbride [facility] Start: 05-05-2024 End: 35-88-5224Agabyjzlq encounterGia Moss ACOUSTICAL TILE CARPENTERS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 Work Phone: [facility] General SurgeryStart: 05-04-2024 End: 06-42-4755ctqoerkejwSsessvzubMetroHealth Main Campus Medical Center Work Phone: Start: 05-04-2024 End: 38-54-9507Agmbmuh encounter procedureCataw[facility] Work Phone: Start: 14-14-8740Ctc-patient / Non-visitFiralhambras Physician Group-[facility] Work Phone: Start: 02-16-2024 End: 05-73-2096rpygrdyllbJubxexxngMetroHealth Main Campus Medical Center Work Phone: Start: 02-16-2024 End: 30-23-1571Vahmywk encounter procedureCatawba [facility] Work Phone: Start: 11-25-2023 End: 61-46-2352zdyjmnaxcpMdceivjwgMetroHealth Main Campus Medical Center Work Phone: Start: 11-25-2023 End: 02-52-5617Orckeoh encounter procedureDuke Regional Hospital [facility] Work Phone: Start: 38-13-1127Qye-patient / Non-visitFirelands [facility]ician [facility] Work Phone: Start: 83-70-4931Pag-patient / Non-visitFiralhambras [facility]ician Group-[facility] Work Phone: Start: 10-07-2023 End: 84-61-1121heinrrebzxXucrivrd Ball Other [employer] Other Start: 61-49-0060Qtvvqbypk encounterBenjamin BallFPG Texas Health Friscotart: 09-10-2023 End: 26-21-1611afiddlqddsSmlapaqb Ball Other [employer] Other Start: 15-99-7074Saljzdmfw encounterBenjamin BallFPG [facility] ClinicStart: 08-26-2023 End: 42-73-8685pdvhqvuvvmYhjdxloz Ball Other [employer] Other Start: 29-72-2444Beeypzf encounter procedureBenjamin BallFPG [facility] ClinicStart: 08-05-2023 End: 70-02-1453adoxamfqysJvrqfdru Ball Other [employer] Other Start: 34-74-0235Ugukhypwf encounterBenjamin BallFPG [facility] ClinicStart: 07-09-2023 End: 51-61-4706lqsxcastobKrlarjpc Ball Other [facility] Other Start: 01-53-5337Oeynqdbqa encounterBenjamin BallFPG [facility] ClinicStart: 06-16-2023 End: 89-34-5881zjgkwbioguOhyfooro Ball Other [employer] Other Start: 56-96-2763Mcqdvv outpatient visit 15 minutes Abraham BallFPG [facility] ClinicStart: 05-26-2023 End: 49-61-4760bmodxcdihgAeewnyvt Ball Other [employer] Other Start: 59-05-4191Xgcwto outpatient visit 25 minutes Abraham BallFPG [facility] ClinicStart: 05-19-2023 End: 42-78-9086usvidysbnpZduytaun Ball Other [employer] Other Start: 41-60-4749Jekfse outpatient visit 15 minutes Abraham BallFPG [facility] ClinicStart: 02-25-2023 End: 10-26-7100ahkslyqdqaDfszgjha Ball Other [employer] Other Start: 77-91-0151Jkpliempl encounterBenjamin BallFPG [facility] ClinicStart: 02-21-2023 End: 97-95-0072bjdsbvnwnkRwcgcunb Ball Other [employer] Other Start: 39-99-6047Seovsn outpatient visit 25 minutes Abraham BallFPG [facility] ClinicStart: 10-24-2022 End: 48-55-8370uwypptheviGwxhfgwq Ball Other [employer] Other Start: 18-41-0833Umzhqq outpatient visit 25 minutes Abraham BallFPG [facility] ClinicStart: 10-11-2022 End: 62-32-2813qsfxzkpabjZdhettps Ball Other [employer] Other Start: 37-03-8909Ixyegttwu encounterBenjamin BallFPG [facility] ClinicStart: 10-07-2022 End: 54-56-2160daaaqwmicsWG ABRAHAM BALLFacility:A2Spebm: 92-21-9505Sbathw outpatient visit 15 minutesBenjamin BallFPG [facility] ClinicStart: 09-05-2022 End: 67-15-4541gqtkbonkkpLbnmlnnd Ball Other [employer] Other Start: 89-30-5795Ccgqidhre encounterBenjamin BallFPG [facility] ClinicStart: 08-02-2022 End: 11-67-8531mwcnbjcmwtRL ABRAHAM BALLFacility:R0Perap: 07-26-2022 End: 56-09-0159uitqmueekcDW ABRAHAM BALLFacility:N0Eaddo: 79-16-1226Lijxk health examinationBenjamin Ball Other [employer] Other Start: 03-65-8317Krdjvtvknpzmx examination normal Abraham Ball Other [employer] Other Start: 03-06-2022 End: 57-38-6301qupvxuyoixRM ABRAHAM BALLFacility:K1Hxgek: 11-06-2021 End: 72-53-5029xpnwulvfmzRR ABRAHAM BALLFacility:H1 Procedures DateProcedureProcedure DetailPerforming ClinicianStart: 95-07-8705Zuy bmtry prtl coher intrfrmtry io lens pwr calBryce Beltran DO Work Phone: Start: 04-19-2025 End: 29-75-1830Okxyt medical xm&eval compre new pt 1/> vstAge-related nuclear cataract of both eyesBryce Beltran DO Work Phone: comment on above:Age-related nuclear cataract of both eyes (Primary Dx)Start: 81-14-3899MJMJJIS 1 HOURNot In System Ref ProvStart: 15-02-8783Lajsk i surg pathology gross examination onlyNot In System Ref Prov Start: 55-86-6130WzsuyetkvnlGxkmpf Venia CMAStart: 20-63-0913Jurrkvulj for osteoporosisBentatyana Fong Other Start: 66-19-5317Yklggctsa mammographyBentatyana Fong Other Depression screeningBelance Fong Other Preoperative cardiovascular examinationBentatyana Fong Other End: 91-55-1449Cxdaezywn for malignant neoplasm of breastBenjaaaliyah Fong Other Screening for malignant neoplasm of colonBentatyana Fong Other Plan of Treatment DateCare ActivityDetailAuthorStart: 52-78-6377Hufzmbiue for malignant neoplasm of colonColonoscopySelect Medical Specialty [facility] SystemStart: 59-40-4310DHsQ,Tdap and Td Vaccines (2 - Tdap)DTaP,Tdap and Td Vaccines (2 - Tdap)[facility] CenterNOSTROMO ICT System Start: 07-05-2025 End: 90-08-7518Xwkqpxm encounter wrnnonhxp77/04/2025 9:45 AM EST Office Visit [facility] [address] [place] [id number] Bryce Beltran, DO [address] [place] [address] ArrivedNOConerly [facility] EyeComment on above:ArrivedStart: 06-14-2025 End: 06-55-7787Arvcbtx encounter /14/2025 10:00 AM EDT Office Visit [facility] [address] [place] [address] Rosalinda Pavon MD [address] [place] [address] ArrivedNOConerly [facility] EyeComment on above:ArrivedStart: 06-07-2025 End: 58-17-6980Creikjf encounter procedureNOConerly Critical Care Hospital EyeComment on above:ArrivedStart: 05-31-2025 End: 52-36-0358Htwrvhk encounter xkilabpxr30/30/2025 10:15 AM EDT Office Visit [facility] [address] [place] [phone] Bryce Beltran, DO [address] [place] [address] [facility] EyeComment on above:ArrivedStart: 05-24-2025 End: 15-47-8446Vxvfaha encounter hlryrerrt26/23/2025 9:30 AM EDT Office Visit [facility] [address] [place] [address] Bryce Beltran, DO [address] [place] [address] [facility]rivedW[facility] EyeComment on above:ArrivedStart: 94-88-1187Xpsmvkz ScreeningTobacco ScreeningMaria Parham Healthtart: 38-57-2935QZMLS-19 Vaccine ( season)COVID-19 Vaccine ( season)[facility] HospitalStart: 51-46-6841Wjylvtenm vaccinationProUniversity Hospitals [facility] SystemStart: 04-19-2025 End: 25-32-3784Gairvgx encounter /19/2025 1:15 PM EDT Office Visit [facility] [address] [place] [address] Bryce Beltran, DO [address] [place] [address] [facility]rivedWiser [facility] EyeComment on above:ArrivedStart: 05-21-2024 End: 13-46-3208Zieyfwo encounter hhqusqwro42/20/2024 11:00 AM EDT [facility] Visit [facility] [address] [place] [address] Gia Moss, ACOUSTICAL TILE [employer]ENTERS SUPERVISOR-[facility] [address] [place], [place] [id number] [facility] SurgeryStart: 01-39-4880Bfzawbe [facility] Work Phone: Start: 53-03-5001FLFPH-19 Vaccine ( season) COVID-19 Vaccine ( season)[facility] SystemStart: 05-02-2024 COVID-19 Vaccine ( season)COVID-19 Vaccine ( season) [facility] SystemStart: 47-01-4081Ljciptwtx vaccinationInfluenza Vaccine [facility] SystemStart: 87-05-5418Kuoo Risk ScreeningFall Risk Screening ProMAll[facility] SystemStart: 82-03-9926Wbkwyknjktuubp of varicella zoster vaccineZoster (Shingles) Vaccine (1 of 2)[facility] SystemStart: 37-16-8058Jzwzaejzh for malignant neoplasm of breastMammogramNOMS Healthcare Start: 29-06-5321XFwF,Tdap and Td Vaccines (1 - Tdap)DTaP,Tdap and Td Vaccines (1 - Tdap)[facility] SystemStart: 63-02-8532Clrct BMI ScreeningAdult BMI ScreeningProUniversity [facility]als [facility] SystemStart: 55-96-7260Bidmsceywv ScreeningDepression ScreeningProUniversity [facility]als [facility] SystemStart: 61-92-9623Ytdflwt ScreeningTobacco ScreeningProUniversity [facility]als [facility] SystemStart: 32-10-2760XObY/Tdap/Td Vaccines (1 - Tdap)DTaP/Tdap/Td Vaccines (1 - Tdap)[facility] HealthcareStart: 1951Medicare Annual Wellness VisitMedicare Annual Wellness VisitProUniversity Hospitals [facility] SystemStart: 27-81-5478Hovynoizd for malignant neoplasm of colonNOWY Healthcare End: 01-67-2327QvbyfeoimgsRdptkpnoann GI Routine Encounter for colonoscopy in patient with family history of colon cancer 1 Occurrences starting 05/21/2024 until 05/21/2025[facility] Work Phone: Comment on above:1 Occurrences starting 05/21/2024 until 05/21/2025olonoscopyColonoscopy GI Routine Encounter for colonoscopy in patient with family history of colon cancer 4[facility] Work Phone: Comprehensive metabolic 2000 panel - Serum or Plasma [facility] HospitalPatient referralGreene Memorial Hospital Work Phone: [facility] Immunizations Immunization DateImmunizationNotesCare MsrkgbqsSxmhzrem85-09-1435gnoiutwge virus vaccine, unspecified formulationBryce Beltran DO Work Phone: [facility] HospitalTiiayuupdc55-79-4441lrywrwxbf virus vaccine, unspecified formulationPeoples Hospital09-25-2023influenza, high dose seasonal, preservative-freeBenjamin Ball Other [facility] Other 467955-30-1603lhxpyfmxb virus vaccine, split virus (incl. purified surface antigen)Abraham Fong Other [facility] Other 10-105394-15-0173siajnaaig virus vaccine, unspecified formulationPeoples Hospital10-18-2021influenza virus vaccine, split virus (incl. purified surface antigen)Abraham Ajit Other [facility] Other 10-376309-41-7200iyvrekvxh virus vaccine, unspecified formulationPeoples Hospital10-12-2020influenza virus vaccine, split virus (incl. purified surface antigen)Abraham Fong Other noWind[facility] Other 10359776-12-1006fmkfnlnnx virus vaccine, unspecified formulationPe[facility] Hospital06-20-2018diphtheria, tetanus toxoids and acellular pertussis vaccine, unspecified formulationBentatyana Fong Other [facility]10-23-2017 pneumococcal polysaccharide vaccine, 23 valentBenjamin Ball Other [facility]10-19-2016 pneumococcal conjugate vaccine, 13 valentBenjamin Ball Other [facility]10-19-2016 pneumococcal Conjugate, unspecified formulation; Translations: [Need for prophylactic vaccination against Streptococcus pneumoniae (pneumococcus)] Abraham Fong Other [employer] Other NEGATED: Highlighted row has not occurred!06-12-2020 influenza virus vaccine, split virus (incl. purified surface antigen)Abraham Fong Other noWind[facility] Other Payers DatePayer CategoryPayerPolicy [id number] Care Other (unspecified)[facility] Member Subscriber Plan / Payer (Effective 2023-Present) Name: Karolyn Upton Relation to Subscriber: Self Name: Karolyn Upotn Payer ID: [id number] (NAIC) Group ID: Not on file Type: Not on file Address: [facility] [id number] [place] [id number] 46-74-6715Hzhgamz Health [id number] [id number] 1960Medicare [id number] 2.0.1.101342.3.57[id number] 2.160.1.935244.3.57[id number] 2.0.1.931761.3.57[id number] 2.0.1.234282.3.57[id number] 2.16840.1.233816.3.57[id number] 2.160.1.932502.3.57[id number] 2.16840.1.112572.3.57[id number] 2.16840.1.342645.3.579.[id number] 2.16.840.1.513882.3.57[id number] 2.16.840.1.150624.3.57[id number] 2.16.840.1.001094.3.57[id number] 2.16.840.1.57[id number] 2.16.840.1.765320.3.579.2.531 Social History DateTypeDetailFacilityStart: 02-10-2019 End: 98-37-2471Xun Assigned At BirthNoex[facility] Other Start: 62-32-5843Bja Assigned At BirthLakeHealth TriPoint Medical CenterTobacco smoking status NHISTobacco smoking consumption unknownProMedica Memorial Hospital SystemStart: 02-10-2019 End: 33-92-4255Qxvbkmg of Social functionProMedica Memorial Hospital SystemStart: 77-55-8128RhhmigbnbTybjrjrMVGO HealthcareStart: 14-03-7114Ltk assigned at Not on fileProMedica Memorial Hospital SystemStart: 05-21-2024 End: 14-76-5960Yfnvwuz smoking status NHISNever smoked tobaccoProMedica Memorial Hospital SystemStart: 60-10-8759Kobdkxi use and exposureSmokeless tobacco non-user [facility] SystemStart: 78-80-9846Simwjxddx beverage intakeCurrent drinker of alcohol (finding)[facility] SystemStart: 30-85-8981Vvpaens Commentrare [facility] SystemStart: 04-06-2015 End: 97-29-4683QryBofetv (finding)[facility] SystemStart: 00-01-6722Apunpc identityIdentifies as female gender (finding)[facility] HealthcareStart: 04-19-2025 Sexual orientationChoose not to discloseNOMS Healthcare Medical Equipment Procedure CodeEquipment CodeEquipment Original TextEquipment IdentifierDates Start: 97-61-6336Mhskn Sugar Diagnostic (True Metrix Glucose Test Strip) strip Start: 72-97-0226Gcwcv Sugar Diagnostic (True Metrix Glucose Test Strip) strip Start: 01-01-2024 End: 18-99-6535Cxniy Sugar Diagnostic (True Metrix Glucose Test Strip) strip Start: 43-82-5867Aqehd Sugar Diagnostic (True Metrix Glucose Test Strip) strip Start: 01-01-2024 End: 69-74-9237Iqhjx Sugar Diagnostic (True Metrix Glucose Test Strip) strip Start: 20-64-2356Bjtxc Sugar Diagnostic (True Metrix Glucose Test Strip) strip Start: 01-01-2024 End: 54-33-9081Pluka Sugar Diagnostic (True Metrix Glucose Test Strip) strip Start: 15-96-2046Sazua Sugar Diagnostic (True Metrix Glucose Test Strip) strip Start: 01-01-2024 End: 98-58-2053Gbwxj Sugar Diagnostic (True Metrix Glucose Test Strip) strip Start: 43-17-3322Lpjfx Sugar Diagnostic (True Metrix Glucose Test Strip) strip Start: 01-01-2024 End: 73-72-9884Vneil Sugar Diagnostic (True Metrix Glucose Test Strip) strip Start: 85-55-9228Zvy Needle, Diabetic (Comfort Ez Pen Gunlock) 31 gauge x 1/4 needleStart: 59-23-6693Wdoly Sugar Diagnostic (True Metrix Glucose Test Strip) stripStart: 01-01-2024 End: 11-38-1787Mkmvg Sugar Diagnostic (True Metrix Glucose Test Strip) strip Start: 15-49-1367Cjtzymz (Comfort Ez Lancets) 23 gauge miscStart: 94-73-2563Pzi Needle, Diabetic (Comfort Ez Pen Gunlock) 31 gauge x 1/4 needleStart: 19-44-8423Oybiq Sugar Diagnostic (True Metrix Glucose Test Strip) stripStart: 01-01-2024 End: 08-05-0666Afvwt Sugar Diagnostic (True Metrix Glucose Test Strip) strip Start: 01-01-2024 End: 01-12-2025 Clinical Notes 09-05-2022 to 07-05-2025 Note Date & VfgjRokyJtwwamoz59-19-5554 History of Present illness Narrative* Bryce Beltran DO - 07/05/2025 9:45 AM EST Images from the original note were not included. Assessment/Plan Diagnoses and all orders for this visit: Pseudophakia - s/p CE OU (1mth): Patient should be close to off all post-op meds. Pt. received final refraction for this eye today. I have printed off a copy of this Rx and provided to the pt to return with to [facility]. documented [facility] this [facility]10-14-2025 History of Present illness Narrative* Bryce Beltran DO - 06/14/2025 9:45 AM EDT Images from the original note were not included. Assessment/Plan Diagnoses and all orders for this visit: Pseudophakia - s/p CE OD (POD #7): Patient provided with post-op form. Instructed to continue drops. Discontinueeye shield. Instructed to call immediately with increased pain, redness, decreased vision, questions or concerns. documented in this [facility]10-07-2025 History of Present illness Narrative* Bryce Beltran DO - 06/07/2025 9:30 AM EDT Images from the original note were not included. Assessment/Plan Diagnoses and all orders for this visit: Pseudophakia - s/p CE OD (POD #1): Patient provided with post-op form. Instructed to continue drops as well as shield. Instructed to call immediately with increased pain, redness, decreased vision, questions or concerns. documented in this [facility]09-23-2025 History of Present illness Narrative* Bryce Beltran DO - 05/24/2025 9:30 AM EDT Images from the original note were not included. Assessment/Plan Diagnoses and all orders for this visit: Pseudophakia - s/p CE OS (POD #1): Patient provided with post-op form. Instructed to continue drops as well as shield. Instructed to call immediately with increased pain, redness, decreased vision, questions or concerns. documented in this encounterRipley County Memorial [id number] History of Present illness Narrative* Bryce Beltran DO - 04/19/2025 1:15 PM EDT Images from the original note were not included. Subjective Patient ID: Karolyn Upton is a 74 y.o. female. Chief Complaint Cataract HPI Cataract In both eyes. Associated symptoms include blurred vision and a need for brighter lights. Onset was gradual. Duration of years. Frequency is constant. Context: distance vision, mid-range vision, computer work, driving, night driving and dim lighting. Since onset it is gradually worsening. Affected activities include driving, night driving, watching TV and daily activities. Comments Cataract extraction (CE) eval for pt referred by Dr Galvan. Not using any drops. Blurred for reading. Last A1c 6.2 No pm or defib No latex allergy No flomax Last edited by KIMMIE WHITFIELD on 04/19/2025 1:04 PM. Current Outpatient Medications (Ophthalmic Agents) Medication Sig Dispense Refill Qtxakobqfiw-Zoedpifb-Zledtwbmy 1-0.5-0.075 % solution Administer 1 drop into affected eye(s) in themorning and 1 drop at noon and 1 drop in the evening and 1 drop before bedtime. 10 mL 1 No current facility-administered medications for this visit. (Ophthalmic Agents) Current Outpatient Medications (Other) Medication Sig Dispense Refill atorvastatin (Lipitor) 40 MG tablet benazepril (Lotensin) 10 MG tablet benazepril-hydroCHLOROthiazide (Lotensin HCT) 20-12.5 MG tablet Drug [place] Unifine Pentips 31G X 6 MM misc USE DIRECTED insulin glargine-yfgn (Semglee-yfgn) 100 UNIT/ML pen INJECT TEN UNITS SUBCUTANEOUSLY (UNDER THE SKIN) ONCE DAILY IN THE EVENING KLOR-CON 20 MEQ ER tablet metFORMIN XR (Glucophage-XR) 500 MG 24 hr tablet Take 500 mg by mouth Daily True Metrix Blood Glucose Test test strip USE DIRECTED to test BLOOD SUGAR DAILY No current facility-administered medications for this visit. (Other) Past Medical History: Diagnosis Date Asthma (HCC) Diabetes mellitus (HCC) High cholesterol Hypertension Allergies Allergen Reactions Prednisone Dizziness Other Reaction(s): Blurred Vision Review of Systems Constitutional: Negative. HENT: Negative. Eyes: Negative. Respiratory: Negative. Cardiovascular: Negative. Gastrointestinal: Negative. Genitourinary: Negative. Musculoskeletal: Negative. Skin: Negative. Neurological: Negative. Psychiatric/Behavioral: Negative. Hematological: Negative. Endocrine: Negative. Allergic/Immunologic: Negative. Objective Base Eye Exam Visual Acuity (Snellen - Linear) Right Left Dist cc 20/40 20/40 Correction: Glasses Tonometry (Applanation, 1:17 PM) Right Left Pressure 16 16 Pupils Pupils Right PERRL Left PERRL Visual [place] Left Right Full Full Extraocular Movement Right Left Full, Ortho Full, Ortho Neuro/Psych Oriented x3: Yes Dilation Both eyes: 1.0% Mydriacyl @ 1:05 PM Additional Tests Keratometry K1 [place] K2 [place] Right 44.5 135 45.5 45 Left 44.5 13 45.5 103 Glare Testing High Right 20/200 Left 20/200 Slit Lamp and Fundus Exam External Exam Right Left External Brow ptosis Brow ptosis Slit Lamp Exam Right Left Lids/Lashes Blepharitis, Dermatochalasis - upper lid Blepharitis, Dermatochalasis - upper lid Conjunctiva/Sclera White and quiet White and quiet Cornea Decreased tear film Decreased tear film Anterior Chamber Deep and quiet Deep and quiet Iris Round and reactive Round and reactive Lens 3+ Nuclear sclerosis, 3+ Cortical cataract 3+ Nuclear sclerosis, 3+ Cortical cataract Anterior Vitreous Normal Normal Fundus Exam Right Left Disc Normal Normal Macula Normal Normal Vessels Normal Normal Periphery Normal Normal Refraction Wearing Rx Sphere Cylinder [place] Add Right -0.50 -1.25 005 +2.75 Left +0.50 -1.25 084 +2.75 Manifest Refraction Sphere Cylinder [place] Right -0.75 -0.25 138 Left +1.00 -1.75 053 Final Rx Sphere Cylinder [place] Right -0.50 -1.25 005 Left +0.50 -1.25 075 Expiration Date: 04/19/2026 Assessment/Plan Diagnoses and all orders for this visit: Age-related nuclear cataract of both eyes - Visually Significant Cataract, OU: I discussed the risks, benefits, alternatives, and expectations of cataract surgery. A complete ophthalmic exam was performed and it was determined that the cataracts were a primary source of vision decline, affecting activities of daily living, necessitating removal. Limited vision post-surgery may occur with pre-existing conditions affecting other areas of the eye or the brain was explained and the patient displayed an understanding. The overall objective is to improve ADLs, not eliminate glasses or restore vision to 20/20. Tests were reviewed - the different lens options were explained including the pii-ls-steasy fees for any upgrades. Intraocular lens (IOL) selection may be altered either prior to or during the procedure based on the doctor's discretion including reverting to a traditional intraocular lens (IOL). They understood that there will exist the potential of glasses prescription need post surgery for near, distance or possibly both. The patient stated a full understanding and a desire to proceed with the procedure. The patient received cataract measurements and had any additional questions answered. - A complete exam was performed including a physical exam: General: AAOx3 and NAD, Lungs: Clear, Heart: RRR, Abdomen: S/NT/ND, Extremities: no pitting edema. - Coordination of care will be shared with Dr. galvan. Cataract Surgery for OU will take place - in the near future. documented in this encounterRipley County Memorial [id number] Evaluation note* Diagnosis Onset Date Resolution Status Admit Date Asthma acuteMarch 2024 9:19amDiabetes mellitus with hyperglycemiaacuteOctch 2024 9:19amHypercalcemiaacuteOctch 2024 9:19amHypercholesterolemiaacute November 19, 2024 9:19amMCI (mild cognitive impairment)acuteMarch 2024 9:19amHypertensiondeletedMar2024 9:19amAortic valve sclerosisacuteMay 2024 8:46amAsthmaacuteMay 2024 8:46amDiabetes mellitus with hyperglycemiaacuteMay 2024 8:46amHypercholesterolemiaacuteMay 2024 8:46amMCI (mild cognitive impairment)acuteMay 2024 8:46am [facility] Work Phone: 1(113) 550-619012-30-2024 Evaluation note* Diagnosis Onset Date Resolution Status Admit Date Aortic valve sclerosis acuteDecemb2023 9:18amAsthmaacuteDecember 2023 9:18amDiabetes mellitus with hyperglycemiaacutece2023 9:18amHypercalcemiaacute August 30, 2024 9:18amHypercholesterolemiaacuteDecember 2023 9:18am Medicare annual wellness visit, subsequentacuteAugust 30, 2024 9:18am Pseudogout of joint of left footacuteDeceer 2023 9:18amScreening mammogram for breast canceracuteAugust 30, 2024 9:18amHypertensiondeleted August 30, 2024 9:18amAortic valve sclerosisacuteMarch 2024 9:19am AsthmaacuteMarch 2024 9:19amDiabetes mellitus with hyperglycemiaacuteMarch 2024 9:19amHypercalcemiaacuteMarch 2024 9:19amHypercholesterolemia acuteMarch 2024 9:19am [facility] Work Phone: 1(465) 258-308810-29-2024 Miscellaneous Notes* Telephone Encounter - Jennifer Waggoner CMA - 06/29/2024 9:43 AM EDT ----- Message from Dr. Azeem Perera DO sent at 06/28/2024 10:53 AM EDT ----- Please let patient know that polyp was not retrieved but I do recommend repeat colonoscopy in 5 years if she so wishes due to her family history of colon cancer and the polyp which was removed and appeared grossly benign on visualization. ThanksDr. Flores * Telephone Encounter - Jennifer Waggoner CMA - 06/29/2024 9:43 AM EDT Spoke with patient regarding pathology results. Patient verbally understood with no further questions. Recall to be put in chart. documented in this encounterCenterville10-29-2024 Telephone encounter Note* Telephone Encounter - Jennifer Waggoner CMA - 06/29/2024 9:43 AM EDT ----- Message from Dr. Azeem Perera, sent at 06/28/2024 10:53 AM EDT ----- Please let patient know that polyp was not retrieved but I do recommend repeat colonoscopy in 5 years if she so wishes due to her family history of colon cancer and the polyp which was removed and appeared grossly benign on visualization. ThanksDr. Flores [place]10-29-2024 Telephone encounter Note* Telephone Encounter - Jennfier Waggoner CMA - 06/29/2024 9:43 AM EDT Spoke with patient regarding pathology results. Patient verbally understood with no further questions. Recall to be put in chart. [place]10-07-2024 Miscellaneous Notes* Telephone Encounter - GENARO Live - 06/07/2024 9:36 AM EDT I called the patient and left a message that I called [facility] and spoke with Mary - who will inform the PAT department about her questions about the anesthesia during her colonoscopy procedure. documented in this encounterCenterville10-07-2024 Telephone encounter Note* Telephone Encounter - GENARO Live - 06/07/2024 9:36 AM EDT I called the patient and left a message that I called [facility] and spoke with Mary - who will inform the PAT department about her questions about the anesthesia during her colonoscopy procedure. [facility] [id number] Miscellaneous Notes* Telephone Encounter - Phyllis Ureña CMA - 06/07/2024 8:39 AM EDT Patient called in & just wanted Dr Perera to be aware that when she had her anesthesia for a knee replacement she was sick after she came out of the anesthesia. I did let her know that the Colonoscopy is done under MAC which is less sedation than she was underfor a knee replacement. * Telephone Encounter - Phyllis Ureña CMA - 06/07/2024 8:39 AM EDT Images from the original note were not included. Yes you told her right. She will need to speak to the industrial hire sales assistant. If you want to set up an appointment for her to speak to them prior to the colonoscopy please arrange that for her so that she is more comfortable. Thanks, Dr. Flores Received: Today DO Phyllis Perez CMA * Telephone Encounter - GENARO Live - 06/07/2024 8:39 AM EDT Images from the original note were not included. [facility] / surgery specialist Phyllis Ureña CMA; Azeem Perera DO 06/07/24 I called [facility] today 06/07/24 and spoke with Mary I [...] to let her know I spoke with [facility]. Thx, Ruby documented in this encounterCenterville10-07-2024 Telephone encounter Note* Telephone Encounter - Phyllis Ureña CMA - 06/07/2024 8:39 AM EDT Patient called in & just wanted Dr Perera to be aware that when she had her anesthesia for a knee replacement she was sick after she came out of the anesthesia. I did let her know that the Colonoscopy is done under MAC which is less sedation than she was underfor a knee replacement. [place]10-07-2024 Telephone encounter Note* Telephone Encounter - Phyllis Ureña CMA - 06/07/2024 8:39 AM EDT Images from the original note were not included. Yes you told her right. She will need to speak to the industrial hire sales assistant. If you want to set up an appointment for her to speak to them prior to the colonoscopy please arrange that for her so that she is more comfortable. Thanks, Dr. Flores Received: Today DO Phyllis Perez CMA [place]10-07-2024 Telephone encounter Note* Telephone Encounter - GENARO Live - 06/07/2024 8:39 AM EDT Images from the original note were not included. [facility] Live / surgery specialist Phyllis Ureña CMA; Azeem Perera DO 06/07/24 I called [facility] today 06/07/24 and spoke with Mary I [...] to let her know I spoke with [facility]. Thx, Ruby [place]09-20-2024 History of Present illness Narrative* Gia Moss, [employer]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 - 05/21/2024 11:00 AM EDT Chief Complaint: Family history of colon cancer History of Present Illness Karolyn Upton is a 73 y.o. female who presents to the office for colonoscopy due to family history of colon cancer. Her father had colon cancer and was diagnosed when he was around 70 years old. Her last colonoscopy was in [address] Graham in [place]. She denies constipation, abdominal pain, melena, hematochezia, unexplained weight loss. She reports diarrhea in the morning due to her diabetic medication. Review of Systems Constitutional: Negative for fever and unexpected weight change. HENT: Negative for trouble swallowing. Respiratory: Negative for shortness of breath. Cardiovascular: Negative for chest pain. Gastrointestinal: Negative for nausea, vomiting, abdominal pain, diarrhea, constipation, blood in stool and black tarry stool. Genitourinary: Negative for dysuria and difficulty urinating. Musculoskeletal: Negative for gait problem. Skin: Negative for rash and wound. Neurological: Negative for dizziness, weakness and light-headedness. Hematological: Does not bruise/bleed easily. Psychiatric/Behavioral: Negative for confusion. Past Medical History: Diagnosis Date Asthma Diabetes mellitus ([facility]) High cholesterol Hypertension Past Surgical History: Procedure Laterality Date KNEE ARTHROPLASTY Left TUBAL LIGATION Allergies Allergen Reactions Prednisone Blurred Vision and Dizziness Current Outpatient Medications: amLODIPine (NORVASC) 5 mg tablet, Take 1 tablet (5 mg total) by mouth in the morning., Disp: , Rfl: B3/B5/B6/B7/folic/B12/inosit/C (B COMPLEX-VITAMIN C ORAL), Take by mouth., Disp: , Rfl: benazepril-hydroCHLOROthiazide (LOTENSIN HCT) 20-12.5 mg per tablet, Take 1 tablet by mouth in the morning., Disp: , Rfl: JANUMET 50-1,000 mg per tablet, Take 1 tablet by mouth in the morning and 1 tablet in the evening. Take with meals., Disp: , Rfl: loratadine (CLARITIN ORAL), Take by mouth once daily., Disp: , Rfl: lovastatin (MEVACOR) 40 mg tablet, Take 1 tablet (40 mg total) by mouth nightly., Disp: , Rfl: peg 3350-sod sulf,upbe-cyp-uqz 178.7-7.3-0.5 gram recon soln, Take 1 kit by mouth once daily for 1 dose. Please see instructional sheet given by physicians office., Disp: 1 each, Rfl: 0 Social History Socioeconomic History Marital status: Spouse name: Not on file Number of children: Not on file Years of education: Not on file Highest education level: Not on file Occupational History Not on file Tobacco Use Smoking status: Never Smokeless tobacco: Never Vaping Use Vaping status: Never Used Substance and Sexual Activity Alcohol use: Yes Comment: rare Drug use: Never Sexual activity: Defer Other Topics Concern Not on file Social History Narrative Not on file Social Determinants of Health Financial Resource Strain: Not on file Food Insecurity: Not on file Transportation Needs: Not on file Physical Activity: Not on file Stress: Not on file Social Connections: Not on file Interpersonal Safety: Not on file Housing Instability: Not on file Family History Problem Relation Age of Onset Alzheimer's disease Mother Colon cancer Father Objective Physical Exam Constitutional: General: She is not in acute distress. Appearance: Normal appearance. She is not ill-appearing. HENT: Head: Normocephalic and atraumatic. Mouth/Throat: Mouth: Mucous membranes are moist. Eyes: Pupils: Pupils are equal, round, and reactive to light. Cardiovascular: Rate and Rhythm: Normal rate and regular rhythm. Pulmonary: Effort: Pulmonary effort is normal. No respiratory distress. Abdominal: General: Bowel sounds are normal. There is no distension. Palpations: Abdomen is soft. Tenderness: There is no abdominal tenderness. Musculoskeletal: General: Normal range of motion. Skin: General: Skin is warm and dry. Neurological: Mental Status: She is alert and oriented to person, place, and time. Mental status is at baseline. Vital Signs: Blood pressure 138/84, weight 65.6 kg (144 lb 9.6 oz). Respiratory Source: No data recorded Admission Weight: Weight: 65.6 kg (144 lb 9.6 oz) Labs No results found for: WBC , HGB , HCT , MCV , PLT No results found for: GLU , CALCIUM , NA , K , CO2 , CL , BUN , CREATININE No results found for: AMYLASE No results found for: LIPASE No results found for: ALT , AST , GGT , ALKPHOS , LABBILI No results found for: INR , PROTIME Assessment Karolyn Upton is a 73 y.o.female who presents to the office for colonoscopy due to a family history of colon cancer in her father. Plan Colonoscopy with possible biopsy and/or polypectomy. Risks, benefits, and alternatives discussed with patient. Educated on bowel evacuation preparation. Patient verbalizes understanding and wishes toproceed. Evaluation included: Preparing to see the patient (e.g., review of tests) Obtaining and/or reviewing separately obtained history Performing a medically appropriate examination and/or evaluation Counseling and educating the patient/family/caregiver Referring and communicating with other health child care giver Encounter for colonoscopy in patient with family history of colon cancer [Z12.11, Z80.0] GEOVANI FRIAS [facility] General Surgery [place] This note was created with the assistance of a speech recognition program. While intending to generate a timely document that accurately reflects the content of the visit, no guarantee can be provided that every grammatical or spelling mistake has been or will be identified or corrected. Thank you for your understanding. GEOVANI Frias 05/21/24 1124 documented in this encounterCenterville09-04-2024 Miscellaneous Notes* Telephone Encounter - Lily Christianson - 05/05/2024 1:32 PM EDT Called Karolyn regarding the screening colonoscopy referral that our office received from Dr Fong, left message on voicemail to call the office back to schedule an appointment. * Telephone Encounter - Lily Christianson - 05/05/2024 1:32 PM EDT Karolyn called the office back and we scheduled an appointment on 05/21/24. documented in this encounterCenterville09-04-2024 Telephone encounter Note* Telephone Encounter - Lily Christianson - 05/05/2024 1:32 PM EDT Called Karolyn regarding the screening colonoscopy referral that our office received from Dr Fong, left message on voicemail to call the office back to schedule an appointment. [facility] C[id number] Telephone encounter Note* Telephone Encounter - Lily Christianson - 05/05/2024 1:32 PM EDT Karolyn called the office back and we scheduled an appointment on 05/21/24. [facility] [employer]24 Evaluation note* Encounter Date Diagnosis Assessment Notes Treatment Notes Treatment Clinical Notes Oct, Acute non-recurrent maxillary si nusitis (ICD-10 - J01.00) [employer] Other 12-26-2023 Evaluation note* Encounter Date Diagnosis Assessment Notes Treatment Notes Treatment Clinical Notes Aug, Controlled type 2 di abetes mellitus with [...] Microalbumin, Dilated eye exam and Foot exam [facility], subsequent (ICD-10 - Z00.00) [...] reviewed and amended by provider signed below. Aug,rimary hypertension (ICD-10 - I10)This patient is instructed to consume a healthy, low-fat, low-salt diet. They are also encouraged to continue exercise to achieve/maintain a normal BMI. Patient is instructed on home BP measurements: - rest for 5 minutes w/o talking- positioned w/ feeton floor and arm supported- average best 2/3 readings w/ goal < 135/85 _update office in couple days Aug,sthma, intermittent, uncomplicated (ICD-10 - J45.20)No ER visits for AE Continue present treatment UTD w/ vaccines Aug,ortic valve sclerosis (ICD-10 - I35.8)No symptoms of CP, tachycardia or lightheadedness COntrol BP and monitor every 3 years Aug,Elevated cholesterol (ICD-10 - E78.00)Instructed on diet and exercise with continued statin therapy.Discussed the beneficial effects of lo wering cholesterol in reducing the risk for cerebrovascular and cardiovascular disease. Aug,Lumbar spondylosis (ICD-10 - M47.816)The patient is instructed to avoid bending, twisting or lifting. They are to use intermittent heat and ice as needed. They may schedule a massage or gentle manipulation. They may safely use Tylenol as needed. Aug,High risk medication use (ICD-10 - Z79.899) Aug,Screening mammogram for breast cancer (ICD-10 - Z12.31)Instructed patient on monthly SBE and yearly mammograms. [employer] Other 11-08-2023 Evaluation note* Encounter Date Diagnosis Assessment Notes Treatment Notes Treatment Clinical Notes Jul, Controlled type 2 di abetes mellitus with hyperglycemia, without long-term current use of insulin (ICD-10 - E11.65) [employer] Other 10-16-2023 Evaluation note* Encounter Date Diagnosis Assessment Notes Treatment Notes Treatment Clinical Notes Jun, Acute bronchitis due to other sp ecified organisms (ICD-10 - J20.8) Instructed to use Robitussin or Mucinex for cough, saline or Flonase NS for congestion, Tylenol forpain and fever. Jun,ontrolled type 2 diabetes mellitus with hyperglycemia, without long-term current use of insulin (ICD-10 - E11.65)BS may increase during illness, no need to change treatment. Push fluids and rest [employer] Other 09-25-2023 Evaluation note* Encounter Date Diagnosis Assessment Notes Treatment Notes Treatment Clinical Notes May, Primary hypertension (ICD-10 - I 10) This patient is instructed to consume a healthy, low-fat, low-salt diet. They are also encouraged to continue exercise to achieve/maintain a normal BMI. May,ontrolled type 2 diabetes mellitus with hyperglycemia, without long-term current use of insulin (ICD-10 - E11.65)This patient is following a comprehensive diabetic treatment [...] Microalbumin, Dilated eye exam and Foot exam May,sthma, intermittent, uncomplicated (ICD-10 - J45.20)No ER/hosp visits for AE Seasonal exacerbations typical - instructed to use Flonase and Yvonne May,ortic valve sclerosis (ICD-10 - I35.8)Asymptomatic w/o CP, tachycardia or syncope/lightheadedness. Must control BP, instructed to recheck at home w/ goal < 135/85 May,Elevated cholesterol (ICD-10 - E78.00)Instructed on diet and exercise with continued statin therapy.Discussed the beneficial effects of lo wering cholesterol in reducing the risk for cerebrovascular and cardiovascular disease. May,Lumbar spondylosis (ICD-10 - M47.816)The patient is instructed to avoid bending, twisting or lifting. They are to use intermittent heat and ice as needed. They may schedule a massage or gentle manipulation. They may safely use Tylenol as needed. [employer] Other 09-18-2023 Evaluation note* Encounter Date Diagnosis Assessment Notes Treatment Notes Treatment Clinical Notes May, Sensorineural hearing loss (SNHL ) of both ears (ICD-10 - H90.3) Fitted w/ hearing aids w/ excellent correction. Cone missing on left hearing aid and suspected to be in EAC Examination revealed the EAC to be patent w/o FB w/ TM instact and transclucent May,rimary hypertension (ICD-10 - I10)This patient is instructed to consume a healthy, low-fat, low-salt diet. They are also encouraged to continue exercise to achieve/maintain a normal BMI. [employer] Other 06-23-2023 Evaluation note* Encounter Date Diagnosis Assessment Notes Treatment Notes Treatment Clinical Notes Jan, Primary hypertension (ICD-10 - I 10) This patient is instructed to consume a healthy, low-fat, low-salt diet. They are also encouraged to continue exercise to achieve/maintain a normal BMI. Jan,ontrolled type 2 diabetes mellitus with hyperglycemia, without long-term current use of insulin (ICD-10 - E11.65)This patient is following a comprehensive diabetic treatment [...] Microalbumin, Dilated eye exam and Foot exam Jan,sthma, intermittent, uncomplicated (ICD-10 - J45.20)Denies any ER visits for AECOPD Jan,ortic valve sclerosis (ICD-10 - I35.8)Asymptomatic, denies CP, tachycardia or syncope Jan,Elevated cholesterol (ICD-10 - E78.00)Instructed on diet and exercise with continued statin therapy.Discussed the beneficial effects of lo wering cholesterol in reducing the risk for cerebrovascular and cardiovascular disease. Jan,Lumbar spondylosis (ICD-10 - M47.816)The patient is instructed to avoid bending, twisting or lifting. They are to use intermittent heat and ice as needed. They may schedule a massage or gentle manipulation. They may safely use Tylenol as needed. Jan,llergic contact dermatitis due to plants, except food (ICD-10 - L23.7)Cool compresses avoid scratching [employer] Other 02-23-2023 Evaluation note* Encounter Date Diagnosis Assessment Notes Treatment Notes Treatment Clinical Notes Oct, Controlled type 2 di abetes mellitus with [...] A1C: [ ] Microalbumin: [ ] Eye exam:[ ] Foot exam: [ ] Oct,rimary hypertension (ICD-10 - I10)This patient is instructed to consume a healthy, low-fat, low-salt diet. They are also encouraged to continue exercise to achieve/maintain a normal BMI. Oct,sthma, intermittent, uncomplicated (ICD-10 - J45.20)Seasonal symptoms. No ER visits for exacerbations. Uses Flonase and MAIKEL as needed Oct,ortic valve sclerosis (ICD-10 - I35.8)Denies CP, tachycardia or syncope. Control BP Echo qoy Oct,Elevated cholesterol (ICD-10 - E78.00)Diet and exercise with continued statin therapy. Oct,Lumbar spondylosis (ICD-10 - M47.816)The patient is instructed to avoid bending, twisting or lifting. They are to use intermittent heat and ice as needed. They may schedule a massage or gentle manipulation. They may safely use Tylenol as needed. Oct,Left leg pain (ICD-10 - M79.605)Quad exercises, ice/heat and NSAIDS. Monitor for now. CT/MRI ? Refer to Ortho ? Oct,Quadriceps weakness (ICD-10 - M62.81)Chronic w/ acute worsening. Monitor for now. [employer] Other 02-07-2023 NotePROCEDURE: XR HIP LT 2 [...] Electronically authenticated by: EDMUNDO DUQUE Date: 2022-10-08 07:45[facility]02-06-2023 Evaluation note* Encounter Date Diagnosis Assessment Notes Treatment Notes Treatment Clinical Notes Oct, Acute left-sided low back pain with left-sided sciatica (ICD-10 - M54.42) The patient is instructed to avoid bending, twisting or lifting. They are to use intermittent heat and ice as needed. They may schedule a massage or gentle manipulation. They may safely use Tylenol as needed. XR ordered Oct,Hip pain (ICD-10 - M25.559)Heat, ice and ROM exercises. Initiate NSAIDs. XR ordered [employer] Other 01-05-2023 Evaluation note* Encounter Date Diagnosis Assessment Notes Treatment Notes Treatment Clinical Notes Sep, Primary hypertension (ICD-10 - I 10) [employer] Other Evaluation noteNo InformationNort Surgery Center at [facility] Other evaluation note* Diagnosis Onset Date Resolution Status Aortic valve sclerosis acuteAsthmaacuteDiabetes mellitus with hyperglycemiaacuteElevated cholesterol [facility]Mary[facility] Work Phone: Evaluation note* Diagnosis Onset Date Resolution Status Aortic valve sclerosis acuteAsthmaacuteDiabetes mellitus with hyperglycemiaacuteElevated cholesterol acuteHypertensionacuteAortic valve sclerosisacuteAsthmaacuteDiabetes mellitus with hyperglycemiaacuteElevated cholesterolacuteHypertensionMer[facility] Work Phone: Evaluation note* Diagnosis Onset Date Resolution Status Aortic valve sclerosis acuteAsthmaacuteDiabetes mellitus with hyperglycemiaacuteElevated cholesterol acuteHypertensionacuteAortic valve sclerosisacuteAsthmaacuteDiabetes mellitus with hyperglycemiaacuteElevated cholesterolacuteEncounter for screening for malignant neoplasm of colonacuteMarymount Hospital Work Phone: Evaluation note* Diagnosis Onset Date Resolution Status Aortic valve sclerosis acuteAsthmaacuteDiabetes mellitus with hyperglycemiaacuteElevated cholesterol acuteEncounter for screening for malignant neoplasm of colonacuteHypertension acute [facility] Work Phone: Evaluation note* Diagnosis Encounter for colonoscopy in patient with family history of colon cancer- Primary [facility] Diagnosis Encounter for colonoscopy in patient with family history of colon cancer [facility]* Diagnosis Onset Date Resolution Status Admit Date Anxiety as acute reaction to exceptional stress acuteAugust 2024 8:44amAortic valve sclerosisacuteAugust 2024 8:44am AsthmaacuteAugust 2024 8:44amDiabetes mellitus with hyperglycemiaacute Calio 2024 8:44amHypercholesterolemiaacuteAugust 2024 8:44amMCI (mild cognitive impairment)acuteAugust 2024 8:44amPrimary hypertension acuteAugust 2024 8:44am [facility] Work Phone: Evaluation note* Diagnosis Age-related nuclear cataract of both eyes- Primary documented in this encounter [facility] HealthcareEvaluation note* Diagnosis Pseudophakia- Primary Lens replaced by other means documented in this encounter [facility] HealthcareEvaluation note* Diagnosis Pseudophakia- Primary Lens replaced by other means Age-related nuclear cataract of right eye documented in this encounter [facility] HealthcareEvaluation note* Diagnosis Pseudophakia- Primary Lens replaced by other means documented in this encounter [facility] HealthcareHistory general Narrative - Reported* Type Description Date Surgical History COLONOSCOPY 2002, 2013, 201 9 Surgical History BREAST BX 2011 Surgical History LEFT TKA 2014 Hospitalization History SEE SURGICAL HX [employer] Other History general Narrative - Reported* Type Description Date Medical History Family history of malignant neop lasm of digestive organs Medical HistoryEncounter for screening for malignant neoplasm of colonMedical HistoryPrimary hypertensionMedical HistoryAcute bilateral low back pain with left-sided sciaticaMedical HistoryMenopauseMedical HistoryAortic valve sclerosis Medical HistoryAsthma, intermittent, uncomplicatedMedical HistoryControlled type 2 diabetes mellitus with hyperglycemia, without long-term current use of insulin Medical HistoryChest painMedical HistoryHypokalemiaSurgical HistoryCOLONOSCOPY 2003, 2013, 2019Surgical HistoryBREAST [id number] HistoryLEFT [id number] Hospitalization HistorySEE SURGICAL HX [facility] [employer] Other History of Present illness Narrative* Bryce Beltran DO - 05/31/2025 10:15 AM EDT Images from the original note were not included. Assessment/Plan Diagnoses and all orders for this visit: Pseudophakia - s/p CE OS (POD #7): Patient provided with post-op form. Instructed to continue drops. Discontinueeye shield. Instructed to call immediately with increased pain, redness, decreased vision, questions or concerns. Age-related nuclear cataract of right eye - Visually Significant Cataract, OD: I discussed the risks, benefits, alternatives, and expectations of cataract surgery. A complete ophthalmic exam was performed and it was determined that the cataracts were a primary source of vision decline, affecting activities of daily living, necessitating removal. Limited vision post-surgery may occur with pre-existing conditions affecting other areas of the eye or the brain was explained and the patient displayed an understanding. The overall objective is to improve ADLs, not eliminate glasses or restore vision to 20/20. Tests were reviewed - the different lens options were explained including the wmu-pj-nwrxad fees for any upgrades. Intraocular lens (IOL) selection may be altered either prior to or during the procedure based on the doctor's discretion including reverting to a traditional intraocular lens (IOL). They understood that there will exist the potential of glasses prescription need post surgery for near, distance or possibly both. The patient stated a full understanding and a desire to proceed with the procedure. The patient received cataract measurements and had any additional questions answered. - A complete exam was performed including a physical exam: General: AAOx3 and NAD, Lungs: Clear, Heart: RRR, Abdomen: S/NT/ND, Extremities: no pitting edema. documented in this encounterNON[facility] Discharge instructions Ambulatory Orders* Referral to General Surgery Location: None Selected [facility] Work Phone: InstructionsNot on filedocumented in this encounter [facility]Not on filedocumented in this encounter [facility] SystemInstructionsNot on filedocumented in this encounter [facility] SystemInstructionsNot on filedocumented in this encounter [facility] SystemInstructionsNot on filedocumented in this encounter [facility] SystemInstructionsNot on filedocumented in this encounter [facility] SystemReason for referral (narrative)No reason for referral information availableGreene [facility] Hospital Work Phone: Summary Purpose Family History No Family History Records Found Relationship Condition Age at Onset Recorded Date/T jeanie brother Heart disease Unknown fatherFamily history of colon cancerUnknownMalignant neoplasmUnknownsister Diabetes mellitusUnknown Advance Directives No Advanced Directives Records Found Advance Directive Response Recorded Date/ Time Advance Directives No September 24, 2023 10:25am Chief Complaint and Reason for Visit Chief Complaint Amb Documentation 3 month follow upReason for VisitAortic valve sclerosis Asthma Diabetes mellitus with hyperglycemia Elevated cholesterol Hypertension Chief Complaint 3 month follow up 3 month follow upReason for VisitAortic valve sclerosis Asthma Diabetes mellitus with hyperglycemia Elevated cholesterol Hypertension Aortic valve sclerosis Asthma Diabetes mellitus with hyperglycemia Elevated cholesterol Hypertension Chief Complaint 3 month follow up f/uReason for VisitAortic valve sclerosis Asthma Diabetes mellitus with hyperglycemia Elevated cholesterol Hypertension Aortic valve sclerosis Asthma Diabetes mellitus with hyperglycemia Elevated cholesterol Encounter for screening for malignant neoplasm of colon Hypertension Chief Complaint f/u UnknownReason for VisitAortic valve sclerosis Asthma Diabetes mellitus with hyperglycemia Elevated cholesterol Encounter for screening for malignant neoplasm of colon Hypertension Chief Complaint Admit Date Wellness August 30, 2024 9:18am CC Adult Risk Stratification September 1:21pm 1 week f/u November 19, 2024 9:1 9am Reason for Visit Admit Date Aortic valve sclerosis August 30 9:18am Asthma August 30, 2024 9:18am Diabetes mellitus with hyperglycemia Dec emb2023 9:18am Hypercalcemia August 30, 2024 9:18am Hypercholesterolemia August 30, 2024 9:18am Medicare annual wellness visit, subseque nt August 30, 2024 9:18am Pseudogout of joint of left foot Decembe r 2023 9:18am Screening mammogram for breast cancer De cember 2023 9:18am Hypertension August 30, 2024 9:18am Aortic valve sclerosis November 19, 2024 9:19am Asthma November 19, 2024 9:1 9am Diabetes mellitus with hyperglycemia Oct 9:19am Hypercalcemia November 19, 2024 9:1 9am Hypercholesterolemia November 19, 2024 9: 19am Chief Complaint Admit Date 1 week f/u November 19, 2024 9:1 9am 4 month f/u December 30, 2024 8:46am Reason for Visit Admit Date Asthma November 19, 2024 9:1 9am Diabetes mellitus with hyperglycemia Oct 9:19am Hypercalcemia November 19, 2024 9:1 9am Hypercholesterolemia November 19, 2024 9: 19am MCI (mild cognitive impairment) November 192024 9:19am Hypertension November 19, 2024 9:1 9am Aortic valve sclerosis December 30, 2024 8:4 6am Asthma December 30, 2024 8:46am Diabetes mellitus with hyperglycemia December 30, 2024 8:46am Hypercholesterolemia December 30, 2024 8:46a m MCI (mild cognitive impairment) December 30, 2024 8:46am Chief Complaint Admit Date 3 month f/u April 14, 2025 8: 44am Reason for Visit Admit Date Anxiety as acute reaction to exceptional stress April 14, 2025 8:44am Aortic valve sclerosis April 14, 2025 8:44am Asthma April 14, 2025 8: 44am Diabetes mellitus with hyperglycemia Apr 8:44am Hypercholesterolemia April 14, 2025 8 :44am MCI (mild cognitive impairment) April 012024 8:44am Primary hypertension April 14, 2025 8 :44am Reason for Referral SpecialtyDiagnoses / ProceduresReferred By ContactReferred To Contact Diagnoses Encounter for colonoscopy in patient with family history of colon cancer Gia Moss, 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 TI[employer]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 [address] [place] [address] Referral IDStatusReasonStart DateExpiration DateVisits RequestedVisits [id number] Additional Source Comments INFORMATION SOURCE (unrecogn ized section and content) DATE CREATED AUTHOR 10/10/2022 [facility] DATE CREATED AUTHOR AUTHOR'S ORGANIZ ATION 05/23/2024 [facility] DATE CREATED AUTHOR AUTHOR'S ORGANIZ ATION 06/18/2024 [facility] DATE CREATED AUTHOR AUTHOR'S ORGANIZ ATION 07/06/2025 [facility] EPIC REASON FOR VISIT (unrecogniz ed section and content) ReasonCommentsPost-op Gzctky-beLmbfylrtXqxapyRuhiuaxgNwdj-lgHmsoxvPipuohdn CataractReasonCommentsColon Cancer ScreeningLast colon 04/2019 Reminderwellnessmamm resultsPOSSIBLE SINUS INFECTION [phone] month Follow upHearing Aid-Look in EarLab ResultsDiabetes [...] 2024 Team Status: Active Member Role Status Lisa Fong DO Primary Care Provide r, Attending Provider Active Start: February 17, 2024 Team Status: Inactive Member Role Status Dates Abraham Fong DO Primary Care Provide r, Attending Provider Active Start: May 04, 2024 End: May 04, 2024 Team Status: Active Member Role Status Dates PHYSICIAN NO FAMILY Primary Care Provider Active Start: October 30, 2023 Angélica Branham RMAAttrenton ProviderActiveStart: October 30, 2023 Team Status: Active Member Role Status Dates PHYSICIAN NO FAMILY Primary Care Provider Active Start: November 18, 2023 Tamanna Irizarry ProviderActiveStart: November 18, 2023 Team Status: Inactive Member Role Status Dates Abraham Fong DO Primary Care Provide r, Attending Provider Active Start: November 25, 2023 End: November 25, 2023 Team Status: Inactive Member Role Status Dates Abraham Fong DO Primary Care Provider Active Start: June 16, 2024 End: June 16, 2024Dari Perezending ProviderActiveStart: June 16, 2024 End: June 16, 2024Team MemberRelationshipSpecialtyStart DateEnd Date Abraham Fong DO [address] [place] [address] PCP - GeneralInternal Medicine05/05/24Team MemberRelationshipSpecialtyStart Date End Date Abraham Fong DO [address] [place] [address] PCP - GeneralInternal Medicine05/05/24Team MemberRelationshipSpecialtyStart Date End Date Abraham Fong DO [address] [place] [address] PCP - GeneralInternal Medicine05/05/24Team MemberRelationshipSpecialtyStart Date End Date Abraham Fong DO [address] [place] [address] PCP - GeneralInternal Medicine05/05/24Team MemberRelationshipSpecialtyStart Date End Date Abraham Fong DO [address] [place] [address] PCP - GeneralInternal Medicine05/05/24 Team Status: Inactive Member Role Status Dates Abraham Fong DO Primary Care Provide r, Attending Provider Active Start: August 30, 2024 End: August 30, 2024 Team Status: Active Member Role Status Dates Abraham Fong DO Primary Care Provide r, Attending Provider Active Start: September 07, 2024 Team Status: Active Member Role Status Dates Abraham Fong DO Primary Care Provide r, Attending Provider Active Start: September 10, 2024 Team Status: Inactive Member Role Status Dates Abraham Fong DO Primary Care Provide r, Attending Provider Active Start: November 19, 2024 End: November 19, 2024Team MemberRelationshipSpecialtyStart DateEnd Date Abraham Fong DO [address] [place] [address] PCP - GeneralInternal Medicine05/05/24 Team Status: Inactive Member Role Status Dates Abraham Fong DO Primary Care Provide r, Attending Provider Active Start: December 30, 2024 End: December 30, 2024 Team Status: Inactive Member Role Status Dates Abraham Fong DO Primary Care Provider Active Start: April 14, 2025 End: April 14entatyana Fong DOAttending ProviderActiveStart: April 14, 2025 End: April 14, 2025Team MemberRelationshipSpecialtyStart DateEnd Date Abraham Fong DO [address] [place] [id number] [facility] - [facility]04/19/25Team MemberRelationshipSpecialtyStart Date End Date Abraham Fong DO [address] [place] [facility] [address] [facility] - [facility] Peorianal Medicine04/19/25Team MemberRelationshipSpecialtyStart Date End Date Abraham Fong DO [address] [place] [facility] [address] PCP - GeneralInternal Medicine04/19/25Team MemberRelationshipSpecialtyStart Date End Date Abraham Fong DO [address] [place] [facility] [address] PCP - GeneralInternal Medicine04/19/25Team MemberRelationshipSpecialtyStart Date End Date Abraham Fong DO [address] [place] [address] PCP - GeneralInternal Medicine04/19/25Team MemberRelationshipSpecialtyStart Date End Date Abraham Fong DO [address] [facility] [place] [id number] PCP - GeneralInternal [facility]04/19/25Team MemberRelationshipSpecialtyStart Date End Date Abraham Fong DO [address] [place] [facility] [address] [facility] - [facility]04/19/25Team MemberRelationshipSpecialtyStart Date End Date Abraham Fong DO [address] [place] [facility] [address] [facility] - [facility]04/19/25 Goals (unrecognized section and content) Goals may [...] BE BASED ON THE PRIMARY CLINICAL RECORDS. [facility] [employer] [facility]. provides no warranty or guarantee of the accuracy or completeness of information in this document.
--- NOTE | 2025-08-31 07:18 | MM_ITS ---
Patient Name: MARCUS GUSTAFSON MR#: [id number] : 1950 Exam Date: 08/31/2025 Ordering Doctor: DR MAIA MONTIEL D.O. RADIOLOGY REPORT PROCEDURE: MM TOMOSYNTHESIS SCREENING BI COMPARISON: MM TOMOSYNTHESIS SCREENING BI, 08/06/2024. MM TOMOSYNTHESIS SCREENING BI, 08/04/2023. MG MAMM SCREEN 3D ADAN CAD, 07/26/2022. MG MAMM ADAN SCRN W CAD DIG, 04/06/2013. INDICATIONS: Screening Calculator Name NCI Breast Cancer Risk Assessment Tool 5 Year Breast Cancer Risk 1.50% Lifetime Breast Cancer Risk 3.50% Personal Breast Cancer No Personal Ovarian Cancer No Treatments None Family Cancers Father with colon cancer at age 76. LOCATION: [facility] BREAST COMPOSITION: There are scattered areas of fibroglandular density. FINDINGS: DIAGNOSTIC CATEGORY 1--NEGATIVE. LEFT BREAST: No significant suspicious finding. RIGHT BREAST: No significant suspicious finding. RECOMMENDATIONS: ROUTINE MAMMOGRAM AND CLINICAL EVALUATION IN 12 MONTHS. Dictated by: Benjamin Valderrama MD on 08/31/2025 at 09:39 Approved by: Benjamin Valderrama MD on 08/31/2025 at 09:41
--- OUTSIDE RECORDS SUMMARY | 2025-08-31 07:18 | XMS_ITS | Clinical Summary ---
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 Name Role Phone Abraham Fong Primary Care Provider [phone] Allergies Active AllergyReactionsCriticalityNoted DateCommentsPrednisoneDizziness 05/04/2024 Other Reaction(s): Blurred Vision Medications MedicationSigDispense QuantityRefillsLast FilledStart DateEnd DateStatus atorvastatin (Lipitor) 40 MG tablet 5Active benazepril (Lotensin) 10 MG tablet 5Active benazepril-hydroCHLOROthiazide (Lotensin HCT) 20-12.5 MG tablet 5Active True Metrix Blood Glucose Test test strip USE DIRECTED to test BLOOD SUGAR DAILY5Active metFORMIN XR (Glucophage-XR) 500 MG 24 hr tablet Take 500 mg by mouth Daily5Active KLOR-CON 20 MEQ ER tablet 5Active Puzvvtqrnlz-Lsvlpfno-Yhadgxfom 1-0.5-0.075 % solution Indications:Age-related nuclear cataract of both eyesAdminister 1 drop into affected eye(s) in the morning and 1 drop at noon and 1 drop in the evening and 1 drop before bedtime. 10 mL 5Active insulin glargine-yfgn (Semglee-yfgn) 100 UNIT/ML pen INJECT TEN UNITS SUBCUTANEOUSLY (UNDER THE SKIN) ONCE DAILY IN THE EVENING 5Active Drug [place] Unifine Pentips 31G X 6 MM misc USE CKVUWXWN88/07/2025tive Active Problems ProblemNoted DateDiagnosed PteuKvbtewgdhxdi29/23/2025 Resolved Problems ProblemNoted DateDiagnosed DateResolved DateAge-related nuclear cataract of right eyege-related nuclear cataract of both eyes04/19/2025 05/31/2025 Encounters DateTypeDepartmentCare CiagUlepwcbbzay28/04/2025 9:45 AM ESTOffice Visit [facility] [address] [place] [address] Sagar Beltran, Pseudophakia (Primary Dx)07/05/2025amboo flowsheet [facility] [address] [place] [address] Sagar Beltran, 07/05/20256160Hmvdbp77/14/2025 9:45 AM EDTOffice Visit [facility] [address] [place] [address] Sagar Beltran, DO Pseudophakia (Primary Dx)06/14/2025amboo flowsheet [facility] [address] [place] [address] Rosalinda Pavon MD 06/14/20253997Sulkyn88/07/2025 9:30 AM EDTOffice Visit [facility] [address] [place] [address] Sagar Beltran, DO Pseudophakia (Primary Dx)06/07/2025amboo flowsheet [facility] [address] [place] [address] Sagar Beltran, DO 06/07/20250291Oepcsq70/30/2025 10:15 AM EDTOffice Visit [facility] [address] [place] [address] Sagar Beltran, DO Pseudophakia (Primary Dx); Age-related nuclear cataract of right eye05/31/2025amboo flowsheet [facility] [address] [place] [address] Sagar Beltran, 05/31/2025Travelfrom Last 3 Months Family History Medical HistoryRelationNameCommentsGlaucomaNeg HxMacular degenerationNeg Hx Social History Tobacco UseTypesPacks/DayYears UsedDateSmoking Tobacco: Never Tobacco Cessation:Counseling Given: Not Answered CommentsUnknownSex and Gender InformationValueDate RecordedSex Assigned at DzfwrLnhpqb67/19/2025 7:43 AM EDTLegal VwgWzobar49/15/2023 11:19 PM EDTGender KmhvcvxjDnzonf22/19/2025 7:43 AM EDTSexual OrientationChoose not to disclose 04/19/2025 7:43 AM EDT Last Filed Vital Signs Vital SignReadingTime TakenCommentsBlood Pressure--Pulse--Temperature-- Respiratory Rate--Oxygen Saturation--Inhaled Oxygen Concentration--Fqcsjo37.2 kg (143 lb 12.8 oz)05/17/2021 12:00 PM LKUGxnbzc232 cm (5' 3 )05/17/2021 12:00 PM EDTBody Mass Index25.47005/17/2021 12:00 PM EDT Plan of Treatment Health MaintenanceDue DateLast DoneCommentsCT Opkxfxishnex1950olonoscopy 1950olorectal Cancer Onqrvsxul1950FIT-DNA1950FIT1950 FOBT06/03/19515846Lsnariacmgwtz45/03/7249Fyykpwegr56/03/1991Influenza Vaccine (#1) 501/, 05/26/2023, 06/20/2022, Additional history exists Pneumococcal Vaccine: 65+ CgezgHlscbxkzk16/23/2017, 06/19/2016 Insurance * Guarantor: Karolyn Upton TypeRelation to PatientDate of PhoneBilling AddressPersonal/HkqvbxEhxv1950 [address] [address] [place] [address] Care Teams Team MemberRelationshipSpecialtyStart DateEnd Abraham Fong DO [address] [place] [address] PCP - GeneralInternal Medicine04/19/25
== END 2025-08-31 07:16 | disposition home or self-care (01) ==
LOC: MAMMO 07:15
PROVIDERS: PCP Internal Medicine; Visit Provider Internal Medicine
DX: Z12.31 Encounter for screening mammogram for malignant neoplasm of breast (principal)
CPT/HCPCS: 77063; 77067